=== PATIENT | male | born 1960 | race African-American/Black ===

== ENCOUNTER 2016-08-12 14:36 | Inpatient (IN) | payer MEDICARE, BC ==
[~2016-08-12] VITALS: Ht 167.6 cm; Wt 68.2 kg
[~2016-08-12 14:36] MED LIST: ACET500T68 PO; AMLO10TA2 PO; AMMO226L TP; ASPI325T4 PO; ATOR20TA58 PO; BENZ100C PO; CALC200T3 PO; CARV12.5 PO; CARV3.122 PO; CARV6.252 PO; CLON0.2T PO; DARB60DI SQ; ENOX40DI SQ; FERR-26 PO; FLUT9.9S NS; FOLI0.8T3 PO; HYDR-210 PO; HYDR-2762 PO; INSU100I11 SQ; INSU100I13 SQ; INSU100I17 SQ; INSU100V8 SQ; IPRA3AMP NEB; IRON18TA PO; LISI-334 PO; LISI40TA PO; LORA10TA68 PO; MINO100C PO; ONDA4TAB12 PO; ONDA4TAB7 PO; OXYC10TA57 PO; OXYC5CAP3 PO; OXYC5TAB PO; PANT40TA5 PO; PROM6.25 PO; RAMI10CA PO; SENN1TAB7 PO; SODI650T PO; SUCR1TAB29 PO; VIT1TABL57 PO; ZOLP10TA PO
--- NOTE | 2016-08-12 15:25 | RAD ---
EXAM: Chest one view. HISTORY: Altered mental status. COMPARISON: 01/14/2016. FINDINGS: A frontal view of the chest is obtained. The inspiration is small. There are mild interstitial opacities in the left greater than right bases, improved since the prior study. There is no pneumothorax or clear pleural effusion. The heart is not enlarged. IMPRESSION: 1. Mild basilar interstitial opacities indicate atelectasis, possibly with mild pulmonary edema or atypical pneumonia.
--- NOTE | 2016-08-12 15:49 | RAD ---
EXAM: CT head without contrast. HISTORY: Right-sided weakness, altered mental status. TECHNIQUE: Computed tomography of the head was performed without intravenous contrast. COMPARISON: 11/11/2012. FINDINGS: There is no intracranial hemorrhage. There is a moderately sized subacute infarct in the left parietal lobe. Hypoattenuation within the periventricular white matter indicates moderate chronic small vessel ischemic change. There is a chronic lacunar infarct in the left anterior thalamus. Prominence of the lateral ventricles and hemispheric sulci indicate moderate atrophy. There is moderate mucosal thickening in the maxillary sinuses and ethmoid air cells. There is a chronic left medial orbital wall blowout fracture. There are changes of bilateral cataract surgery. There is moderate proptosis bilaterally without intraorbital mass. There is a small amount of fluid in the right mastoid air cells. The calvarium reveals no suspicious lesions. There are dense atherosclerotic calcifications of the internal carotid and vertebral arteries. IMPRESSION: 1. Moderately sized subacute left parietal infarct. 2. Moderate atrophy and chronic small vessel ischemic white matter change. 3. Moderate proptosis without abnormal mass. Correlate for thyroid ophthalmopathy. *One or more of the following individualized dose reduction techniques were utilized for this examination: 1. Automated exposure control. 2. Adjustment of the mA and/or kV according to patient size. 3. Use of iterative reconstruction technique.
[2016-08-12] MEDS ORDERED: IV NORMAL SALINE 250ML 500 ML IV ONE (16:00)
[2016-08-12] MEDS ORDERED: ONDANSETRON PF 4 MG/2 ML VIAL. IV PRN (16:45)
[2016-08-12] MEDS ORDERED: VANCOMYCIN PER PHARMACY MC STA (16:49)
[2016-08-12] MEDS ORDERED: PIP/TAZO PER PHARMACY MC ONE (17:00)
[2016-08-12] MEDS ORDERED: VANCOMYCIN 1.75 GM in IV NORMAL SALINE 500ML BAG 500 ML IV ONE (17:00)
[2016-08-12] MEDS ORDERED: PIPERACILLIN/TAZOBACTAM 4.5 GM in IV NORMAL SALINE 100ML 100 ML IV ONE (17:00)
[2016-08-12 17:24] LABS: BASO % 1 % (0-3); EOS % 7 % (0-3); HEMATOCRIT 33.2 % (39.0-53.0); HEMOGLOBIN 10.5 g/dL (13.0-17.5); LYMPH # 0.8 x10^3/uL (1.0-4.8); LYMPH % 11 % (24-48); MEAN CORPUSCULAR HEMOGLOBIN 29 pg (25-35); MEAN CORPUSCULAR HGB CONC 32 g/dL (31-37); MEAN CORPUSCULAR VOLUME 92 fL (79-100); MONO % 12 % (0-9); NEUT % 69 % (31-73); PLATELET COUNT 210 x10^3/uL (140-400); RED CELL DISTRIBUTION WIDTH 20.9 % (11.5-14.5); WHITE BLOOD COUNT 7.4 x10^3/uL (4.0-11.0)
[2016-08-12 17:37] LABS: CALCIUM 9.1 mg/dL (8.5-10.1); CREATININE 6.5 mg/dL (0.7-1.3); GFR 10.8; POTASSIUM 4.8 mmol/L (3.5-5.1)
[2016-08-12 17:37] LABS: OBC FLU VALID
[2016-08-12 17:44] LABS: ALBUMIN 3.4 g/dL (3.4-5.0); DIRECT BILIRUBIN 0.1 mg/dL (0.0-0.2); TOTAL BILIRUBIN 0.5 mg/dL (0.2-1.0); TOTAL PROTEIN 7.5 g/dL (6.4-8.2)
[2016-08-12 19:43] LABS: HYPOCHROMIA SLIGHT; OVALOCYTES OCC; PLT ESTIMATE ADEQUATE (ADEQUATE); POLYCHROMASIA SLIGHT
[2016-08-12 20:25] VITALS: BP 152/90
--- NOTE | 2016-08-12 21:26 | PHYS DOC ---
Past Medical History Past Medical History: Diabetes-Type I, High Cholesterol, Hypertension Past Surgical History: Other Additional Past Surgical Histo: LT FOOT FASCHIATOMY - 2010, L BKA, R toe amputations Alcohol Use: None Drug Use: None Adult General Chief Complaint Chief Complaint: ALTERED MENTAL STATUS HPI HPI Patient is a 56 year old gentleman who presents to the ER today secondary to generalized weakness. According the family went to hemodialysis this afternoon when he returned home he was too weak to get out of the bus. The initially reported that he had right lower extremity weakness however in reality is patient has had a left BKA so she is not able to whether or not the right lower semi-was weaker than the left or whether or not he had just diffuse weakness. Patient's reports he has no slurring of speech and she reports that he's had no weakness in his upper extremities. Patient reports that he has been coughing a lot. He denies any fevers shaking chills nausea vomiting diarrhea chest pain or shortness of breath. Patient does have a history of end-stage renal disease, he is on hemodialysis, he is a diabetic, he had a stroke approximately one year ago with no residual deficit, he's had a left BKA, he had no coronary disease, no history of atrial fibrillation, no liver or lung problems. Patient's physical exam the ER was significant for just generalized weakness. Patient is alert awake and oriented 3. He has normal speech. He has no facial droop. Patient's upper extremities are equal in strength bilaterally. Patient's right lower extremity is a 5 out of 5 in strength. Patient has a left BKA. In the ER the patient was noted to have a temperature 100.6. Patient's ER workup was unremarkable. Patient's labs did not show any acute changes. Patient had a set of blood cultures drawn as well as a flu test. Patient was empirically started on antibiotics for his fever given the fact that he is a dialysis patient patient was given Vanco and Zosyn. The etiology of his fever is currently unclear. The case was discussed with his doctor Dr. Thompson and he'll be admitted to the hospital with a consult for nephrology. Review of Systems Review of Systems Eyes: Denies change in visual acuity, redness, or eye pain [] HENT: Denies nasal congestion or sore throat [] All other review systems are negative except as documented by the history of present illness portion. Current Medications Current Medications Current Medications Medications (Trade) Dose Ordered Sig/Teresa Start Time Stop Time Status Last Admin Dose Admin Sodium Chloride (Iv Sodium Chloride 0.9% 250ml) 500 ml @ 999 mls/hr 1X ONCE 08/12/16 16:00 08/12/16 16:30 DC 08/12/16 16:00 999 MLS/HR Allergies Allergies Allergies Coded Allergies Type Severity Reaction Last Updated Verified No Known Drug Allergies 01/06/16 No Physical Exam Physical Exam Constitutional: Well developed, well nourished, no acute distress, non-toxic appearance. [] HENT: Normocephalic, atraumatic, bilateral external ears normal, oropharynx moist, no oral exudates, nose normal. [] Eyes: PERRLA, EOMI, conjunctiva normal, no discharge. [] Neck: Normal range of motion, no tenderness, supple, no stridor. [] Cardiovascular: Tachycardic. Lungs & Thorax: Basilar rales bilaterally. Abdomen: Bowel sounds normal, soft, no tenderness, no masses, no pulsatile masses. [] Skin: Warm, dry, no erythema, no rash. [] Back: No tenderness, no CVA tenderness. [] Extremities: No tenderness, no cyanosis Neurologic: Alert and oriented X 3, normal motor function, Psychologic: Affect normal, judgement normal, mood normal. [] Current Patient Data Vital Signs Vital Signs Date Time Temp Pulse Resp B/P Pulse Ox O2 Delivery O2 Flow Rate FiO2 08/12/16 14:40 99.7 116 14 138/78 97 Room Air 99.7 EKG EKG [] Radiology/Procedures Radiology/Procedures [] Impressions: Patient's chest x-ray did not reveal any infiltrates or effusions. Patient have increased markings on the right lower lobe consistent likely with increased vascular congestion. This is interpreted by Dr. Coronel. Course & Med Decision Making Course & Med Decision Making Pertinent Labs and Imaging studies reviewed. (See chart for details) [] Dragon Disclaimer Dragon Disclaimer This electronic medical record was generated, in whole or in part, using a voice recognition dictation system. Departure Departure Impression: Primary Impression: Sepsis Additional Impressions: IDDM (insulin dependent diabetes mellitus) Fever ESRD (end stage renal disease) on dialysis Disposition: ADMITTED INPATIENT Admitting Physician: Viktor Park Condition: GUARDED Referrals: VIKTOR PARK MD (PCP) Problem Qualifiers CECE ELAINE MD Aug 12, 2016 21:25
[2016-08-12 21:42] VITALS: BP 152/90
[2016-08-12] MEDS ORDERED: ONDANSETRON ODT 4 MG TAB.RAPDIS PO PRN (21:45)
[2016-08-12] MEDS ORDERED: DEXTROSE 50% 25 GM / 50ML DISP.SYRIN. IV PRN (21:45)
[2016-08-12] MEDS: INSULIN ASPART 300 UNITS/3 ML INSULN.PEN SQ SCH (21:45)
[2016-08-12] MEDS ORDERED: HYDROCODONE/APAP 7.5/325MG TABLET. PO PRN (21:45)
[2016-08-12] MEDS ORDERED: ASPIRIN 325 MG TABLET PO ONE (22:00)
[2016-08-12 23:00] VITALS: BP_SYST 126; BP_SYST 136; BP_DIAS 65; BP_DIAS 72
[2016-08-13 03:00] VITALS: BP 136/72
[2016-08-13 05:27] LABS: BASO % 1 % (0-3); EOS % 10 % (0-3); HEMATOCRIT 31.8 % (39.0-53.0); LYMPH # 0.9 x10^3/uL (1.0-4.8); LYMPH % 15 % (24-48); MEAN CORPUSCULAR HEMOGLOBIN 29 pg (25-35); MEAN CORPUSCULAR HGB CONC 32 g/dL (31-37); MEAN CORPUSCULAR VOLUME 93 fL (79-100); MONO % 12 % (0-9); NEUT % 62 % (31-73); PLATELET COUNT 211 x10^3/uL (140-400); RED BLOOD COUNT 3.41 x10^6/uL (4.30-5.70); RED CELL DISTRIBUTION WIDTH 20.7 % (11.5-14.5); WHITE BLOOD COUNT 5.8 x10^3/uL (4.0-11.0)
[2016-08-13 06:19] LABS: CALCIUM 8.7 mg/dL (8.5-10.1); CREATININE 7.7 mg/dL (0.7-1.3); GFR 8.9; POTASSIUM 5.1 mmol/L (3.5-5.1)
--- NOTE | 2016-08-13 06:37 | EKG ---
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
--- NOTE | 2016-08-13 07:41 | RAD ---
Carotid ultrasound, 08/12/2016: History: Right-sided weakness, altered mental status Duplex evaluation of the carotid arteries in neck was performed including grayscale, color-flow and spectral Doppler analysis. There is mild atherosclerotic plaquing in the left common carotid artery, with a lesser degree of plaque in the right common carotid arteries and at both carotid bifurcations. The plaques are partially calcified. No significant velocity acceleration is seen at either carotid bifurcation to suggest hemodynamically significant carotid stenosis. The peak systolic velocity in the right internal carotid artery is 86 cm/s and on the left is 106 cm/s. Antegrade flow is present in both vertebral arteries in the neck. IMPRESSION: Mild atherosclerotic plaquing plaquing at the carotid bifurcations with underlying luminal narrowing in the 0-50% diameter range bilaterally. Note: Stenosis calculations for CT, MRA and conventional angiography are based upon determination of the distal ICA diameter in accordance with the NASCET methodology. Stenosis calculations for Doppler studies are derived from validated velocity criteria which are known to correlate with NASCET methodology of determining stenosis.
[2016-08-13] MEDS: INSULIN ASPART 300 UNITS/3 ML INSULN.PEN SQ SCH ×6 (08:00→17:00)
[2016-08-13 08:07] VITALS: BP 150/72
[2016-08-13] MEDS: CARVEDILOL 6.25 MG TABLET PO SCH ×2 (08:14→18:07)
[2016-08-13] MEDS: ASPIRIN 325 MG TABLET PO SCH (08:14)
[2016-08-13] MEDS: LISINOPRIL 20 MG TABLET PO SCH (08:15)
[2016-08-13] MEDS: SODIUM BICARBONATE 650 MG TABLET. PO SCH ×2 (08:16→20:14)
[2016-08-13] MEDS: SENNOSIDES/DOCUSATE 8.6/50MG TABLET. PO SCH (08:16)
[2016-08-13] MEDS: FLUTICASONE 50MCG/NASAL SPRAY 16GM BOTTLE. NS SCH (08:17)
[2016-08-13] MEDS: IPRATRPIUM/ALBUTEROL 0.5/2.5MG 3 ML NEBU. NEB SCH ×4 (09:37→20:45)
--- NOTE | 2016-08-13 10:12 | PDOC ---
Infectious Disease Note ROS ROS GEN: Denies fevers, chills, sweats HEENT: Denies blurred vision, sore throat CV: Denies chest pain RESP: Denies shortness of air, cough GI: Denies n/v/d NEURO: Denies confusion, dizziness MSK: Denies weakness, joint pain/swelling Vital Sign Vital Signs Vital Signs Date Time Temp Pulse Resp B/P Pulse Ox O2 Delivery O2 Flow Rate FiO2 08/13/16 09:37 97 Room Air 08/13/16 08:15 102 150/72 08/13/16 08:07 97.9 18 97.9 Physical Exam PHYSICAL EXAM GENERAL: NAD, Alert HEENT: PERRL, OC/OP NECK: Supple, no JVD, no LN LUNGS: Clear HEART: S1S2, no gallop, no murmur ABD: Soft, NT, no organomegaly, no rebound EXT: No edema, no cyanosis [employer]: Alert, 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, no focal neurologic deficit SKIN: No rash IV: ok Labs Lab Laboratory Tests Test 08/12/16 16:25 08/12/16 16:31 08/12/16 16:39 08/12/16 17:10 Bedside Troponin I 0.02ng/ml (<0.08) Bedside Hemoglobin 12.2g/dL (14-18) Bedside Hematocrit 36% (37-52) Bedside Sodium 135mmol/L (135-145) Bedside Potassium 5.0mmol/L (3.5-5.0) Bedside Chloride 102mmol/L (98-110) Bedside Total CO2 26mmol/L (23-32) Anion Gap 13mmol/L (6-14) 13 (6-14) Bedside Blood Urea Nitrogen 33mg/dL (8-26) Bedside Creatinine 6.8mg/dL (0.5-1.4) Glucose Level 109mg/dL (70-99) 109mg/dL (70-99) Bedside Ionized Calcium (Melany) 0.96mmol/L (1.13-1.32) White Blood Count 7.4x10^3/uL (4.0-11.0) Red Blood Count 3.60x10^6/uL (4.30-5.70) Hemoglobin 10.5g/dL (13.0-17.5) Hematocrit 33.2% (39.0-53.0) Mean Corpuscular Volume 92fL (79-100) Mean Corpuscular Hemoglobin 29pg (25-35) Mean Corpuscular Hemoglobin Concent 32g/dL (31-37) Red Cell Distribution Width 20.9% (11.5-14.5) Platelet Count 210x10^3/uL (140-400) Neutrophils (%) (Auto) 69% (31-73) Lymphocytes (%) (Auto) 11% (24-48) Monocytes (%) (Auto) 12% (0-9) Eosinophils (%) (Auto) 7% (0-3) Basophils (%) (Auto) 1% (0-3) Neutrophils # (Auto) 5.1x10^3uL (1.8-7.7) Lymphocytes # (Auto) 0.8x10^3/uL (1.0-4.8) Monocytes # (Auto) 0.9x10^3/uL (0.0-1.1) Eosinophils # (Auto) 0.5x10^3/uL (0.0-0.7) Basophils # (Auto) 0.0x10^3/uL (0.0-0.2) Platelet Estimate Adequate (ADEQUATE) Polychromasia Slight Hypochromasia Slight Ovalocytes Occ Sodium Level 140mmol/L (136-145) Potassium Level 4.8mmol/L (3.5-5.1) Chloride Level 101mmol/L (98-107) Carbon Dioxide Level 26mmol/L (21-32) Blood Urea Nitrogen 27mg/dL (8-26) Creatinine 6.5mg/dL (0.7-1.3) Estimated GFR (Cockcroft-Gault) 10.8 Lactic Acid Level 0.7mmol/L (0.4-2.0) Calcium Level 9.1mg/dL (8.5-10.1) Total Bilirubin 0.5mg/dL (0.2-1.0) Direct Bilirubin 0.1mg/dL (0.0-0.2) Aspartate Amino Transf (AST/SGOT) 20U/L (15-37) Alanine Aminotransferase (ALT/SGPT) 21U/L (16-63) Alkaline Phosphatase 66U/L (46-116) Total Protein 7.5g/dL (6.4-8.2) Albumin 3.4g/dL (3.4-5.0) Influenza Type A Antigen Negative (NEGATIVE) Influenza Type B Antigen Negative (NEGATIVE) Test 08/12/16 20:51 08/13/16 04:45 08/13/16 08:02 Glucose (Fingerstick) 83mg/dL (70-99) 139mg/dL (70-99) White Blood Count 5.8x10^3/uL (4.0-11.0) Red Blood Count 3.41x10^6/uL (4.30-5.70) Hemoglobin 10.0g/dL (13.0-17.5) Hematocrit 31.8% (39.0-53.0) Mean Corpuscular Volume 93fL (79-100) Mean Corpuscular Hemoglobin 29pg (25-35) Mean Corpuscular Hemoglobin Concent 32g/dL (31-37) Red Cell Distribution Width 20.7% (11.5-14.5) Platelet Count 211x10^3/uL (140-400) Neutrophils (%) (Auto) 62% (31-73) Lymphocytes (%) (Auto) 15% (24-48) Monocytes (%) (Auto) 12% (0-9) Eosinophils (%) (Auto) 10% (0-3) Basophils (%) (Auto) 1% (0-3) Neutrophils # (Auto) 3.6x10^3uL (1.8-7.7) Lymphocytes # (Auto) 0.9x10^3/uL (1.0-4.8) Monocytes # (Auto) 0.7x10^3/uL (0.0-1.1) Eosinophils # (Auto) 0.6x10^3/uL (0.0-0.7) Basophils # (Auto) 0.0x10^3/uL (0.0-0.2) Sodium Level 142mmol/L (136-145) Potassium Level 5.1mmol/L (3.5-5.1) Chloride Level 104mmol/L (98-107) Carbon Dioxide Level 25mmol/L (21-32) Anion Gap 13 (6-14) Blood Urea Nitrogen 33mg/dL (8-26) Creatinine 7.7mg/dL (0.7-1.3) Estimated GFR (Cockcroft-Gault) 8.9 Glucose Level 172mg/dL (70-99) Lactic Acid Level 0.7mmol/L (0.4-2.0) Calcium Level 8.7mg/dL (8.5-10.1) Objective Assessment Fever CVA ? age Chest congestion CKD on HD H/o Endocarditis/diskitis Plan Plan of Care Cont Vanc/Zosyn Add Doxy for atypical F/u labs and cults Await Neuro eval F/u ECHO Thank you # [id number] JOSEFA MARIN MD Aug 13, 2016 10:12
[2016-08-13] MEDS: ATORVASTATIN CALCIUM 20 MG TABLET PO SCH (10:16)
[2016-08-13] MEDS: FOLIC/VIT B COMP W-C (RENAL) TABLET. PO SCH (10:16)
--- NOTE | 2016-08-13 10:16 | PDOC ---
Provider Note Provider Note Pt seen.H&P dictated. #[id number] VIKTOR PARK MD Aug 13, 2016 10:16
[2016-08-13] MEDS: CLONIDINE HCL 0.2 MG TABLET PO SCH (10:17)
[2016-08-13] MEDS: AMLODIPINE BESYLATE 10 MG TABLET PO SCH (10:17)
[2016-08-13] MEDS: PIPERACILLIN/TAZOBACTAM 2.25 GM in IV NORMAL SALINE 50ML 50 ML IV SCH ×3 (10:23→22:00)
[2016-08-13] MEDS: DOXYCYCLINE HYCLATE 100 MG TABLET PO SCH ×2 (10:26→20:14)
--- NOTE | 2016-08-13 10:36 | PDOC2 ---
CONSULT Date of Consult Date of Consult DATE: 08/13/16 TIME: 10:33 Reason for Consult Reason for Consult: ESRD Referring Physician Referring Physician: Dr Medina Identification/Chief Complaint Chief Complaint Weakness and Low Grade fever Problems: Source Source: Caregiver, Chart review, Patient History of Present Illness Reason for Visit: as dictated Past Medical History Cardiovascular: HTN, Hyperlipidemia, Other Pulmonary: No pertinent hx CENTRAL NERVOUS SYSTEM: Other GI: No pertinent hx Heme/Onc: Anemia NOS Hepatobiliary: No pertinent hx Psych: No pertinent hx Musculoskeletal: No pain, Other Rheumatologic: No pertinent hx Infectious disease: No pertinent hx Renal/: Chronic renal failure Endocrine: Diabetes, Hyperparathyroidism Past Surgical History Past Surgical History: Other Family History Family History: Diabetes, Hypertension, Kidney Disease Social History ALCOHOL: none Drugs: None Lives: Alone Current Problem List Problem List Problems Medical Problems: (1) ESRD (end stage renal disease) Status: Acute (2) ESRD (end stage renal disease) on dialysis Status: Acute (3) Fever Status: Acute (4) IDDM (insulin dependent diabetes mellitus) Status: Acute (5) Sepsis Status: Acute (6) Weak Status: Acute Current Medications Current Medications Current Medications Sodium Chloride (Iv Sodium Chloride 0.9% 250ml) 500 ml @ 999 mls/hr 1X ONCE IV Last administered on 08/12/16 16:00; Start 08/12/16 at 16:00; Stop at 16:30; Status DC Ondansetron HCl (Zofran) 4 mg PRN Q8HRS PRN IV NAUSEA/VOMITING; Start 08/12/16 at 16:45; Stop 08/13/16 at 16:44 Vancomycin HCl (Vanco Per Pharmacy) 1 each 1X STAT [facility] ; Start 08/12/16 at 16:49 ; Stop 08/12/16 at 16:54; Status DC Piperacillin Sod/ Tazobactam Sod 1 each 1 each 1X ONCE [facility] ; Start 08/12/16 at 17:00; Stop 08/12/16 at 17:01; Status DC Vancomycin HCl 1.75 gm/Sodium Chloride 500 ml @ 250 mls/hr ONCE ONCE IV Last administered on 08/12/16 18:29; Start 08/12/16 at 17:00; Stop 08/12/16 at 18:59 ; Status DC Piperacillin Sod/ Tazobactam Sod/ Sodium Chloride (Zosyn/Iv Sodium Chloride 0.9 % 100ml) 100 ml @ 200 mls/hr 1X ONCE IV Last administered on 08/12/16 17:08 ; Start 08/12/16 at 17:00; Stop 08/12/16 at 17:29; Status DC Aspirin (Radha Aspirin) 325 mg 1X ONCE PO ; Start 08/12/16 at 22:00; Stop 08/12 at 22:01; Status DC Aspirin ([employer] Aspirin) 325 mg DAILYWBKFT PO Last administered on 08/13/16 08: 14; Start 08/13/16 at 08:00 Amlodipine Besylate (Norvasc) 10 mg DAILY PO Last administered on 08/13/16 10: 17; Start 08/13/16 at 09:00 Atorvastatin Calcium (Lipitor) 20 mg DAILY PO Last administered on 08/13/16 10 :16; Start 08/13/16 at 09:00 Carvedilol (Coreg) 6.25 mg BIDWMEALS PO Last administered on 08/13/16 08:14; Start 08/13/16 at 08:00 Clonidine HCl (Catapres) 0.2 mg DAILY PO Last administered on 08/13/16 10:17; Start 08/13/16 at 09:00 Acetaminophen/ Hydrocodone Bitart (Lortab 7.5/325) 1 tab PRN Q4HRS PRN PO SEVERE PAIN; Start 08/12/16 at 21:45 Insulin Aspart (Novolog) 12 units TIDWMEALS SQ Last administered on 08/13/16 08:25; Start 08/12/16 at 21:45 Albuterol/ Ipratropium (Duoneb) 3 ml RTQID NEB Last administered on 08/13/16 09:37; Start 08/13/16 at 08:00 Lisinopril (Prinivil) 20 mg DAILY PO Last administered on 08/13/16 08:15; Start 08/13/16 at 09:00 Ondansetron HCl (Zofran Odt) 4 mg PRN Q4HRS PRN PO NAUSEA/VOMITING; Start 08/12 at 21:45 Senna/Docusate Sodium (Senna Plus) 1 tab DAILY PO Last administered on 08:16; Start 08/13/16 at 09:00 Sodium Bicarbonate (Sodium Bicarbonate) 650 mg BID PO Last administered on 08/13 08:16; Start 08/13/16 at 09:00 Fluticasone Propionate (Flonase) 2 spray DAILY NS Last administered on 08:17; Start 08/13/16 at 09:00 Vitamin B Complex/ Vitamin C (Nephro-Lisa) 1 tab DAILY PO Last administered on 08/13/16 10:16; Start 08/13/16 at 09:00 Insulin Aspart (Novolog) 0-7 UNITS TIDWMEALS SQ ; Start 08/13/16 at 08:00 Dextrose 12.5 gm 12.5 gm PRN Q15MIN PRN IV SEE COMMENTS; Start 08/12/16 at 21: 45 Piperacillin Sod/ Tazobactam Sod/ Sodium Chloride (Zosyn/Iv Sodium Chloride 0.9 % 50ml) 50 ml @ 100 mls/hr Q8HRS IV Last administered on 08/13/16 10:23; Start 08/13/16 at 06:00 Doxycycline Hyclate (Vibra-Tab) 100 mg BID PO Last administered on 08/13/16 10 :26; Start 08/13/16 at 10:00 Active Scripts Active Reported Senna-Docusate Sodium Tablet (Sennosides/Docusate Sodium) 1 Each Tablet 1 Each PO DAILY Ondansetron Odt (Ondansetron) 4 Mg Tab.rapdis 1 Tab PO Q4H PRN Lisinopril 20 Mg Tablet 1 Tab PO DAILY Duoneb 0.5-3(2.5) Mg/3 Ml (Albuterol/Ipratropium) 3 Ml Ampul.neb 3 Ml NEB QID Hydrocodone-Apap 7.5-325 (Hydrocodone Bit/Acetaminophen) 1 Each Tablet 1 Tab PO Q4HRS PRN Aranesp Syringe (Darbepoetin Greg In Polysorbat) 60 Mcg/0.3 Ml Disp.syrin 60 Mcg SQ WEEKLY Lac-Hydrin Five (Ammonium Lactate) 113 Gm Lotion 113 Gm TP BID Amlodipine Besylate 10 Mg Tablet 10 Mg PO DAILY Aspirin 325 Mg Tablet 1 Tab PO DAILY Clonidine Hcl 0.2 Mg Tablet 0.2 Mg PO DAILY Flonase Allergy Relief (Fluticasone Propionate) 9.9 Ml [place].susp 1 Sprays NS BID Carvedilol 6.25 Mg Tablet 1 Tab PO BID Atorvastatin Calcium 20 Mg Tablet 1 Tab PO DAILY Novolog Flexpen (Insulin Aspart) 100 Unit/1 Ml Insuln.pen 12 Unit SQ TIDWMEALS PRN Lantus Solostar (Insulin Glargine,Hum.rec.anlog) 100 Unit/1 Ml Insuln.pen 15 Unit SQ QHS Sodium Bicarbonate 650 Mg Tablet 1 Tab PO BID Nephro-Lisa Rx Tablet (Vit B Cmplx 3/Fa/Vit C/Biotin) 1 Each Tablet 1 Each PO DAILY Allergies Allergies: Coded Allergies: No Known Drug Allergies (Unverified , 01/06/16) ROS Review of System GEN: no Fevers no Chills Min weakness EYES: no new Visual Complaints ENT: no EN Drainage no Hearing deficiets CVS: no Orthopnea no CP RESP: no SOB no GODDARD GI: no Nausea no Vomiting : no Dysuria no Urgency HEME: no easy bruising no Palp Ly Nodes NEURO no Focal Weakness no Sz PSYCH: no Suicidal Ideation no Depression SKIN: no Rashes ENDO: no Polyuria or Polydipsia no Hot/Cold Intolerance MU SK: no Arthraigia no Myalgia Physical Exam Physical Exam General Appearance: Awake Alert Oriented x 3 In no Distress Eyes: VIsion Unchanged Conjunctiva Normal; mild Exopthalmos EN: No EN Drainage Mucous Memb. moist Neck: no JVD min JVP Supple no Thyromegaly CVS: S1 S2 + Murmur No Gallop No Rub no Edema Resp: no Rales no Rhonchi no Acc. Muscle use GI: BAS +ve NO Bruit Non Tender Non Distended : no CVA tenderness; no Suprapubic Tenderness SKIN: no Rashes Breast Exam deferred Mu.Sk: Adequate ROM no Muscle Atrophy; Left BKA with prosthesis Heme: Unable to palpate Obvious LAD no palp Splenomegaly NEURO: Good Strength and Tone Cranial Nerves II - XII grossly intact Psych: not Depressed no Active hallucination Vital Signs Vital Signs Date Time Temp Pulse Resp B/P Pulse Ox O2 Delivery O2 Flow Rate FiO2 08/13/16 10:17 102 150/72 08/13/16 09:37 97 Room Air 08/13/16 08:07 97.9 18 97.9 Assessment & Plan ESRD: Current FLuid and E-lyte status does not necessitate emergent need for Dialysis. Will re-evaluate for Dialysis in am and continue on MWF schedule. Anemia: Epogen Transfuse with next HD as needed. HTN: Current BP meds reviewed. See orders for changes. YANN / Bone & Mineral: F/up as OP,watch phos trend and alter binder regimen as needed Fevers - being evaluated by Dr Campos Discussed Plan of Care and prognosis etc. at length with family. Labs Labs Laboratory Tests Test 08/12/16 16:25 08/12/16 16:31 08/12/16 16:39 08/12/16 17:10 Bedside Troponin I 0.02ng/ml (<0.08) Bedside Hemoglobin 12.2g/dL (14-18) Bedside Hematocrit 36% (37-52) Bedside Sodium 135mmol/L (135-145) Bedside Potassium 5.0mmol/L (3.5-5.0) Bedside Chloride 102mmol/L (98-110) Bedside Total CO2 26mmol/L (23-32) Anion Gap 13mmol/L (6-14) 13 (6-14) Bedside Blood Urea Nitrogen 33mg/dL (8-26) Bedside Creatinine 6.8mg/dL (0.5-1.4) Glucose Level 109mg/dL (70-99) 109mg/dL (70-99) Bedside Ionized Calcium (Melany) 0.96mmol/L (1.13-1.32) White Blood Count 7.4x10^3/uL (4.0-11.0) Red Blood Count 3.60x10^6/uL (4.30-5.70) Hemoglobin 10.5g/dL (13.0-17.5) Hematocrit 33.2% (39.0-53.0) Mean Corpuscular Volume 92fL (79-100) Mean Corpuscular Hemoglobin 29pg (25-35) Mean Corpuscular Hemoglobin Concent 32g/dL (31-37) Red Cell Distribution Width 20.9% (11.5-14.5) Platelet Count 210x10^3/uL (140-400) Neutrophils (%) (Auto) 69% (31-73) Lymphocytes (%) (Auto) 11% (24-48) Monocytes (%) (Auto) 12% (0-9) Eosinophils (%) (Auto) 7% (0-3) Basophils (%) (Auto) 1% (0-3) Neutrophils # (Auto) 5.1x10^3uL (1.8-7.7) Lymphocytes # (Auto) 0.8x10^3/uL (1.0-4.8) Monocytes # (Auto) 0.9x10^3/uL (0.0-1.1) Eosinophils # (Auto) 0.5x10^3/uL (0.0-0.7) Basophils # (Auto) 0.0x10^3/uL (0.0-0.2) Platelet Estimate Adequate (ADEQUATE) Polychromasia Slight Hypochromasia Slight Ovalocytes Occ Sodium Level 140mmol/L (136-145) Potassium Level 4.8mmol/L (3.5-5.1) Chloride Level 101mmol/L (98-107) Carbon Dioxide Level 26mmol/L (21-32) Blood Urea Nitrogen 27mg/dL (8-26) Creatinine 6.5mg/dL (0.7-1.3) Estimated GFR (Cockcroft-Gault) 10.8 Lactic Acid Level 0.7mmol/L (0.4-2.0) Calcium Level 9.1mg/dL (8.5-10.1) Total Bilirubin 0.5mg/dL (0.2-1.0) Direct Bilirubin 0.1mg/dL (0.0-0.2) Aspartate Amino Transf (AST/SGOT) 20U/L (15-37) Alanine Aminotransferase (ALT/SGPT) 21U/L (16-63) Alkaline Phosphatase 66U/L (46-116) Total Protein 7.5g/dL (6.4-8.2) Albumin 3.4g/dL (3.4-5.0) Influenza Type A Antigen Negative (NEGATIVE) Influenza Type B Antigen Negative (NEGATIVE) Test 08/12/16 20:51 08/13/16 04:45 08/13/16 08:02 Glucose (Fingerstick) 83mg/dL (70-99) 139mg/dL (70-99) White Blood Count 5.8x10^3/uL (4.0-11.0) Red Blood Count 3.41x10^6/uL (4.30-5.70) Hemoglobin 10.0g/dL (13.0-17.5) Hematocrit 31.8% (39.0-53.0) Mean Corpuscular Volume 93fL (79-100) Mean Corpuscular Hemoglobin 29pg (25-35) Mean Corpuscular Hemoglobin Concent 32g/dL (31-37) Red Cell Distribution Width 20.7% (11.5-14.5) Platelet Count 211x10^3/uL (140-400) Neutrophils (%) (Auto) 62% (31-73) Lymphocytes (%) (Auto) 15% (24-48) Monocytes (%) (Auto) 12% (0-9) Eosinophils (%) (Auto) 10% (0-3) Basophils (%) (Auto) 1% (0-3) Neutrophils # (Auto) 3.6x10^3uL (1.8-7.7) Lymphocytes # (Auto) 0.9x10^3/uL (1.0-4.8) Monocytes # (Auto) 0.7x10^3/uL (0.0-1.1) Eosinophils # (Auto) 0.6x10^3/uL (0.0-0.7) Basophils # (Auto) 0.0x10^3/uL (0.0-0.2) Sodium Level 142mmol/L (136-145) Potassium Level 5.1mmol/L (3.5-5.1) Chloride Level 104mmol/L (98-107) Carbon Dioxide Level 25mmol/L (21-32) Anion Gap 13 (6-14) Blood Urea Nitrogen 33mg/dL (8-26) Creatinine 7.7mg/dL (0.7-1.3) Estimated GFR (Cockcroft-Gault) 8.9 Glucose Level 172mg/dL (70-99) Lactic Acid Level 0.7mmol/L (0.4-2.0) Calcium Level 8.7mg/dL (8.5-10.1) Laboratory Tests Test 08/12/16 16:25 08/12/16 16:31 08/12/16 16:39 08/12/16 17:10 Bedside Troponin I 0.02ng/ml (<0.08) Bedside Hemoglobin 12.2g/dL (14-18) Bedside Hematocrit 36% (37-52) Bedside Sodium 135mmol/L (135-145) Bedside Potassium 5.0mmol/L (3.5-5.0) Bedside Chloride 102mmol/L (98-110) Bedside Total CO2 26mmol/L (23-32) Anion Gap 13mmol/L (6-14) 13 (6-14) Bedside Blood Urea Nitrogen 33mg/dL (8-26) Bedside Creatinine 6.8mg/dL (0.5-1.4) Glucose Level 109mg/dL (70-99) 109mg/dL (70-99) Bedside Ionized Calcium (Melany) 0.96mmol/L (1.13-1.32) White Blood Count 7.4x10^3/uL (4.0-11.0) Red Blood Count 3.60x10^6/uL (4.30-5.70) Hemoglobin 10.5g/dL (13.0-17.5) Hematocrit 33.2% (39.0-53.0) Mean Corpuscular Volume 92fL (79-100) Mean Corpuscular Hemoglobin 29pg (25-35) Mean Corpuscular Hemoglobin Concent 32g/dL (31-37) Red Cell Distribution Width 20.9% (11.5-14.5) Platelet Count 210x10^3/uL (140-400) Neutrophils (%) (Auto) 69% (31-73) Lymphocytes (%) (Auto) 11% (24-48) Monocytes (%) (Auto) 12% (0-9) Eosinophils (%) (Auto) 7% (0-3) Basophils (%) (Auto) 1% (0-3) Neutrophils # (Auto) 5.1x10^3uL (1.8-7.7) Lymphocytes # (Auto) 0.8x10^3/uL (1.0-4.8) Monocytes # (Auto) 0.9x10^3/uL (0.0-1.1) Eosinophils # (Auto) 0.5x10^3/uL (0.0-0.7) Basophils # (Auto) 0.0x10^3/uL (0.0-0.2) Platelet Estimate Adequate (ADEQUATE) Polychromasia Slight Hypochromasia Slight Ovalocytes Occ Sodium Level 140mmol/L (136-145) Potassium Level 4.8mmol/L (3.5-5.1) Chloride Level 101mmol/L (98-107) Carbon Dioxide Level 26mmol/L (21-32) Blood Urea Nitrogen 27mg/dL (8-26) Creatinine 6.5mg/dL (0.7-1.3) Estimated GFR (Cockcroft-Gault) 10.8 Lactic Acid Level 0.7mmol/L (0.4-2.0) Calcium Level 9.1mg/dL (8.5-10.1) Total Bilirubin 0.5mg/dL (0.2-1.0) Direct Bilirubin 0.1mg/dL (0.0-0.2) Aspartate Amino Transf (AST/SGOT) 20U/L (15-37) Alanine Aminotransferase (ALT/SGPT) 21U/L (16-63) Alkaline Phosphatase 66U/L (46-116) Total Protein 7.5g/dL (6.4-8.2) Albumin 3.4g/dL (3.4-5.0) Influenza Type A Antigen Negative (NEGATIVE) Influenza Type B Antigen Negative (NEGATIVE) Test 08/12/16 20:51 08/13/16 04:45 08/13/16 08:02 Glucose (Fingerstick) 83mg/dL (70-99) 139mg/dL (70-99) White Blood Count 5.8x10^3/uL (4.0-11.0) Red Blood Count 3.41x10^6/uL (4.30-5.70) Hemoglobin 10.0g/dL (13.0-17.5) Hematocrit 31.8% (39.0-53.0) Mean Corpuscular Volume 93fL (79-100) Mean Corpuscular Hemoglobin 29pg (25-35) Mean Corpuscular Hemoglobin Concent 32g/dL (31-37) Red Cell Distribution Width 20.7% (11.5-14.5) Platelet Count 211x10^3/uL (140-400) Neutrophils (%) (Auto) 62% (31-73) Lymphocytes (%) (Auto) 15% (24-48) Monocytes (%) (Auto) 12% (0-9) Eosinophils (%) (Auto) 10% (0-3) Basophils (%) (Auto) 1% (0-3) Neutrophils # (Auto) 3.6x10^3uL (1.8-7.7) Lymphocytes # (Auto) 0.9x10^3/uL (1.0-4.8) Monocytes # (Auto) 0.7x10^3/uL (0.0-1.1) Eosinophils # (Auto) 0.6x10^3/uL (0.0-0.7) Basophils # (Auto) 0.0x10^3/uL (0.0-0.2) Sodium Level 142mmol/L (136-145) Potassium Level 5.1mmol/L (3.5-5.1) Chloride Level 104mmol/L (98-107) Carbon Dioxide Level 25mmol/L (21-32) Anion Gap 13 (6-14) Blood Urea Nitrogen 33mg/dL (8-26) Creatinine 7.7mg/dL (0.7-1.3) Estimated GFR (Cockcroft-Gault) 8.9 Glucose Level 172mg/dL (70-99) Lactic Acid Level 0.7mmol/L (0.4-2.0) Calcium Level 8.7mg/dL (8.5-10.1) Images Images 1. Moderately sized subacute left parietal infarct. 2. Moderate atrophy and chronic small vessel ischemic white matter change. 3. Moderate proptosis without abnormal mass. Correlate for thyroid ophthalmopathy. 1. Mild basilar interstitial opacities indicate atelectasis, possibly with mild pulmonary edema or atypical pneumonia. JONATHAN LYON MD Aug 13, 2016 10:36
[2016-08-13 11:00] VITALS: BP 111/85
--- NOTE | 2016-08-13 11:43 | CARD ---
APPROVED REPORT EXAM: Two-dimensional and M-mode echocardiogram with Doppler and color Doppler. Other Information Quality : Good INDICATION CVA/TIA 2D DIMENSIONS RVDd2.3 (2.9-3.5cm)Left Atrium(2D)3.9 (1.6-4.0cm) IVSd1.3 (0.7-1.1cm)Aortic Root(2D)2.2 (2.0-3.7cm) LVDd5.2 (3.9-5.9cm)LVOT Diameter2.0 (1.8-2.4cm) PWd0.9 (0.7-1.1cm)LVDs4.1 (2.5-4.0cm) FS (%) 25.0 %SV57.5 ml LVEF(%)50.0 (>50%) Aortic Valve AoV Peak Rashid.158.5cm/sAoV VTI26.9cm AO Peak GR.10.1mmHgLVOT Peak Rashid.123.9cm/s AO Mean GR.6mmHgAVA (VMAX)2.44cm2 JONE (VTI)2.90cm2 Mitral Valve MV E Jnmvtaur885.2cm/sMV DECEL [id number] MV A Ompxtsjs330.4cm/sE/A Ratio0.9 Pulmonary Vein S1 Svuncket08.2cm/sD2 Wtjtmvoa59.2cm/s LEFT VENTRICLE The left ventricle is normal size. There is mild concentric left ventricular hypertrophy. Left ventri chyna systolic function is low normal. The Ejection Fraction is 50-55%. There is hypokinesis in the inf eroposterior wall. Tissue Doppler imaging reveals mild left ventricular diastolic dysfunction. RIGHT VENTRICLE The right ventricle is normal size. The right ventricular systolic function is normal. ATRIA The left atrium size is normal. The right atrium size is normal. The interatrial septum is intact wit h no evidence for an atrial septal defect or patent foramen ovale as noted on 2-D or Doppler imaging. AORTIC VALVE The aortic valve is calcified but opens well. Doppler and Color Flow revealed trace aortic regurgitat ion. There is no significant aortic valvular stenosis. MITRAL VALVE The mitral valve is mildly thickened but opens well. Mitral annular calcification is moderate. There is no evidence of mitral valve prolapse. There is no mitral valve stenosis. Doppler and Color-flow re vealed mild to moderate mitral regurgitation. TRICUSPID VALVE The tricuspid valve is normal in structure and function. Doppler and Color Flow revealed trace tricus pid regurgitation. There is no tricuspid valve stenosis. PULMONIC VALVE Doppler and Color Flow revealed trace pulmonic valvular regurgitation. There is no pulmonic valvular stenosis. GREAT VESSELS The aortic root is normal in size. The ascending aorta is normal in size. The IVC is normal in size a nd collapses >50% with inspiration. PERICARDIAL EFFUSION There is a trace loculated posterior pericardial effusion. Critical Notification Critical Value: No <Conclusion> Left ventricle systolic function is low normal. The Ejection Fraction is 50-55%. There is hypokinesis in the inferoposterior wall. Tissue Doppler imaging reveals mild left ventricular diastolic dysfunction. Doppler and Color-flow revealed mild to moderate mitral regurgitation. There is a trace loculated posterior pericardial effusion.
[2016-08-13] MEDS: VANCOMYCIN PER PHARMACY MC PRN ×2 (11:57→12:05)
--- NOTE | 2016-08-13 14:49 | PDOC2 ---
NEUROLOGY CONSULT Date of Admission Date of Admission DATE: 08/13/16 TIME: 14:33 Reason for Consult Reason for Consult: IMPRESSION: Subacute left parietal lobe infract. metabolic encephalopathy. Generalized weakness. Fever 100.6 degree ESRD on dialysis DM HTN HLD S/p left LE amputation. RECOMMENDATIONS/PLAN: ASA 325 mg daily. Continue Lipitor 20 mg HS Brain MRI w/o contrast Carotid A US + Doppler, performed. Echo, performed. Lab: UDS and other labs. OT/PT HISTORY OF THE PRESENT ILLNESS: 56-y-old AA male patient with above medical diseases had dialysis on 08/12, but he felt generalized weakness after dialysis and was unable to mobile. He was said to have left side, then right side then all extremities weakness to brought to the ER of [facility]. His HCT reported subacute left parietal lobe infarct. PAST MEDICAL HISTORY: Please see above. PAST SURGERY HISTORY: Amputation of left LE BKA. Right toe amputation. ALLERGY: Unknown MEDICATIONS: Refer to [facility] FAMILY HISTORY: Non contributory. SOCIAL HISTORY: Denies smoking, drinking, and illicit drug use. REVIEW OF SYSTEMS: Constitutional: No malnutrition, weight loss, cachexia. Head: No traumatic brain or head injury. Skin: No edema, or rash. Ear: No infection, tinnitus. Eyes: No vision loss or color blindness. Nose: No bleeding or purulent discharges. Hearing: No hearing decrease. Neck: No injury. Cardiac: HTN, HLD. Pulmonary: No COPD. GI: No GI ulcer, GI bleeding. Urinary/genital: ESRD on dialysis. Endocrinologic: Diabetes Mellitus. Skeletomuscular: Left BKA.. Neurological: see HP. Psychiatric: Denies drug use/abuse. Otherwise, not [id number] review of systems. PHYSICAL EXAMINATION: General appearance is in subacute distress. HEENT: Normocephalic and nontraumatic. Eyes, nose, ears, and throat are unremarkable. Neck is supple. No lymphadenopathy. No crepitus. Cardiovascular: S1, S2, regular rate and rhythm. Pulmonary: Clear to auscultation bilaterally. Abdomen: Bowel sounds are positive. Abdomen is soft, nontender, and nondistended. Extremities: No rash, lesions, or edema. No restriction of range of motion in UE and right LE. NEUROLOGICAL EXAMINATION: Awake. Oriented to place and person. PERRL. EOMI. CN: no focal findings. Muscle tone: within normal. Muscle strength: 5 UE and 4+ right LE. Left BKA DTR: 2 Plantar reflex: Flexor response right side. Gait: not examined in bed. Sensory exam: no acute abnormal findings. No obvious cerebellar signs elicited. F-T-N test not examed due to not follow commands. Current Medications Current Medications Current Medications Sodium Chloride (Iv Sodium Chloride 0.9% 250ml) 500 ml @ 999 mls/hr 1X ONCE IV Last administered on 08/12/16 16:00; Start 08/12/16 at 16:00; Stop at 16:30; Status DC Ondansetron HCl (Zofran) 4 mg PRN Q8HRS PRN IV NAUSEA/VOMITING; Start 08/12/16 at 16:45; Stop 08/13/16 at 16:44 Vancomycin HCl (Vanco Per Pharmacy) 1 each 1X STAT MC ; Start 08/12/16 at 16:49 ; Stop 08/12/16 at 16:54; Status DC Piperacillin Sod/ Tazobactam Sod 1 each 1 each 1X ONCE MC ; Start 08/12/16 at 17:00; Stop 08/12/16 at 17:01; Status DC Vancomycin HCl 1.75 gm/Sodium Chloride 500 ml @ 250 mls/hr ONCE ONCE IV Last administered on 08/12/16 18:29; Start 08/12/16 at 17:00; Stop 08/12/16 at 18:59 ; Status DC Piperacillin Sod/ Tazobactam Sod/ Sodium Chloride (Zosyn/Iv Sodium Chloride 0.9 % 100ml) 100 ml @ 200 mls/hr 1X ONCE IV Last administered on 08/12/16 17:08 ; Start 08/12/16 at 17:00; Stop 08/12/16 at 17:29; Status DC Aspirin (CeQur Aspirin) 325 mg 1X ONCE PO ; Start 08/12/16 at 22:00; Stop 08/12 at 22:01; Status DC Aspirin (Radha Aspirin) 325 mg [id number] PO Last administered on 08/13/16 08: 14; Start 08/13/16 at 08:00 Amlodipine Besylate (Norvasc) 10 mg DAILY PO Last administered on 08/13/16 10: 17; Start 08/13/16 at 09:00 Atorvastatin Calcium (Lipitor) 20 mg DAILY PO Last administered on 08/13/16 10 :16; Start 08/13/16 at 09:00 Carvedilol (Coreg) 6.25 mg BIDWMEALS PO Last administered on 08/13/16 08:14; Start 08/13/16 at 08:00 Clonidine HCl (Catapres) 0.2 mg DAILY PO Last administered on 08/13/16 10:17; Start 08/13/16 at 09:00 Acetaminophen/ Hydrocodone Bitart (Lortab 7.5/325) 1 tab PRN Q4HRS PRN PO SEVERE PAIN; Start 08/12/16 at 21:45 Insulin Aspart (Novolog) 12 units TIDWMEALS SQ Last administered on 08/13/16 13:15; Start 08/12/16 at 21:45 Albuterol/ Ipratropium (Duoneb) 3 ml RTQID NEB Last administered on 08/13/16 12:03; Start 08/13/16 at 08:00 Lisinopril (Prinivil) 20 mg DAILY PO Last administered on 08/13/16 08:15; Start 08/13/16 at 09:00 Ondansetron HCl (Zofran Odt) 4 mg PRN Q4HRS PRN PO NAUSEA/VOMITING; Start 08/12 at 21:45 Senna/Docusate Sodium (Senna Plus) 1 tab DAILY PO Last administered on 08:16; Start 08/13/16 at 09:00 Sodium Bicarbonate (Sodium Bicarbonate) 650 mg BID PO Last administered on 08/13 08:16; Start 08/13/16 at 09:00 Fluticasone Propionate (Flonase) 2 spray DAILY NS Last administered on 08:17; Start 08/13/16 at 09:00 Vitamin B Complex/ Vitamin C (Nephro-Lisa) 1 tab DAILY PO Last administered on 08/13/16 10:16; Start 08/13/16 at 09:00 Insulin Aspart (Novolog) 0-7 UNITS TIDWMEALS SQ ; Start 08/13/16 at 08:00 Dextrose 12.5 gm 12.5 gm PRN Q15MIN PRN IV SEE COMMENTS; Start 08/12/16 at 21: 45 Piperacillin Sod/ Tazobactam Sod/ Sodium Chloride (Zosyn/Iv Sodium Chloride 0.9 % 50ml) 50 ml @ 100 mls/hr Q8HRS IV Last administered on 08/13/16 10:23; Start 08/13/16 at 06:00 Doxycycline Hyclate (Vibra-Tab) 100 mg BID PO Last administered on 08/13/16 10 :26; Start 08/13/16 at 10:00 Vancomycin HCl (Vanco Per Pharmacy) 1 each PRN DAILY PRN MC SEE COMMENTS Last administered on 08/13/16 12:05; Start 08/13/16 at 12:00 Vancomycin HCl 1 each 1X ONCE MC ; Start 08/14/16 at 18:30; Stop 08/14/16 at 18 :31 Active Scripts Active Reported Senna-Docusate Sodium Tablet (Sennosides/Docusate Sodium) 1 Each Tablet 1 Each PO DAILY Ondansetron Odt (Ondansetron) 4 Mg Tab.rapdis 1 Tab PO Q4H PRN Lisinopril 20 Mg Tablet 1 Tab PO DAILY Duoneb 0.5-3(2.5) Mg/3 Ml (Albuterol/Ipratropium) 3 Ml Ampul.neb 3 Ml NEB QID Hydrocodone-Apap 7.5-325 (Hydrocodone Bit/Acetaminophen) 1 Each Tablet 1 Tab PO Q4HRS PRN Aranesp Syringe (Darbepoetin Greg In Polysorbat) 60 Mcg/0.3 Ml Disp.syrin 60 Mcg SQ WEEKLY Lac-Hydrin Five (Ammonium Lactate) 113 Gm Lotion 113 Gm TP BID Amlodipine Besylate 10 Mg Tablet 10 Mg PO DAILY Aspirin 325 Mg Tablet 1 Tab PO DAILY Clonidine Hcl 0.2 Mg Tablet 0.2 Mg PO DAILY Flonase Allergy Relief (Fluticasone Propionate) 9.9 Ml [place].susp 1 Sprays NS BID Carvedilol 6.25 Mg Tablet 1 Tab PO BID Atorvastatin Calcium 20 Mg Tablet 1 Tab PO DAILY Novolog Flexpen (Insulin Aspart) 100 Unit/1 Ml Insuln.pen 12 Unit SQ TIDWMEALS PRN Lantus Solostar (Insulin Glargine,Hum.rec.anlog) 100 Unit/1 Ml Insuln.pen 15 Unit SQ QHS Sodium Bicarbonate 650 Mg Tablet 1 Tab PO BID Nephro-Lisa Rx Tablet (Vit B Cmplx 3/Fa/Vit C/Biotin) 1 Each Tablet 1 Each PO DAILY Allergies Allergies: Coded Allergies: No Known Drug Allergies (Unverified , 01/06/16) Vitals VITALS Vital Signs Date Time Temp Pulse Resp B/P Pulse Ox O2 Delivery O2 Flow Rate FiO2 08/13/16 12:19 95 Room Air 08/13/16 11:00 97.5 80 18 111/85 97.5 Labs Labs Laboratory Tests Test 08/12/16 16:25 08/12/16 16:31 08/12/16 16:39 08/12/16 17:10 Bedside Troponin I 0.02ng/ml (<0.08) Bedside Hemoglobin 12.2g/dL (14-18) Bedside Hematocrit 36% (37-52) Bedside Sodium 135mmol/L (135-145) Bedside Potassium 5.0mmol/L (3.5-5.0) Bedside Chloride 102mmol/L (98-110) Bedside Total CO2 26mmol/L (23-32) Anion Gap 13mmol/L (6-14) 13 (6-14) Bedside Blood Urea Nitrogen 33mg/dL (8-26) Bedside Creatinine 6.8mg/dL (0.5-1.4) Glucose Level 109mg/dL (70-99) 109mg/dL (70-99) Bedside Ionized Calcium (Melany) 0.96mmol/L (1.13-1.32) White Blood Count 7.4x10^3/uL (4.0-11.0) Red Blood Count 3.60x10^6/uL (4.30-5.70) Hemoglobin 10.5g/dL (13.0-17.5) Hematocrit 33.2% (39.0-53.0) Mean Corpuscular Volume 92fL (79-100) Mean Corpuscular Hemoglobin 29pg (25-35) Mean Corpuscular Hemoglobin Concent 32g/dL (31-37) Red Cell Distribution Width 20.9% (11.5-14.5) Platelet Count 210x10^3/uL (140-400) Neutrophils (%) (Auto) 69% (31-73) Lymphocytes (%) (Auto) 11% (24-48) Monocytes (%) (Auto) 12% (0-9) Eosinophils (%) (Auto) 7% (0-3) Basophils (%) (Auto) 1% (0-3) Neutrophils # (Auto) 5.1x10^3uL (1.8-7.7) Lymphocytes # (Auto) 0.8x10^3/uL (1.0-4.8) Monocytes # (Auto) 0.9x10^3/uL (0.0-1.1) Eosinophils # (Auto) 0.5x10^3/uL (0.0-0.7) Basophils # (Auto) 0.0x10^3/uL (0.0-0.2) Platelet Estimate Adequate (ADEQUATE) Polychromasia Slight Hypochromasia Slight Ovalocytes Occ Sodium Level 140mmol/L (136-145) Potassium Level 4.8mmol/L (3.5-5.1) Chloride Level 101mmol/L (98-107) Carbon Dioxide Level 26mmol/L (21-32) Blood Urea Nitrogen 27mg/dL (8-26) Creatinine 6.5mg/dL (0.7-1.3) Estimated GFR (Cockcroft-Gault) 10.8 Lactic Acid Level 0.7mmol/L (0.4-2.0) Calcium Level 9.1mg/dL (8.5-10.1) Total Bilirubin 0.5mg/dL (0.2-1.0) Direct Bilirubin 0.1mg/dL (0.0-0.2) Aspartate Amino Transf (AST/SGOT) 20U/L (15-37) Alanine Aminotransferase (ALT/SGPT) 21U/L (16-63) Alkaline Phosphatase 66U/L (46-116) Total Protein 7.5g/dL (6.4-8.2) Albumin 3.4g/dL (3.4-5.0) Influenza Type A Antigen Negative (NEGATIVE) Influenza Type B Antigen Negative (NEGATIVE) Test 08/12/16 20:51 08/13/16 04:45 08/13/16 08:02 08/13/16 11:47 Glucose (Fingerstick) 83mg/dL (70-99) 139mg/dL (70-99) 97mg/dL (70-99) White Blood Count 5.8x10^3/uL (4.0-11.0) Red Blood Count 3.41x10^6/uL (4.30-5.70) Hemoglobin 10.0g/dL (13.0-17.5) Hematocrit 31.8% (39.0-53.0) Mean Corpuscular Volume 93fL (79-100) Mean Corpuscular Hemoglobin 29pg (25-35) Mean Corpuscular Hemoglobin Concent 32g/dL (31-37) Red Cell Distribution Width 20.7% (11.5-14.5) Platelet Count 211x10^3/uL (140-400) Neutrophils (%) (Auto) 62% (31-73) Lymphocytes (%) (Auto) 15% (24-48) Monocytes (%) (Auto) 12% (0-9) Eosinophils (%) (Auto) 10% (0-3) Basophils (%) (Auto) 1% (0-3) Neutrophils # (Auto) 3.6x10^3uL (1.8-7.7) Lymphocytes # (Auto) 0.9x10^3/uL (1.0-4.8) Monocytes # (Auto) 0.7x10^3/uL (0.0-1.1) Eosinophils # (Auto) 0.6x10^3/uL (0.0-0.7) Basophils # (Auto) 0.0x10^3/uL (0.0-0.2) Sodium Level 142mmol/L (136-145) Potassium Level 5.1mmol/L (3.5-5.1) Chloride Level 104mmol/L (98-107) Carbon Dioxide Level 25mmol/L (21-32) Anion Gap 13 (6-14) Blood Urea Nitrogen 33mg/dL (8-26) Creatinine 7.7mg/dL (0.7-1.3) Estimated GFR (Cockcroft-Gault) 8.9 Glucose Level 172mg/dL (70-99) Lactic Acid Level 0.7mmol/L (0.4-2.0) Calcium Level 8.7mg/dL (8.5-10.1) Creatine Kinase 72U/L (39-308) Laboratory Tests Test 08/12/16 16:25 08/12/16 16:31 08/12/16 16:39 08/12/16 17:10 Bedside Troponin I 0.02ng/ml (<0.08) Bedside Hemoglobin 12.2g/dL (14-18) Bedside Hematocrit 36% (37-52) Bedside Sodium 135mmol/L (135-145) Bedside Potassium 5.0mmol/L (3.5-5.0) Bedside Chloride 102mmol/L (98-110) Bedside Total CO2 26mmol/L (23-32) Anion Gap 13mmol/L (6-14) 13 (6-14) Bedside Blood Urea Nitrogen 33mg/dL (8-26) Bedside Creatinine 6.8mg/dL (0.5-1.4) Glucose Level 109mg/dL (70-99) 109mg/dL (70-99) Bedside Ionized Calcium (Melany) 0.96mmol/L (1.13-1.32) White Blood Count 7.4x10^3/uL (4.0-11.0) Red Blood Count 3.60x10^6/uL (4.30-5.70) Hemoglobin 10.5g/dL (13.0-17.5) Hematocrit 33.2% (39.0-53.0) Mean Corpuscular Volume 92fL (79-100) Mean Corpuscular Hemoglobin 29pg (25-35) Mean Corpuscular Hemoglobin Concent 32g/dL (31-37) Red Cell Distribution Width 20.9% (11.5-14.5) Platelet Count 210x10^3/uL (140-400) Neutrophils (%) (Auto) 69% (31-73) Lymphocytes (%) (Auto) 11% (24-48) Monocytes (%) (Auto) 12% (0-9) Eosinophils (%) (Auto) 7% (0-3) Basophils (%) (Auto) 1% (0-3) Neutrophils # (Auto) 5.1x10^3uL (1.8-7.7) Lymphocytes # (Auto) 0.8x10^3/uL (1.0-4.8) Monocytes # (Auto) 0.9x10^3/uL (0.0-1.1) Eosinophils # (Auto) 0.5x10^3/uL (0.0-0.7) Basophils # (Auto) 0.0x10^3/uL (0.0-0.2) Platelet Estimate Adequate (ADEQUATE) Polychromasia Slight Hypochromasia Slight Ovalocytes Occ Sodium Level 140mmol/L (136-145) Potassium Level 4.8mmol/L (3.5-5.1) Chloride Level 101mmol/L (98-107) Carbon Dioxide Level 26mmol/L (21-32) Blood Urea Nitrogen 27mg/dL (8-26) Creatinine 6.5mg/dL (0.7-1.3) Estimated GFR (Cockcroft-Gault) 10.8 Lactic Acid Level 0.7mmol/L (0.4-2.0) Calcium Level 9.1mg/dL (8.5-10.1) Total Bilirubin 0.5mg/dL (0.2-1.0) Direct Bilirubin 0.1mg/dL (0.0-0.2) Aspartate Amino Transf (AST/SGOT) 20U/L (15-37) Alanine Aminotransferase (ALT/SGPT) 21U/L (16-63) Alkaline Phosphatase 66U/L (46-116) Total Protein 7.5g/dL (6.4-8.2) Albumin 3.4g/dL (3.4-5.0) Influenza Type A Antigen Negative (NEGATIVE) Influenza Type B Antigen Negative (NEGATIVE) Test 08/12/16 20:51 08/13/16 04:45 08/13/16 08:02 08/13/16 11:47 Glucose (Fingerstick) 83mg/dL (70-99) 139mg/dL (70-99) 97mg/dL (70-99) White Blood Count 5.8x10^3/uL (4.0-11.0) Red Blood Count 3.41x10^6/uL (4.30-5.70) Hemoglobin 10.0g/dL (13.0-17.5) Hematocrit 31.8% (39.0-53.0) Mean Corpuscular Volume 93fL (79-100) Mean Corpuscular Hemoglobin 29pg (25-35) Mean Corpuscular Hemoglobin Concent 32g/dL (31-37) Red Cell Distribution Width 20.7% (11.5-14.5) Platelet Count 211x10^3/uL (140-400) Neutrophils (%) (Auto) 62% (31-73) Lymphocytes (%) (Auto) 15% (24-48) Monocytes (%) (Auto) 12% (0-9) Eosinophils (%) (Auto) 10% (0-3) Basophils (%) (Auto) 1% (0-3) Neutrophils # (Auto) 3.6x10^3uL (1.8-7.7) Lymphocytes # (Auto) 0.9x10^3/uL (1.0-4.8) Monocytes # (Auto) 0.7x10^3/uL (0.0-1.1) Eosinophils # (Auto) 0.6x10^3/uL (0.0-0.7) Basophils # (Auto) 0.0x10^3/uL (0.0-0.2) Sodium Level 142mmol/L (136-145) Potassium Level 5.1mmol/L (3.5-5.1) Chloride Level 104mmol/L (98-107) Carbon Dioxide Level 25mmol/L (21-32) Anion Gap 13 (6-14) Blood Urea Nitrogen 33mg/dL (8-26) Creatinine 7.7mg/dL (0.7-1.3) Estimated GFR (Cockcroft-Gault) 8.9 Glucose Level 172mg/dL (70-99) Lactic Acid Level 0.7mmol/L (0.4-2.0) Calcium Level 8.7mg/dL (8.5-10.1) Creatine Kinase 72U/L (39-308) MARU DEAN MD Aug 13, 2016 14:49
[2016-08-13 15:00] VITALS: BP 110/86
--- NOTE | 2016-08-13 15:28 | HP ---
ADMIT DATE: 08/12/2016 THE PATIENT'S LOCATION: [facility]. REASON FOR ADMISSION TO THE HOSPITAL: Fever. HOSPITAL COURSE: The patient is a 56-year-old male patient known to us with history of diabetes. He has renal failure on hemodialysis, history of endocarditis and diskitis. He had amputation of the left below the knee last year and also had a partial amputation of the right foot. He was went to dialysis today after he came back from the dialysis center, he was weak and also has running fever. Family brought into the hospital and his fever was 100.9. Influenza A and B was negative, was given broad-spectrum antibiotic, vancomycin and Zosyn, also CT scan showed subacute infarct in the brain. The patient was admitted with diagnosis of fever and also possible subacute CVA. PAST MEDICAL HISTORY: As mentioned, history of insulin-dependent diabetes, hypertension, hyperlipidemia, end-stage renal disease, diskitis and endocarditis. PAST SURGICAL HISTORY: He had a left [id number] amputation in 2015, right partial amputation in 2014 and AV shunt. ALLERGIES: No known drug allergies. MEDICATIONS AT HOME: He is on insulin sliding scale, aspirin 325 daily, aranesp once a week, Lantus 15 units at bedtime, amlodipine 10 mg daily, atorvastatin 20 mg daily, Coreg 6.25 twice a day, clonidine 0.2 daily, Flonase daily, hydrocodone 4 times daily, lisinopril 20 mg daily, Zofran for nausea, senna daily, sodium bicarbonate 650 mg twice a day, vitamin B complex daily. PERSONAL HISTORY: No history of smoking, alcohol, drug abuse. FAMILY HISTORY: Positive for diabetes, heart disease and kidney problems. SOCIAL HISTORY: Lives with his . He goes to dialysis 3 times a week on Friday, Friday, Friday. He uses prosthesis as well as walker for ambulation. REVIEW OF SYMPTEMS: Complains of weak yesterday as fever and also denies any weakness in extremities or speech problem. Rest of the 14-system was reviewed and negative. PHYSICAL EXAMINATION: VITAL SIGNS: T-max 101, pulse 76, respirations 15, blood pressure 160/80 and 96% room air. HEENT: Head is atraumatic. Pupils equal. Oral cavity: No congestion. NECK: Supple. Thyroid not enlarged. JVD not elevated. CHEST: Symmetrical. CARDIOVASCULAR: S1, S2. LUNGS: Clear to auscultation. ABDOMEN: Soft. Bowel sounds present, no mass palpable. EXTERNAL GENITALIA: No Hanson. RECTAL: Deferred. EXTREMITIES: Partial amputation of the right foot, Syme amputation, incision is good, left foot [id number] amputation, has a prosthesis, sensation is good, has AV shunt in the right arm with good thrill. NEUROLOGIC: The upper extremities, strength normal, no focal deficits and good strength in the right lower leg. LABORATORY DATA: Shows a white count of 7, hemoglobin 10.5, platelets 210. Electrolytes show sodium 135, potassium 5, chloride 102, bicarbonate 26, BUN 33, creatinine 6.8, glucose 109. Influenza test A and B was negative. Chest x-ray: Mild basilar interstitial opacities. CT head shows moderate sized subacute left parietal infarct. FINAL IMPRESSION: 1. Fever with febrile illness. 2. Subacute infarct on CT scan. 3. End-stage renal disease, on hemodialysis. 4. Insulin-dependent diabetes. 5. 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 6. 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 7. Hypertension. 8. Hyperlipidemia. PLAN: At this time, was admitted to hospital on broad spectrum antibiotics, vancomycin and Zosyn. ID consult and also renal consult. Carotid Doppler, echocardiogram and aspirin. PT, OT and speech. The patient's condition improves. The patient clinically looks like more of a subacute infarct, past over the window, not a candidate for TPA at this point. VIKTOR PARK MD DR: TIGIST/richi JOB#: [id number] / [id number] TRISTON
--- NOTE | 2016-08-13 15:32 | RAD ---
BRAIN W/O CONTRAST Indication: abnormal CT, left parietal lobe infarct, no sx hx, no priors, call report to [facility] at [phone] Reason: left parietal lobe infract on CT / Spl. Instructions: / History: COMPARISON: None TECHNIQUE: Axial diffusion weighted imaging was obtained. Additional sagittal T1, axial T1, axial FLAIR, and axial T2 weighted imaging of the brain was also performed. FINDINGS: There is an old left parietal infarct with associated encephalomalacia. There is also some ribbon like T1 hyperintensity along the remaining cortex compatible with laminar necrosis. There is also an old infarct in the left basal ganglia with some hemosiderin deposition likely representing chronic blood products. There are scattered foci of FLAIR signal hyperintensity in the periventricular white matter which are nonspecific but most likely related to sequelae of chronic small vessel ischemic disease.No evidence of acute intracranial hemorrhage. No restricted diffusion to indicate acute infarct. No extra-axial fluid collections. No midline shift or mass effect. Ventricular size is appropriate. Midline structures have a normal anatomic configuration. Basal cisterns are patent. Arterial flow voids at the skull base and major dural venous sinuses are maintained. Globes and orbits are unremarkable. There is mucosal thickening of the bilateral paranasal sinuses. There is also some fluid opacification of the bilateral mastoid air cells. IMPRESSION: - No acute or recent infarct. No acute intracranial abnormality. 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 - Old left basal ganglia and banda radiata infarct with some chronic blood products. - Paranasal sinus disease and bilateral mastoid effusions. Correlate for clinical signs and symptoms of paranasal sinusitis and/or mastoiditis. Electronically signed by: Taurus Barger (Aug 13, 2016 15:30:28)
[2016-08-13] MEDS: GUAIFENESIN ER 600 MG TABLET.ER PO SCH ×2 (15:45→20:14)
[2016-08-13] MEDS: BENZONATATE 100 MG CAPSULE. PO SCH ×2 (16:07→20:14)
[2016-08-13] MEDS ORDERED: GLUCAGON,HUMAN RECOMBINANT 1 MG/ML VIAL. IM ONE (18:30)
[2016-08-13 19:00] VITALS: BP 115/87
[2016-08-13 22:14] LABS: VITAMIN D25(OH)TOTAL 4.3 ng/mL (30.0-100.0)
[2016-08-13 23:00] VITALS: BP 131/69
[2016-08-14 03:00] VITALS: BP 127/66
[2016-08-14] MEDS: PIPERACILLIN/TAZOBACTAM 2.25 GM in IV NORMAL SALINE 50ML 50 ML IV SCH (04:29)
[2016-08-14] MEDS: IPRATRPIUM/ALBUTEROL 0.5/2.5MG 3 ML NEBU. NEB SCH ×4 (07:26→18:08)
[2016-08-14] MEDS: INSULIN ASPART 300 UNITS/3 ML INSULN.PEN SQ SCH ×3 (08:00→17:32)
[2016-08-14 08:03] LABS: BASO % 1 % (0-3); EOS % 11 % (0-3); HEMATOCRIT 30.6 % (39.0-53.0); HEMOGLOBIN 9.6 g/dL (13.0-17.5); LYMPH # 1.2 x10^3/uL (1.0-4.8); LYMPH % 15 % (24-48); MEAN CORPUSCULAR HEMOGLOBIN 29 pg (25-35); MEAN CORPUSCULAR HGB CONC 32 g/dL (31-37); MEAN CORPUSCULAR VOLUME 93 fL (79-100); MONO % 8 % (0-9); NEUT % 66 % (31-73); PLATELET COUNT 195 x10^3/uL (140-400); RED BLOOD COUNT 3.28 x10^6/uL (4.30-5.70); RED CELL DISTRIBUTION WIDTH 20.2 % (11.5-14.5); WHITE BLOOD COUNT 7.9 x10^3/uL (4.0-11.0)
[2016-08-14 08:09] LABS: CALCIUM 8.6 mg/dL (8.5-10.1); GFR 6.6; POTASSIUM 5.2 mmol/L (3.5-5.1)
[2016-08-14 08:12] LABS: CHOLESTEROL/HDL RATIO 6.1
[2016-08-14] MEDS ORDERED: DIALYSIS PATIENT. MC PRN ×2 (08:30)
[2016-08-14] MEDS ORDERED: DIPHENHYDRAMINE 50 MG/ML VIAL IV PRN ×2 (08:30)
[2016-08-14] MEDS ORDERED: IV NORMAL SALINE 1000ML BAG 1,000 ML IV PRN (08:30)
[2016-08-14] MEDS: SENNOSIDES/DOCUSATE 8.6/50MG TABLET. PO SCH (09:00)
[2016-08-14] MEDS: FLUTICASONE 50MCG/NASAL SPRAY 16GM BOTTLE. NS SCH (09:00)
--- NOTE | 2016-08-14 09:40 | PDOC ---
PROGRESS NOTES Subjective Subjective low sugars yesterday, today better Objective Objective Vital Signs Date Time Temp Pulse Resp B/P Pulse Ox O2 Delivery O2 Flow Rate FiO2 08/14/16 08:00 Room Air 08/14/16 03:00 97.9 84 18 127/66 97 97.9 Intake and Output 08/14/16 07:00 Intake Total 580 ml Output Total 0 ml Balance 580 ml Intake Oral 580 ml Output Urine Total 0 ml # Voids 2 # Bowel Movements 2 Physical Exam Abdomen: Normal bowel sounds, Soft Heart: Regular rate, Normal S1, Normal S2 General: Alert HEENT: Atraumatic MUSCULOSKELETAL: No deformity Neck: Supple Neuro: Normal speech Psych/Mental Status: Mental status NL Skin: No breakdown Diagnosis Problem List Problems Medical Problems: (1) ESRD (end stage renal disease) Status: Acute (2) ESRD (end stage renal disease) on dialysis Status: Acute (3) Fever Status: Acute (4) IDDM (insulin dependent diabetes mellitus) Status: Acute (5) Sepsis Status: Acute (6) Weak Status: Acute Assessment Assessment Problems Medical Problems: (1) ESRD (end stage renal disease) Status: Acute (2) ESRD (end stage renal disease) on dialysis Status: Acute (3) Fever Status: Acute (4) IDDM (insulin dependent diabetes mellitus) Status: Acute (5) Sepsis Status: Acute (6) Weak Status: Acute FINAL IMPRESSION: 1. Fever with febrile illness improving. 2. Subacute infarct on CT scan. 3. End-stage renal disease, on hemodialysis. 4. Insulin-dependent diabetes. 5. 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 6. 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 7. Hypertension. 8. Hyperlipidemia. PLAN: MRI no new cva. carotid -ve. echo good lvf. spoke with ID .? home tomorrw. dialysis today. ? sinusitis Problems: Plan Plan of Care Problems Medical Problems: (1) ESRD (end stage renal disease) Status: Acute (2) ESRD (end stage renal disease) on dialysis Status: Acute (3) Fever Status: Acute (4) IDDM (insulin dependent diabetes mellitus) Status: Acute (5) Sepsis Status: Acute (6) Weak Status: Acute Comment Review of Relevant I have reviewed the following items ginny (where applicable) has been applied. Labs Laboratory Tests Test 08/13/16 11:47 08/13/16 12:11 08/13/16 17:48 08/13/16 20:44 Glucose (Fingerstick) 97mg/dL (70-99) 89mg/dL (70-99) 93mg/dL (70-99) 235mg/dL (70-99) Test 08/14/16 07:10 White Blood Count 7.9x10^3/uL (4.0-11.0) Red Blood Count 3.28x10^6/uL (4.30-5.70) Hemoglobin 9.6g/dL (13.0-17.5) Hematocrit 30.6% (39.0-53.0) Mean Corpuscular Volume 93fL (79-100) Mean Corpuscular Hemoglobin 29pg (25-35) Mean Corpuscular Hemoglobin Concent 32g/dL (31-37) Red Cell Distribution Width 20.2% (11.5-14.5) Platelet Count 195x10^3/uL (140-400) Neutrophils (%) (Auto) 66% (31-73) Lymphocytes (%) (Auto) 15% (24-48) Monocytes (%) (Auto) 8% (0-9) Eosinophils (%) (Auto) 11% (0-3) Basophils (%) (Auto) 1% (0-3) Neutrophils # (Auto) 5.2x10^3uL (1.8-7.7) Lymphocytes # (Auto) 1.2x10^3/uL (1.0-4.8) Monocytes # (Auto) 0.6x10^3/uL (0.0-1.1) Eosinophils # (Auto) 0.9x10^3/uL (0.0-0.7) Basophils # (Auto) 0.0x10^3/uL (0.0-0.2) Erythrocyte Sedimentation Rate 21 (0-15) Sodium Level 141mmol/L (136-145) Potassium Level 5.2mmol/L (3.5-5.1) Chloride Level 104mmol/L (98-107) Carbon Dioxide Level 24mmol/L (21-32) Anion Gap 13 (6-14) Blood Urea Nitrogen 54mg/dL (8-26) Creatinine 10.0mg/dL (0.7-1.3) Estimated GFR (Cockcroft-Gault) 6.6 Glucose Level 126mg/dL (70-99) Calcium Level 8.6mg/dL (8.5-10.1) Triglycerides Level 150mg/dL (0-150) Cholesterol Level 128mg/dL (0-200) LDL Cholesterol, Calculated 77mg/dL (0-100) VLDL Cholesterol, Calculated 30mg/dL (0-40) HDL Cholesterol 21mg/dL (40-60) Cholesterol/HDL Ratio 6.1 Thyroid Stimulating Hormone (TSH) 2.545uIU/mL (0.358-3.74) Microbiology 08/12/16 Blood Culture - Preliminary, Resulted NO GROWTH AFTER 1 DAY Medications Current Medications Benzonatate (Tessalon Perle) 100 mg [id number] PO Last administered on 08/13/16 20 :14; Start 08/13/16 at 15:45 Diphenhydramine HCl (Benadryl) 25 mg 1X PRN PRN IV ITCHING; Start 08/14/16 at 08:30; Stop 08/15/16 at 08:29 Diphenhydramine HCl (Benadryl) 25 mg 1X PRN PRN IV ITCHING; Start 08/14/16 at 08:30; Stop 08/15/16 at 08:29 Doxycycline Hyclate (Vibra-Tab) 100 mg BID PO Last administered on 08/13/16 20 :14; Start 08/13/16 at 10:00 Glucagon 1 mg 1 mg 1X ONCE IM Last administered on 08/13/16 18:34; Start at 18:30; Stop 08/13/16 at 18:31; Status DC Guaifenesin (Mucinex) 600 mg BID PO Last administered on 08/13/16 20:14; Start 08/13/16 at 15:45 Info (PHARMACY MONITORING -- do not chart) 1 each PRN DAILY PRN MC SEE COMMENTS ; Start 08/14/16 at 08:30 Info (PHARMACY MONITORING -- do not chart) 1 each PRN DAILY PRN MC SEE COMMENTS ; Start 08/14/16 at 08:30; Status UNV Sodium Chloride (Iv Sodium Chloride 0.9% 1000ml Bag) 1,000 ml @ 1,000 mls/hr Q1H PRN IV hypotension; Start 08/14/16 at 08:30; Stop 08/14/16 at 14:29 Vancomycin HCl 1 each 1X ONCE MC ; Start 08/14/16 at 18:30; Stop 08/14/16 at 18 :31 Vancomycin HCl (Vanco Per Pharmacy) 1 each PRN DAILY PRN MC SEE COMMENTS Last administered on 08/13/16t 12:05; Start 08/13/16 at 12:00 Vitals/I & O Vital Sign - Last 24 Hours 08/13/16 08/13/16 08/13/16 08/13/16 10:17 10:17 11:00 12:04 Temp 97.5 97.5 Pulse 102 102 80 Resp 18 B/P 150/72 150/72 111/85 Pulse Ox 99 95 O2 Delivery Room Air Room Air 08/13/16 08/13/16 08/13/16 08/13/16 15:00 16:21 18:07 19:00 Temp 98.5 98.7 98.5 98.7 Pulse 82 81 84 Resp 18 B/P 110/86 105/65 115/87 Pulse Ox 98 98 O2 Delivery Room Air Room Air Room Air 08/13/16 08/13/16 08/13/16 08/14/16 20:00 20:48 23:00 03:00 Temp 97.7 97.9 97.7 97.9 Pulse 84 84 Resp 18 B/P 131/69 127/66 Pulse Ox 99 95 97 O2 Delivery Room Air Room Air Room Air Room Air 08/14/16 08/14/16 07:27 08:00 O2 Delivery Room Air Room Air Intake and Output 08/13/16 08/13/16 08/14/16 15:00 23:00 07:00 Intake Total 240 ml 340 ml Output Total 0 ml Balance 240 ml 340 ml 0 ml VIKTOR PARK MD Aug 14, 2016 09:40
--- NOTE | 2016-08-14 10:34 | PDOC ---
Dialysis Progress Note Dialysis Note Dialysis Note Seen on Hemodialysis, tolerating treatment Well Vitals on Hemodialysis: 116/51 96 16 afeb General Appearance: Awake: Alert Oriented x 3 Neck: No JVD or JVP Chest: CTA Kory Heart: S1 S2 Abdomen - Soft NTND Extremities - No EdemaESRD ARF: Dialysis as below F 180 NR 3.0 Hrs 2 K 2.5 Ca 140 Na 40 HC03 Qb 350 + Qd 500+ Heparin 0 Units Uf 1-2 Kgs or to dry weight as tolerated May give 25-50 gms of 25% Albumin if needed to maintain Hemodynamic stability Treatment plan reviewed and discussed with photographer model Vitals Vital Signs Vital Signs Date Time Temp Pulse Resp B/P Pulse Ox O2 Delivery O2 Flow Rate FiO2 08/14/16 08:00 Room Air 08/14/16 03:00 97.9 84 18 127/66 97 97.9 Labs Last Labs Laboratory Tests Test 08/12/16 16:25 08/12/16 16:31 08/12/16 16:39 08/12/16 17:10 Bedside Troponin I 0.02ng/ml (<0.08) Bedside Hemoglobin 12.2g/dL (14-18) Bedside Hematocrit 36% (37-52) Bedside Sodium 135mmol/L (135-145) Bedside Potassium 5.0mmol/L (3.5-5.0) Bedside Chloride 102mmol/L (98-110) Bedside Total CO2 26mmol/L (23-32) Anion Gap 13mmol/L (6-14) 13 (6-14) Bedside Blood Urea Nitrogen 33mg/dL (8-26) Bedside Creatinine 6.8mg/dL (0.5-1.4) Glucose Level 109mg/dL (70-99) 109mg/dL (70-99) Bedside Ionized Calcium (Melany) 0.96mmol/L (1.13-1.32) White Blood Count 7.4x10^3/uL (4.0-11.0) Red Blood Count 3.60x10^6/uL (4.30-5.70) Hemoglobin 10.5g/dL (13.0-17.5) Hematocrit 33.2% (39.0-53.0) Mean Corpuscular Volume 92fL (79-100) Mean Corpuscular Hemoglobin 29pg (25-35) Mean Corpuscular Hemoglobin Concent 32g/dL (31-37) Red Cell Distribution Width 20.9% (11.5-14.5) Platelet Count 210x10^3/uL (140-400) Neutrophils (%) (Auto) 69% (31-73) Lymphocytes (%) (Auto) 11% (24-48) Monocytes (%) (Auto) 12% (0-9) Eosinophils (%) (Auto) 7% (0-3) Basophils (%) (Auto) 1% (0-3) Neutrophils # (Auto) 5.1x10^3uL (1.8-7.7) Lymphocytes # (Auto) 0.8x10^3/uL (1.0-4.8) Monocytes # (Auto) 0.9x10^3/uL (0.0-1.1) Eosinophils # (Auto) 0.5x10^3/uL (0.0-0.7) Basophils # (Auto) 0.0x10^3/uL (0.0-0.2) Platelet Estimate Adequate (ADEQUATE) Polychromasia Slight Hypochromasia Slight Ovalocytes Occ Sodium Level 140mmol/L (136-145) Potassium Level 4.8mmol/L (3.5-5.1) Chloride Level 101mmol/L (98-107) Carbon Dioxide Level 26mmol/L (21-32) Blood Urea Nitrogen 27mg/dL (8-26) Creatinine 6.5mg/dL (0.7-1.3) Estimated GFR (Cockcroft-Gault) 10.8 Lactic Acid Level 0.7mmol/L (0.4-2.0) Calcium Level 9.1mg/dL (8.5-10.1) Total Bilirubin 0.5mg/dL (0.2-1.0) Direct Bilirubin 0.1mg/dL (0.0-0.2) Aspartate Amino Transf (AST/SGOT) 20U/L (15-37) Alanine Aminotransferase (ALT/SGPT) 21U/L (16-63) Alkaline Phosphatase 66U/L (46-116) Total Protein 7.5g/dL (6.4-8.2) Albumin 3.4g/dL (3.4-5.0) Influenza Type A Antigen Negative (NEGATIVE) Influenza Type B Antigen Negative (NEGATIVE) Test 08/12/16 20:51 08/13/16 04:45 08/13/16 08:02 08/13/16 11:47 Glucose (Fingerstick) 83mg/dL (70-99) 139mg/dL (70-99) 97mg/dL (70-99) White Blood Count 5.8x10^3/uL (4.0-11.0) Red Blood Count 3.41x10^6/uL (4.30-5.70) Hemoglobin 10.0g/dL (13.0-17.5) Hematocrit 31.8% (39.0-53.0) Mean Corpuscular Volume 93fL (79-100) Mean Corpuscular Hemoglobin 29pg (25-35) Mean Corpuscular Hemoglobin Concent 32g/dL (31-37) Red Cell Distribution Width 20.7% (11.5-14.5) Platelet Count 211x10^3/uL (140-400) Neutrophils (%) (Auto) 62% (31-73) Lymphocytes (%) (Auto) 15% (24-48) Monocytes (%) (Auto) 12% (0-9) Eosinophils (%) (Auto) 10% (0-3) Basophils (%) (Auto) 1% (0-3) Neutrophils # (Auto) 3.6x10^3uL (1.8-7.7) Lymphocytes # (Auto) 0.9x10^3/uL (1.0-4.8) Monocytes # (Auto) 0.7x10^3/uL (0.0-1.1) Eosinophils # (Auto) 0.6x10^3/uL (0.0-0.7) Basophils # (Auto) 0.0x10^3/uL (0.0-0.2) Sodium Level 142mmol/L (136-145) Potassium Level 5.1mmol/L (3.5-5.1) Chloride Level 104mmol/L (98-107) Carbon Dioxide Level 25mmol/L (21-32) Anion Gap 13 (6-14) Blood Urea Nitrogen 33mg/dL (8-26) Creatinine 7.7mg/dL (0.7-1.3) Estimated GFR (Cockcroft-Gault) 8.9 Glucose Level 172mg/dL (70-99) Lactic Acid Level 0.7mmol/L (0.4-2.0) Calcium Level 8.7mg/dL (8.5-10.1) Creatine Kinase 72U/L (39-308) Vitamin B12 Level 405pg/mL (211-946) 25-Hydroxy Vitamin D Total 4.3ng/mL (30.0-100.0) Test 08/13/16 12:11 08/13/16 17:48 08/13/16 20:44 08/14/16 07:10 Glucose (Fingerstick) 89mg/dL (70-99) 93mg/dL (70-99) 235mg/dL (70-99) White Blood Count 7.9x10^3/uL (4.0-11.0) Red Blood Count 3.28x10^6/uL (4.30-5.70) Hemoglobin 9.6g/dL (13.0-17.5) Hematocrit 30.6% (39.0-53.0) Mean Corpuscular Volume 93fL (79-100) Mean Corpuscular Hemoglobin 29pg (25-35) Mean Corpuscular Hemoglobin Concent 32g/dL (31-37) Red Cell Distribution Width 20.2% (11.5-14.5) Platelet Count 195x10^3/uL (140-400) Neutrophils (%) (Auto) 66% (31-73) Lymphocytes (%) (Auto) 15% (24-48) Monocytes (%) (Auto) 8% (0-9) Eosinophils (%) (Auto) 11% (0-3) Basophils (%) (Auto) 1% (0-3) Neutrophils # (Auto) 5.2x10^3uL (1.8-7.7) Lymphocytes # (Auto) 1.2x10^3/uL (1.0-4.8) Monocytes # (Auto) 0.6x10^3/uL (0.0-1.1) Eosinophils # (Auto) 0.9x10^3/uL (0.0-0.7) Basophils # (Auto) 0.0x10^3/uL (0.0-0.2) Erythrocyte Sedimentation Rate 21 (0-15) Sodium Level 141mmol/L (136-145) Potassium Level 5.2mmol/L (3.5-5.1) Chloride Level 104mmol/L (98-107) Carbon Dioxide Level 24mmol/L (21-32) Anion Gap 13 (6-14) Blood Urea Nitrogen 54mg/dL (8-26) Creatinine 10.0mg/dL (0.7-1.3) Estimated GFR (Cockcroft-Gault) 6.6 Glucose Level 126mg/dL (70-99) Calcium Level 8.6mg/dL (8.5-10.1) Triglycerides Level 150mg/dL (0-150) Cholesterol Level 128mg/dL (0-200) LDL Cholesterol, Calculated 77mg/dL (0-100) VLDL Cholesterol, Calculated 30mg/dL (0-40) HDL Cholesterol 21mg/dL (40-60) Cholesterol/HDL Ratio 6.1 Thyroid Stimulating Hormone (TSH) 2.545uIU/mL (0.358-3.74) Laboratory Tests Test 08/13/16 11:47 08/13/16 12:11 08/13/16 17:48 08/13/16 20:44 Glucose (Fingerstick) 97mg/dL (70-99) 89mg/dL (70-99) 93mg/dL (70-99) 235mg/dL (70-99) Test 08/14/16 07:10 White Blood Count 7.9x10^3/uL (4.0-11.0) Red Blood Count 3.28x10^6/uL (4.30-5.70) Hemoglobin 9.6g/dL (13.0-17.5) Hematocrit 30.6% (39.0-53.0) Mean Corpuscular Volume 93fL (79-100) Mean Corpuscular Hemoglobin 29pg (25-35) Mean Corpuscular Hemoglobin Concent 32g/dL (31-37) Red Cell Distribution Width 20.2% (11.5-14.5) Platelet Count 195x10^3/uL (140-400) Neutrophils (%) (Auto) 66% (31-73) Lymphocytes (%) (Auto) 15% (24-48) Monocytes (%) (Auto) 8% (0-9) Eosinophils (%) (Auto) 11% (0-3) Basophils (%) (Auto) 1% (0-3) Neutrophils # (Auto) 5.2x10^3uL (1.8-7.7) Lymphocytes # (Auto) 1.2x10^3/uL (1.0-4.8) Monocytes # (Auto) 0.6x10^3/uL (0.0-1.1) Eosinophils # (Auto) 0.9x10^3/uL (0.0-0.7) Basophils # (Auto) 0.0x10^3/uL (0.0-0.2) Erythrocyte Sedimentation Rate 21 (0-15) Sodium Level 141mmol/L (136-145) Potassium Level 5.2mmol/L (3.5-5.1) Chloride Level 104mmol/L (98-107) Carbon Dioxide Level 24mmol/L (21-32) Anion Gap 13 (6-14) Blood Urea Nitrogen 54mg/dL (8-26) Creatinine 10.0mg/dL (0.7-1.3) Estimated GFR (Cockcroft-Gault) 6.6 Glucose Level 126mg/dL (70-99) Calcium Level 8.6mg/dL (8.5-10.1) Triglycerides Level 150mg/dL (0-150) Cholesterol Level 128mg/dL (0-200) LDL Cholesterol, Calculated 77mg/dL (0-100) VLDL Cholesterol, Calculated 30mg/dL (0-40) HDL Cholesterol 21mg/dL (40-60) Cholesterol/HDL Ratio 6.1 Thyroid Stimulating Hormone (TSH) 2.545uIU/mL (0.358-3.74) Assessment Assessment Problems Medical Problems: (1) ESRD (end stage renal disease) Status: Acute (2) ESRD (end stage renal disease) on dialysis Status: Acute (3) Fever Status: Acute (4) IDDM (insulin dependent diabetes mellitus) Status: Acute (5) Sepsis Status: Acute (6) Weak Status: Acute Problems: Plan Plan of Care Problems Medical Problems: (1) ESRD (end stage renal disease) Status: Acute (2) ESRD (end stage renal disease) on dialysis Status: Acute (3) Fever Status: Acute (4) IDDM (insulin dependent diabetes mellitus) Status: Acute (5) Sepsis Status: Acute (6) Weak Status: Acute JONATHAN LYON MD Aug 14, 2016 10:34
--- NOTE | 2016-08-14 11:29 | PDOC ---
Infectious Disease Note Subjective Subjective feeling well. Eating well. Clear sinus drainage - states baseline ROS ROS GEN: Denies fevers, chills, sweats HEENT: Denies blurred vision, sore throat CV: Denies chest pain RESP: Denies shortness of air, cough GI: Denies n/v/d NEURO: Denies confusion, dizziness MSK: Denies weakness, joint pain/swelling Vital Sign Vital Signs Vital Signs Date Time Temp Pulse Resp B/P Pulse Ox O2 Delivery O2 Flow Rate FiO2 08/14/16 11:16 Room Air 08/14/16 03:00 97.9 84 18 127/66 97 97.9 Physical Exam PHYSICAL EXAM GENERAL: NAD, Alert - in bed HEENT: PERRL, OC/OP- clear NECK: Supple, no JVD, no LN LUNGS: Clear HEART: S1S2, no gallop, no murmur ABD: Soft, NT, no organomegaly, no rebound, obese EXT: No edema, no cyanosis. Left prosthesis [employer]: Alert, 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, no focal neurologic deficit SKIN: No rash IV: AV graft clean Labs Lab Laboratory Tests Test 08/13/16 11:47 08/13/16 12:11 08/13/16 17:48 08/13/16 20:44 Glucose (Fingerstick) 97mg/dL (70-99) 89mg/dL (70-99) 93mg/dL (70-99) 235mg/dL (70-99) Test 08/14/16 07:10 08/14/16 11:11 White Blood Count 7.9x10^3/uL (4.0-11.0) Red Blood Count 3.28x10^6/uL (4.30-5.70) Hemoglobin 9.6g/dL (13.0-17.5) Hematocrit 30.6% (39.0-53.0) Mean Corpuscular Volume 93fL (79-100) Mean Corpuscular Hemoglobin 29pg (25-35) Mean Corpuscular Hemoglobin Concent 32g/dL (31-37) Red Cell Distribution Width 20.2% (11.5-14.5) Platelet Count 195x10^3/uL (140-400) Neutrophils (%) (Auto) 66% (31-73) Lymphocytes (%) (Auto) 15% (24-48) Monocytes (%) (Auto) 8% (0-9) Eosinophils (%) (Auto) 11% (0-3) Basophils (%) (Auto) 1% (0-3) Neutrophils # (Auto) 5.2x10^3uL (1.8-7.7) Lymphocytes # (Auto) 1.2x10^3/uL (1.0-4.8) Monocytes # (Auto) 0.6x10^3/uL (0.0-1.1) Eosinophils # (Auto) 0.9x10^3/uL (0.0-0.7) Basophils # (Auto) 0.0x10^3/uL (0.0-0.2) Erythrocyte Sedimentation Rate 21 (0-15) Sodium Level 141mmol/L (136-145) Potassium Level 5.2mmol/L (3.5-5.1) Chloride Level 104mmol/L (98-107) Carbon Dioxide Level 24mmol/L (21-32) Anion Gap 13 (6-14) Blood Urea Nitrogen 54mg/dL (8-26) Creatinine 10.0mg/dL (0.7-1.3) Estimated GFR (Cockcroft-Gault) 6.6 Glucose Level 126mg/dL (70-99) Calcium Level 8.6mg/dL (8.5-10.1) Triglycerides Level 150mg/dL (0-150) Cholesterol Level 128mg/dL (0-200) LDL Cholesterol, Calculated 77mg/dL (0-100) VLDL Cholesterol, Calculated 30mg/dL (0-40) HDL Cholesterol 21mg/dL (40-60) Cholesterol/HDL Ratio 6.1 Thyroid Stimulating Hormone (TSH) 2.545uIU/mL (0.358-3.74) Glucose (Fingerstick) 134mg/dL (70-99) Objective Assessment Fever ? sinus disease - better CVA ? age Chest congestion CKD on HD H/o Endocarditis/diskitis. ECHO reviewed Plan Plan of Care D/cont Vanc/Zosyn Begin Augmentin Cont Doxy for atypical Treat through 08/22 no need for chronic suppressive abx as he has been off and doing well. ECHO without significant finding and no back compliants. Walks with walker Ok to d/c JOSEFA MARIN MD Aug 14, 2016 11:29
[2016-08-14 11:41] VITALS: BP 123/63
--- NOTE | 2016-08-14 11:41 | PDOC ---
PROGRESS NOTES Assessment Problems Medical Problems: (1) ESRD (end stage renal disease) Status: Acute (2) ESRD (end stage renal disease) on dialysis Status: Acute (3) Fever Status: Acute (4) IDDM (insulin dependent diabetes mellitus) Status: Acute (5) Sepsis Status: Acute (6) Weak Status: Acute No evidence of new strokes on MRI Metabolic encephalopathy, improved Plan Continue treating medical diseases Subjective No complaints Objective Vital Signs Date Time Temp Pulse Resp B/P Pulse Ox O2 Delivery O2 Flow Rate FiO2 08/14/16 11:16 Room Air 08/14/16 03:00 97.9 84 18 127/66 97 97.9 Intake and Output 08/14/16 07:00 Intake Total 580 ml Output Total 0 ml Balance 580 ml Intake Oral 580 ml Output Urine Total 0 ml # Voids 2 # Bowel Movements 2 PHYSICAL EXAM Patient seen during dialysis: Alert. Oriented to place and person. PERRL. EOMI. CN: no focal findings. Muscle tone: normal. Muscle strength: 5/5. Left BKA DTR: 1+ Plantar reflex: flexor on right Gait: not examined in bed. Sensory exam: no abnormal findings. No cerebellar signs elicited. Review of Relevant I have reviewed the following items ginny (where applicable) has been applied. Labs Laboratory Tests Test 08/12/16 16:25 08/12/16 16:31 08/12/16 16:39 08/12/16 17:10 Bedside Troponin I 0.02ng/ml (<0.08) Bedside Hemoglobin 12.2g/dL (14-18) Bedside Hematocrit 36% (37-52) Bedside Sodium 135mmol/L (135-145) Bedside Potassium 5.0mmol/L (3.5-5.0) Bedside Chloride 102mmol/L (98-110) Bedside Total CO2 26mmol/L (23-32) Anion Gap 13mmol/L (6-14) 13 (6-14) Bedside Blood Urea Nitrogen 33mg/dL (8-26) Bedside Creatinine 6.8mg/dL (0.5-1.4) Glucose Level 109mg/dL (70-99) 109mg/dL (70-99) Bedside Ionized Calcium (Melany) 0.96mmol/L (1.13-1.32) White Blood Count 7.4x10^3/uL (4.0-11.0) Red Blood Count 3.60x10^6/uL (4.30-5.70) Hemoglobin 10.5g/dL (13.0-17.5) Hematocrit 33.2% (39.0-53.0) Mean Corpuscular Volume 92fL (79-100) Mean Corpuscular Hemoglobin 29pg (25-35) Mean Corpuscular Hemoglobin Concent 32g/dL (31-37) Red Cell Distribution Width 20.9% (11.5-14.5) Platelet Count 210x10^3/uL (140-400) Neutrophils (%) (Auto) 69% (31-73) Lymphocytes (%) (Auto) 11% (24-48) Monocytes (%) (Auto) 12% (0-9) Eosinophils (%) (Auto) 7% (0-3) Basophils (%) (Auto) 1% (0-3) Neutrophils # (Auto) 5.1x10^3uL (1.8-7.7) Lymphocytes # (Auto) 0.8x10^3/uL (1.0-4.8) Monocytes # (Auto) 0.9x10^3/uL (0.0-1.1) Eosinophils # (Auto) 0.5x10^3/uL (0.0-0.7) Basophils # (Auto) 0.0x10^3/uL (0.0-0.2) Platelet Estimate Adequate (ADEQUATE) Polychromasia Slight Hypochromasia Slight Ovalocytes Occ Sodium Level 140mmol/L (136-145) Potassium Level 4.8mmol/L (3.5-5.1) Chloride Level 101mmol/L (98-107) Carbon Dioxide Level 26mmol/L (21-32) Blood Urea Nitrogen 27mg/dL (8-26) Creatinine 6.5mg/dL (0.7-1.3) Estimated GFR (Cockcroft-Gault) 10.8 Lactic Acid Level 0.7mmol/L (0.4-2.0) Calcium Level 9.1mg/dL (8.5-10.1) Total Bilirubin 0.5mg/dL (0.2-1.0) Direct Bilirubin 0.1mg/dL (0.0-0.2) Aspartate Amino Transf (AST/SGOT) 20U/L (15-37) Alanine Aminotransferase (ALT/SGPT) 21U/L (16-63) Alkaline Phosphatase 66U/L (46-116) Total Protein 7.5g/dL (6.4-8.2) Albumin 3.4g/dL (3.4-5.0) Influenza Type A Antigen Negative (NEGATIVE) Influenza Type B Antigen Negative (NEGATIVE) Test 08/12/16 20:51 08/13/16 04:45 08/13/16 08:02 08/13/16 11:47 Glucose (Fingerstick) 83mg/dL (70-99) 139mg/dL (70-99) 97mg/dL (70-99) White Blood Count 5.8x10^3/uL (4.0-11.0) Red Blood Count 3.41x10^6/uL (4.30-5.70) Hemoglobin 10.0g/dL (13.0-17.5) Hematocrit 31.8% (39.0-53.0) Mean Corpuscular Volume 93fL (79-100) Mean Corpuscular Hemoglobin 29pg (25-35) Mean Corpuscular Hemoglobin Concent 32g/dL (31-37) Red Cell Distribution Width 20.7% (11.5-14.5) Platelet Count 211x10^3/uL (140-400) Neutrophils (%) (Auto) 62% (31-73) Lymphocytes (%) (Auto) 15% (24-48) Monocytes (%) (Auto) 12% (0-9) Eosinophils (%) (Auto) 10% (0-3) Basophils (%) (Auto) 1% (0-3) Neutrophils # (Auto) 3.6x10^3uL (1.8-7.7) Lymphocytes # (Auto) 0.9x10^3/uL (1.0-4.8) Monocytes # (Auto) 0.7x10^3/uL (0.0-1.1) Eosinophils # (Auto) 0.6x10^3/uL (0.0-0.7) Basophils # (Auto) 0.0x10^3/uL (0.0-0.2) Sodium Level 142mmol/L (136-145) Potassium Level 5.1mmol/L (3.5-5.1) Chloride Level 104mmol/L (98-107) Carbon Dioxide Level 25mmol/L (21-32) Anion Gap 13 (6-14) Blood Urea Nitrogen 33mg/dL (8-26) Creatinine 7.7mg/dL (0.7-1.3) Estimated GFR (Cockcroft-Gault) 8.9 Glucose Level 172mg/dL (70-99) Lactic Acid Level 0.7mmol/L (0.4-2.0) Calcium Level 8.7mg/dL (8.5-10.1) Creatine Kinase 72U/L (39-308) Vitamin B12 Level 405pg/mL (211-946) 25-Hydroxy Vitamin D Total 4.3ng/mL (30.0-100.0) Test 08/13/16 12:11 08/13/16 17:48 08/13/16 20:44 08/14/16 07:10 Glucose (Fingerstick) 89mg/dL (70-99) 93mg/dL (70-99) 235mg/dL (70-99) White Blood Count 7.9x10^3/uL (4.0-11.0) Red Blood Count 3.28x10^6/uL (4.30-5.70) Hemoglobin 9.6g/dL (13.0-17.5) Hematocrit 30.6% (39.0-53.0) Mean Corpuscular Volume 93fL (79-100) Mean Corpuscular Hemoglobin 29pg (25-35) Mean Corpuscular Hemoglobin Concent 32g/dL (31-37) Red Cell Distribution Width 20.2% (11.5-14.5) Platelet Count 195x10^3/uL (140-400) Neutrophils (%) (Auto) 66% (31-73) Lymphocytes (%) (Auto) 15% (24-48) Monocytes (%) (Auto) 8% (0-9) Eosinophils (%) (Auto) 11% (0-3) Basophils (%) (Auto) 1% (0-3) Neutrophils # (Auto) 5.2x10^3uL (1.8-7.7) Lymphocytes # (Auto) 1.2x10^3/uL (1.0-4.8) Monocytes # (Auto) 0.6x10^3/uL (0.0-1.1) Eosinophils # (Auto) 0.9x10^3/uL (0.0-0.7) Basophils # (Auto) 0.0x10^3/uL (0.0-0.2) Erythrocyte Sedimentation Rate 21 (0-15) Sodium Level 141mmol/L (136-145) Potassium Level 5.2mmol/L (3.5-5.1) Chloride Level 104mmol/L (98-107) Carbon Dioxide Level 24mmol/L (21-32) Anion Gap 13 (6-14) Blood Urea Nitrogen 54mg/dL (8-26) Creatinine 10.0mg/dL (0.7-1.3) Estimated GFR (Cockcroft-Gault) 6.6 Glucose Level 126mg/dL (70-99) Calcium Level 8.6mg/dL (8.5-10.1) Triglycerides Level 150mg/dL (0-150) Cholesterol Level 128mg/dL (0-200) LDL Cholesterol, Calculated 77mg/dL (0-100) VLDL Cholesterol, Calculated 30mg/dL (0-40) HDL Cholesterol 21mg/dL (40-60) Cholesterol/HDL Ratio 6.1 Thyroid Stimulating Hormone (TSH) 2.545uIU/mL (0.358-3.74) Test 08/14/16 11:11 Glucose (Fingerstick) 134mg/dL (70-99) Laboratory Tests Test 08/13/16 11:47 08/13/16 12:11 08/13/16 17:48 08/13/16 20:44 Glucose (Fingerstick) 97mg/dL (70-99) 89mg/dL (70-99) 93mg/dL (70-99) 235mg/dL (70-99) Test 08/14/16 07:10 08/14/16 11:11 White Blood Count 7.9x10^3/uL (4.0-11.0) Red Blood Count 3.28x10^6/uL (4.30-5.70) Hemoglobin 9.6g/dL (13.0-17.5) Hematocrit 30.6% (39.0-53.0) Mean Corpuscular Volume 93fL (79-100) Mean Corpuscular Hemoglobin 29pg (25-35) Mean Corpuscular Hemoglobin Concent 32g/dL (31-37) Red Cell Distribution Width 20.2% (11.5-14.5) Platelet Count 195x10^3/uL (140-400) Neutrophils (%) (Auto) 66% (31-73) Lymphocytes (%) (Auto) 15% (24-48) Monocytes (%) (Auto) 8% (0-9) Eosinophils (%) (Auto) 11% (0-3) Basophils (%) (Auto) 1% (0-3) Neutrophils # (Auto) 5.2x10^3uL (1.8-7.7) Lymphocytes # (Auto) 1.2x10^3/uL (1.0-4.8) Monocytes # (Auto) 0.6x10^3/uL (0.0-1.1) Eosinophils # (Auto) 0.9x10^3/uL (0.0-0.7) Basophils # (Auto) 0.0x10^3/uL (0.0-0.2) Erythrocyte Sedimentation Rate 21 (0-15) Sodium Level 141mmol/L (136-145) Potassium Level 5.2mmol/L (3.5-5.1) Chloride Level 104mmol/L (98-107) Carbon Dioxide Level 24mmol/L (21-32) Anion Gap 13 (6-14) Blood Urea Nitrogen 54mg/dL (8-26) Creatinine 10.0mg/dL (0.7-1.3) Estimated GFR (Cockcroft-Gault) 6.6 Glucose Level 126mg/dL (70-99) Calcium Level 8.6mg/dL (8.5-10.1) Triglycerides Level 150mg/dL (0-150) Cholesterol Level 128mg/dL (0-200) LDL Cholesterol, Calculated 77mg/dL (0-100) VLDL Cholesterol, Calculated 30mg/dL (0-40) HDL Cholesterol 21mg/dL (40-60) Cholesterol/HDL Ratio 6.1 Thyroid Stimulating Hormone (TSH) 2.545uIU/mL (0.358-3.74) Glucose (Fingerstick) 134mg/dL (70-99) Microbiology 08/12/16 Blood Culture - Preliminary, Resulted NO GROWTH AFTER 1 DAY Medications Current Medications Sodium Chloride (Iv Sodium Chloride 0.9% 250ml) 500 ml @ 999 mls/hr 1X ONCE IV Last administered on 08/12/16 16:00; Start 08/12/16 at 16:00; Stop at 16:30; Status DC Ondansetron HCl (Zofran) 4 mg PRN Q8HRS PRN IV NAUSEA/VOMITING; Start 08/12/16 at 16:45; Stop 08/13/16 at 16:44; Status DC Vancomycin HCl (Vanco Per Pharmacy) 1 each 1X STAT MC ; Start 08/12/16 at 16:49 ; Stop 08/12/16 at 16:54; Status DC Piperacillin Sod/ Tazobactam Sod 1 each 1 each 1X ONCE MC ; Start 08/12/16 at 17:00; Stop 08/12/16 at 17:01; Status DC Vancomycin HCl 1.75 gm/Sodium Chloride 500 ml @ 250 mls/hr ONCE ONCE IV Last administered on 08/12/16 18:29; Start 08/12/16 at 17:00; Stop 08/12/16 at 18:59 ; Status DC Piperacillin Sod/ Tazobactam Sod/ Sodium Chloride (Zosyn/Iv Sodium Chloride 0.9 % 100ml) 100 ml @ 200 mls/hr 1X ONCE IV Last administered on 08/12/16 17:08 ; Start 08/12/16 at 17:00; Stop 08/12/16 at 17:29; Status DC Aspirin ([employer] Aspirin) 325 mg 1X ONCE PO ; Start 08/12/16 at 22:00; Stop 08/12 at 22:01; Status DC Aspirin ([employer] Aspirin) 325 mg DAILYWBKFT PO Last administered on 08/13/16 08: 14; Start 08/13/16 at 08:00 Amlodipine Besylate (Norvasc) 10 mg DAILY PO Last administered on 08/13/16 10: 17; Start 08/13/16 at 09:00 Atorvastatin Calcium (Lipitor) 20 mg DAILY PO Last administered on 08/13/16 10 :16; Start 08/13/16 at 09:00 Carvedilol (Coreg) 6.25 mg BIDWMEALS PO Last administered on 08/13/16 18:07; Start 08/13/16 at 08:00 Clonidine HCl (Catapres) 0.2 mg DAILY PO Last administered on 08/13/16 10:17; Start 08/13/16 at 09:00 Acetaminophen/ Hydrocodone Bitart (Lortab 7.5/325) 1 tab PRN Q4HRS PRN PO SEVERE PAIN; Start 08/12/16 at 21:45 Insulin Aspart (Novolog) 12 units TIDWMEALS SQ Last administered on 08/13/16 13:15; Start 08/12/16 at 21:45; Stop 08/14/16 at 08:16; Status DC Albuterol/ Ipratropium (Duoneb) 3 ml RTQID NEB Last administered on 08/14/16 11:16; Start 08/13/16 at 08:00 Lisinopril (Prinivil) 20 mg DAILY PO Last administered on 08/13/16 08:15; Start 08/13/16 at 09:00 Ondansetron HCl (Zofran Odt) 4 mg PRN Q4HRS PRN PO NAUSEA/VOMITING; Start 08/12 at 21:45 Senna/Docusate Sodium (Senna Plus) 1 tab DAILY PO Last administered on 08:16; Start 08/13/16 at 09:00 Sodium Bicarbonate (Sodium Bicarbonate) 650 mg BID PO Last administered on 08/13 20:14; Start 08/13/16 at 09:00 Fluticasone Propionate (Flonase) 2 spray DAILY NS Last administered on 08:17; Start 08/13/16 at 09:00 Vitamin B Complex/ Vitamin C (Nephro-Lisa) 1 tab DAILY PO Last administered on 08/13/16 10:16; Start 08/13/16 at 09:00 Insulin Aspart (Novolog) 0-7 UNITS TIDWMEALS SQ ; Start 08/13/16 at 08:00 Dextrose 12.5 gm 12.5 gm PRN Q15MIN PRN IV SEE COMMENTS Last administered on 16:44; Start 08/12/16 at 21:45 Piperacillin Sod/ Tazobactam Sod/ Sodium Chloride (Zosyn/Iv Sodium Chloride 0.9 % 50ml) 50 ml @ 100 mls/hr Q8HRS IV Last administered on 08/13/16 15:34; Start 08/13/16 at 06:00; Stop 08/14/16 at 11:28; Status DC Doxycycline Hyclate (Vibra-Tab) 100 mg BID PO Last administered on 08/13/16 20 :14; Start 08/13/16 at 10:00 Vancomycin HCl (Vanco Per Pharmacy) 1 each PRN DAILY PRN MC SEE COMMENTS Last administered on 08/13/16 12:05; Start 08/13/16 at 12:00; Stop 08/14/16 at 11:28 ; Status DC Vancomycin HCl 1 each 1X ONCE MC ; Start 08/14/16 at 18:30; Stop 08/14/16 at 18 :30; Status DC Benzonatate (Tessalon Perle) 100 mg [id number] PO Last administered on 08/13/16 20 :14; Start 08/13/16 at 15:45 Guaifenesin (Mucinex) 600 mg BID PO Last administered on 08/13/16 20:14; Start 08/13/16 at 15:45 Glucagon 1 mg 1 mg 1X ONCE IM Last administered on 08/13/16 18:34; Start at 18:30; Stop 08/13/16 at 18:31; Status DC Sodium Chloride (Iv Sodium Chloride 0.9% 1000ml Bag) 1,000 ml @ 1,000 mls/hr Q1H PRN IV hypotension; Start 08/14/16 at 08:30; Stop 08/14/16 at 14:29 Diphenhydramine HCl (Benadryl) 25 mg 1X PRN PRN IV ITCHING; Start 08/14/16 at 08:30; Stop 08/15/16 at 08:29 Diphenhydramine HCl (Benadryl) 25 mg 1X PRN PRN IV ITCHING; Start 08/14/16 at 08:30; Stop 08/15/16 at 08:29 Info (PHARMACY MONITORING -- do not chart) 1 each PRN DAILY PRN MC SEE COMMENTS ; Start 08/14/16 at 08:30; Status UNV Info (PHARMACY MONITORING -- do not chart) 1 each PRN DAILY PRN MC SEE COMMENTS ; Start 2/22/17 at 08:30 Amoxicillin/ Clavulanate Potassium (Augmentin 500/ 125mg) 1 tab DAILY PO ; Start 08/14/16 at 12:00 Active Scripts Active Reported Senna-Docusate Sodium Tablet (Sennosides/Docusate Sodium) 1 Each Tablet 1 Each PO DAILY Ondansetron Odt (Ondansetron) 4 Mg Tab.rapdis 1 Tab PO Q4H PRN Lisinopril 20 Mg Tablet 1 Tab PO DAILY Duoneb 0.5-3(2.5) Mg/3 Ml (Albuterol/Ipratropium) 3 Ml Ampul.neb 3 Ml NEB QID Hydrocodone-Apap 7.5-325 (Hydrocodone Bit/Acetaminophen) 1 Each Tablet 1 Tab PO Q4HRS PRN Aranesp Syringe (Darbepoetin Greg In Polysorbat) 60 Mcg/0.3 Ml Disp.syrin 60 Mcg SQ WEEKLY Lac-Hydrin Five (Ammonium Lactate) 113 Gm Lotion 113 Gm TP BID Amlodipine Besylate 10 Mg Tablet 10 Mg PO DAILY Aspirin 325 Mg Tablet 1 Tab PO DAILY Clonidine Hcl 0.2 Mg Tablet 0.2 Mg PO DAILY Flonase Allergy Relief (Fluticasone Propionate) 9.9 Ml [place].susp 1 Sprays NS BID Carvedilol 6.25 Mg Tablet 1 Tab PO BID Atorvastatin Calcium 20 Mg Tablet 1 Tab PO DAILY Novolog Flexpen (Insulin Aspart) 100 Unit/1 Ml Insuln.pen 12 Unit SQ TIDWMEALS PRN Lantus Solostar (Insulin Glargine,Hum.rec.anlog) 100 Unit/1 Ml Insuln.pen 15 Unit SQ QHS Sodium Bicarbonate 650 Mg Tablet 1 Tab PO BID Nephro-Lisa Rx Tablet (Vit B Cmplx 3/Fa/Vit C/Biotin) 1 Each Tablet 1 Each PO DAILY Vitals/I & O Vital Sign - Last 24 Hours 08/13/16 08/13/16 08/13/16 08/13/16 12:04 15:00 16:21 18:07 Temp 98.5 98.5 Pulse 82 81 Resp 18 B/P 110/86 105/65 Pulse Ox 95 98 O2 Delivery Room Air Room Air Room Air 08/13/16 08/13/16 08/13/16 08/13/16 19:00 20:00 20:48 23:00 Temp 98.7 97.7 98.7 97.7 Pulse 84 84 Resp 18 18 B/P 115/87 131/69 Pulse Ox 98 99 95 O2 Delivery Room Air Room Air Room Air Room Air 08/14/16 08/14/16 08/14/16 08/14/16 03:00 07:27 08:00 11:16 Temp 97.9 97.9 Pulse 84 Resp 18 B/P 127/66 Pulse Ox 97 O2 Delivery Room Air Room Air Room Air Room Air Intake and Output 08/13/16 08/13/16 08/14/16 15:00 23:00 07:00 Intake Total 240 ml 340 ml Output Total 0 ml Balance 240 ml 340 ml 0 ml JAG CONNELLY MD Aug 14, 2016 11:41
--- NOTE | 2016-08-14 11:41 | CONS ---
DATE OF CONSULTATION: 08/13/2016 REQUESTING PHYSICIAN: ____ REASON FOR CONSULTATION: Need for antibiotics. HISTORY OF PRESENT ILLNESS: The patient is a pleasant 66-year-old -[place] gentleman with history of chronic kidney disease on hemodialysis, also history of previous MSSA pseudomonas and Providencia infections, undergone left BKA. Also, has a distant history of diskitis as well as endocarditis. He presents to [facility] on the with generalized weakness. Apparently he has developed a cough. Denies any chills or sweats, but he did have fever. No nausea, vomiting, no diarrhea. There was a report of some slurriness in speech. Although the patient feels better now, but again he is somewhat of a questionable historian. On arrival, he had a white count of 7.4 with a normal differential. Influenza screen was negative. He did undergo a CT scan of his head which showed a moderately sized subacute left parietal infarct. He was placed on vancomycin and Zosyn and admitted to the hospital. Currently, he is sitting up in a chair, states he is feeling somewhat better. He just did walk a little bit with PT. PAST MEDICAL HISTORY: Again is positive for endocarditis, diskitis, history of previous CVA, hyperlipidemia, chronic kidney disease on hemodialysis, insulin-dependent diabetes, hypertension, history of MSSA pseudomonas and Providencia. PAST SURGICAL HISTORY: Positive for left BKA, AV shunt placement, transmetatarsal amputation, right foot angioplasty. REVIEW OF SYSTEMS: Otherwise negative except for mentioned above. ALLERGIES: No known drug allergies. SOCIAL HISTORY: No tobacco or alcohol. He is . FAMILY HISTORY: Positive for diabetes, hypertension and renal complications. CURRENT MEDICATIONS: Include a dose of vancomycin and Zosyn, clonidine, Coreg, Lipitor, aspirin, and Prinivil. Other meds are available and have been reviewed in chart. PHYSICAL EXAMINATION: VITAL SIGNS: T-max has been 100.1 orally, currently 97.9; pulse 102, blood pressure 150/72, satting 97% on room air. CONSTITUTIONAL: He is sitting up in a chair, in no acute distress. HEENT: Pupils are equal and reactive. Normal conjunctivae. Oral cavity, pharynx is clear. NECK: Supple, good range of motion. LUNGS: Clear to auscultation. HEART: S1, S2. ABDOMEN: Soft, nontender, nondistended, positive bowel sounds. EXTREMITIES: He has a prosthesis to his left lower extremity. Right lower extremity without edema. ____ extremities without signs of complications. SKIN: Warm to touch without signs of rash. NEUROLOGIC: He is moving all extremities. He is answering questions. PSYCHIATRIC: Affect is somewhat flat. LABORATORY DATA: White count 5.8, hemoglobin 10, platelets of 211, and neutrophils 62, lymphs 15. Glucose 172. Normal liver function study tests. CT scan of the head reviewed in history of present illness. Chest x-ray, some mild interstitial opacities. IMPRESSION: 1. Fever. 2. Cerebrovascular accident, questionable age. 3. Chest congestion. 4. Chronic kidney disease on hemodialysis. 5. History of endocarditis and diskitis. RECOMMENDATIONS: For now, continue vancomycin, Zosyn. We will add doxycycline for atypical coverage. Follow up on labs, cultures, await neuro evaluation and follow up on the echo. Thank you for allowing me to participate in this patient's care. If you have any questions, please do not hesitate to contact me. JOSEFA MARIN MD DR: INDIA/richi JOB#: [id number] / [id number]
[2016-08-14] MEDS: SODIUM BICARBONATE 650 MG TABLET. PO SCH ×2 (12:26→21:10)
[2016-08-14] MEDS: CARVEDILOL 6.25 MG TABLET PO SCH ×2 (12:26→17:28)
[2016-08-14] MEDS: ASPIRIN 325 MG TABLET PO SCH (12:26)
[2016-08-14] MEDS: GUAIFENESIN ER 600 MG TABLET.ER PO SCH ×2 (12:26→21:10)
[2016-08-14] MEDS: CLONIDINE HCL 0.2 MG TABLET PO SCH (12:26)
[2016-08-14] MEDS: FOLIC/VIT B COMP W-C (RENAL) TABLET. PO SCH (12:26)
[2016-08-14] MEDS: LISINOPRIL 20 MG TABLET PO SCH (12:27)
[2016-08-14] MEDS: AMLODIPINE BESYLATE 10 MG TABLET PO SCH (12:27)
[2016-08-14] MEDS: ATORVASTATIN CALCIUM 20 MG TABLET PO SCH (12:27)
[2016-08-14] MEDS: BENZONATATE 100 MG CAPSULE. PO SCH ×3 (12:27→21:10)
[2016-08-14] MEDS: AMOXICILLIN/K CLAV 500/125MG TABLET. PO SCH (12:27)
[2016-08-14] MEDS: DOXYCYCLINE HYCLATE 100 MG TABLET PO SCH ×2 (12:29→21:10)
[2016-08-14 15:40] VITALS: BP 118/65
--- NOTE | 2016-08-14 17:49 | CONS ---
DATE OF CONSULTATION: PRIMARY PHYSICIAN: Dr. Medina. REASON FOR CONSULTATION: ESRD dialysis. HISTORY OF PRESENT ILLNESS: The patient is a pleasant 56-year-old gentleman well known to me from his CKD days. He currently follows with Dr. Arroyo for his ESRD status. He apparently was at dialysis on a Friday, Friday, Friday basis. When he got out of the ____, he was apparently noted to be increasingly fatigued. His was concerned and brought him to the ER where he was noted to have a temperature a little above 100. He was admitted to the hospital for further evaluation. No obvious source of infection is apparent at this time. ____ has seen the patient and is managing that aspect of his care. We will plan on dialysis tomorrow. For rest of details, see electronic records. JONATHAN LYON MD DR: ALISSA/richi JOB#: [id number] / [id number]
[2016-08-14] MEDS ORDERED: VANCOMYCIN RANDOM LEVEL. MC ONE (18:30)
[2016-08-14 19:00] VITALS: BP 98/54
[2016-08-14 23:00] VITALS: BP 118/65
[2016-08-15 03:00] VITALS: BP 143/78
[2016-08-15] MEDS: IPRATRPIUM/ALBUTEROL 0.5/2.5MG 3 ML NEBU. NEB SCH ×2 (06:59→10:58)
[2016-08-15 07:15] VITALS: BP 146/86
[2016-08-15] MEDS: GUAIFENESIN ER 600 MG TABLET.ER PO SCH (08:23)
[2016-08-15] MEDS: FLUTICASONE 50MCG/NASAL SPRAY 16GM BOTTLE. NS SCH (08:23)
[2016-08-15] MEDS: ASPIRIN 325 MG TABLET PO SCH (08:23)
[2016-08-15] MEDS: CARVEDILOL 6.25 MG TABLET PO SCH ×2 (08:23→12:23)
[2016-08-15] MEDS: DOXYCYCLINE HYCLATE 100 MG TABLET PO SCH (08:23)
[2016-08-15] MEDS: AMOXICILLIN/K CLAV 500/125MG TABLET. PO SCH (08:23)
[2016-08-15] MEDS: SODIUM BICARBONATE 650 MG TABLET. PO SCH (08:24)
[2016-08-15] MEDS: BENZONATATE 100 MG CAPSULE. PO SCH ×2 (08:24→12:22)
[2016-08-15] MEDS: SENNOSIDES/DOCUSATE 8.6/50MG TABLET. PO SCH (08:24)
[2016-08-15] MEDS: AMLODIPINE BESYLATE 10 MG TABLET PO SCH (08:24)
[2016-08-15] MEDS: ATORVASTATIN CALCIUM 20 MG TABLET PO SCH (08:25)
[2016-08-15] MEDS: INSULIN ASPART 300 UNITS/3 ML INSULN.PEN SQ SCH ×3 (08:42→17:28)
[2016-08-15] MEDS: CLONIDINE HCL 0.2 MG TABLET PO SCH (09:00)
--- NOTE | 2016-08-15 09:39 | PDOC ---
SUBJECTIVE ROS ESRD Doing well today, readyto go home CVS: no Orthopnea, no CP RESP: no SOB, no GODDARD GI: no Nausea, no Vomiting : no Dysuria, no Urgency OBJECTIVE Vital Signs Vital Signs Date Time Temp Pulse Resp B/P Pulse Ox O2 Delivery O2 Flow Rate FiO2 08/15/16 08:24 88 146/86 08/15/16 07:15 98.7 20 95 Room Air 98.7 I & 0 Intake and Output 08/15/16 07:00 Intake Total 1240 ml Balance 1240 ml Intake Oral 1240 ml # Voids 3 # Bowel Movements 3 PHYSICAL EXAM Physical Exam GEN: Awake, Oriented x 3, In no distress EYES: Vision Unchanged, Conjunctiva Normal EN: No EN Drainage, Mucous Membranes moist NECK: no JVD, min JVP, Supple, no Thyromegaly CVS: S1S2, + Murmur, No Gallop, No Rub,no Edema RESP: no Rales, no Rhonchi,no Acc. Muscle Use GI: BS + ve, NO Bruit, Non Tender, Non Distended : no CVA tenderness, no Suprapubic Tenderness DIAGNOSIS/ASSESSMENT Assessment & Plan ESRD: Current fluid and E-lyte status does not necessitate emergent need for dialysis. Will re-evaluate for dialysis in the am and continue on MWF schedule. ANEMIA; Aranap as ordered, Transfuse with next HD as needed HTN: Current BP meds as reviewed. See orders for changes. ^K - anticipate resolution from yest Discussed Plan of Care with Dr Mednia and Pt. at bedside Problems: COMMENT/RELEVANT DATA Meds Current Medications Medications (Trade) Dose Ordered Sig/Teresa Start Time Stop Time Status Last Admin Dose Admin Acetaminophen/ Hydrocodone Bitart (Lortab 7.5/325) 1 tab PRN Q4HRS PRN 08/12/16 21:45 Albuterol/ Ipratropium (Duoneb) 3 ml RTQID 08/13/16 08:00 08/15/16 06:59 3 ML Amlodipine Besylate (Norvasc) 10 mg DAILY 08/13/16 09:00 08/15/16 08:24 10 MG Amoxicillin/ Clavulanate Potassium (Augmentin 500/ 125mg) 1 tab DAILY 08/14/16 12:00 08/15/16 08:23 1 TAB Aspirin (Radha Aspirin) 325 mg [id number] 08/13/16 08:00 08/15/16 08:23 325 MG Atorvastatin Calcium (Lipitor) 20 mg DAILY 08/13/16 09:00 08/15/16 08:25 20 MG Benzonatate (Tessalon Perle) 100 mg [id number] 08/13/16 15:45 08/15/16 08:24 100 MG Carvedilol (Coreg) 6.25 mg BIDWMEALS 08/13/16 08:00 08/15/16 08:23 6.25 MG Clonidine HCl (Catapres) 0.2 mg DAILY 08/13/16 09:00 08/14/16 12:26 0.2 MG Dextrose 12.5 gm 12.5 gm PRN Q15MIN PRN 08/12/16 21:45 08/13/16 16:44 25 GM Diphenhydramine HCl (Benadryl) 25 mg 1X PRN PRN 08/14/16 08:30 08/15/16 08:29 DC Doxycycline Hyclate (Vibra-Tab) 100 mg BID 08/13/16 10:00 08/15/16 08:23 100 MG Fluticasone Propionate (Flonase) 2 spray DAILY 08/13/16 09:00 08/15/16 08:23 2 SPRAY Glucagon 1 mg 1 mg 1X ONCE 08/13/16 18:30 08/13/16 18:31 DC 08/13/16 18:34 1 MG Guaifenesin (Mucinex) 600 mg BID 08/13/16 15:45 08/15/16 08:23 600 MG Info (PHARMACY MONITORING -- do not chart) 1 each PRN DAILY PRN 08/14/16 08:30 Insulin Aspart (Novolog) 0-7 UNITS TIDWMEALS 08/13/16 08:00 08/15/16 08:42 3 UNITS Lisinopril (Prinivil) 20 mg DAILY 08/13/16 09:00 08/14/16 12:27 20 MG Ondansetron HCl (Zofran Odt) 4 mg PRN Q4HRS PRN 08/12/16 21:45 Ondansetron HCl (Zofran) 4 mg PRN Q8HRS PRN 08/12/16 16:45 08/13/16 16:44 DC Piperacillin Sod/ Tazobactam Sod 1 each 1 each 1X ONCE 08/12/16 17:00 08/12/16 17:01 DC Piperacillin Sod/ Tazobactam Sod/ Sodium Chloride (Zosyn/Iv Sodium Chloride 0.9% 50ml) 50 ml @ 100 mls/hr Q8HRS 08/13/16 06:00 08/14/16 11:28 DC 08/13/16 15:34 100 MLS/HR Piperacillin Sod/ Tazobactam Sod/ Sodium Chloride (Zosyn/Iv Sodium Chloride 0.9% 100ml) 100 ml @ 200 mls/hr 1X ONCE 08/12/16 17:00 08/12/16 17:29 DC 08/12/16 17:08 200 MLS/HR Senna/Docusate Sodium (Senna Plus) 1 tab DAILY 08/13/16 09:00 08/15/16 08:24 1 TAB Sodium Bicarbonate (Sodium Bicarbonate) 650 mg BID 08/13/16 09:00 08/15/16 08:24 650 MG Sodium Chloride (Iv Sodium Chloride 0.9% 250ml) 500 ml @ 999 mls/hr 1X ONCE 08/12/16 16:00 08/12/16 16:30 DC 08/12/16 16:00 999 MLS/HR Sodium Chloride (Iv Sodium Chloride 0.9% 1000ml Bag) 1,000 ml @ 1,000 mls/hr Q1H PRN 08/14/16 08:30 08/14/16 14:29 DC Vancomycin HCl 1 each 1X ONCE 08/14/16 18:30 08/14/16 18:30 DC Vancomycin HCl (Vanco Per Pharmacy) 1 each PRN DAILY PRN 08/13/16 12:00 08/14/16 11:28 DC 08/13/16 12:05 1 EACH Vancomycin HCl 1.75 gm/Sodium Chloride 500 ml @ 250 mls/hr ONCE ONCE 08/12/16 17:00 08/12/16 18:59 DC 08/12/16 18:29 250 MLS/HR Vitamin B Complex/ Vitamin C (Nephro-Lisa) 1 tab DAILY 08/13/16 09:00 08/14/16 12:26 1 TAB Lab Laboratory Tests Test 08/14/16 11:11 08/14/16 16:46 08/14/16 20:44 08/15/16 07:28 Glucose (Fingerstick) 134mg/dL (70-99) 232mg/dL (70-99) 251mg/dL (70-99) 163mg/dL (70-99) Test 08/15/16 08:36 Glucose (Fingerstick) 153mg/dL (70-99) JONATHAN LYON MD Aug 15, 2016 09:39
--- NOTE | 2016-08-15 09:59 | PDOC ---
PROGRESS NOTES Subjective Subjective feels better ,ready to go home Objective Objective Vital Signs Date Time Temp Pulse Resp B/P Pulse Ox O2 Delivery O2 Flow Rate FiO2 08/15/16 08:24 88 146/86 08/15/16 07:15 98.7 20 95 Room Air 98.7 Intake and Output 08/15/16 07:00 Intake Total 1240 ml Balance 1240 ml Intake Oral 1240 ml # Voids 3 # Bowel Movements 3 Physical Exam Abdomen: Normal bowel sounds, Soft Heart: Regular rate, Normal S1, Normal S2 General: Alert HEENT: Atraumatic MUSCULOSKELETAL: No deformity Neck: Supple Neuro: Normal speech Psych/Mental Status: Mental status NL Skin: No breakdown Diagnosis Problem List Problems Medical Problems: (1) ESRD (end stage renal disease) Status: Acute (2) ESRD (end stage renal disease) on dialysis Status: Acute (3) Fever Status: Acute (4) IDDM (insulin dependent diabetes mellitus) Status: Acute (5) Sepsis Status: Acute (6) Weak Status: Acute Assessment Assessment Problems Medical Problems: (1) ESRD (end stage renal disease) Status: Acute (2) ESRD (end stage renal disease) on dialysis Status: Acute (3) Fever Status: Acute (4) IDDM (insulin dependent diabetes mellitus) Status: Acute (5) Sepsis Status: Acute (6) Weak Status: Acute FINAL IMPRESSION: 1. Fever with febrile illness improving. 2. Subacute infarct on CT scan. 3. End-stage renal disease, on hemodialysis. 4. Insulin-dependent diabetes. 5. 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 6. 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 7. Hypertension. 8. Hyperlipidemia. PLAN: d/c home today. oral augmentin x 10 days for ac sinusitis MRI no new cva. carotid -ve. echo good lvf. spoke with ID .? home today dialysis today. ? sinusitis Problems: Plan Plan of Care Problems Medical Problems: (1) ESRD (end stage renal disease) Status: Acute (2) ESRD (end stage renal disease) on dialysis Status: Acute (3) Fever Status: Acute (4) IDDM (insulin dependent diabetes mellitus) Status: Acute (5) Sepsis Status: Acute (6) Weak Status: Acute Comment Review of Relevant I have reviewed the following items ginny (where applicable) has been applied. Labs Laboratory Tests Test 08/14/16 11:11 08/14/16 16:46 08/14/16 20:44 08/15/16 07:28 Glucose (Fingerstick) 134mg/dL (70-99) 232mg/dL (70-99) 251mg/dL (70-99) 163mg/dL (70-99) Test 08/15/16 08:36 Glucose (Fingerstick) 153mg/dL (70-99) Microbiology 08/12/16 Blood Culture - Preliminary, Resulted NO GROWTH AFTER 2 DAYS Medications Current Medications Amoxicillin/ Clavulanate Potassium (Augmentin 500/ 125mg) 1 tab DAILY PO Last administered on 08/15/16t 08:23; Start 08/14/16 at 12:00 Darbepoetin Greg (Aranesp) 60 mcg WEEKLYHS SQ ; Start 08/15/16 at 10:00 Vancomycin HCl 1 each 1X ONCE MC ; Start 08/14/16 at 18:30; Stop 08/14/16 at 18 :30; Status DC Vitals/I & O Vital Sign - Last 24 Hours 08/14/16 08/14/16 08/14/16 08/14/16 11:16 11:41 12:26 12:26 Temp 97.6 97.6 Pulse 97 97 97 Resp 16 B/P 123/63 123/63 123/63 Pulse Ox 95 O2 Delivery Room Air Room Air 08/14/16 08/14/16 08/14/16 08/14/16 12:27 12:27 14:59 15:40 Temp 97.8 97.8 Pulse 97 97 99 Resp 18 B/P 123/63 123/63 118/65 Pulse Ox 94 O2 Delivery Room Air Room Air 08/14/16 08/14/16 08/14/16 08/14/16 17:28 19:00 19:10 23:00 Temp 98.4 98.5 98.4 98.5 Pulse 99 92 93 Resp 18 18 B/P 118/65 98/54 118/65 Pulse Ox 93 96 O2 Delivery Room Air Room Air Room Air 08/15/16 08/15/16 08/15/16 08/15/16 03:00 07:00 07:15 08:23 Temp 98.2 98.7 98.2 98.7 Pulse 97 88 88 Resp 18 20 B/P 143/78 146/86 146/86 Pulse Ox 92 98 95 O2 Delivery Room Air Room Air Room Air 08/15/16 08:24 Pulse 88 B/P 146/86 Intake and Output 08/14/16 08/14/16 08/15/16 15:00 23:00 07:00 Intake Total 360 ml 560 ml 320 ml Balance 360 ml 560 ml 320 ml VIKTOR PARK MD Aug 15, 2016 09:59
[2016-08-15] MEDS ORDERED: DARBEPOETIN ALFA 60 MCG/0.3 ML DISP.SYRIN. SQ SCH (10:00)
[2016-08-15] MEDS ORDERED: AMOX1TAB10 PO (10:02)
--- NOTE | 2016-08-15 10:06 | PDOC ---
PROGRESS NOTES Assessment Problems Medical Problems: (1) ESRD (end stage renal disease) Status: Acute (2) ESRD (end stage renal disease) on dialysis Status: Acute (3) Fever Status: Acute (4) IDDM (insulin dependent diabetes mellitus) Status: Acute (5) Sepsis Status: Acute (6) Weak Status: Acute No evidence of new strokes on MRI Metabolic encephalopathy, improved Plan Continue treating medical diseases Agree with discharge Subjective No complaints Objective Vital Signs Date Time Temp Pulse Resp B/P Pulse Ox O2 Delivery O2 Flow Rate FiO2 08/15/16 08:24 88 146/86 08/15/16 07:15 98.7 20 95 Room Air 98.7 Intake and Output 08/15/16 07:00 Intake Total 1240 ml Balance 1240 ml Intake Oral 1240 ml # Voids 3 # Bowel Movements 3 PHYSICAL EXAM Alert. Oriented to place and person, knows the day of the week and month and year, but not the date. PERRL. EOMI. CN: no focal findings. Muscle tone: normal. Muscle strength: 5/5. Left BKA DTR: 1+ Plantar reflex: flexor on right Gait: not examined in bed. Sensory exam: no abnormal findings. No cerebellar signs elicited. Review of Relevant I have reviewed the following items ginny (where applicable) has been applied. Labs Laboratory Tests Test 08/13/16 11:47 08/13/16 12:11 08/13/16 17:48 08/13/16 20:44 Glucose (Fingerstick) 97mg/dL (70-99) 89mg/dL (70-99) 93mg/dL (70-99) 235mg/dL (70-99) Test 08/14/16 07:10 08/14/16 11:11 08/14/16 16:46 08/14/16 20:44 White Blood Count 7.9x10^3/uL (4.0-11.0) Red Blood Count 3.28x10^6/uL (4.30-5.70) Hemoglobin 9.6g/dL (13.0-17.5) Hematocrit 30.6% (39.0-53.0) Mean Corpuscular Volume 93fL (79-100) Mean Corpuscular Hemoglobin 29pg (25-35) Mean Corpuscular Hemoglobin Concent 32g/dL (31-37) Red Cell Distribution Width 20.2% (11.5-14.5) Platelet Count 195x10^3/uL (140-400) Neutrophils (%) (Auto) 66% (31-73) Lymphocytes (%) (Auto) 15% (24-48) Monocytes (%) (Auto) 8% (0-9) Eosinophils (%) (Auto) 11% (0-3) Basophils (%) (Auto) 1% (0-3) Neutrophils # (Auto) 5.2x10^3uL (1.8-7.7) Lymphocytes # (Auto) 1.2x10^3/uL (1.0-4.8) Monocytes # (Auto) 0.6x10^3/uL (0.0-1.1) Eosinophils # (Auto) 0.9x10^3/uL (0.0-0.7) Basophils # (Auto) 0.0x10^3/uL (0.0-0.2) Erythrocyte Sedimentation Rate 21 (0-15) Sodium Level 141mmol/L (136-145) Potassium Level 5.2mmol/L (3.5-5.1) Chloride Level 104mmol/L (98-107) Carbon Dioxide Level 24mmol/L (21-32) Anion Gap 13 (6-14) Blood Urea Nitrogen 54mg/dL (8-26) Creatinine 10.0mg/dL (0.7-1.3) Estimated GFR (Cockcroft-Gault) 6.6 Glucose Level 126mg/dL (70-99) Hemoglobin A1c 8.1% (4.8-5.6) Calcium Level 8.6mg/dL (8.5-10.1) Triglycerides Level 150mg/dL (0-150) Cholesterol Level 128mg/dL (0-200) LDL Cholesterol, Calculated 77mg/dL (0-100) VLDL Cholesterol, Calculated 30mg/dL (0-40) HDL Cholesterol 21mg/dL (40-60) Cholesterol/HDL Ratio 6.1 Thyroid Stimulating Hormone (TSH) 2.545uIU/mL (0.358-3.74) Glucose (Fingerstick) 134mg/dL (70-99) 232mg/dL (70-99) 251mg/dL (70-99) Test 08/15/16 07:28 08/15/16 08:36 Glucose (Fingerstick) 163mg/dL (70-99) 153mg/dL (70-99) Laboratory Tests Test 08/14/16 11:11 08/14/16 16:46 08/14/16 20:44 08/15/16 07:28 Glucose (Fingerstick) 134mg/dL (70-99) 232mg/dL (70-99) 251mg/dL (70-99) 163mg/dL (70-99) Test 08/15/16 08:36 Glucose (Fingerstick) 153mg/dL (70-99) Microbiology 08/12/16 Blood Culture - Preliminary, Resulted NO GROWTH AFTER 2 DAYS Medications Current Medications Sodium Chloride (Iv Sodium Chloride 0.9% 250ml) 500 ml @ 999 mls/hr 1X ONCE IV Last administered on 08/12/16 16:00; Start 08/12/16 at 16:00; Stop at 16:30; Status DC Ondansetron HCl (Zofran) 4 mg PRN Q8HRS PRN IV NAUSEA/VOMITING; Start 08/12/16 at 16:45; Stop 08/13/16 at 16:44; Status DC Vancomycin HCl (Vanco Per Pharmacy) 1 each 1X STAT MC ; Start 08/12/16 at 16:49 ; Stop 08/12/16 at 16:54; Status DC Piperacillin Sod/ Tazobactam Sod 1 each 1 each 1X ONCE MC ; Start 08/12/16 at 17:00; Stop 08/12/16 at 17:01; Status DC Vancomycin HCl 1.75 gm/Sodium Chloride 500 ml @ 250 mls/hr ONCE ONCE IV Last administered on 08/12/16 18:29; Start 08/12/16 at 17:00; Stop 08/12/16 at 18:59 ; Status DC Piperacillin Sod/ Tazobactam Sod/ Sodium Chloride (Zosyn/Iv Sodium Chloride 0.9 % 100ml) 100 ml @ 200 mls/hr 1X ONCE IV Last administered on 08/12/16 17:08 ; Start 08/12/16 at 17:00; Stop 08/12/16 at 17:29; Status DC Aspirin (Radha Aspirin) 325 mg 1X ONCE PO ; Start 08/12/16 at 22:00; Stop 08/12 at 22:01; Status DC Aspirin (Radha Aspirin) 325 mg [id number] PO Last administered on 08/15/16 08: 23; Start 08/13/16 at 08:00 Amlodipine Besylate (Norvasc) 10 mg DAILY PO Last administered on 08/15/16 08: 24; Start 08/13/16 at 09:00 Atorvastatin Calcium (Lipitor) 20 mg DAILY PO Last administered on 08/15/16 08 :25; Start 08/13/16 at 09:00 Carvedilol (Coreg) 6.25 mg BIDWMEALS PO Last administered on 08/15/16 08:23; Start 08/13/16 at 08:00 Clonidine HCl (Catapres) 0.2 mg DAILY PO Last administered on 08/14/16 12:26; Start 08/13/16 at 09:00 Acetaminophen/ Hydrocodone Bitart (Lortab 7.5/325) 1 tab PRN Q4HRS PRN PO SEVERE PAIN; Start 08/12/16 at 21:45 Insulin Aspart (Novolog) 12 units TIDWMEALS SQ Last administered on 08/13/16 13:15; Start 08/12/16 at 21:45; Stop 08/14/16 at 08:16; Status DC Albuterol/ Ipratropium (Duoneb) 3 ml RTQID NEB Last administered on 08/15/16 06:59; Start 08/13/16 at 08:00 Lisinopril (Prinivil) 20 mg DAILY PO Last administered on 08/14/16 12:27; Start 08/13/16 at 09:00 Ondansetron HCl (Zofran Odt) 4 mg PRN Q4HRS PRN PO NAUSEA/VOMITING; Start 08/12 at 21:45 Senna/Docusate Sodium (Senna Plus) 1 tab DAILY PO Last administered on 08:24; Start 08/13/16 at 09:00 Sodium Bicarbonate (Sodium Bicarbonate) 650 mg BID PO Last administered on 08/15 08:24; Start 08/13/16 at 09:00 Fluticasone Propionate (Flonase) 2 spray DAILY NS Last administered on 08:23; Start 08/13/16 at 09:00 Vitamin B Complex/ Vitamin C (Nephro-Lisa) 1 tab DAILY PO Last administered on 08/14/16 12:26; Start 08/13/16 at 09:00 Insulin Aspart (Novolog) 0-7 UNITS TIDWMEALS SQ Last administered on 08/15/16 08:42; Start 08/13/16 at 08:00 Dextrose 12.5 gm 12.5 gm PRN Q15MIN PRN IV SEE COMMENTS Last administered on 16:44; Start 08/12/16 at 21:45 Piperacillin Sod/ Tazobactam Sod/ Sodium Chloride (Zosyn/Iv Sodium Chloride 0.9 % 50ml) 50 ml @ 100 mls/hr Q8HRS IV Last administered on 08/13/16 15:34; Start 08/13/16 at 06:00; Stop 08/14/16 at 11:28; Status DC Doxycycline Hyclate (Vibra-Tab) 100 mg BID PO Last administered on 08/15/16 08 :23; Start 08/13/16 at 10:00 Vancomycin HCl (Vanco Per Pharmacy) 1 each PRN DAILY PRN MC SEE COMMENTS Last administered on 08/13/16 12:05; Start 08/13/16 at 12:00; Stop 08/14/16 at 11:28 ; Status DC Vancomycin HCl 1 each 1X ONCE MC ; Start 08/14/16 at 18:30; Stop 08/14/16 at 18 :30; Status DC Benzonatate (Tessalon Perle) 100 mg [id number] PO Last administered on 08/15/16 08 :24; Start 08/13/16 at 15:45 Guaifenesin (Mucinex) 600 mg BID PO Last administered on 08/15/16 08:23; Start 08/13/16 at 15:45 Glucagon 1 mg 1 mg 1X ONCE IM Last administered on 08/13/16 18:34; Start at 18:30; Stop 08/13/16 at 18:31; Status DC Sodium Chloride (Iv Sodium Chloride 0.9% 1000ml Bag) 1,000 ml @ 1,000 mls/hr Q1H PRN IV hypotension; Start 08/14/16 at 08:30; Stop 08/14/16 at 14:29; Status DC Diphenhydramine HCl (Benadryl) 25 mg 1X PRN PRN IV ITCHING; Start 08/14/16 at 08:30; Stop 08/15/16 at 08:29; Status DC Diphenhydramine HCl (Benadryl) 25 mg 1X PRN PRN IV ITCHING; Start 08/14/16 at 08:30; Stop 08/15/16 at 08:29; Status DC Info (PHARMACY MONITORING -- do not chart) 1 each PRN DAILY PRN MC SEE COMMENTS ; Start 08/14/16 at 08:30; Status UNV Info (PHARMACY MONITORING -- do not chart) 1 each PRN DAILY PRN MC SEE COMMENTS ; Start 08/14/16 at 08:30 Amoxicillin/ Clavulanate Potassium (Augmentin 500/ 125mg) 1 tab DAILY PO Last administered on 08/15/16t 08:23; Start 08/14/16 at 12:00 Darbepoetin Greg (Aranesp) 60 mcg WEEKLYHS SQ ; Start 08/15/16 at 10:00 Active Scripts Active Reported Senna-Docusate Sodium Tablet (Sennosides/Docusate Sodium) 1 Each Tablet 1 Each PO DAILY Ondansetron Odt (Ondansetron) 4 Mg Tab.rapdis 1 Tab PO Q4H PRN Lisinopril 20 Mg Tablet 1 Tab PO DAILY Duoneb 0.5-3(2.5) Mg/3 Ml (Albuterol/Ipratropium) 3 Ml Ampul.neb 3 Ml NEB QID Hydrocodone-Apap 7.5-325 (Hydrocodone Bit/Acetaminophen) 1 Each Tablet 1 Tab PO Q4HRS PRN Aranesp Syringe (Darbepoetin Greg In Polysorbat) 60 Mcg/0.3 Ml Disp.syrin 60 Mcg SQ WEEKLY Lac-Hydrin Five (Ammonium Lactate) 113 Gm Lotion 113 Gm TP BID Amlodipine Besylate 10 Mg Tablet 10 Mg PO DAILY Aspirin 325 Mg Tablet 1 Tab PO DAILY Clonidine Hcl 0.2 Mg Tablet 0.2 Mg PO DAILY Flonase Allergy Relief (Fluticasone Propionate) 9.9 Ml [place].susp 1 Sprays NS BID Carvedilol 6.25 Mg Tablet 1 Tab PO BID Atorvastatin Calcium 20 Mg Tablet 1 Tab PO DAILY Novolog Flexpen (Insulin Aspart) 100 Unit/1 Ml Insuln.pen 12 Unit SQ TIDWMEALS PRN Lantus Solostar (Insulin Glargine,Hum.rec.anlog) 100 Unit/1 Ml Insuln.pen 15 Unit SQ QHS Sodium Bicarbonate 650 Mg Tablet 1 Tab PO BID Nephro-Lisa Rx Tablet (Vit B Cmplx 3/Fa/Vit C/Biotin) 1 Each Tablet 1 Each PO DAILY Vitals/I & O Vital Sign - Last 24 Hours 08/14/16 08/14/16 08/14/16 08/14/16 11:16 11:41 12:26 12:26 Temp 97.6 97.6 Pulse 97 97 97 Resp 16 B/P 123/63 123/63 123/63 Pulse Ox 95 O2 Delivery Room Air Room Air 08/14/16 08/14/16 08/14/16 08/14/16 12:27 12:27 14:59 15:40 Temp 97.8 97.8 Pulse 97 97 99 Resp 18 B/P 123/63 123/63 118/65 Pulse Ox 94 O2 Delivery Room Air Room Air 08/14/16 08/14/16 08/14/16 08/14/16 17:28 19:00 19:10 23:00 Temp 98.4 98.5 98.4 98.5 Pulse 99 92 93 Resp 18 18 B/P 118/65 98/54 118/65 Pulse Ox 93 96 O2 Delivery Room Air Room Air Room Air 08/15/16 08/15/16 08/15/16 08/15/16 03:00 07:00 07:15 08:23 Temp 98.2 98.7 98.2 98.7 Pulse 97 88 88 Resp 18 20 B/P 143/78 146/86 146/86 Pulse Ox 92 98 95 O2 Delivery Room Air Room Air Room Air 08/15/16 08:24 Pulse 88 B/P 146/86 Intake and Output 08/14/16 08/14/16 08/15/16 15:00 23:00 07:00 Intake Total 360 ml 560 ml 320 ml Balance 360 ml 560 ml 320 ml JAG CONNELLY MD Aug 15, 2016 10:06
--- NOTE | 2016-08-15 10:26 | PDOC ---
Provider Note Provider Note Discharge summary dictated. #[id number] VIKTOR PARK MD Aug 15, 2016 10:26
[2016-08-15 11:15] VITALS: BP 129/70
[2016-08-15] MEDS: LISINOPRIL 20 MG TABLET PO SCH (12:24)
[2016-08-15] MEDS: FOLIC/VIT B COMP W-C (RENAL) TABLET. PO SCH (12:27)
[2016-08-15 15:31] VITALS: BP 133/75
--- NOTE | 2016-08-15 20:37 | DS ---
DATE OF DISCHARGE: 08/15/2016 REASON FOR ADMISSION TO THE HOSPITAL: Fever, confusion, weakness. CONSULTATIONS: Dr. Tim, Neurology; Dr. Daniel, Renal; and Infectious Disease, Dr. Valero. PROCEDURES DONE: 1. Echocardiogram. 2. CT head. 3. MRI of the brain. 4. Carotid Doppler. HOSPITAL COURSE: The patient is a 56-year-old male with history of hypertension, diabetes and renal failure on hemodialysis 3 times a week, Friday, Friday and Friday. He also has a left [id number] amputation, he uses prosthesis. Once he came from dialysis on Friday was feeling weak, confused, and not able to get out of his transportation van. The patient was brought to the hospital. Had a CT head shows old stroke. MRI of the brain, no new stroke. Carotid Doppler was negative. Echo shows a good left ventricular function, 55%. The patient was seen by Infectious Disease, was started on vancomycin and Zosyn initially. Cultures negative. MRI of the brain shows possible sinusitis, so changed it to Augmentin. On the whole, the patient's condition improved. He had episode of hypoglycemia in the hospital, which was corrected. He received hemodialysis while he was in the hospital and is back to his baseline and the patient was discharged. FINAL DIAGNOSES: 1. Fever secondary to acute sinusitis. 2. Weakness secondary to infections and fever. 3. Encephalopathy, improved. 4. Renal failure, on hemodialysis. 5. Insulin-dependent diabetes. 6. Left omrjk-vab-[id number] amputation and prosthesis. DISPOSITION: Back home and outpatient dialysis. Follow up in the office in 2 weeks. Augmentin daily for 10 days for sinusitis. VIKTOR PARK MD DR: TIGIST/richi JOB#: [id number] / [id number]
== END 2016-08-15 18:31 | disposition home or self-care (01) | DRG 152 ==
LOC: ER 14:36 → 5 NORTH 16:02
PROVIDERS: ADMIT Internal Medicine; ATTEND Internal Medicine
PROC: 5A1D00Z (ICD-10-PCS; principal; 2016-08-14)
DX: J01.90 Acute sinusitis, unspecified (principal); G93.41 Metabolic encephalopathy; N18.6 End stage renal disease; I12.0 Hypertensive chronic kidney disease with stage 5 chronic kidney disease or end stage renal disease; D64.9 Anemia, unspecified; E11.649 Type 2 diabetes mellitus with hypoglycemia without coma; E78.00 Pure hypercholesterolemia, unspecified; E11.22 Type 2 diabetes mellitus with diabetic chronic kidney disease; E78.5 Hyperlipidemia, unspecified; Z79.4 Long term (current) use of insulin; Z79.82 Long term (current) use of aspirin; Z82.49 Family history of ischemic heart disease and other diseases of the circulatory system; Z86.19 Personal history of other infectious and parasitic diseases; Z83.3 Family history of diabetes mellitus; Z86.73 Personal history of transient ischemic attack (TIA), and cerebral infarction without residual deficits; Z89.512 Acquired absence of left leg below knee; Z99.2 Dependence on renal dialysis
CPT/HCPCS: 36415; 70450; 70551; 71010; 80047; 80048; 80061; 80076; 82306; 82550; 82607; 82947; 83036; 83605; 84443; 84484; 85007; 85027; 85651; 87040; 87804; 93005; 93306; 93880; 94250; 94640; 94760; 96365; 96375; J0881; J1610; J1815; J2543; J3370; J7040; J7042; J7050; J7620; 92610; 97110; 99285-25; J7030

== ENCOUNTER 2017-03-28 09:15 | Inpatient (IN) | payer MEDICARE, BC ==
[~2017-03-28] VITALS: Ht 167.6 cm; Wt 76.0 kg
[2017-03-28] VITALS (11 sets, daily range): BP systolic 79–123; BP diastolic 45–65
[~2017-03-28 09:15] MED LIST changes: +AMOX1TAB10 PO; -ASPI325T4 PO; +ASPI325T8 PO; +OXYC5CAP PO; -OXYC5CAP3 PO; -OXYC5TAB PO; +OXYC5TAB95 PO; -SUCR1TAB29 PO; +SUCR1TAB35 PO
--- NOTE | 2017-03-28 10:09 | RAD ---
Chest x-ray Indication: Altered mental status Technique: Portable AP upright chest x-ray Comparison: Previous study from 08/12/2016 Findings: Heart is top normal in size. Lungs are clear. No pneumothorax or pleural effusion. Visualized bony thorax is within normal limits. Impression: No acute cardiopulmonary process.
--- NOTE | 2017-03-28 10:12 | RAD ---
Right foot x-rays Indication: Right foot pain, possible infection. Technique: 3 views of the right foot Comparison: Previous study from 2014 Findings: Status post transmetatarsal resection of the foot. Vascular calcifications noted. There is soft tissue gas along the medial and dorsal aspect of the foot extending to the level of ankle. There is diffuse soft tissue edema. Superficial lucency along the plantar aspect of the distal foot suggests ulcer. No acute fractures. There is no evidence of periosteal reaction. Impression: Gas in the soft tissue of the foot concerning for necrotizing infection with possible osteomyelitis.
[2017-03-28 10:20] LABS: BASO % 0 % (0-3); EOS % 0 % (0-3); HEMATOCRIT 22.4 % (39.0-53.0); HEMOGLOBIN 7.1 g/dL (13.0-17.5); LYMPH # 0.8 x10^3/uL (1.0-4.8); LYMPH % 3 % (24-48); MEAN CORPUSCULAR HEMOGLOBIN 29 pg (25-35); MEAN CORPUSCULAR HGB CONC 32 g/dL (31-37); MEAN CORPUSCULAR VOLUME 92 fL (79-100); MONO % 5 % (0-9); NEUT % 92 % (31-73); PLATELET COUNT 329 x10^3/uL (140-400); RED BLOOD COUNT 2.44 x10^6/uL (4.30-5.70); RED CELL DISTRIBUTION WIDTH 14.7 % (11.5-14.5); WHITE BLOOD COUNT 30.5 x10^3/uL (4.0-11.0)
[2017-03-28] MEDS ORDERED: PIP/TAZO PER PHARMACY MC PRN (10:30)
[2017-03-28] MEDS ORDERED: VANCOMYCIN PER PHARMACY MC PRN ×2 (10:30→19:30)
[2017-03-28 10:34] LABS: CREATININE 13.2 mg/dL (0.7-1.3); GFR 4.8; POTASSIUM 4.4 mmol/L (3.5-5.1)
[2017-03-28 10:39] LABS: ALBUMIN 2.5 g/dL (3.4-5.0); ALBUMIN/GLOBULIN RATIO 0.6 (1.0-1.7); MAGNESIUM 2.2 mg/dL (1.8-2.4); TOTAL BILIRUBIN 0.9 mg/dL (0.2-1.0); TOTAL PROTEIN 6.9 g/dL (6.4-8.2)
[2017-03-28 10:42] LABS: INR 1.4 (0.8-1.1)
--- NOTE | 2017-03-28 10:50 | RAD ---
CT head Indication: Altered mental status Technique: CT head without IV contrast Comparison: CT head from 08/12/2016 and brain MRI from 08/13/2016. Findings: No pathologic extra-axial or intra-axial fluid collection. Stable area of encephalomalacia is seen within left parietal lobe compatible with prior infarct. No midline shift. No acute intracranial bleed. The ventricles and basal cisterns are within normal limits. Cavernous carotid artery atherosclerotic disease noted. Calcifications of the bilateral V4 segments of the vertebral arteries noted. No calvarial lesions. High attenuating material is seen completely opacifying the right maxillary sinus. Old fracture deformity of the medial wall of the left orbit noted. Impression: 1. No acute intracranial process on this noncontrast CT. If concern for acute ischemic stroke is high, please consider MRI brain. 2. 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 3. Findings of chronic sinusitis of the right maxillary sinus with inspissated mucus. PQRS Compliance Statement: One or more of the following individualized dose reduction techniques were utilized for this examination: 1. Automated exposure control 2. Adjustment of the mA and/or kV according to patient size 3. Use of iterative reconstruction technique
[2017-03-28] MEDS ORDERED: VANCOMYCIN 1.75 GM in IV NORMAL SALINE 500ML BAG 500 ML IV ONE (11:00)
[2017-03-28] MEDS ORDERED: IV NORMAL SALINE 500ML BAG 500 ML IV ONE (11:00)
[2017-03-28] MEDS ORDERED: PIPERACILLIN/TAZOBACTAM 2.25 GM in IV NORMAL SALINE 50ML 50 ML IV ONE (11:00)
[2017-03-28] MEDS ORDERED: GENTAMICIN SULFATE 320 MG in IV NORMAL SALINE 100ML 100 ML IV ONE (11:30)
--- NOTE | 2017-03-28 11:40 | EKG ---
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
[2017-03-28] MEDS ORDERED: IV NORMAL SALINE 1000ML BAG 1,000 ML IV ONE (11:45)
[2017-03-28 12:02] LABS: PLT ESTIMATE ADEQUATE (ADEQUATE)
--- NOTE | 2017-03-28 12:03 | PDOC2 ---
CONSULT Date of Consult Date of Consult DATE: 03/28/17 TIME: 11:57 Reason for Consult Reason for Consult: ESRD Referring Physician Referring Physician: VIVIAN Identification/Chief Complaint Chief Complaint CONFUSION Problems: Source Source: Caregiver, Chart review History of Present Illness Reason for Visit: THIS IS A 57 YR OLD ESRD PT ON MWF SCHEDULE. HE DID NOT GO TO DIALYSIS ON FRI. THIS AM NOTED HIM TO BE VERY LETHARGIC. HE WAS THEN BROUGHT TO THE ER. HE HAS A WBC OF ABOUT 30. OTHERWISE LABS ARE C/W ESRD. ALSO NOTED TO HAVE A RIGHT FOOT WOUND. XRAY CONCERNING FOR GAS FORMING BACTERIA. CT HEAD NEG FOR ACUTE CHANGES. HX POS FOR DM AND HTN Past Medical History Cardiovascular: HTN, Hyperlipidemia, Other Pulmonary: No pertinent hx CENTRAL NERVOUS SYSTEM: Other GI: No pertinent hx Heme/Onc: Anemia NOS Hepatobiliary: No pertinent hx Psych: No pertinent hx Musculoskeletal: No pain, Other Rheumatologic: No pertinent hx Infectious disease: No pertinent hx Renal/: Chronic renal failure Endocrine: Diabetes, Hyperparathyroidism Past Surgical History Past Surgical History: Other Family History Family History: Diabetes, Hypertension, Kidney Disease Social History ALCOHOL: none Drugs: None Lives: Alone Current Medications Current Medications Current Medications Vancomycin HCl (Vanco Per Pharmacy) 1 each PRN DAILY PRN MC SEE COMMENTS; Start 03/28/17 at 10:30 Piperacillin Sod/ Tazobactam Sod (Zosyn Per Pharmacy) 1 each PRN DAILY PRN MC SEE COMMENTS; Start 03/28/17 at 10:30 Vancomycin HCl 1.75 gm/Sodium Chloride 500 ml @ 250 mls/hr 1X ONCE IV ; Start 03/28/17 at 11:00; Stop 03/28/17 at 12:59 Piperacillin Sod/ Tazobactam Sod 2.25 gm/Sodium Chloride 50 ml @ 100 mls/hr 1X ONCE IV Last administered on 03/28/17t 11:34; Start 03/28/17 at 11:00; Stop 03/28/17 at 11:29; Status DC Sodium Chloride 500 ml @ 500 mls/hr 1X ONCE IV ; Start 03/28/17 at 11:00; Stop 03/28/17 at 11:37; Status DC Gentamicin Sulfate 320 mg/ Sodium Chloride 108 ml @ 108 mls/hr 1X ONCE IV ; Start 03/28/17 at 11:30; Stop 03/28/17 at 12:29 Sodium Chloride 1,000 ml @ 500 mls/hr 1X ONCE IV Last administered on t 11:40; Start 03/28/17 at 11:45; Stop 03/28/17 at 13:44 Active Scripts Active Amox Tr-K Clv 500-125 Mg Tab (Amoxicillin/Potassium Clav) 1 Each Tablet 1 Tab PO DAILY 10 Days Reported Senna-Docusate Sodium Tablet (Sennosides/Docusate Sodium) 1 Each Tablet 1 Each PO DAILY Ondansetron Odt (Ondansetron) 4 Mg Tab.rapdis 1 Tab PO Q4H PRN Lisinopril 20 Mg Tablet 1 Tab PO DAILY Duoneb 0.5-3(2.5) Mg/3 Ml (Albuterol/Ipratropium) 3 Ml Ampul.neb 3 Ml NEB QID Hydrocodone-Apap 7.5-325 (Hydrocodone Bit/Acetaminophen) 1 Each Tablet 1 Tab PO Q4HRS PRN Aranesp Syringe (Darbepoetin Greg In Polysorbat) 60 Mcg/0.3 Ml Disp.syrin 60 Mcg SQ WEEKLY Lac-Hydrin Five (Ammonium Lactate) 113 Gm Lotion 113 Gm TP BID Amlodipine Besylate 10 Mg Tablet 10 Mg PO DAILY Aspirin 325 Mg Tablet 1 Tab PO DAILY Clonidine Hcl 0.2 Mg Tablet 0.2 Mg PO DAILY Flonase Allergy Relief (Fluticasone Propionate) 9.9 Ml [place].susp 1 Sprays NS BID Carvedilol 6.25 Mg Tablet 1 Tab PO BID Atorvastatin Calcium 20 Mg Tablet 1 Tab PO DAILY Novolog Flexpen (Insulin Aspart) 100 Unit/1 Ml Insuln.pen 12 Unit SQ TIDWMEALS PRN Lantus Solostar (Insulin Glargine,Hum.rec.anlog) 100 Unit/1 Ml Insuln.pen 15 Unit SQ QHS Sodium Bicarbonate 650 Mg Tablet 1 Tab PO BID Nephro-Lias Rx Tablet (Vit B Cmplx 3/Fa/Vit C/Biotin) 1 Each Tablet 1 Each PO DAILY Allergies Allergies: Coded Allergies: No Known Drug Allergies (Unverified , 01/06/16) ROS Review of System UNABLE TO OBTAIN FROM PT Physical Exam General: No acute distress HEENT: Atraumatic, PERRLA, EOMI Lungs: Other (DECREASED AT BASES) Heart: Regular rate Abdomen: Normal bowel sounds, Soft, No tenderness Extremities: Other (RIGHT FOOT FOUL SMELL AND DRAINAGE) Neuro: Other (UNABLE TO ASSESS, LETHARGIC) Psych/Mental Status: Other (LETHARGIC) MUSCULOSKELETAL: Other (DIFFUSE MUSCLE ATROPHY) Labs Labs Laboratory Tests Test 03/28/17 10:10 White Blood Count 30.5 x10^3/uL (4.0-11.0) Red Blood Count 2.44 x10^6/uL (4.30-5.70) Hemoglobin 7.1 g/dL (13.0-17.5) Hematocrit 22.4 % (39.0-53.0) Mean Corpuscular Volume 92 fL (79-100) Mean Corpuscular Hemoglobin 29 pg (25-35) Mean Corpuscular Hemoglobin Concent 32 g/dL (31-37) Red Cell Distribution Width 14.7 % (11.5-14.5) Platelet Count 329 x10^3/uL (140-400) Neutrophils (%) (Auto) 92 % (31-73) Lymphocytes (%) (Auto) 3 % (24-48) Monocytes (%) (Auto) 5 % (0-9) Eosinophils (%) (Auto) 0 % (0-3) Basophils (%) (Auto) 0 % (0-3) Neutrophils # (Auto) 28.0 x10^3uL (1.8-7.7) Lymphocytes # (Auto) 0.8 x10^3/uL (1.0-4.8) Monocytes # (Auto) 1.5 x10^3/uL (0.0-1.1) Eosinophils # (Auto) 0.0 x10^3/uL (0.0-0.7) Basophils # (Auto) 0.0 x10^3/uL (0.0-0.2) Prothrombin Time 16.0 SEC (11.7-14.0) Prothromb Time International Ratio 1.4 (0.8-1.1) Sodium Level 135 mmol/L (136-145) Potassium Level 4.4 mmol/L (3.5-5.1) Chloride Level 95 mmol/L (98-107) Carbon Dioxide Level 22 mmol/L (21-32) Anion Gap 18 (6-14) Blood Urea Nitrogen 61 mg/dL (8-26) Creatinine 13.2 mg/dL (0.7-1.3) Estimated GFR (Cockcroft-Gault) 4.8 BUN/Creatinine Ratio 5 (6-20) Glucose Level 262 mg/dL (70-99) Lactic Acid Level 1.9 mmol/L (0.4-2.0) Calcium Level 9.0 mg/dL (8.5-10.1) Magnesium Level 2.2 mg/dL (1.8-2.4) Total Bilirubin 0.9 mg/dL (0.2-1.0) Aspartate Amino Transf (AST/SGOT) 158 U/L (15-37) Alanine Aminotransferase (ALT/SGPT) 219 U/L (16-63) Alkaline Phosphatase 104 U/L (46-116) Troponin I Quantitative 1.475 ng/mL (0.000-0.055) C-Reactive Protein, Quantitative 381.2 mg/L (0-3.3) Total Protein 6.9 g/dL (6.4-8.2) Albumin 2.5 g/dL (3.4-5.0) Albumin/Globulin Ratio 0.6 (1.0-1.7) Laboratory Tests Test 03/28/17 10:10 White Blood Count 30.5 x10^3/uL (4.0-11.0) Red Blood Count 2.44 x10^6/uL (4.30-5.70) Hemoglobin 7.1 g/dL (13.0-17.5) Hematocrit 22.4 % (39.0-53.0) Mean Corpuscular Volume 92 fL (79-100) Mean Corpuscular Hemoglobin 29 pg (25-35) Mean Corpuscular Hemoglobin Concent 32 g/dL (31-37) Red Cell Distribution Width 14.7 % (11.5-14.5) Platelet Count 329 x10^3/uL (140-400) Neutrophils (%) (Auto) 92 % (31-73) Lymphocytes (%) (Auto) 3 % (24-48) Monocytes (%) (Auto) 5 % (0-9) Eosinophils (%) (Auto) 0 % (0-3) Basophils (%) (Auto) 0 % (0-3) Neutrophils # (Auto) 28.0 x10^3uL (1.8-7.7) Lymphocytes # (Auto) 0.8 x10^3/uL (1.0-4.8) Monocytes # (Auto) 1.5 x10^3/uL (0.0-1.1) Eosinophils # (Auto) 0.0 x10^3/uL (0.0-0.7) Basophils # (Auto) 0.0 x10^3/uL (0.0-0.2) Prothrombin Time 16.0 SEC (11.7-14.0) Prothromb Time International Ratio 1.4 (0.8-1.1) Sodium Level 135 mmol/L (136-145) Potassium Level 4.4 mmol/L (3.5-5.1) Chloride Level 95 mmol/L (98-107) Carbon Dioxide Level 22 mmol/L (21-32) Anion Gap 18 (6-14) Blood Urea Nitrogen 61 mg/dL (8-26) Creatinine 13.2 mg/dL (0.7-1.3) Estimated GFR (Cockcroft-Gault) 4.8 BUN/Creatinine Ratio 5 (6-20) Glucose Level 262 mg/dL (70-99) Lactic Acid Level 1.9 mmol/L (0.4-2.0) Calcium Level 9.0 mg/dL (8.5-10.1) Magnesium Level 2.2 mg/dL (1.8-2.4) Total Bilirubin 0.9 mg/dL (0.2-1.0) Aspartate Amino Transf (AST/SGOT) 158 U/L (15-37) Alanine Aminotransferase (ALT/SGPT) 219 U/L (16-63) Alkaline Phosphatase 104 U/L (46-116) Troponin I Quantitative 1.475 ng/mL (0.000-0.055) C-Reactive Protein, Quantitative 381.2 mg/L (0-3.3) Total Protein 6.9 g/dL (6.4-8.2) Albumin 2.5 g/dL (3.4-5.0) Albumin/Globulin Ratio 0.6 (1.0-1.7) Assessment/Plan Assessment/Plan IMP ESRD ANEMIA DM II HTN NON COMPLIANCE LEUCOCYTOSIS RIGHT FOOT INFECTION - POSS OSTEO MET ENCEPHALOPATHY PLAN SUGGEST ANTIBIOTICS SUGGEST ID NESHA GLASER HD TODAY UF TO DW UPDATED WILL ENC COMPLIANCE CK CASSIDY MD Mar 28, 2017 12:03
--- NOTE | 2017-03-28 12:50 | RAD ---
Right lower extremity arterial ultrasound, 03/28/2017: History: Right leg pain, necrotizing fasciitis Duplex evaluation of the major arteries in the right lower extremity was performed including grayscale, color-flow and spectral Doppler analysis. There are moderate scattered atherosclerotic plaques. There are biphasic Doppler waveforms in the right common femoral, proximal superficial femoral and profunda femoris arteries. At and distal to the mid superficial femoral level the Doppler waveforms become monophasic. No significant focal velocity elevation is seen in the right femoral or popliteal arteries to suggest high-grade focal stenosis. Patent anterior tibial, posterior tibial and peroneal arteries are identified in the right lower leg. They demonstrate monophasic Doppler waveforms. There is an elevated velocity of 178 cm/s within the anterior tibial artery suggesting moderate stenosis at that level. The right dorsalis pedis artery is patent, although its Doppler waveform is markedly dampened. IMPRESSION: 1. Moderate generalized atherosclerotic plaquing. 2. No high-grade femoral-popliteal stenosis is identified. 3. Gradual degradation of the Doppler waveforms at and distal to the mid thigh level. 4. Moderate anterior tibial arterial stenosis with marked degradation of the right dorsalis pedis Doppler waveform.
[2017-03-28 13:00] LABS: HCO3 ABG 16 mmol/L (21-28); PO2 ABG 85 mmHg (75-108); SAT O2 ABG 94 % (92-99)
[2017-03-28 13:01] LABS: PCO2 ABG 30 mmHg (35-46); PH ABG 7.36 (7.35-7.45)
--- NOTE | 2017-03-28 13:13 | RAD ---
Portable chest, 03/28/2017: History: Check central line placement Comparison is made to a study from earlier the same day. A the patient positioning is lordotic. A right jugular central venous catheter has its tip projected along the inferior margin of the right clavicle. It probably lies at the junction of the jugular and subclavian veins. The heart size and pulmonary vascularity are normal. The depth of inspiration is suboptimal. No acute infiltrates are seen. There is no evidence of pleural fluid or pneumothorax. IMPRESSION: 1. The tip of the right jugular catheter is projected over the proximal right innominate vein region. 2. No acute cardiopulmonary abdomen is detected.
[2017-03-28] MEDS ORDERED: ACET500T68 PO (14:24)
[2017-03-28] MEDS ORDERED: OXYC5CAP PO (14:24)
[2017-03-28] MEDS ORDERED: RAMI10CA PO (14:24)
[2017-03-28] MEDS ORDERED: PANT40TA5 PO (14:24)
[2017-03-28] MEDS ORDERED: FERR-26 PO (14:24)
[2017-03-28] MEDS ORDERED: SODI104S NS (14:27)
[2017-03-28] MEDS ORDERED: ASPI-482 PO (14:33)
--- NOTE | 2017-03-28 15:43 | PDOC ---
Provider Note Provider Note Vascular Consult dictated IMP: infected rt foot S/P remote rt TMA with gas gangrene Plan; Explore and debride on OR FAY KAUSHIK CARRERO MD Mar 28, 2017 15:43
--- NOTE | 2017-03-28 15:45 | PHYS DOC ---
Past Medical History Past Medical History: Diabetes-Type I, High Cholesterol, Hypertension Past Surgical History: Other Additional Past Surgical Histo: LT FOOT FASCHIATOMY - 2010, L BKA, R toe amputations Alcohol Use: None Drug Use: None Adult General Chief Complaint Chief Complaint: ALTERED MENTAL STATUS HPI HPI Patient is a 57 year old male who presents with altered mental status and not feeling well. Pt with h/o end stage renal disease presents with from home. He started feeling poor in last 3 days and missed his dialysis Wed because of not feeling well. Pt denies cough, known fevers, n/v/increased sob or chest pain. Pt has been complaining of R foot pain. Pt has prosthesis on the LLE from prior amputation. Review of Systems Review of Systems limited due to medical condition. History primarily from pt's Current Medications Current Medications Current Medications Medications (Trade) Dose Ordered Sig/Teresa Start Time Stop Time Status Last Admin Dose Admin Piperacillin Sod/ Tazobactam Sod (Zosyn Per Pharmacy) 1 each PRN DAILY PRN 03/28/17 10:30 Vancomycin HCl (Vanco Per Pharmacy) 1 each PRN DAILY PRN 03/28/17 10:30 03/28/17 15:15 DC Physical Exam Physical Exam Constitutional: Well developed, well nourished, appears , ill appearing, obese HENT: Normocephalic, atraumatic, bilateral external ears normal, oropharynx dry , no oral exudates, nose normal. [] Eyes: PERRLA, EOMI, conjunctiva normal, no discharge. [] Neck: Normal range of motion, no tenderness, supple, no stridor. [] Cardiovascular:Heart rate regular rhythm Lungs & Thorax: Bilateral breath sounds clear to auscultation [] Abdomen: Bowel sounds normal, soft, no tenderness, no masses, no pulsatile masses. [] Skin: Warm, dry, no erythema, no rash. [] Back: No tendernes Extremities: RLE with edema of the foot, weeping R lateral ankle viscous blister , plantar surface open ulcer wo drainage, diffuse foot ttp Neurologic: awake, slow to answer questions , normal motor function Current Patient Data Lab Values Laboratory Tests Test 03/28/17 10:10 White Blood Count 30.5 x10^3/uL (4.0-11.0) H Red Blood Count 2.44 x10^6/uL (4.30-5.70) L Hemoglobin 7.1 g/dL (13.0-17.5) L Hematocrit 22.4 % (39.0-53.0) L Mean Corpuscular Volume 92 fL (79-100) Mean Corpuscular Hemoglobin 29 pg (25-35) Mean Corpuscular Hemoglobin Concent 32 g/dL (31-37) Red Cell Distribution Width 14.7 % (11.5-14.5) H Platelet Count 329 x10^3/uL (140-400) Neutrophils (%) (Auto) 92 % (31-73) H Lymphocytes (%) (Auto) 3 % (24-48) L Monocytes (%) (Auto) 5 % (0-9) Eosinophils (%) (Auto) 0 % (0-3) Basophils (%) (Auto) 0 % (0-3) Neutrophils # (Auto) 28.0 x10^3uL (1.8-7.7) H Lymphocytes # (Auto) 0.8 x10^3/uL (1.0-4.8) L Monocytes # (Auto) 1.5 x10^3/uL (0.0-1.1) H Eosinophils # (Auto) 0.0 x10^3/uL (0.0-0.7) Basophils # (Auto) 0.0 x10^3/uL (0.0-0.2) Segmented Neutrophils % 93 % (35-66) H Band Neutrophils % 2 % (0-9) Lymphocytes % 4 % (24-48) L Monocytes % 1 % (0-10) Platelet Estimate Adequate (ADEQUATE) Prothrombin Time 16.0 SEC (11.7-14.0) H Prothrombin Time INR 1.4 (0.8-1.1) H Sodium Level 135 mmol/L (136-145) L Potassium Level 4.4 mmol/L (3.5-5.1) Chloride Level 95 mmol/L (98-107) L Carbon Dioxide Level 22 mmol/L (21-32) Anion Gap 18 (6-14) H Blood Urea Nitrogen 61 mg/dL (8-26) H Creatinine 13.2 mg/dL (0.7-1.3) H Estimated GFR (Cockcroft-Gault) 4.8 BUN/Creatinine Ratio 5 (6-20) L Glucose Level 262 mg/dL (70-99) H Lactic Acid Level 1.9 mmol/L (0.4-2.0) Calcium Level 9.0 mg/dL (8.5-10.1) Magnesium Level 2.2 mg/dL (1.8-2.4) Total Bilirubin 0.9 mg/dL (0.2-1.0) Aspartate Amino Transferase (AST) 158 U/L (15-37) H Alanine Aminotransferase (ALT) 219 U/L (16-63) H Alkaline Phosphatase 104 U/L (46-116) Troponin I Quantitative 1.475 ng/mL (0.000-0.055) C-Reactive Protein, Quantitative 381.2 mg/L (0-3.3) H Total Protein 6.9 g/dL (6.4-8.2) Albumin 2.5 g/dL (3.4-5.0) L Albumin/Globulin Ratio 0.6 (1.0-1.7) L Laboratory Tests 03/28/17 10:10 Laboratory Tests 03/28/17 10:10 EKG EKG 83 bpm, sinus, normal axis, QTC of 490, no ST elevation or depression, biphasic T-wave in aVL, interpreted by me.[] Radiology/Procedures Radiology/Procedures []CT head: Impression: 1. No acute intracranial process on this noncontrast CT. If concern for acute ischemic stroke is high, please consider MRI brain. 2. 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 3. Findings of chronic sinusitis of the right maxillary sinus with inspissated mucus. ] Foot: Right foot x-rays Indication: Right foot pain, possible infection. Technique: 3 views of the right foot Comparison: Previous study from 2014 Findings: Status post transmetatarsal resection of the foot. Vascular calcifications noted. There is soft tissue gas along the medial and dorsal aspect of the foot extending to the level of ankle. There is diffuse soft tissue edema. Superficial lucency along the plantar aspect of the distal foot suggests ulcer. No acute fractures. There is no evidence of periosteal reaction. Impression: Gas in the soft tissue of the foot concerning for necrotizing infection with possible osteomyelitis. Indication: Vascular access Consent: The patient provided consent for this procedure. Procedure: The patient was positioned appropriately and the skin over the R IJ was prepped and draped in a sterile fashion. Local anesthesia was used. Ultrasound guidance utilized. A large bore needle was used to identify the vein. A guide wire was then inserted into the vein through the needle. A triple lumen catheter was then inserted into the vessel over the guide wire using the Seldinger technique. All ports showed good, free flowing blood return and were flushed with saline solution. The catheter was then securely fastened to the skin with sutures and covered with a sterile dressing. A post procedure X-ray was ordered. The patient tolerated the procedure well. Complications: none. [] Course & Med Decision Making Course & Med Decision Making Pertinent Labs and Imaging studies reviewed. (See chart for details) Pt with possible sepsis, zosyn and vanc ordered after viewing foot XRay. Immediately contacted ortho, Dr. Hernandez, who recommended contacting vascular. Dr. May contacted and stated he would see patient and requested arterial study. Contacted Dr. Campos who recommended dose of gentamycin, ordered. Talked with Dr. Chavez who would arrange dialysis. Admitted to ICU under Dr. Medina. Pt's blood pressure trending down and IV fluids given. Pt didn't respond to IV fluids and central line place with levophed. Pt NPO Total critical care time 58 minutes, excluding procedure Dx: nec fasciitis, septic shock, end stage renal disease Dragon Disclaimer Dragon Disclaimer This electronic medical record was generated, in whole or in part, using a voice recognition dictation system. Departure Departure Impression: Primary Impression: Necrotizing fasciitis Additional Impressions: Septic shock End stage renal disease Disposition: ADMITTED INPATIENT Condition: CRITICAL Problem Qualifiers OTTO MURCIA MD Mar 28, 2017 15:45
[2017-03-28] MEDS ORDERED: LIDOCAINE 2% PF Vial for OR 5 ML VIAL. ONE (16:19)
[2017-03-28] MEDS ORDERED: PROPOFOL 20 ML IV ONE (16:19)
[2017-03-28] MEDS ORDERED: DEXAMETHASONE SOD PHOS 20 MG/5 ML VIAL. ONE (16:19)
[2017-03-28] MEDS ORDERED: DESFLURANE 61 TO 120 MINUTES IH ONE (16:19)
[2017-03-28] MEDS ORDERED: ONDANSETRON PF 4 MG/2 ML VIAL. ONE ×2 (16:19)
[2017-03-28] MEDS ORDERED: fentaNYL PF VIAL 100 MCG/2 ML VIAL ONE (16:19)
[2017-03-28] MEDS ORDERED: MUPIROCIN 2 % NASAL OINTMENT 22GM TUBE. NS ONE (16:20)
[2017-03-28] MEDS ORDERED: PHENYLEPHRINE in 0.9% NACL PF 1 MG/10 ML DISP.SYRIN. IV ONE (16:21)
[2017-03-28] MEDS ORDERED: IV RINGERS,LACTATED 1000ML 1,000 ML IV SCH (16:36)
[2017-03-28] MEDS: NOREPINEPHRIN PREMIX 250 ML IV PRN ×2 (16:43→17:20)
[2017-03-28] MEDS ORDERED: HYDROmorphone 2 MG/ML VIAL IV PRN (16:45)
[2017-03-28] MEDS ORDERED: ONDANSETRON PF 4 MG/2 ML VIAL. IV PRN (16:45)
[2017-03-28] MEDS ORDERED: PROCHLORPERAZINE 10 MG/2 ML VIAL. IV PRN (16:45)
[2017-03-28] MEDS ORDERED: MORPHINE SULFATE 2 MG/ML DISP.SYRIN. IV PRN (16:45)
[2017-03-28] MEDS ORDERED: fentaNYL PF VIAL 100 MCG/2 ML VIAL IV PRN ×2 (16:45)
[2017-03-28] MEDS ORDERED: LIDOCAINE 1% PF 2 ML VIAL. ID PRN (16:45)
[2017-03-28] MEDS ORDERED: ONDANSETRON ODT 4 MG TAB.RAPDIS. PO PRN (17:00)
[2017-03-28] MEDS: INSULIN ASPART 300 UNITS/3 ML INSULN.PEN SQ SCH ×2 (17:00→18:07)
[2017-03-28] MEDS: CARVEDILOL 6.25 MG TABLET. PO SCH (17:00)
--- NOTE | 2017-03-28 17:39 | PDOC ---
BRIEF OPERATIVE NOTE Date: Mar 28, 2017 Pre-Op Diagnosis gas gangrene rt fore foot, S/P remote TMA Blister lateral rt ankle Post-Op Diagnosis same with diffuse osteomyelitis Procedure Performed Excisional debridment of infected tissue and bone and superficial blister Surgeon Racheal May Anesthesiologist Cristian Anesthesia Type: General Blood Loss 50 Specimens Obtained necrotic tissue and bone KAUSHIK MAY MD Mar 28, 2017 17:39
--- NOTE | 2017-03-28 18:01 | OP ---
DATE OF SURGERY: 03/28/2017 PREOPERATIVE DIAGNOSIS: Gas gangrene in right forefoot with bony destruction on x-ray status post a remote right transmetatarsal amputation. POSTOPERATIVE DIAGNOSES: Gas gangrene in right forefoot with bony destruction on x-ray status post a remote right transmetatarsal amputation with diffuse osteomyelitis of those residual forefoot bones. OPERATION PERFORMED: A wide excision of a skin to facilitate excision of infected subcutaneous tissue, fascia and bones from the right forefoot. SURGEON: Edison May MD. ANESTHETIC: General. DESCRIPTION OF PROCEDURE: After general orotracheal anesthetic, prepping and draping, initially a fairly small circumferential incision was made around the ulcer on the plantar aspect of the foot, but we just were not able to get all the infected bones out and it would not be adequate drainage or there would be no ability to get this healed with the cutaneous opening being so small, so a fairly wide incision was made up to the suture line of the TMA and laterally and medially as well and through this incision, we were able to get a lot of the nonhealthy subcutaneous and the fascial tissue removed followed by using a rongeur to cut back bones way back within the wound to where the bone eventually was fairly firm and hard rather than being soft and mushy. Hemostasis required a cautery. Bleeding was pretty good. The wound was irrigated diffusely. There was a blister area just above the ankle laterally that was superficially debrided as well. The blister measured 10 x 3 x 0.1. The forefoot wound at the TMA site measured 7 x 4 x 6 deep. Both wounds were then dressed with Xeroform, 4 x 4s, dry, packed into the wound for hemostasis, Kerlix and an Isaac wrap. He tolerated the procedure well. EBL probably 50 mL, left the operating room in stable condition. EDISON MAY MD DR: CALIXTO/richi JOB#: [id number] / [id number]
--- NOTE | 2017-03-28 19:23 | CONS ---
DATE OF CONSULTATION: 03/28/2017 REASON FOR CONSULTATION: Infected right foot. HISTORY OF PRESENT ILLNESS: This is a 57-year-old male with chronic diabetes and chronic renal failure, on dialysis through a left upper arm fistula. He is status post remote left below knee amputation and a remote right transmetatarsal amputation. He has developed a blister on the lower right leg just above the ankle, but more seriously, he has a chronic ulcer on the plantar aspect of that right TMA medially and a plain x-ray shows gas within the wound. There is no drainage. There is somewhat of an odor. He was admitted with a white count of 30,000 and some mental status changes, but has not febrile. PAST MEDICAL HISTORY: Again, he has a chronic renal failure for some time on dialysis through a left upper arm fistula. OTHER ILLNESSES: Include hypertension, hypercholesterolemia, diabetes also chronically. No history of any arterial interventions as far as I can tell. SOCIAL HISTORY: Nonsmoker. MEDICATIONS: He was just started on vanco and piperacillin. He apparently also is on antihypertensives and aspirin daily, amiodarone and insulin. ALLERGIES: None known. PHYSICAL EXAMINATION: Pleasant male. 2+ radial pulses with a left upper arm fistula. Regular heart rate, nonlabored respirations. He has a palpable right popliteal pulse. Well-healed left below knee amputation site, a well-healed right TMA except for an ulcer on the plantar aspect medially. I was not able to express any purulence. A plain x-ray shows gas in that wound at that location. IMPRESSION: Chronic ulcer, plantar right foot transmetatarsal amputation medially with gas gangrene. PLAN: Exploration in the operating room and debridement of all infected tissue this afternoon as soon as possible. I discussed the nature of that procedure and the risk leaving a wound that will have to be closed with a wound VAC. The patient is agreeable to proceed. KAUSHIK CARRERO MD DR: CALIXTO/richi JOB#: [id number] / [id number]
[2017-03-28] MEDS: SODIUM BICARBONATE 650 MG TABLET. PO SCH (20:52)
[2017-03-28] MEDS: ATORVASTATIN CALCIUM 20 MG TABLET PO SCH (20:52)
[2017-03-28] MEDS: oxyCODONE IR 5 MG TABLET PO PRN (20:52)
[2017-03-28] MEDS: FLUTICASONE 50MCG/NASAL SPRAY 16GM BOTTLE. NS SCH (20:53)
[2017-03-28] MEDS: PIPERACILLIN/TAZOBACTAM 2.25 GM in IV NORMAL SALINE 50ML 50 ML IV SCH (20:54)
[2017-03-28] MEDS: DARBEPOETIN ALFA 60 MCG/0.3 ML DISP.SYRIN. SQ SCH (20:54)
[2017-03-28] MEDS: INSULIN DETEMIR 300 UNITS/3 ML INSULN.PEN. SQ SCH (20:57)
[2017-03-29] VITALS (21 sets, daily range): BP systolic 85–138; BP diastolic 42–79
[2017-03-29] MEDS: PIPERACILLIN/TAZOBACTAM 2.25 GM in IV NORMAL SALINE 50ML 50 ML IV SCH ×3 (05:50→23:43)
--- NOTE | 2017-03-29 05:55 | EKG ---
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
[2017-03-29 06:35] LABS: BASO % 0 % (0-3); EOS % 0 % (0-3); LYMPH # 0.9 x10^3/uL (1.0-4.8); LYMPH % 3 % (24-48); MEAN CORPUSCULAR HEMOGLOBIN 29 pg (25-35); MEAN CORPUSCULAR HGB CONC 32 g/dL (31-37); MEAN CORPUSCULAR VOLUME 91 fL (79-100); MONO % 3 % (0-9); NEUT % 94 % (31-73); PLATELET COUNT 326 x10^3/uL (140-400); RED BLOOD COUNT 2.28 x10^6/uL (4.30-5.70); WHITE BLOOD COUNT 28.8 x10^3/uL (4.0-11.0)
[2017-03-29 06:57] LABS: CREATININE 12.8 mg/dL (0.7-1.3); GFR 4.9; POTASSIUM 5.7 mmol/L (3.5-5.1)
[2017-03-29 07:03] LABS: HEMATOCRIT 20.8 % (39.0-53.0); HEMOGLOBIN 6.6 g/dL (13.0-17.5)
--- NOTE | 2017-03-29 07:58 | PDOC2 ---
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 Cardiology has been asked to assess him in the setting of a elevated troponin. Patient denies any prior cardiac interventions. He does have a history of end- stage renal disease, peripheral arterial disease and multiple ulcerations and infections. He has a left BKA. In this setting he reports that his dialysis sessions of gone well and he's not had any exertional angina or dyspnea but at baseline he is NYHA functional class 2-3 due to his multiple comorbidities. He was noted to have sepsis and initiated on a sepsis protocol with debridement of his wound by vascular surgery. He also has had a long history of severe anemia. In this setting his troponin was elevated. Patient Brad denies any chest pain and resting comfortably in the bed with mild pain of the right lower extremity. PMHX: As noted above SOCHX: Patient is and lives with his . Denies any alcohol or illicit drug use. FAMHX: Noncontributory CURRENT MEDS: Current Medications Medications (Trade) Dose Ordered Sig/Teresa Start Time Stop Time Status Last Admin Dose Admin Acetaminophen (Tylenol) 500 mg QID PRN 03/28/17 17:00 Aspirin (Ecotrin) 81 mg DAILYWBKFT 03/29/17 08:00 Atorvastatin Calcium (Lipitor) 20 mg QHS 03/28/17 21:00 03/28/17 20:52 20 MG Carvedilol (Coreg) 6.25 mg BIDWMEALS 03/28/17 17:00 Darbepoetin Greg (Aranesp) 60 mcg WEEKLYHS 03/28/17 21:00 03/28/17 20:54 60 MCG Desflurane (Suprane) 60 ml STK-MED ONCE 03/28/17 16:19 03/28/17 16:20 DC Dexamethasone Sodium Phosphate (Decadron) 20 mg STK-MED ONCE 03/28/17 16:19 03/28/17 16:20 DC Dextrose (Dextrose 50%-Water Syringe) 12.5 gm PRN Q15MIN PRN 03/28/17 17:00 Ephedrine Sulfate (Akovaz) 50 mg STK-MED ONCE 03/28/17 17:03 03/28/17 17:04 DC Fentanyl Citrate (Fentanyl 2ml Vial) 50 mcg PRN Q5MIN PRN 03/28/17 16:45 03/29/17 16:44 03/28/17 22:01 50 MCG Ferrous Sulfate (Feosol) 325 mg DAILY 03/29/17 09:00 Fluticasone Propionate (Flonase) 2 spray BID 03/28/17 21:00 03/28/17 20:53 2 SPRAY Gentamicin Sulfate 320 mg/ Sodium Chloride 108 ml @ 108 mls/hr 1X ONCE 03/28/17 11:30 03/28/17 12:29 DC 03/28/17 14:56 108 MLS/HR Hydromorphone HCl (Dilaudid) 0.5 mg PRN Q10MIN PRN 03/28/17 16:45 03/29/17 16:44 Insulin Aspart (NovoLOG) 0-7 UNITS TIDWMEALS 03/28/17 17:00 03/28/17 18:07 7 UNITS Insulin Detemir (Levemir) 15 units QHS 03/28/17 21:00 03/28/17 20:57 15 UNITS Lidocaine HCl (Lidocaine Pf 2% Vial) 5 ml STK-MED ONCE 03/28/17 16:19 03/28/17 16:20 DC Lidocaine HCl (Xylocaine-Mpf 1% Vial) 2 ml 1X PRN PRN 03/28/17 16:45 03/29/17 16:44 Linezolid 300 ml @ 300 mls/hr Q12HR 03/28/17 21:00 03/28/17 20:54 300 MLS/HR Morphine Sulfate 1 mg PRN Q10MIN PRN 03/28/17 16:45 03/29/17 16:44 Mupirocin (Bactroban) 22 lesvia STK-MED ONCE 03/28/17 16:20 03/28/17 17:20 DC Norepinephrine Bitartrate 250 ml @ 0 mls/hr CONT PRN 03/28/17 12:30 03/28/17 17:20 22.5 MLS/HR Ondansetron HCl (Zofran Odt) 4 mg Q4H PRN 03/28/17 17:00 Ondansetron HCl (Zofran) 4 mg PRN Q6HRS PRN 03/28/17 16:45 03/29/17 16:44 Oxycodone HCl (Roxicodone) 5 mg PRN Q6HRS PRN 03/28/17 17:00 03/28/17 20:52 5 MG Pantoprazole Sodium (Protonix) 40 mg DAILYAC 03/29/17 07:30 Phenylephrine HCl 1 mg STK-MED ONCE 03/28/17 16:21 03/28/17 16:22 DC Piperacillin Sod/ Tazobactam Sod (Zosyn Per Pharmacy) 1 each PRN DAILY PRN 03/28/17 10:30 Piperacillin Sod/ Tazobactam Sod 2.25 gm/Sodium Chloride 50 ml @ 100 mls/hr Q8HRS 03/28/17 21:00 03/29/17 05:50 100 MLS/HR Prochlorperazine Edisylate (Compazine) 5 mg PACU PRN PRN 03/28/17 16:45 03/29/17 16:44 Propofol 20 ml @ As Directed STK-MED ONCE 03/28/17 16:19 03/28/17 16:20 DC Ringer's Solution 1,000 ml @ 30 mls/hr Q24H 03/28/17 16:36 03/29/17 04:35 DC Sodium Bicarbonate (Sodium Bicarbonate) 650 mg BID 03/28/17 21:00 03/28/17 20:52 650 MG Sodium Chloride 1,000 ml @ 500 mls/hr 1X ONCE 03/28/17 11:45 03/28/17 13:44 DC 03/28/17 11:40 500 MLS/HR Vancomycin HCl 1 each 1X ONCE 03/29/17 16:00 03/29/17 16:01 Cancel Vancomycin HCl (Vanco Per Pharmacy) 1 each PRN DAILY PRN 03/28/17 19:30 03/29/17 07:23 DC 03/28/17 19:38 1 EACH Vancomycin HCl 1.75 gm/Sodium Chloride 500 ml @ 250 mls/hr 1X ONCE 03/28/17 11:00 03/28/17 12:59 DC 03/28/17 11:00 250 MLS/HR Vitamin B Complex/ Vitamin C (Mary-Lisa) 1 tab DAILY 03/29/17 09:00 ALLERGIES: Allergies Coded Allergies Type Severity Reaction Last Updated Verified No Known Drug Allergies 03/28/17 No ROS: Negative for 10 out of 14 systems reviewed also otherwise mentioned above in history of present illness PHYSICAL EXAM: Vital Signs: Vital Signs Date Time Temp Pulse Resp B/P (MAP) Pulse Ox O2 Delivery O2 Flow Rate FiO2 03/29/17 06:12 87 18 109/53 (71) 98 Room Air 03/29/17 04:00 98.4 98.4 03/28/17 22:31 2.0 Physical Exam: GEN.: Mild distress from right lower extremity pain HEENT: Head is normocephalic, atraumatic NECK: Supple. LUNGS: Clear to auscultation. HEART: RRR, S1, S2 present. Diminished peripheral pulses ABDOMEN: Soft, nontender. Positive bowel sounds. EXTREMITIES: Without any cyanosis. NEUROLOGIC: Normal speech, normal tone PSYCHIATRIC: Mood is slightly depressed SKIN: Right lower extremity ulcerations with bandaged wound. DIAGNOSTIC TESTING: Lab Laboratory Tests Test 03/28/17 10:10 03/28/17 12:40 03/28/17 17:39 03/28/17 20:56 White Blood Count 30.5 x10^3/uL (4.0-11.0) H Red Blood Count 2.44 x10^6/uL (4.30-5.70) L Hemoglobin 7.1 g/dL (13.0-17.5) L Hematocrit 22.4 % (39.0-53.0) L Mean Corpuscular Volume 92 fL (79-100) Mean Corpuscular Hemoglobin 29 pg (25-35) Mean Corpuscular Hemoglobin Concent 32 g/dL (31-37) Red Cell Distribution Width 14.7 % (11.5-14.5) H Platelet Count 329 x10^3/uL (140-400) Neutrophils (%) (Auto) 92 % (31-73) H Lymphocytes (%) (Auto) 3 % (24-48) L Monocytes (%) (Auto) 5 % (0-9) Eosinophils (%) (Auto) 0 % (0-3) Basophils (%) (Auto) 0 % (0-3) Neutrophils # (Auto) 28.0 x10^3uL (1.8-7.7) H Lymphocytes # (Auto) 0.8 x10^3/uL (1.0-4.8) L Monocytes # (Auto) 1.5 x10^3/uL (0.0-1.1) H Eosinophils # (Auto) 0.0 x10^3/uL (0.0-0.7) Basophils # (Auto) 0.0 x10^3/uL (0.0-0.2) Segmented Neutrophils % 93 % (35-66) H Band Neutrophils % 2 % (0-9) Lymphocytes % 4 % (24-48) L Monocytes % 1 % (0-10) Platelet Estimate Adequate (ADEQUATE) Prothrombin Time 16.0 SEC (11.7-14.0) H Prothromb Time International Ratio 1.4 (0.8-1.1) H Sodium Level 135 mmol/L (136-145) L Potassium Level 4.4 mmol/L (3.5-5.1) Chloride Level 95 mmol/L (98-107) L Carbon Dioxide Level 22 mmol/L (21-32) Anion Gap 18 (6-14) H Blood Urea Nitrogen 61 mg/dL (8-26) H Creatinine 13.2 mg/dL (0.7-1.3) H Estimated GFR (Cockcroft-Gault) 4.8 BUN/Creatinine Ratio 5 (6-20) L Glucose Level 262 mg/dL (70-99) H Lactic Acid Level 1.9 mmol/L (0.4-2.0) 1.2 mmol/L (0.4-2.0) Calcium Level 9.0 mg/dL (8.5-10.1) Total Bilirubin 0.9 mg/dL (0.2-1.0) Aspartate Amino Transf (AST/SGOT) 158 U/L (15-37) H Alkaline Phosphatase 104 U/L (46-116) C-Reactive Protein, Quantitative 381.2 mg/L (0-3.3) H Total Protein 6.9 g/dL (6.4-8.2) Albumin 2.5 g/dL (3.4-5.0) L Albumin/Globulin Ratio 0.6 (1.0-1.7) L O2 Saturation 94 % (92-99) Arterial Blood pH 7.36 (7.35-7.45) Arterial Blood pCO2 at Patient Temp 30 mmHg (35-46) L Arterial Blood pO2 at Patient Temp 85 mmHg (75-108) Arterial Blood HCO3 16 mmol/L (21-28) L Arterial Blood Base Excess -8 mmol/L (-3-3) L FiO2 30.0 Glucose (Fingerstick) 316 mg/dL (70-99) H 381 mg/dL (70-99) H Test 03/29/17 05:45 White Blood Count 28.8 x10^3/uL (4.0-11.0) H Red Blood Count 2.28 x10^6/uL (4.30-5.70) L Hemoglobin 6.6 g/dL (13.0-17.5) *L Hematocrit 20.8 % (39.0-53.0) *L Mean Corpuscular Volume 91 fL (79-100) Mean Corpuscular Hemoglobin 29 pg (25-35) Mean Corpuscular Hemoglobin Concent 32 g/dL (31-37) Red Cell Distribution Width 15.0 % (11.5-14.5) H Platelet Count 326 x10^3/uL (140-400) Neutrophils (%) (Auto) 94 % (31-73) H Lymphocytes (%) (Auto) 3 % (24-48) L Monocytes (%) (Auto) 3 % (0-9) Eosinophils (%) (Auto) 0 % (0-3) Basophils (%) (Auto) 0 % (0-3) Neutrophils # (Auto) 27.0 x10^3uL (1.8-7.7) H Lymphocytes # (Auto) 0.9 x10^3/uL (1.0-4.8) L Monocytes # (Auto) 1.0 x10^3/uL (0.0-1.1) Eosinophils # (Auto) 0.0 x10^3/uL (0.0-0.7) Basophils # (Auto) 0.0 x10^3/uL (0.0-0.2) Sodium Level 135 mmol/L (136-145) L Potassium Level 5.7 mmol/L (3.5-5.1) H Chloride Level 98 mmol/L (98-107) Carbon Dioxide Level 20 mmol/L (21-32) L Anion Gap 17 (6-14) H Blood Urea Nitrogen 73 mg/dL (8-26) H Creatinine 12.8 mg/dL (0.7-1.3) H Estimated GFR (Cockcroft-Gault) 4.9 Glucose Level 377 mg/dL (70-99) H Calcium Level 8.0 mg/dL (8.5-10.1) L ASSESSMENT: 1. Elevated troponin the setting of multiple comorbidities as noted below 2. Sepsis secondary to infected right lower ext 3. PVD 4. End-stage renal disease 5. Anemia with a hemoglobin less than 7 PLAN: 1. Given his acute anemia he would be a poor candidate for any cardiac interventions. 2. Agree with stabilization of sepsis and wound care. 3. He does have some mild cardio myopathy and if he is able to tolerate BETHANY inhibitor and/or beta jocelyne after dialysis tomorrow we will determine if he can be initiated on a heart failure regimen. 4. Given his mild LV dysfunction he would benefit from an outpatient myocardial perfusion study to rule out any significant ischemic pathology but acutely with focus on his medical therapy for his wound and infection. We will follow along closely. Thank you for this consultation. CC time 39 min DINO BLEVINS MD Mar 29, 2017 07:58
[2017-03-29] MEDS: CARVEDILOL 6.25 MG TABLET. PO SCH ×2 (08:00→17:00)
[2017-03-29] MEDS: INSULIN ASPART 300 UNITS/3 ML INSULN.PEN SQ SCH ×6 (08:00→17:24)
--- NOTE | 2017-03-29 08:00 | PDOC ---
Provider Note Provider Note POD # 1 Post op rt TMA debridement Hgb 6 , getting PCs Wound clean, redressed Stable with post op anemia Plan: BID dressing changes until VAC available KAUSHIK CARRERO MD Mar 29, 2017 08:00
[2017-03-29] MEDS: SODIUM BICARBONATE 650 MG TABLET. PO SCH ×2 (08:46→22:11)
[2017-03-29] MEDS: FOLIC/VIT B COMP W-C (RENAL) TABLET. PO SCH (08:46)
[2017-03-29] MEDS: PANTOPRAZOLE 40 MG TABLET.DR. PO SCH (08:47)
[2017-03-29] MEDS: ASPIRIN ENTERIC COATED 81 MG TABLET.DR. PO SCH (08:47)
[2017-03-29] MEDS: FERROUS SULFATE 325 MG TABLET. PO SCH (08:48)
[2017-03-29] MEDS: oxyCODONE IR 5 MG TABLET PO PRN ×3 (08:48→23:44)
[2017-03-29] MEDS: FLUTICASONE 50MCG/NASAL SPRAY 16GM BOTTLE. NS SCH ×2 (08:51→21:00)
[2017-03-29] MEDS ORDERED: IV NORMAL SALINE 1000ML BAG 1,000 ML IV PRN ×2 (09:08)
[2017-03-29] MEDS ORDERED: DIALYSIS PATIENT. MC PRN ×2 (09:15)
[2017-03-29] MEDS ORDERED: INSULIN ASPART 300 UNITS/3 ML INSULN.PEN SQ ONE (09:30)
--- NOTE | 2017-03-29 09:36 | PDOC ---
Infectious Disease Note Vital Sign Vital Signs Vital Signs Date Time Temp Pulse Resp B/P (MAP) Pulse Ox O2 Delivery O2 Flow Rate FiO2 03/29/17 06:12 87 18 109/53 (71) 98 Room Air 03/29/17 04:00 98.4 98.4 03/28/17 22:31 2.0 Labs Lab Laboratory Tests Test 03/28/17 10:10 03/28/17 12:40 03/28/17 13:20 03/28/17 17:39 White Blood Count 30.5 x10^3/uL (4.0-11.0) Red Blood Count 2.44 x10^6/uL (4.30-5.70) Hemoglobin 7.1 g/dL (13.0-17.5) Hematocrit 22.4 % (39.0-53.0) Mean Corpuscular Volume 92 fL (79-100) Mean Corpuscular Hemoglobin 29 pg (25-35) Mean Corpuscular Hemoglobin Concent 32 g/dL (31-37) Red Cell Distribution Width 14.7 % (11.5-14.5) Platelet Count 329 x10^3/uL (140-400) Neutrophils (%) (Auto) 92 % (31-73) Lymphocytes (%) (Auto) 3 % (24-48) Monocytes (%) (Auto) 5 % (0-9) Eosinophils (%) (Auto) 0 % (0-3) Basophils (%) (Auto) 0 % (0-3) Neutrophils # (Auto) 28.0 x10^3uL (1.8-7.7) Lymphocytes # (Auto) 0.8 x10^3/uL (1.0-4.8) Monocytes # (Auto) 1.5 x10^3/uL (0.0-1.1) Eosinophils # (Auto) 0.0 x10^3/uL (0.0-0.7) Basophils # (Auto) 0.0 x10^3/uL (0.0-0.2) Segmented Neutrophils % 93 % (35-66) Band Neutrophils % 2 % (0-9) Lymphocytes % 4 % (24-48) Monocytes % 1 % (0-10) Platelet Estimate Adequate (ADEQUATE) Prothrombin Time 16.0 SEC (11.7-14.0) Prothromb Time International Ratio 1.4 (0.8-1.1) Sodium Level 135 mmol/L (136-145) Potassium Level 4.4 mmol/L (3.5-5.1) Chloride Level 95 mmol/L (98-107) Carbon Dioxide Level 22 mmol/L (21-32) Anion Gap 18 (6-14) Blood Urea Nitrogen 61 mg/dL (8-26) Creatinine 13.2 mg/dL (0.7-1.3) Estimated GFR (Cockcroft-Gault) 4.8 BUN/Creatinine Ratio 5 (6-20) Glucose Level 262 mg/dL (70-99) Lactic Acid Level 1.9 mmol/L (0.4-2.0) 1.2 mmol/L (0.4-2.0) Calcium Level 9.0 mg/dL (8.5-10.1) Magnesium Level 2.2 mg/dL (1.8-2.4) Total Bilirubin 0.9 mg/dL (0.2-1.0) Aspartate Amino Transf (AST/SGOT) 158 U/L (15-37) Alanine Aminotransferase (ALT/SGPT) 219 U/L (16-63) Alkaline Phosphatase 104 U/L (46-116) Troponin I Quantitative 1.475 ng/mL (0.000-0.055) C-Reactive Protein, Quantitative 381.2 mg/L (0-3.3) Total Protein 6.9 g/dL (6.4-8.2) Albumin 2.5 g/dL (3.4-5.0) Albumin/Globulin Ratio 0.6 (1.0-1.7) O2 Saturation 94 % (92-99) Arterial Blood pH 7.36 (7.35-7.45) Arterial Blood pCO2 at Patient Temp 30 mmHg (35-46) Arterial Blood pO2 at Patient Temp 85 mmHg (75-108) Arterial Blood HCO3 16 mmol/L (21-28) Arterial Blood Base Excess -8 mmol/L (-3-3) FiO2 30.0 Nasal Screen MRSA (PCR) Negative (Negative) Glucose (Fingerstick) 316 mg/dL (70-99) Test 03/28/17 20:56 03/28/17 22:30 03/29/17 05:45 Glucose (Fingerstick) 381 mg/dL (70-99) Troponin I Quantitative 0.884 ng/mL (0.000-0.055) 1.605 ng/mL (0.000-0.055) White Blood Count 28.8 x10^3/uL (4.0-11.0) Red Blood Count 2.28 x10^6/uL (4.30-5.70) Hemoglobin 6.6 g/dL (13.0-17.5) Hematocrit 20.8 % (39.0-53.0) Mean Corpuscular Volume 91 fL (79-100) Mean Corpuscular Hemoglobin 29 pg (25-35) Mean Corpuscular Hemoglobin Concent 32 g/dL (31-37) Red Cell Distribution Width 15.0 % (11.5-14.5) Platelet Count 326 x10^3/uL (140-400) Neutrophils (%) (Auto) 94 % (31-73) Lymphocytes (%) (Auto) 3 % (24-48) Monocytes (%) (Auto) 3 % (0-9) Eosinophils (%) (Auto) 0 % (0-3) Basophils (%) (Auto) 0 % (0-3) Neutrophils # (Auto) 27.0 x10^3uL (1.8-7.7) Lymphocytes # (Auto) 0.9 x10^3/uL (1.0-4.8) Monocytes # (Auto) 1.0 x10^3/uL (0.0-1.1) Eosinophils # (Auto) 0.0 x10^3/uL (0.0-0.7) Basophils # (Auto) 0.0 x10^3/uL (0.0-0.2) Sodium Level 135 mmol/L (136-145) Potassium Level 5.7 mmol/L (3.5-5.1) Chloride Level 98 mmol/L (98-107) Carbon Dioxide Level 20 mmol/L (21-32) Anion Gap 17 (6-14) Blood Urea Nitrogen 73 mg/dL (8-26) Creatinine 12.8 mg/dL (0.7-1.3) Estimated GFR (Cockcroft-Gault) 4.9 Glucose Level 377 mg/dL (70-99) Calcium Level 8.0 mg/dL (8.5-10.1) Magnesium Level 2.0 mg/dL (1.8-2.4) Micro BLOOD CULTURE Final GRAM POSITIVE COCCI SEEN IN 1 OF 6 BOTTLES; 3 SETS WERE DRAWN; Objective Assessment Necrotizing fasciitis and osteomyelitis of right foot, s/p open TMA debridement , 03/28 GPC bacteremia (1 of 6 bottles so far), POA. Dose vanc 10 Leukocytosis NSTEMI CKD/HD Diabetes hx: MSSA, PSA & Providencia Plan Plan of Care Continue Zyvox and Zosyn for now. One time dose vanc and gent 03/28 Dose steroids pre-op, 03/28 Await GPC ID Monitor WBC, temp/cultures Thank you [id number] Attending Co-Sign The patient was seen and interviewed as well as examined at the bedside. The chart was reviewed. The case was discussed. Agree with the plan of care. DONNY DIALLO APRN Mar 29, 2017 09:36 ROLANDO LYON MD Mar 29, 2017 12:27
--- NOTE | 2017-03-29 10:29 | PDOC ---
Dialysis Progress Note Dialysis Note Dialysis Note Seen on Hemodialysis, tolerating treatment Okay so far Vitals on Hemodialysis: 144/72 95(on Levephed) afeb General Appearance: Awake: Alert Oriented x 2 Neck: No JVD or JVP Chest: CTA Kory Heart: S1 S2 Abdomen - Soft NTND Extremities - No Edema ESRD: Dialysis as below F 180 NR 3. 0 Hrs 2 K 2.5 Ca 140 Na 40 HC03 Qb 350 + Qd 500+ Heparin 0 Units Uf 0-1 Kgs or to dry weight as tolerated Transfuse 2 Units PRCBC's on HD May give 25-50 gms of 25% Albumin if needed to maintain Hemodynamic stability Treatment plan reviewed and discussed with science tutor Vitals Vital Signs Vital Signs Date Time Temp Pulse Resp B/P (MAP) Pulse Ox O2 Delivery O2 Flow Rate FiO2 03/29/17 10:00 85/42 (56) 03/29/17 06:12 87 18 98 Room Air 03/29/17 04:00 98.4 98.4 03/28/17 22:31 2.0 Labs Last Labs Laboratory Tests Test 03/28/17 10:10 03/28/17 12:40 03/28/17 13:20 03/28/17 17:39 White Blood Count 30.5 x10^3/uL (4.0-11.0) Red Blood Count 2.44 x10^6/uL (4.30-5.70) Hemoglobin 7.1 g/dL (13.0-17.5) Hematocrit 22.4 % (39.0-53.0) Mean Corpuscular Volume 92 fL (79-100) Mean Corpuscular Hemoglobin 29 pg (25-35) Mean Corpuscular Hemoglobin Concent 32 g/dL (31-37) Red Cell Distribution Width 14.7 % (11.5-14.5) Platelet Count 329 x10^3/uL (140-400) Neutrophils (%) (Auto) 92 % (31-73) Lymphocytes (%) (Auto) 3 % (24-48) Monocytes (%) (Auto) 5 % (0-9) Eosinophils (%) (Auto) 0 % (0-3) Basophils (%) (Auto) 0 % (0-3) Neutrophils # (Auto) 28.0 x10^3uL (1.8-7.7) Lymphocytes # (Auto) 0.8 x10^3/uL (1.0-4.8) Monocytes # (Auto) 1.5 x10^3/uL (0.0-1.1) Eosinophils # (Auto) 0.0 x10^3/uL (0.0-0.7) Basophils # (Auto) 0.0 x10^3/uL (0.0-0.2) Segmented Neutrophils % 93 % (35-66) Band Neutrophils % 2 % (0-9) Lymphocytes % 4 % (24-48) Monocytes % 1 % (0-10) Platelet Estimate Adequate (ADEQUATE) Prothrombin Time 16.0 SEC (11.7-14.0) Prothromb Time International Ratio 1.4 (0.8-1.1) Sodium Level 135 mmol/L (136-145) Potassium Level 4.4 mmol/L (3.5-5.1) Chloride Level 95 mmol/L (98-107) Carbon Dioxide Level 22 mmol/L (21-32) Anion Gap 18 (6-14) Blood Urea Nitrogen 61 mg/dL (8-26) Creatinine 13.2 mg/dL (0.7-1.3) Estimated GFR (Cockcroft-Gault) 4.8 BUN/Creatinine Ratio 5 (6-20) Glucose Level 262 mg/dL (70-99) Lactic Acid Level 1.9 mmol/L (0.4-2.0) 1.2 mmol/L (0.4-2.0) Calcium Level 9.0 mg/dL (8.5-10.1) Magnesium Level 2.2 mg/dL (1.8-2.4) Total Bilirubin 0.9 mg/dL (0.2-1.0) Aspartate Amino Transf (AST/SGOT) 158 U/L (15-37) Alanine Aminotransferase (ALT/SGPT) 219 U/L (16-63) Alkaline Phosphatase 104 U/L (46-116) Troponin I Quantitative 1.475 ng/mL (0.000-0.055) C-Reactive Protein, Quantitative 381.2 mg/L (0-3.3) Total Protein 6.9 g/dL (6.4-8.2) Albumin 2.5 g/dL (3.4-5.0) Albumin/Globulin Ratio 0.6 (1.0-1.7) O2 Saturation 94 % (92-99) Arterial Blood pH 7.36 (7.35-7.45) Arterial Blood pCO2 at Patient Temp 30 mmHg (35-46) Arterial Blood pO2 at Patient Temp 85 mmHg (75-108) Arterial Blood HCO3 16 mmol/L (21-28) Arterial Blood Base Excess -8 mmol/L (-3-3) FiO2 30.0 Nasal Screen MRSA (PCR) Negative (Negative) Glucose (Fingerstick) 316 mg/dL (70-99) Test 03/28/17 20:56 03/28/17 22:30 03/29/17 05:45 03/29/17 08:50 Glucose (Fingerstick) 381 mg/dL (70-99) 362 mg/dL (70-99) Troponin I Quantitative 0.884 ng/mL (0.000-0.055) 1.605 ng/mL (0.000-0.055) White Blood Count 28.8 x10^3/uL (4.0-11.0) Red Blood Count 2.28 x10^6/uL (4.30-5.70) Hemoglobin 6.6 g/dL (13.0-17.5) Hematocrit 20.8 % (39.0-53.0) Mean Corpuscular Volume 91 fL (79-100) Mean Corpuscular Hemoglobin 29 pg (25-35) Mean Corpuscular Hemoglobin Concent 32 g/dL (31-37) Red Cell Distribution Width 15.0 % (11.5-14.5) Platelet Count 326 x10^3/uL (140-400) Neutrophils (%) (Auto) 94 % (31-73) Lymphocytes (%) (Auto) 3 % (24-48) Monocytes (%) (Auto) 3 % (0-9) Eosinophils (%) (Auto) 0 % (0-3) Basophils (%) (Auto) 0 % (0-3) Neutrophils # (Auto) 27.0 x10^3uL (1.8-7.7) Lymphocytes # (Auto) 0.9 x10^3/uL (1.0-4.8) Monocytes # (Auto) 1.0 x10^3/uL (0.0-1.1) Eosinophils # (Auto) 0.0 x10^3/uL (0.0-0.7) Basophils # (Auto) 0.0 x10^3/uL (0.0-0.2) Sodium Level 135 mmol/L (136-145) Potassium Level 5.7 mmol/L (3.5-5.1) Chloride Level 98 mmol/L (98-107) Carbon Dioxide Level 20 mmol/L (21-32) Anion Gap 17 (6-14) Blood Urea Nitrogen 73 mg/dL (8-26) Creatinine 12.8 mg/dL (0.7-1.3) Estimated GFR (Cockcroft-Gault) 4.9 Glucose Level 377 mg/dL (70-99) Calcium Level 8.0 mg/dL (8.5-10.1) Magnesium Level 2.0 mg/dL (1.8-2.4) Laboratory Tests Test 03/28/17 12:40 03/28/17 13:20 03/28/17 17:39 03/28/17 20:56 O2 Saturation 94 % (92-99) Arterial Blood pH 7.36 (7.35-7.45) Arterial Blood pCO2 at Patient Temp 30 mmHg (35-46) Arterial Blood pO2 at Patient Temp 85 mmHg (75-108) Arterial Blood HCO3 16 mmol/L (21-28) Arterial Blood Base Excess -8 mmol/L (-3-3) FiO2 30.0 Lactic Acid Level 1.2 mmol/L (0.4-2.0) Nasal Screen MRSA (PCR) Negative (Negative) Glucose (Fingerstick) 316 mg/dL (70-99) 381 mg/dL (70-99) Test 03/28/17 22:30 03/29/17 05:45 03/29/17 08:50 Troponin I Quantitative 0.884 ng/mL (0.000-0.055) 1.605 ng/mL (0.000-0.055) White Blood Count 28.8 x10^3/uL (4.0-11.0) Red Blood Count 2.28 x10^6/uL (4.30-5.70) Hemoglobin 6.6 g/dL (13.0-17.5) Hematocrit 20.8 % (39.0-53.0) Mean Corpuscular Volume 91 fL (79-100) Mean Corpuscular Hemoglobin 29 pg (25-35) Mean Corpuscular Hemoglobin Concent 32 g/dL (31-37) Red Cell Distribution Width 15.0 % (11.5-14.5) Platelet Count 326 x10^3/uL (140-400) Neutrophils (%) (Auto) 94 % (31-73) Lymphocytes (%) (Auto) 3 % (24-48) Monocytes (%) (Auto) 3 % (0-9) Eosinophils (%) (Auto) 0 % (0-3) Basophils (%) (Auto) 0 % (0-3) Neutrophils # (Auto) 27.0 x10^3uL (1.8-7.7) Lymphocytes # (Auto) 0.9 x10^3/uL (1.0-4.8) Monocytes # (Auto) 1.0 x10^3/uL (0.0-1.1) Eosinophils # (Auto) 0.0 x10^3/uL (0.0-0.7) Basophils # (Auto) 0.0 x10^3/uL (0.0-0.2) Sodium Level 135 mmol/L (136-145) Potassium Level 5.7 mmol/L (3.5-5.1) Chloride Level 98 mmol/L (98-107) Carbon Dioxide Level 20 mmol/L (21-32) Anion Gap 17 (6-14) Blood Urea Nitrogen 73 mg/dL (8-26) Creatinine 12.8 mg/dL (0.7-1.3) Estimated GFR (Cockcroft-Gault) 4.9 Glucose Level 377 mg/dL (70-99) Calcium Level 8.0 mg/dL (8.5-10.1) Magnesium Level 2.0 mg/dL (1.8-2.4) Glucose (Fingerstick) 362 mg/dL (70-99) Assessment Assessment Problems Medical Problems: (1) Hypertension Status: Acute Problems: Plan Plan of Care Problems Medical Problems: (1) Hypertension Status: Acute JONATHAN LYON MD Mar 29, 2017 10:29
[2017-03-29] MEDS ORDERED: MAGNESIUM SULFATE 2GM 50 ML IV PRN (10:30)
--- NOTE | 2017-03-29 11:01 | PDOC ---
Provider Note Provider Note Patient seen early AM today. History and Physical dictated now. See dictation# [id number]. ANDREY VELASQUEZ MD Mar 29, 2017 11:01
--- NOTE | 2017-03-29 13:58 | HP ---
ADMIT DATE: 03/28/[address] Andrey Pitts covering Dr. Medina. REASON FOR ADMISSION: Change in mental status. HISTORY OF PRESENT ILLNESS: This is a 57-year-old -[place] male who is known to have diabetes and peripheral vascular disease as well as end-stage renal disease, on hemodialysis, presented to the Emergency Room with complaints of change in mental status. At the present time, the patient denies any pain or dyspnea. He is a poor historian. In the Emergency Room, the patient was noted to have a WBC count of 30,500, hemoglobin was 7.1. His blood chemistry was suggestive of chronic hemodialysis glucose. His LFTs were elevated with AST of 158 and ALT of 219. BUN 61, creatinine 13.2. Sodium 135, potassium 4.4, albumin was 2.5. Glucose was 262. So far, blood cultures have shown gram-negative rods. Chest x-ray was negative. He was noted to have a right foot wound in the setting of previous right transmetatarsal amputation. The x-rays of the right foot revealed gas in the right foot suggestive of gangrene. CT scan of head showed old left parietal infarct with encephalomalacia. It also showed chronic right maxillary sinusitis. Chest x-ray was negative. Because of the gangrene in the right foot, the patient was dosed with IV vancomycin and gentamicin. The patient was taken to the operating room emergently by Dr. May. The patient also was given preop steroids. The patient underwent excision of the infected subcutaneous tissue, fascia and bones from the right forefoot. The patient was noted to have gas gangrene in the right forefoot with bony destruction. The patient was noted to have diffuse osteomyelitis of the residual forefoot bones in the setting of previous transmetatarsal amputation. The patient was admitted to ICU for further management. Yesterday, the patient did require Levophed. This morning, his blood pressure is improving. REVIEW OF SYSTEMS: At present time, the patient denies any cold, cough, congestion, chest pains, palpitations, dyspnea, dizziness, abdominal pain, nausea, vomiting, diarrhea, constipation. He does admit to occasional pain in the foot. He is a poor historian. LABORATORY DATA: Yesterday, his labs also showed a troponin of 1.475 and C-reactive protein of 381.2. Lactic acid level was initially 1.9 and subsequently 1.2. PAST MEDICAL HISTORY: The patient has a history of sepsis previously; has a history of diabetes mellitus type 2, not controlled with nephropathy; end-stage renal disease, on hemodialysis; hyperlipidemia, hypertension, noncompliance. He has a history of previous cerebrovascular accident, endocarditis and diskitis. PAST SURGICAL HISTORY: The patient has had AV shunt in the left arm. Previously, he had left foot fasciectomy in 2009, then left below knee amputation, right transmetatarsal amputation. ALLERGIES: None known any. MEDICATIONS: I reviewed the medications. Please refer to the orders. SOCIAL HISTORY: No history of smoking, alcoholism or drug abuse. FAMILY HISTORY: Positive for diabetes, hypertension and kidney problems. PHYSICAL EXAMINATION: VITAL SIGNS: Temperature 98.4, pulse 86 per minute, respirations 18 per minute, blood pressure 99/67 mmHg. GENERAL: The patient is alert, oriented and not in any acute distress. EYES: Pupils reactive to light. Conjunctivae pale. Sclerae muddy. HENT: Mild congestion of throat. NECK: Supple. JVP normal. No thyromegaly. Trachea midline. LUNGS: Decreased breath sounds at bases. CARDIOVASCULAR: S1, S2 regular. ABDOMEN: Soft, nontender. No guarding, no rigidity. Bowel sounds present. EXTREMITIES: The patient has dressing of the right foot. He has some edema of both lower extremities, left below knee amputation. Stasis dermatitis bilaterally. CENTRAL NERVOUS SYSTEM: Alert and oriented, but poor historian, generalized weakness. LABORATORY FINDINGS: As noted earlier. Chest x-ray was negative. Right foot showed gas in the tissue. Other x-rays, CT and labs as noted earlier in the history of present illness. IMPRESSION: 1. Sepsis. Blood culture shows gram-negative rods. 2. Necrotizing fasciitis of the right foot. 3. Gangrene of the right foot. 4. Osteomyelitis of the right foot. 5. Status post excision of the necrotic tissue as well as infected bones in the right forefoot in the setting of previous right transmetatarsal amputation. 6. Non-ST elevation myocardial infarction. 7. Diabetes mellitus type 2, insulin-dependent, not controlled. 8. End-stage renal disease, on hemodialysis. 9. Peripheral artery disease. 10. Noncompliance. The patient had missed dialysis x 2 before this admission. 11. Moderate protein calorie malnutrition. PLAN: We will admit to Intensive Care Unit. Currently, the patient is on IV Zosyn and Zyvox. Consultation has been obtained with Dr. Valero for infectious disease evaluation and management, Dr. Wilson for cardiology evaluation and management, Dr. Dot Daniel for nephrology evaluation and management and Dr. May for vascular surgery evaluation and management. Continue wound care. WBC count is still 28,500. On admission, it was 30,500. WBC count today is 28.8. The patient also has hemoglobin of 6.6 today, yesterday was 7.1, so I will go ahead and give him 2 units of packed red blood cells. He will get dialysis today, so he will get a transfusion with packed red cells. Continue wound care. Continue close monitoring in the ICU. Monitor blood sugars and continue insulin as well as sliding scale insulin in addition to his regularly scheduled insulin. Prognosis of this patient is very poor. However, he is clinically improving. White count may be still high because of a dose of preop steroid yesterday. For details, please refer to the orders. ADDENDUM TO THE DIAGNOSIS: The patient has acute on chronic anemia that is multifactorial including blood loss and end-stage renal disease and the patient has old cerebrovascular accident in the left parietal lobe. He also has chronic right maxillary sinusitis. Plan as noted above. ANDREY PITTS MD DR: EDUAR/richi JOB#: [id number] / [id number] VIKTOR Lombardo MD
[2017-03-29] MEDS ORDERED: VANCOMYCIN RANDOM LEVEL. MC ONE (16:00)
--- NOTE | 2017-03-29 16:35 | CARD ---
APPROVED REPORT EXAM: Two-dimensional and M-mode echocardiogram with Doppler and color Doppler. Other Information Quality : GoodHR: 105bpm Rhythm : NSR INDICATION Elevated Troponin 2D DIMENSIONS Left Atrium(2D)4.3 (1.6-4.0cm)IVSd1.1 (0.7-1.1cm) Aortic Root(2D)2.4 (2.0-3.7cm)LVDd5.3 (3.9-5.9cm) LVOT Diameter2.3 (1.8-2.4cm)PWd1.1 (0.7-1.1cm) LVDs4.3 (2.5-4.0cm)FS (%) 18.1 % SV49.8 mlLVEF(%)37.2 (>50%) M-Mode DIMENSIONS Aortic Cusp Exc1.59 (1.5-2.0cm) Aortic Valve AoV Peak Rashid.123.0cm/sAoV VTI21.6cm AO Peak GR.6.1mmHgLVOT VTI 15.54cm AO Mean GR.3mmHg Mitral Valve MV E Peak Gr.8mmHgMV E Mean Gr.4mmHg TDI Lateral E' P. V5.66cm/sMedial E' P. V4.96cm/s Pulmonary Valve PV Peak Mkkmygfm162.0cm/s Tricuspid Valve TR P. Akkzummh113vc/sTR Peak Gr.35mmHg LEFT VENTRICLE The left ventricle is normal size. There is normal left ventricular wall thickness. The systolic func tion is moderately impaired. EF 35-40% The basal to distal inferolateral wall, inferior wall is moder ate to severely hypokinetic. The remainder of the LV is mildly hypokinetic. RIGHT VENTRICLE The right ventricle is normal size. There is normal right ventricular wall thickness. The right ventr icular systolic function is normal. ATRIA The left atrium is borderline dilated. The right atrium size is normal. The interatrial septum is int act with no evidence for an atrial septal defect or patent foramen ovale as noted on 2-D or Doppler i maging. AORTIC VALVE The aortic valve is normal in structure and function. Doppler and Color Flow revealed no significant aortic regurgitation. There is no significant aortic valvular stenosis. There is no aortic valvular v egetation. MITRAL VALVE The mitral valve is calcified with restricted leaflet motion of the posterior leaflet. There is no ev idence of mitral valve prolapse. There is no mitral valve stenosis. Doppler and Color-flow revealed m ild mitral regurgitation. TRICUSPID VALVE The tricuspid valve is normal in structure and function. There is no tricuspid valve prolapse or vege tation. There is no tricuspid valve stenosis. PULMONIC VALVE Doppler and Color Flow revealed trace to mild pulmonic valvular regurgitation. There is no pulmonic v alvular stenosis. GREAT VESSELS The aortic root is normal in size. The ascending aorta is normal in size. The IVC was not visualized. PERICARDIAL EFFUSION There is no pleural effusion. There is a trace pericardial effusion. Critical Notification Critical Value: No <Conclusion> The systolic function is moderately impaired. EF 35-40% The basal to distal inferolateral wall, inferior wall is moderate to severely hypokinetic. The remain chey of the LV is mildly hypokinetic.
--- NOTE | 2017-03-29 18:38 | CONS ---
DATE OF CONSULTATION: 03/28/2017 REFERRING PHYSICIAN: Dr. Conn. REASON FOR CONSULTATION: Necrotizing fasciitis. HISTORY OF PRESENT ILLNESS: This patient is a 57-year-old male with a history of chronic kidney disease on hemodialysis and diabetes mellitus. He noticed a couple of days ago a hole on the bottom of his right foot associated with some swelling. He denies drainage, redness or pain. Denies fevers or chills. He has a prior history of a remote right transmetatarsal amputation as well as methicillin-susceptible Staphylococcus aureus, pseudomonas and providencia infections. He presented with altered mental status changes, leukocytosis and hypotension requiring vasopressor support. An x-ray of the foot showed diffuse soft tissue edema with gas along the medial and dorsal aspects of the foot extending to the level of the ankle. He was taken to the operating room and underwent a wide excision of infected subcutaneous tissue, fascia and bones yesterday by Dr. May. Infectious Disease has been consulted and continued the Zosyn and added Zyvox. PAST MEDICAL HISTORY: Methicillin-susceptible Staphylococcus aureus, Pseudomonas aeruginosa pansensitive, Providencia rettgeri intermittent imipenem infections. Endocarditis diskitis. History of previous cerebrovascular accident, hyperlipidemia, chronic kidney disease on hemodialysis, insulin-dependent diabetes, hypertension. PAST SURGICAL HISTORY: Remote right transmetatarsal amputation, left below the knee amputation, AV shunt placement, right foot angioplasty. SOCIAL HISTORY: The patient is and lives at home. Nonsmoker. FAMILY HISTORY: Positive for diabetes, hypertension and renal complications. ALLERGIES: No known drug allergies. MEDICATIONS: The patient received a dose of vancomycin and gentamicin in the Emergency Room. He also received a one-time dose of dexamethasone preop. Zyvox, Zosyn. Other medications are available and have been reviewed on the [facility]. REVIEW OF SYSTEMS: The patient complains of mild right foot pain, otherwise comfortable. Denies headache, nasal/sinus congestion or sore throat. Denies cough, shortness of air or wheezing. Denies chest pain or palpitations. Denies nausea, vomiting or diarrhea. Denies rash. PHYSICAL EXAMINATION: GENERAL: An male, propped up in bed, in no apparent distress. VITAL SIGNS: Afebrile, blood pressure 109/53, heart rate 87, respiratory rate 18, pulse oximetry is 98% on room air, weight is 170 pounds, BMI 27. HEENT: Pupils equally round. Normal conjunctivae. Oral cavity, pharynx clear. LUNGS: Clear to auscultation. HEART: Normal S1 and S2. ABDOMEN: Nondistended, soft, nontender. Positive bowel sounds. EXTREMITIES: Previous left below the knee amputation unremarkable. Right foot dressing dry and intact. SKIN: Without rash. NEUROLOGIC: Alert and orientated x 3. LINES: RIJ (10-6). Clean. LABORATORY DATA: Today's WBC 28.8 from 30.5 on admission, hemoglobin is 6.6, hematocrit is 20.8, platelet count 326,000. Sodium 135, potassium 5.7, creatinine 12.8, BUN 73, glucose 377. Lactic acid 1.9. Troponin 1.605. CRP 381.2. Albumin 2.5. Blood cultures show gram-positive cocci in 1/6 bottles. Chest x-ray showed no acute cardiopulmonary abnormalities. Right lower extremity arterial ultrasound showed moderate generalized atherosclerotic plaquing; no high-grade femoral-popliteal stenosis identified; moderate anterior tibial arterial stenosis with marked degradation of the right dorsalis pedis; and gradual degradation of the Doppler waveforms at and distal to the mid thigh level. Head CT scan without IV contrast showed no acute intracranial process; old left parietal lobe infarct with area of encephalomalacia; and chronic sinusitis of the right maxillary sinus with inspissated mucus. Anaerobic/aerobic cultures ordered. IMPRESSION: 1. Necrotizing fasciitis and osteomyelitis of the right foot, status post open transmetatarsal amputation debridement on 03/28/2017. 2. Gram-positive cocci bacteremia in 1/6 bottle so far present on admission. 3. Leukocytosis. 4. Non ST-elevation myocardial infarction. 5. Chronic kidney disease on hemodialysis. 6. Insulin-dependent diabetes. PLAN: Continue the Zyvox and Zosyn for now. The patient was dosed with vancomycin and gentamicin on admission. Await gram-positive cocci identification. We will follow up on cultures and monitor WBC count and temperature. Supportive care. Thank you, Dr. Conn, for asking us to participate in this patient's care. Should you have further questions or concerns, please call. ROLANDO LYON MD DR: BECCA/richi JOB#: [id number] / [id number]
[2017-03-29] MEDS: ATORVASTATIN CALCIUM 20 MG TABLET PO SCH (22:11)
[2017-03-29] MEDS: INSULIN DETEMIR 300 UNITS/3 ML INSULN.PEN. SQ SCH (22:15)
[2017-03-30 03:05] VITALS: BP 110/56
[2017-03-30 05:15] LABS: BASO # 0.1 x10^3/uL (0.0-0.2); BASO % 0 % (0-3); EOS % 0 % (0-3); HEMOGLOBIN 10.3 g/dL (13.0-17.5); LYMPH # 0.7 x10^3/uL (1.0-4.8); LYMPH % 3 % (24-48); MEAN CORPUSCULAR HEMOGLOBIN 29 pg (25-35); MEAN CORPUSCULAR HGB CONC 32 g/dL (31-37); MEAN CORPUSCULAR VOLUME 89 fL (79-100); MONO % 4 % (0-9); NEUT % 93 % (31-73); PLATELET COUNT 358 x10^3/uL (140-400); RED CELL DISTRIBUTION WIDTH 15.4 % (11.5-14.5); WHITE BLOOD COUNT 28.3 x10^3/uL (4.0-11.0)
[2017-03-30] MEDS: PIPERACILLIN/TAZOBACTAM 2.25 GM in IV NORMAL SALINE 50ML 50 ML IV SCH ×3 (05:50→20:49)
[2017-03-30 06:01] LABS: ALBUMIN 1.7 g/dL (3.4-5.0); ALBUMIN/GLOBULIN RATIO 0.4 (1.0-1.7); CALCIUM 8.2 mg/dL (8.5-10.1); GFR 9.9; PHOSPHORUS 5.2 mg/dL (2.6-4.7); POTASSIUM 3.5 mmol/L (3.5-5.1); TOTAL BILIRUBIN 0.5 mg/dL (0.2-1.0); TOTAL PROTEIN 6.3 g/dL (6.4-8.2)
[2017-03-30] MEDS: oxyCODONE IR 5 MG TABLET PO PRN ×2 (06:19→20:47)
[2017-03-30 07:35] VITALS: BP 100/56
--- NOTE | 2017-03-30 08:14 | PDOC ---
Provider Note Provider Note Vascular F/U POD # 2 Post op debridement rt TMA Dressing dry and intact For VAC tomorrow KAUSHIK CARRERO MD Mar 30, 2017 08:14
--- NOTE | 2017-03-30 08:33 | PDOC ---
Provider Note Provider Note No new cardiac issues. No chest pain Plan for outpt eval with MPI and 2 week f/u in the office. Thanks. Pls call with questions. DINO BLEVINS MD Mar 30, 2017 08:33
--- NOTE | 2017-03-30 09:11 | PDOC ---
Infectious Disease Note Subjective Subjective Comfortable, pain controlled Appetite good No concerns voiced at this time ROS ROS GEN: Denies fevers, chills, sweats CV: Denies chest pain RESP: Denies shortness of air, cough GI: Denies n/v/d Vital Sign Vital Signs Vital Signs Date Time Temp Pulse Resp B/P (MAP) Pulse Ox O2 Delivery O2 Flow Rate FiO2 03/30/17 08:00 Room Air 03/30/17 07:35 97.8 88 20 100/56 (71) 96 97.8 Physical Exam PHYSICAL EXAM GENERAL: Propped up in bed, eating breakfast, LUNGS: Clear to auscultation. HEART: Normal S1 and S2. ABDOMEN: Nondistended, soft, nontender. Positive bowel sounds. EXTREMITIES: Previous left below the knee amputation unremarkable. Right foot dressing dry and intact. SKIN: Without rash. NEUROLOGIC: Alert and orientated x 3. RIJ (10-6). Clean. Labs Lab Laboratory Tests Test 03/29/17 11:37 03/29/17 17:10 03/29/17 17:20 03/29/17 21:25 Glucose (Fingerstick) 189 mg/dL (70-99) 213 mg/dL (70-99) 201 mg/dL (70-99) Troponin I Quantitative 1.590 ng/mL (0.000-0.055) Test 03/30/17 04:30 03/30/17 07:36 White Blood Count 28.3 x10^3/uL (4.0-11.0) Red Blood Count 3.60 x10^6/uL (4.30-5.70) Hemoglobin 10.3 g/dL (13.0-17.5) Hematocrit 32.0 % (39.0-53.0) Mean Corpuscular Volume 89 fL (79-100) Mean Corpuscular Hemoglobin 29 pg (25-35) Mean Corpuscular Hemoglobin Concent 32 g/dL (31-37) Red Cell Distribution Width 15.4 % (11.5-14.5) Platelet Count 358 x10^3/uL (140-400) Neutrophils (%) (Auto) 93 % (31-73) Lymphocytes (%) (Auto) 3 % (24-48) Monocytes (%) (Auto) 4 % (0-9) Eosinophils (%) (Auto) 0 % (0-3) Basophils (%) (Auto) 0 % (0-3) Neutrophils # (Auto) 26.4 x10^3uL (1.8-7.7) Lymphocytes # (Auto) 0.7 x10^3/uL (1.0-4.8) Monocytes # (Auto) 1.2 x10^3/uL (0.0-1.1) Eosinophils # (Auto) 0.0 x10^3/uL (0.0-0.7) Basophils # (Auto) 0.1 x10^3/uL (0.0-0.2) Sodium Level 138 mmol/L (136-145) Potassium Level 3.5 mmol/L (3.5-5.1) Chloride Level 96 mmol/L (98-107) Carbon Dioxide Level 32 mmol/L (21-32) Anion Gap 10 (6-14) Blood Urea Nitrogen 39 mg/dL (8-26) Creatinine 7.0 mg/dL (0.7-1.3) Estimated GFR (Cockcroft-Gault) 9.9 BUN/Creatinine Ratio 6 (6-20) Glucose Level 265 mg/dL (70-99) Calcium Level 8.2 mg/dL (8.5-10.1) Phosphorus Level 5.2 mg/dL (2.6-4.7) Total Bilirubin 0.5 mg/dL (0.2-1.0) Aspartate Amino Transf (AST/SGOT) 75 U/L (15-37) Alanine Aminotransferase (ALT/SGPT) 179 U/L (16-63) Alkaline Phosphatase 96 U/L (46-116) Total Protein 6.3 g/dL (6.4-8.2) Albumin 1.7 g/dL (3.4-5.0) Albumin/Globulin Ratio 0.4 (1.0-1.7) Glucose (Fingerstick) 227 mg/dL (70-99) Micro BLD CULT RESULT 1 Preliminary Beta hemolytic Streptococcus, group B Objective Assessment Necrotizing fasciitis and osteomyelitis of right foot, s/p open TMA debridement , 03/28. Intra-op cultures pending, D/w micro Group B Strep bacteremia (1 of 6 bottles so far), POA. Leukocytosis - stable NSTEMI CKD/HD Diabetes hx: MSSA, PSA & Providencia Plan Plan of Care Continue Zyvox and Zosyn for now. Dose steroids pre-op, 03/28 Await anaerobic-aerobic cultures Monitor WBC, temp/cultures Attending Co-Sign The patient was seen and interviewed as well as examined at the bedside. The chart was reviewed. The case was discussed. Agree with the plan of care. DONNY DIALLO APRN Mar 30, 2017 09:11 ROLANDO LYON MD Mar 30, 2017 12:54
[2017-03-30] MEDS: SODIUM BICARBONATE 650 MG TABLET. PO SCH ×2 (09:16→20:48)
[2017-03-30] MEDS: FLUTICASONE 50MCG/NASAL SPRAY 16GM BOTTLE. NS SCH ×2 (09:16→20:53)
[2017-03-30] MEDS: FOLIC/VIT B COMP W-C (RENAL) TABLET. PO SCH (09:16)
[2017-03-30] MEDS: CARVEDILOL 6.25 MG TABLET. PO SCH ×2 (09:17→17:45)
[2017-03-30] MEDS: PANTOPRAZOLE 40 MG TABLET.DR. PO SCH (09:18)
[2017-03-30] MEDS: ASPIRIN ENTERIC COATED 81 MG TABLET.DR. PO SCH (09:18)
[2017-03-30] MEDS: FERROUS SULFATE 325 MG TABLET. PO SCH (09:18)
[2017-03-30] MEDS: INSULIN ASPART 300 UNITS/3 ML INSULN.PEN SQ SCH ×6 (09:26→17:50)
--- NOTE | 2017-03-30 10:31 | PDOC ---
IM PROGRESS NOTES- Subjective Subjective No pain or dyspnea. Objective Vitals Vital Signs Date Time Temp Pulse Resp B/P (MAP) Pulse Ox O2 Delivery O2 Flow Rate FiO2 03/30/17 09:17 88 100/56 03/30/17 08:00 Room Air 03/30/17 07:35 97.8 20 96 97.8 Input & Output Intake and Output 03/31/17 07:00 Intake Total 120 ml Balance 120 ml Intake Oral 120 ml Physical Exam Physical Exam General appearance - alert,ill appearing, and in no distress and oriented to person, place, and time Mental Status - alert, oriented to person, place, and time, affect appropriate to mood Head - normal Chest - clear to auscultation, no wheezes, rales or rhonchi, symmetric air entry Heart - S1 and S2 normal Abdomen - soft, nontender, nondistended, no masses or organomegaly Neurological - alert and oriented Musculoskeletal - no muscular tenderness noted Extremities - decreased pedal edema,rt foot dressing,lt BKA Skin - warm and dry Labs Laboratory Tests Test 03/28/17 12:40 03/28/17 13:20 03/28/17 17:39 03/28/17 20:56 O2 Saturation 94 % (92-99) Arterial Blood pH 7.36 (7.35-7.45) Arterial Blood pCO2 at Patient Temp 30 mmHg (35-46) Arterial Blood pO2 at Patient Temp 85 mmHg (75-108) Arterial Blood HCO3 16 mmol/L (21-28) Arterial Blood Base Excess -8 mmol/L (-3-3) FiO2 30.0 Lactic Acid Level 1.2 mmol/L (0.4-2.0) Nasal Screen MRSA (PCR) Negative (Negative) Glucose (Fingerstick) 316 mg/dL (70-99) 381 mg/dL (70-99) Test 03/28/17 22:30 03/29/17 05:45 03/29/17 08:50 03/29/17 11:37 Troponin I Quantitative 0.884 ng/mL (0.000-0.055) 1.605 ng/mL (0.000-0.055) White Blood Count 28.8 x10^3/uL (4.0-11.0) Red Blood Count 2.28 x10^6/uL (4.30-5.70) Hemoglobin 6.6 g/dL (13.0-17.5) Hematocrit 20.8 % (39.0-53.0) Mean Corpuscular Volume 91 fL (79-100) Mean Corpuscular Hemoglobin 29 pg (25-35) Mean Corpuscular Hemoglobin Concent 32 g/dL (31-37) Red Cell Distribution Width 15.0 % (11.5-14.5) Platelet Count 326 x10^3/uL (140-400) Neutrophils (%) (Auto) 94 % (31-73) Lymphocytes (%) (Auto) 3 % (24-48) Monocytes (%) (Auto) 3 % (0-9) Eosinophils (%) (Auto) 0 % (0-3) Basophils (%) (Auto) 0 % (0-3) Neutrophils # (Auto) 27.0 x10^3uL (1.8-7.7) Lymphocytes # (Auto) 0.9 x10^3/uL (1.0-4.8) Monocytes # (Auto) 1.0 x10^3/uL (0.0-1.1) Eosinophils # (Auto) 0.0 x10^3/uL (0.0-0.7) Basophils # (Auto) 0.0 x10^3/uL (0.0-0.2) Sodium Level 135 mmol/L (136-145) Potassium Level 5.7 mmol/L (3.5-5.1) Chloride Level 98 mmol/L (98-107) Carbon Dioxide Level 20 mmol/L (21-32) Anion Gap 17 (6-14) Blood Urea Nitrogen 73 mg/dL (8-26) Creatinine 12.8 mg/dL (0.7-1.3) Estimated GFR (Cockcroft-Gault) 4.9 Glucose Level 377 mg/dL (70-99) Calcium Level 8.0 mg/dL (8.5-10.1) Magnesium Level 2.0 mg/dL (1.8-2.4) Glucose (Fingerstick) 362 mg/dL (70-99) 189 mg/dL (70-99) Test 03/29/17 17:10 03/29/17 17:20 03/29/17 21:25 03/30/17 04:30 Troponin I Quantitative 1.590 ng/mL (0.000-0.055) Glucose (Fingerstick) 213 mg/dL (70-99) 201 mg/dL (70-99) White Blood Count 28.3 x10^3/uL (4.0-11.0) Red Blood Count 3.60 x10^6/uL (4.30-5.70) Hemoglobin 10.3 g/dL (13.0-17.5) Hematocrit 32.0 % (39.0-53.0) Mean Corpuscular Volume 89 fL (79-100) Mean Corpuscular Hemoglobin 29 pg (25-35) Mean Corpuscular Hemoglobin Concent 32 g/dL (31-37) Red Cell Distribution Width 15.4 % (11.5-14.5) Platelet Count 358 x10^3/uL (140-400) Neutrophils (%) (Auto) 93 % (31-73) Lymphocytes (%) (Auto) 3 % (24-48) Monocytes (%) (Auto) 4 % (0-9) Eosinophils (%) (Auto) 0 % (0-3) Basophils (%) (Auto) 0 % (0-3) Neutrophils # (Auto) 26.4 x10^3uL (1.8-7.7) Lymphocytes # (Auto) 0.7 x10^3/uL (1.0-4.8) Monocytes # (Auto) 1.2 x10^3/uL (0.0-1.1) Eosinophils # (Auto) 0.0 x10^3/uL (0.0-0.7) Basophils # (Auto) 0.1 x10^3/uL (0.0-0.2) Sodium Level 138 mmol/L (136-145) Potassium Level 3.5 mmol/L (3.5-5.1) Chloride Level 96 mmol/L (98-107) Carbon Dioxide Level 32 mmol/L (21-32) Anion Gap 10 (6-14) Blood Urea Nitrogen 39 mg/dL (8-26) Creatinine 7.0 mg/dL (0.7-1.3) Estimated GFR (Cockcroft-Gault) 9.9 BUN/Creatinine Ratio 6 (6-20) Glucose Level 265 mg/dL (70-99) Calcium Level 8.2 mg/dL (8.5-10.1) Phosphorus Level 5.2 mg/dL (2.6-4.7) Total Bilirubin 0.5 mg/dL (0.2-1.0) Aspartate Amino Transf (AST/SGOT) 75 U/L (15-37) Alanine Aminotransferase (ALT/SGPT) 179 U/L (16-63) Alkaline Phosphatase 96 U/L (46-116) Total Protein 6.3 g/dL (6.4-8.2) Albumin 1.7 g/dL (3.4-5.0) Albumin/Globulin Ratio 0.4 (1.0-1.7) Test 03/30/17 07:36 Glucose (Fingerstick) 227 mg/dL (70-99) Laboratory Tests Test 03/29/17 11:37 03/29/17 17:10 03/29/17 17:20 03/29/17 21:25 Glucose (Fingerstick) 189 mg/dL (70-99) 213 mg/dL (70-99) 201 mg/dL (70-99) Troponin I Quantitative 1.590 ng/mL (0.000-0.055) Test 03/30/17 04:30 03/30/17 07:36 White Blood Count 28.3 x10^3/uL (4.0-11.0) Red Blood Count 3.60 x10^6/uL (4.30-5.70) Hemoglobin 10.3 g/dL (13.0-17.5) Hematocrit 32.0 % (39.0-53.0) Mean Corpuscular Volume 89 fL (79-100) Mean Corpuscular Hemoglobin 29 pg (25-35) Mean Corpuscular Hemoglobin Concent 32 g/dL (31-37) Red Cell Distribution Width 15.4 % (11.5-14.5) Platelet Count 358 x10^3/uL (140-400) Neutrophils (%) (Auto) 93 % (31-73) Lymphocytes (%) (Auto) 3 % (24-48) Monocytes (%) (Auto) 4 % (0-9) Eosinophils (%) (Auto) 0 % (0-3) Basophils (%) (Auto) 0 % (0-3) Neutrophils # (Auto) 26.4 x10^3uL (1.8-7.7) Lymphocytes # (Auto) 0.7 x10^3/uL (1.0-4.8) Monocytes # (Auto) 1.2 x10^3/uL (0.0-1.1) Eosinophils # (Auto) 0.0 x10^3/uL (0.0-0.7) Basophils # (Auto) 0.1 x10^3/uL (0.0-0.2) Sodium Level 138 mmol/L (136-145) Potassium Level 3.5 mmol/L (3.5-5.1) Chloride Level 96 mmol/L (98-107) Carbon Dioxide Level 32 mmol/L (21-32) Anion Gap 10 (6-14) Blood Urea Nitrogen 39 mg/dL (8-26) Creatinine 7.0 mg/dL (0.7-1.3) Estimated GFR (Cockcroft-Gault) 9.9 BUN/Creatinine Ratio 6 (6-20) Glucose Level 265 mg/dL (70-99) Calcium Level 8.2 mg/dL (8.5-10.1) Phosphorus Level 5.2 mg/dL (2.6-4.7) Total Bilirubin 0.5 mg/dL (0.2-1.0) Aspartate Amino Transf (AST/SGOT) 75 U/L (15-37) Alanine Aminotransferase (ALT/SGPT) 179 U/L (16-63) Alkaline Phosphatase 96 U/L (46-116) Total Protein 6.3 g/dL (6.4-8.2) Albumin 1.7 g/dL (3.4-5.0) Albumin/Globulin Ratio 0.4 (1.0-1.7) Glucose (Fingerstick) 227 mg/dL (70-99) Meds Current Medications Insulin Aspart (NovoLOG) 0-7 UNITS TIDWMEALS SQ Last administered on 03/30/17t 09:26; Start 03/29/17 at 12:00 Magnesium Sulfate/ Dextrose 50 ml @ 25 mls/hr PRN DAILY PRN IV for Mag < 1.7 on am labs; Start 03/29/17 at 10:30 Vancomycin HCl 1 each 1X ONCE MC ; Start 03/29/17 at 16:00; Stop 03/29/17 at 16 :01; Status Cancel Assessment Assessment 1. Sepsis. Blood culture shows gram-negative rods. 2. Necrotizing fasciitis of the right foot. 3. Gangrene of the right foot. 4. Osteomyelitis of the right foot. 5. Status post excision of the necrotic tissue as well as infected bones in the right forefoot in the setting of previous right transmetatarsal amputation. 6. Non-ST elevation myocardial infarction. 7. Diabetes mellitus type 2, insulin-dependent, not controlled. 8. End-stage renal disease, on hemodialysis. 9. Peripheral artery disease. 10. Noncompliance. The patient had missed dialysis x 2 before this admission. 11. Moderate protein calorie malnutrition. 12. acute on chronic anemia that is multifactorial including blood loss and end- stage renal disease 13. 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 14. chronic right maxillary sinusitis. PLAN: Currently, the patient is on IV Zosyn and Zyvox. Consultation has been obtained with Dr. Valero for infectious disease evaluation and management, Dr. Wilson for cardiology evaluation and management, Dr. Dot Daniel for nephrology evaluation and management and Dr. May for vascular surgery evaluation and management. Continue wound care. WBC count is still 28,300. On admission, it was 30,500. WBC count today is 28.3. Anemia better with transfusion. Hypokalemia- K 3.5- monitor- on dialysis. Continue wound care. Monitor blood sugars and continue insulin as well as sliding scale insulin in addition to his regularly scheduled insulin. He is clinically improving. Plan Plan For more details regarding further plans, please refer to the orders. ANDREY VELASQUEZ MD Mar 30, 2017 10:31
[2017-03-30 11:10] VITALS: BP 93/45
--- NOTE | 2017-03-30 11:50 | PDOC ---
SUBJECTIVE ROS ESRD Doing OK , much m ore alter ta and awake today CVS: no Orthopnea, no CP RESP: no SOB, no GODDARD GI: no Nausea, no Vomiting : no Dysuria, no Urgency OBJECTIVE Vital Signs Vital Signs Date Time Temp Pulse Resp B/P (MAP) Pulse Ox O2 Delivery O2 Flow Rate FiO2 03/30/17 11:10 98.0 89 18 93/45 (61) 94 Room Air 98.0 I & 0 Intake and Output 03/31/17 07:00 Intake Total 120 ml Balance 120 ml Intake Oral 120 ml PHYSICAL EXAM Physical Exam GEN: Awake, Oriented x 3, In no distress EYES: Vision Unchanged, Conjunctiva Normal EN: No EN Drainage, Mucous Membranes moist NECK: no JVD, min JVP, Supple, no Thyromegaly - thick neck CVS: S1S2, + Murmur, No Gallop, No Rub,no Edema RESP: no Rales, no Rhonchi,no Acc. Muscle Use GI: BS + ve, NO Bruit, Non Tender, Non Distended : no CVA tenderness, no Suprapubic Tenderness DIAGNOSIS/ASSESSMENT Assessment & Plan ESRD: Current fluid and E-lyte status does not necessitate emergent need for dialysis. Will re-evaluate for dialysis in the am and continue on MWF schedule. ANEMIA; Aranesp as ordered, Transfuse with next HD as needed; BT done yest HTN: Current BP meds as reviewed. See orders for changes. BONE & MINERAL: follow Phos trend and alter binder regimen as needed Sev Hypoalbuminemia - suspect due to infection; PO intake improving Discussed Plan of Care with pt at bedside Problems: COMMENT/RELEVANT DATA Meds Current Medications Medications (Trade) Dose Ordered Sig/Teresa Start Time Stop Time Status Last Admin Dose Admin Acetaminophen (Tylenol) 500 mg QID PRN 03/28/17 17:00 Aspirin (Ecotrin) 81 mg [id number] 03/29/17 08:00 03/30/17 09:18 81 MG Atorvastatin Calcium (Lipitor) 20 mg QHS 03/28/17 21:00 03/29/17 22:11 20 MG Carvedilol (Coreg) 6.25 mg BIDWMEALS 03/28/17 17:00 03/30/17 09:17 6.25 MG Darbepoetin Greg (Aranesp) 60 mcg WEEKLYHS 03/28/17 21:00 10/6/17 20:54 60 MCG Desflurane (Suprane) 60 ml STK-MED ONCE 03/28/17 16:19 03/28/17 16:20 DC Dexamethasone Sodium Phosphate (Decadron) 20 mg STK-MED ONCE 03/28/17 16:19 03/28/17 16:20 DC Dextrose (Dextrose 50%-Water Syringe) 12.5 gm PRN Q15MIN PRN 03/28/17 17:00 Ephedrine Sulfate (Akovaz) 50 mg STK-MED ONCE 03/28/17 17:03 03/28/17 17:04 DC Fentanyl Citrate (Fentanyl 2ml Vial) 50 mcg PRN Q5MIN PRN 03/28/17 16:45 03/29/17 16:44 DC 03/28/17 22:01 50 MCG Ferrous Sulfate (Feosol) 325 mg DAILY 03/29/17 09:00 03/30/17 09:18 325 MG Fluticasone Propionate (Flonase) 2 spray BID 03/28/17 21:00 03/30/17 09:16 2 SPRAY Gentamicin Sulfate 320 mg/ Sodium Chloride 108 ml @ 108 mls/hr 1X ONCE 03/28/17 11:30 03/28/17 12:29 DC 03/28/17 14:56 108 MLS/HR Hydromorphone HCl (Dilaudid) 0.5 mg PRN Q10MIN PRN 03/28/17 16:45 03/29/17 16:44 DC Info (PHARMACY MONITORING -- do not chart) 1 each PRN DAILY PRN 03/29/17 09:15 Insulin Aspart (NovoLOG) 8 units 1X ONCE 03/29/17 09:30 03/29/17 09:31 DC 03/29/17 09:48 8 UNITS Insulin Detemir (Levemir) 15 units QHS 03/28/17 21:00 03/29/17 22:15 15 UNITS Lidocaine HCl (Lidocaine Pf 2% Vial) 5 ml STK-MED ONCE 03/28/17 16:19 03/28/17 16:20 DC Lidocaine HCl (Xylocaine-Mpf 1% Vial) 2 ml 1X PRN PRN 03/28/17 16:45 03/29/17 16:44 DC Linezolid 300 ml @ 300 mls/hr Q12HR 03/28/17 21:00 03/30/17 09:18 300 MLS/HR Magnesium Sulfate/ Dextrose 50 ml @ 25 mls/hr PRN DAILY PRN 03/29/17 10:30 Morphine Sulfate 1 mg PRN Q10MIN PRN 03/28/17 16:45 03/29/17 16:44 DC Mupirocin (Bactroban) 22 lesvia STK-MED ONCE 03/28/17 16:20 03/28/17 17:20 DC Norepinephrine Bitartrate 250 ml @ 0 mls/hr CONT PRN 03/28/17 12:30 03/28/17 17:20 22.5 MLS/HR Ondansetron HCl (Zofran Odt) 4 mg Q4H PRN 03/28/17 17:00 Ondansetron HCl (Zofran) 4 mg PRN Q6HRS PRN 03/28/17 16:45 03/29/17 16:44 DC Oxycodone HCl (Roxicodone) 5 mg PRN Q6HRS PRN 03/28/17 17:00 03/30/17 06:19 5 MG Pantoprazole Sodium (Protonix) 40 mg DAILYAC 03/29/17 07:30 03/30/17 09:18 40 MG Phenylephrine HCl 1 mg STK-MED ONCE 03/28/17 16:21 03/28/17 16:22 DC Piperacillin Sod/ Tazobactam Sod (Zosyn Per Pharmacy) 1 each PRN DAILY PRN 03/28/17 10:30 Piperacillin Sod/ Tazobactam Sod 2.25 gm/Sodium Chloride 50 ml @ 100 mls/hr Q8HRS 03/28/17 21:00 03/30/17 05:50 100 MLS/HR Prochlorperazine Edisylate (Compazine) 5 mg PACU PRN PRN 03/28/17 16:45 03/29/17 16:44 DC Propofol 20 ml @ As Directed STK-MED ONCE 03/28/17 16:19 03/28/17 16:20 DC Ringer's Solution 1,000 ml @ 30 mls/hr Q24H 03/28/17 16:36 03/29/17 04:35 DC Sodium Bicarbonate (Sodium Bicarbonate) 650 mg BID 03/28/17 21:00 03/30/17 09:16 650 MG Sodium Chloride 1,000 ml @ 400 mls/hr Q2H30M PRN 03/29/17 09:08 03/29/17 21:07 DC Vancomycin HCl 1 each 1X ONCE 03/29/17 16:00 03/29/17 16:01 Cancel Vancomycin HCl (Vanco Per Pharmacy) 1 each PRN DAILY PRN 03/28/17 19:30 03/29/17 07:23 DC 03/28/17 19:38 1 EACH Vancomycin HCl 1.75 gm/Sodium Chloride 500 ml @ 250 mls/hr 1X ONCE 03/28/17 11:00 03/28/17 12:59 DC 03/28/17 11:00 250 MLS/HR Vitamin B Complex/ Vitamin C (Mary-Lisa) 1 tab DAILY 03/29/17 09:00 03/30/17 09:16 1 TAB Lab Laboratory Tests Test 03/29/17 17:10 03/29/17 17:20 03/29/17 21:25 03/30/17 04:30 Troponin I Quantitative 1.590 ng/mL (0.000-0.055) Glucose (Fingerstick) 213 mg/dL (70-99) 201 mg/dL (70-99) White Blood Count 28.3 x10^3/uL (4.0-11.0) Red Blood Count 3.60 x10^6/uL (4.30-5.70) Hemoglobin 10.3 g/dL (13.0-17.5) Hematocrit 32.0 % (39.0-53.0) Mean Corpuscular Volume 89 fL (79-100) Mean Corpuscular Hemoglobin 29 pg (25-35) Mean Corpuscular Hemoglobin Concent 32 g/dL (31-37) Red Cell Distribution Width 15.4 % (11.5-14.5) Platelet Count 358 x10^3/uL (140-400) Neutrophils (%) (Auto) 93 % (31-73) Lymphocytes (%) (Auto) 3 % (24-48) Monocytes (%) (Auto) 4 % (0-9) Eosinophils (%) (Auto) 0 % (0-3) Basophils (%) (Auto) 0 % (0-3) Neutrophils # (Auto) 26.4 x10^3uL (1.8-7.7) Lymphocytes # (Auto) 0.7 x10^3/uL (1.0-4.8) Monocytes # (Auto) 1.2 x10^3/uL (0.0-1.1) Eosinophils # (Auto) 0.0 x10^3/uL (0.0-0.7) Basophils # (Auto) 0.1 x10^3/uL (0.0-0.2) Sodium Level 138 mmol/L (136-145) Potassium Level 3.5 mmol/L (3.5-5.1) Chloride Level 96 mmol/L (98-107) Carbon Dioxide Level 32 mmol/L (21-32) Anion Gap 10 (6-14) Blood Urea Nitrogen 39 mg/dL (8-26) Creatinine 7.0 mg/dL (0.7-1.3) Estimated GFR (Cockcroft-Gault) 9.9 BUN/Creatinine Ratio 6 (6-20) Glucose Level 265 mg/dL (70-99) Calcium Level 8.2 mg/dL (8.5-10.1) Phosphorus Level 5.2 mg/dL (2.6-4.7) Total Bilirubin 0.5 mg/dL (0.2-1.0) Aspartate Amino Transf (AST/SGOT) 75 U/L (15-37) Alanine Aminotransferase (ALT/SGPT) 179 U/L (16-63) Alkaline Phosphatase 96 U/L (46-116) Total Protein 6.3 g/dL (6.4-8.2) Albumin 1.7 g/dL (3.4-5.0) Albumin/Globulin Ratio 0.4 (1.0-1.7) Test 03/30/17 07:36 Glucose (Fingerstick) 227 mg/dL (70-99) JONATHAN LYON MD Mar 30, 2017 11:50
[2017-03-30 14:40] VITALS: BP 107/52
[2017-03-30] MEDS: ACETAMINOPHEN 500 MG TABLET PO PRN (17:44)
[2017-03-30 19:35] VITALS: BP 96/55
[2017-03-30] MEDS: ATORVASTATIN CALCIUM 20 MG TABLET PO SCH (20:48)
[2017-03-30] MEDS: INSULIN DETEMIR 300 UNITS/3 ML INSULN.PEN. SQ SCH (20:53)
[2017-03-30 23:05] VITALS: BP 100/56
[2017-03-31 03:10] VITALS: BP 116/55
[2017-03-31 04:55] LABS: BASO % 0 % (0-3); EOS % 1 % (0-3); HEMOGLOBIN 9.9 g/dL (13.0-17.5); LYMPH # 1.2 x10^3/uL (1.0-4.8); LYMPH % 6 % (24-48); MEAN CORPUSCULAR HEMOGLOBIN 30 pg (25-35); MEAN CORPUSCULAR HGB CONC 33 g/dL (31-37); MEAN CORPUSCULAR VOLUME 89 fL (79-100); MONO % 2 % (0-9); NEUT % 91 % (31-73); PLATELET COUNT 321 x10^3/uL (140-400); RED BLOOD COUNT 3.36 x10^6/uL (4.30-5.70); RED CELL DISTRIBUTION WIDTH 15.2 % (11.5-14.5); WHITE BLOOD COUNT 20.5 x10^3/uL (4.0-11.0)
[2017-03-31] MEDS: PIPERACILLIN/TAZOBACTAM 2.25 GM in IV NORMAL SALINE 50ML 50 ML IV SCH ×3 (05:16→21:20)
[2017-03-31 05:27] LABS: ALBUMIN 1.7 g/dL (3.4-5.0); CALCIUM 8.2 mg/dL (8.5-10.1); CREATININE 7.8 mg/dL (0.7-1.3); GFR 8.7; PHOSPHORUS 4.8 mg/dL (2.6-4.7)
--- NOTE | 2017-03-31 06:26 | PDOC ---
Provider Note Provider Note Vas Note For VAC today Will F/U in office in 2 weeks KAUSHIK CARRERO MD Mar 31, 2017 06:26
[2017-03-31 07:00] VITALS: BP 101/54
[2017-03-31] MEDS: INSULIN ASPART 300 UNITS/3 ML INSULN.PEN SQ SCH ×6 (08:00→17:00)
[2017-03-31] MEDS: PANTOPRAZOLE 40 MG TABLET.DR. PO SCH (08:32)
--- NOTE | 2017-03-31 08:39 | PDOC ---
Infectious Disease Note Subjective Subjective Comfortable, pain controlled Appetite good No concerns voiced at this time ROS ROS GEN: Denies fevers, chills, sweats HEENT: Denies blurred vision, sore throat CV: Denies chest pain RESP: Denies shortness of air, cough GI: Denies n/v/d NEURO: Denies confusion, dizziness MSK: Denies weakness, joint pain/swelling Vital Sign Vital Signs Vital Signs Date Time Temp Pulse Resp B/P (MAP) Pulse Ox O2 Delivery O2 Flow Rate FiO2 03/31/17 03:10 98.0 95 20 116/55 (75) 94 Room Air 98.0 Physical Exam PHYSICAL EXAM GENERAL: NAD, Alert HEENT: PERRL, OC/OP NECK: Supple, no JVD, no LN LUNGS: Clear HEART: S1S2, no gallop, no murmur ABD: Soft, NT, no organomegaly, no rebound EXT: No edema, no cyanosis, foot dressing not opened 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, 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, no focal neurologic deficit SKIN: No rash IV: ok Labs Lab Laboratory Tests Test 03/30/17 11:35 03/30/17 16:26 03/30/17 20:48 03/31/17 04:45 Glucose (Fingerstick) 317 mg/dL (70-99) 169 mg/dL (70-99) 115 mg/dL (70-99) White Blood Count 20.5 x10^3/uL (4.0-11.0) Red Blood Count 3.36 x10^6/uL (4.30-5.70) Hemoglobin 9.9 g/dL (13.0-17.5) Hematocrit 30.0 % (39.0-53.0) Mean Corpuscular Volume 89 fL (79-100) Mean Corpuscular Hemoglobin 30 pg (25-35) Mean Corpuscular Hemoglobin Concent 33 g/dL (31-37) Red Cell Distribution Width 15.2 % (11.5-14.5) Platelet Count 321 x10^3/uL (140-400) Neutrophils (%) (Auto) 91 % (31-73) Lymphocytes (%) (Auto) 6 % (24-48) Monocytes (%) (Auto) 2 % (0-9) Eosinophils (%) (Auto) 1 % (0-3) Basophils (%) (Auto) 0 % (0-3) Neutrophils # (Auto) 18.7 x10^3uL (1.8-7.7) Lymphocytes # (Auto) 1.2 x10^3/uL (1.0-4.8) Monocytes # (Auto) 0.5 x10^3/uL (0.0-1.1) Eosinophils # (Auto) 0.1 x10^3/uL (0.0-0.7) Basophils # (Auto) 0.0 x10^3/uL (0.0-0.2) Sodium Level 139 mmol/L (136-145) Potassium Level 3.0 mmol/L (3.5-5.1) Chloride Level 97 mmol/L (98-107) Carbon Dioxide Level 31 mmol/L (21-32) Anion Gap 11 (6-14) Blood Urea Nitrogen 51 mg/dL (8-26) Creatinine 7.8 mg/dL (0.7-1.3) Estimated GFR (Cockcroft-Gault) 8.7 Glucose Level 73 mg/dL (70-99) Calcium Level 8.2 mg/dL (8.5-10.1) Phosphorus Level 4.8 mg/dL (2.6-4.7) Albumin 1.7 g/dL (3.4-5.0) Test 03/31/17 07:38 Glucose (Fingerstick) 74 mg/dL (70-99) Objective Assessment Necrotizing fasciitis and osteomyelitis of right foot, s/p open TMA debridement , 03/28. Intra-op cultures pending, D/w micro Group B Strep bacteremia (1 of 6 bottles so far), POA. Leukocytosis - stable NSTEMI CKD/HD Diabetes hx: MSSA, PSA & Providencia Plan Plan of Care Continue Zyvox and Zosyn for now. Dose steroids pre-op, 03/28 Await anaerobic-aerobic cultures Monitor WBC, temp/cultures ROLANDO LYON MD Mar 31, 2017 08:39
[2017-03-31] MEDS ORDERED: IV NORMAL SALINE 1000ML BAG 1,000 ML IV PRN ×2 (08:55)
[2017-03-31] MEDS ORDERED: diphenhydrAMINE 50 MG/ML VIAL IV PRN (09:00)
[2017-03-31] MEDS ORDERED: DIALYSIS PATIENT. MC PRN ×2 (09:00)
[2017-03-31] MEDS ORDERED: 0.9 % SODIUM CHLORIDE 10 ML DISP.SYRIN. IV PRN ×2 (09:00)
--- NOTE | 2017-03-31 10:32 | PDOC ---
PROGRESS NOTES Subjective Subjective Nauseated today Objective Objective Vital Signs Date Time Temp Pulse Resp B/P (MAP) Pulse Ox O2 Delivery O2 Flow Rate FiO2 03/31/17 08:00 Room Air 2.0 03/31/17 07:00 98.6 98 18 101/54 (70) 97 98.6 Physical Exam Abdomen: Normal bowel sounds, Soft, No tenderness Heart: Regular rate Extremities: Other (RIGHT FOOT FOUL SMELL AND DRAINAGE) General: No acute distress HEENT: Atraumatic, PERRLA, EOMI Lungs: Other (DECREASED AT BASES) MUSCULOSKELETAL: Other (DIFFUSE MUSCLE ATROPHY) Neuro: Other (UNABLE TO ASSESS, LETHARGIC) Psych/Mental Status: Other (LETHARGIC) COMMENT dressing rt foot Diagnosis Problem List Problems Medical Problems: (1) Hypertension Status: Acute Assessment Assessment 1. Sepsis. Blood culture shows gram-negative rods. 2. Necrotizing fasciitis of the right foot. 3. Gangrene of the right foot. 4. Osteomyelitis of the right foot. 5. Status post excision of the necrotic tissue as well as infected bones in the right forefoot in the setting of previous right transmetatarsal amputation. 6. Non-ST elevation myocardial infarction. 7. Diabetes mellitus type 2, insulin-dependent, not controlled. 8. End-stage renal disease, on hemodialysis. 9. Peripheral artery disease. 10. Noncompliance. The patient had missed dialysis x 2 before this admission. 11. Moderate protein calorie malnutrition. 12. acute on chronic anemia that is multifactorial including blood loss and end- stage renal disease 13. 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 14. chronic right maxillary sinusitis. PLAN: dialysis today wbc 20 down on antibiotics Zofran for n/v. wound vaq today. s/p rt foot surgery Currently, the patient is on IV Zosyn and Zyvox. Consultation has been obtained with Dr. Valero for infectious disease evaluation and management, Dr. Wilson for cardiology evaluation and management, Dr. Dot Daniel for nephrology evaluation and management and Dr. May for vascular surgery evaluation and management. Continue wound care. WBC count is still 28,300. On admission, it was 30,500. WBC count today is 28.3. Anemia better with transfusion. Hypokalemia- K 3.5- monitor- on dialysis. Continue wound care. Monitor blood sugars and continue insulin as well as sliding scale insulin in addition to his regularly scheduled insulin. He is clinically improving. Problems: Plan Plan of Care Problems Medical Problems: (1) Hypertension Status: Acute Comment Review of Relevant I have reviewed the following items ginny (where applicable) has been applied. Labs Laboratory Tests Test 03/30/17 11:35 03/30/17 16:26 03/30/17 20:48 03/31/17 04:45 Glucose (Fingerstick) 317 mg/dL (70-99) 169 mg/dL (70-99) 115 mg/dL (70-99) White Blood Count 20.5 x10^3/uL (4.0-11.0) Red Blood Count 3.36 x10^6/uL (4.30-5.70) Hemoglobin 9.9 g/dL (13.0-17.5) Hematocrit 30.0 % (39.0-53.0) Mean Corpuscular Volume 89 fL (79-100) Mean Corpuscular Hemoglobin 30 pg (25-35) Mean Corpuscular Hemoglobin Concent 33 g/dL (31-37) Red Cell Distribution Width 15.2 % (11.5-14.5) Platelet Count 321 x10^3/uL (140-400) Neutrophils (%) (Auto) 91 % (31-73) Lymphocytes (%) (Auto) 6 % (24-48) Monocytes (%) (Auto) 2 % (0-9) Eosinophils (%) (Auto) 1 % (0-3) Basophils (%) (Auto) 0 % (0-3) Neutrophils # (Auto) 18.7 x10^3uL (1.8-7.7) Lymphocytes # (Auto) 1.2 x10^3/uL (1.0-4.8) Monocytes # (Auto) 0.5 x10^3/uL (0.0-1.1) Eosinophils # (Auto) 0.1 x10^3/uL (0.0-0.7) Basophils # (Auto) 0.0 x10^3/uL (0.0-0.2) Sodium Level 139 mmol/L (136-145) Potassium Level 3.0 mmol/L (3.5-5.1) Chloride Level 97 mmol/L (98-107) Carbon Dioxide Level 31 mmol/L (21-32) Anion Gap 11 (6-14) Blood Urea Nitrogen 51 mg/dL (8-26) Creatinine 7.8 mg/dL (0.7-1.3) Estimated GFR (Cockcroft-Gault) 8.7 Glucose Level 73 mg/dL (70-99) Calcium Level 8.2 mg/dL (8.5-10.1) Phosphorus Level 4.8 mg/dL (2.6-4.7) Albumin 1.7 g/dL (3.4-5.0) Test 03/31/17 07:38 Glucose (Fingerstick) 74 mg/dL (70-99) Microbiology 03/28/17 Blood Culture - Preliminary, Resulted NO GROWTH AFTER 2 DAYS 03/28/17 Gram Stain - Final, Complete Medications Current Medications Diphenhydramine HCl (Benadryl) 25 mg 1X PRN PRN IV ITCHING; Start 03/31/17 at 09:00; Stop 04/01/17 at 08:59 Info (PHARMACY MONITORING -- do not chart) 1 each PRN DAILY PRN MC SEE COMMENTS ; Start 03/31/17 at 09:00; Status UNV Info (PHARMACY MONITORING -- do not chart) 1 each PRN DAILY PRN MC SEE COMMENTS ; Start 03/31/17 at 09:00; Status UNV Sodium Chloride 1,000 ml @ 400 mls/hr Q2H30M PRN IV PATENCY; Start 03/31/17 at 08:55; Stop 03/31/17 at 20:54 Sodium Chloride 1,000 ml @ 1,000 mls/hr Q1H PRN IV hypotension; Start 03/31/17 at 08:55; Stop 03/31/17 at 14:54 Sodium Chloride (Normal Saline Flush) 10 ml 1X PRN PRN IV AP catheter pack; Start 03/31/17 at 09:00; Stop 04/01/17 at 08:59 Sodium Chloride (Normal Saline Flush) 10 ml 1X PRN PRN IV STEWARD/STEWARDESS NIGHT catheter pack; Start 03/31/17 at 09:00; Stop 04/01/17 at 08:59 Vitals/I & O Vital Sign - Last 24 Hours 03/30/17 03/30/17 03/30/17 03/30/17 11:10 14:40 17:45 19:35 Temp 98.0 98.0 98.0 98.0 98.0 98.0 Pulse 89 86 88 87 Resp 18 20 20 B/P (MAP) 93/45 (61) 107/52 (70) 107/52 96/55 (69) Pulse Ox 94 99 100 O2 Delivery Room Air Room Air Room Air 03/30/17 03/30/17 03/30/17 03/30/17 19:49 20:47 21:47 23:05 Temp 98.1 98.1 Pulse 87 Resp 20 18 18 B/P (MAP) 100/56 (71) Pulse Ox 99 98 O2 Delivery Room Air Room Air Room Air Room Air 03/31/17 03/31/17 03/31/17 03:10 07:00 08:00 Temp 98.0 98.6 98.0 98.6 Pulse 95 98 Resp 20 18 B/P (MAP) 116/55 (75) 101/54 (70) Pulse Ox 94 97 O2 Delivery Room Air Room Air Room Air O2 Flow Rate 2.0 VIKTOR PARK MD Mar 31, 2017 10:32
[2017-03-31] MEDS: ASPIRIN ENTERIC COATED 81 MG TABLET.DR. PO SCH (10:54)
[2017-03-31] MEDS: FOLIC/VIT B COMP W-C (RENAL) TABLET. PO SCH (10:54)
[2017-03-31] MEDS: FLUTICASONE 50MCG/NASAL SPRAY 16GM BOTTLE. NS SCH ×2 (10:54→21:21)
[2017-03-31] MEDS: FERROUS SULFATE 325 MG TABLET. PO SCH (10:57)
[2017-03-31] MEDS: CARVEDILOL 6.25 MG TABLET. PO SCH ×2 (10:57→17:22)
[2017-03-31] MEDS: SODIUM BICARBONATE 650 MG TABLET. PO SCH ×2 (10:57→21:21)
[2017-03-31 11:00] VITALS: BP 99/49
--- NOTE | 2017-03-31 11:27 | PDOC ---
Renal-Progress Notes Subjective Notes Notes SOME PAIN History of Present Illness Hx of present illness STABLE Vitals Vitals Vital Signs Date Time Temp Pulse Resp B/P (MAP) Pulse Ox O2 Delivery O2 Flow Rate FiO2 03/31/17 11:00 98.6 96 20 99/49 (66) 95 Room Air 98.6 03/31/17 08:00 2.0 Weight Weight [ ] Labs Labs Laboratory Tests Test 03/30/17 11:35 03/30/17 16:26 03/30/17 20:48 03/31/17 04:45 Glucose (Fingerstick) 317 mg/dL (70-99) 169 mg/dL (70-99) 115 mg/dL (70-99) White Blood Count 20.5 x10^3/uL (4.0-11.0) Red Blood Count 3.36 x10^6/uL (4.30-5.70) Hemoglobin 9.9 g/dL (13.0-17.5) Hematocrit 30.0 % (39.0-53.0) Mean Corpuscular Volume 89 fL (79-100) Mean Corpuscular Hemoglobin 30 pg (25-35) Mean Corpuscular Hemoglobin Concent 33 g/dL (31-37) Red Cell Distribution Width 15.2 % (11.5-14.5) Platelet Count 321 x10^3/uL (140-400) Neutrophils (%) (Auto) 91 % (31-73) Lymphocytes (%) (Auto) 6 % (24-48) Monocytes (%) (Auto) 2 % (0-9) Eosinophils (%) (Auto) 1 % (0-3) Basophils (%) (Auto) 0 % (0-3) Neutrophils # (Auto) 18.7 x10^3uL (1.8-7.7) Lymphocytes # (Auto) 1.2 x10^3/uL (1.0-4.8) Monocytes # (Auto) 0.5 x10^3/uL (0.0-1.1) Eosinophils # (Auto) 0.1 x10^3/uL (0.0-0.7) Basophils # (Auto) 0.0 x10^3/uL (0.0-0.2) Sodium Level 139 mmol/L (136-145) Potassium Level 3.0 mmol/L (3.5-5.1) Chloride Level 97 mmol/L (98-107) Carbon Dioxide Level 31 mmol/L (21-32) Anion Gap 11 (6-14) Blood Urea Nitrogen 51 mg/dL (8-26) Creatinine 7.8 mg/dL (0.7-1.3) Estimated GFR (Cockcroft-Gault) 8.7 Glucose Level 73 mg/dL (70-99) Calcium Level 8.2 mg/dL (8.5-10.1) Phosphorus Level 4.8 mg/dL (2.6-4.7) Albumin 1.7 g/dL (3.4-5.0) Test 03/31/17 07:38 03/31/17 10:34 Glucose (Fingerstick) 74 mg/dL (70-99) 113 mg/dL (70-99) Micro Micro Microbiology 03/28/17 Blood Culture - Preliminary, Resulted NO GROWTH AFTER 2 DAYS 03/28/17 Gram Stain - Final, Complete Review of Systems Constitutional: yes: weakness, alert, oriented Ears/Nose/Throat: Yes: no symptom reported Pulmonary: Yes no symptom reported Cardiovascular: Yes no symptom reported Gastrointestional: Yes: no symptom reported Genitourinary: Yes: no symptom reported Musculoskeletal: Yes: foot pain Skin: Yes color change Psychiatric/Neurological: Yes: no symptom reported Endocrine: Yes: no symptom reported Physical Exam General Appearance: no apparent distress Skin: warm Respiratory: bilateral CTA Abdomen: soft, bowel sounds present Genitourinary: bladder flat Extremities: pulses present, atrophy, other (RIGHT FOOT WOUND DRAIN, FOUL SMELLING) Neurology: alert, oriented Musculoskeletal: No pain, Other Assessment Assessment IMP ESRD ANEMIA DM II HTN RIGHT FOOT GANGRENE/OSTEO S/P TMA PLAN CONT ALYSSA CONT ANTIBIOTICS HD TODAY UF TO CK HYATT MD Mar 31, 2017 11:27
[2017-03-31 14:20] LABS: HEP B SURFACE ABDY Reactive (.)
[2017-03-31 19:40] VITALS: BP 88/52
[2017-03-31] MEDS: INSULIN DETEMIR 300 UNITS/3 ML INSULN.PEN. SQ SCH (21:00)
[2017-03-31] MEDS: ATORVASTATIN CALCIUM 20 MG TABLET PO SCH (21:21)
[2017-03-31 23:05] VITALS: BP 98/55
[2017-04-01 03:10] VITALS: BP 124/58
[2017-04-01] MEDS: PIPERACILLIN/TAZOBACTAM 2.25 GM in IV NORMAL SALINE 50ML 50 ML IV SCH ×3 (05:55→21:20)
[2017-04-01 06:08] LABS: BASO % 0 % (0-3); EOS % 1 % (0-3); HEMATOCRIT 27.6 % (39.0-53.0); HEMOGLOBIN 9.2 g/dL (13.0-17.5); LYMPH # 1.1 x10^3/uL (1.0-4.8); LYMPH % 5 % (24-48); MEAN CORPUSCULAR HEMOGLOBIN 30 pg (25-35); MEAN CORPUSCULAR HGB CONC 34 g/dL (31-37); MEAN CORPUSCULAR VOLUME 89 fL (79-100); MONO % 4 % (0-9); NEUT % 90 % (31-73); PLATELET COUNT 274 x10^3/uL (140-400); RED BLOOD COUNT 3.11 x10^6/uL (4.30-5.70); RED CELL DISTRIBUTION WIDTH 14.6 % (11.5-14.5); WHITE BLOOD COUNT 21.9 x10^3/uL (4.0-11.0)
[2017-04-01 06:26] LABS: ALBUMIN 1.6 g/dL (3.4-5.0); CALCIUM 8.4 mg/dL (8.5-10.1); CREATININE 5.2 mg/dL (0.7-1.3); PHOSPHORUS 3.6 mg/dL (2.6-4.7); POTASSIUM 3.9 mmol/L (3.5-5.1)
[2017-04-01 07:00] VITALS: BP 113/59
[2017-04-01] MEDS: INSULIN ASPART 300 UNITS/3 ML INSULN.PEN SQ SCH ×6 (08:00→17:00)
--- NOTE | 2017-04-01 08:15 | PDOC ---
Provider Note Provider Note AF VSS awake and alert right open TMA debridement wound with minimal drainage, the fatty tissue is dusky with no necrosis Recommend starting VAC dressing today and will evaluate the wound on . May need further debridement/amputation if no improvement in the wound bed with the VAC dressing. Continue antibiotics per ID. CARMENZA GARCIA MD Apr 01, 2017 08:15
[2017-04-01] MEDS: FERROUS SULFATE 325 MG TABLET. PO SCH (08:47)
[2017-04-01] MEDS: ASPIRIN ENTERIC COATED 81 MG TABLET.DR. PO SCH (08:47)
[2017-04-01] MEDS: FLUTICASONE 50MCG/NASAL SPRAY 16GM BOTTLE. NS SCH ×2 (08:47→21:19)
[2017-04-01] MEDS: SODIUM BICARBONATE 650 MG TABLET. PO SCH ×2 (08:47→21:18)
[2017-04-01] MEDS: FOLIC/VIT B COMP W-C (RENAL) TABLET. PO SCH (08:47)
[2017-04-01] MEDS: PANTOPRAZOLE 40 MG TABLET.DR. PO SCH (08:47)
[2017-04-01] MEDS: CARVEDILOL 6.25 MG TABLET. PO SCH ×2 (08:55→17:46)
--- NOTE | 2017-04-01 09:08 | PDOC ---
Infectious Disease Note Subjective Subjective Comfortable, pain controlled Appetite good No concerns voiced at this time ROS ROS GEN: Denies fevers, chills, sweats HEENT: Denies blurred vision, sore throat CV: Denies chest pain RESP: Denies shortness of air, cough GI: Denies n/v/d NEURO: Denies confusion, dizziness MSK: Denies weakness, joint pain/swelling Vital Sign Vital Signs Vital Signs Date Time Temp Pulse Resp B/P (MAP) Pulse Ox O2 Delivery O2 Flow Rate FiO2 04/01/17 08:55 98 113/59 04/01/17 07:00 98.4 20 95 Room Air 98.4 03/31/17 08:00 2.0 Physical Exam PHYSICAL EXAM GENERAL: NAD, Alert HEENT: PERRL, OC/OP NECK: Supple, no JVD, no LN LUNGS: Clear HEART: S1S2, no gallop, no murmur ABD: Soft, NT, no organomegaly, no rebound EXT: No edema, no cyanosis,, rt TMA wound MANAGER ACQUISITION: Alert, 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, no focal neurologic deficit SKIN: No rash IV: ok Labs Lab Laboratory Tests Test 03/31/17 10:34 03/31/17 16:25 03/31/17 21:16 04/01/17 06:00 Glucose (Fingerstick) 113 mg/dL (70-99) 84 mg/dL (70-99) 86 mg/dL (70-99) White Blood Count 21.9 x10^3/uL (4.0-11.0) Red Blood Count 3.11 x10^6/uL (4.30-5.70) Hemoglobin 9.2 g/dL (13.0-17.5) Hematocrit 27.6 % (39.0-53.0) Mean Corpuscular Volume 89 fL (79-100) Mean Corpuscular Hemoglobin 30 pg (25-35) Mean Corpuscular Hemoglobin Concent 34 g/dL (31-37) Red Cell Distribution Width 14.6 % (11.5-14.5) Platelet Count 274 x10^3/uL (140-400) Neutrophils (%) (Auto) 90 % (31-73) Lymphocytes (%) (Auto) 5 % (24-48) Monocytes (%) (Auto) 4 % (0-9) Eosinophils (%) (Auto) 1 % (0-3) Basophils (%) (Auto) 0 % (0-3) Neutrophils # (Auto) 19.7 x10^3uL (1.8-7.7) Lymphocytes # (Auto) 1.1 x10^3/uL (1.0-4.8) Monocytes # (Auto) 0.9 x10^3/uL (0.0-1.1) Eosinophils # (Auto) 0.1 x10^3/uL (0.0-0.7) Basophils # (Auto) 0.0 x10^3/uL (0.0-0.2) Sodium Level 138 mmol/L (136-145) Potassium Level 3.9 mmol/L (3.5-5.1) Chloride Level 100 mmol/L (98-107) Carbon Dioxide Level 28 mmol/L (21-32) Anion Gap 10 (6-14) Blood Urea Nitrogen 31 mg/dL (8-26) Creatinine 5.2 mg/dL (0.7-1.3) Estimated GFR (Cockcroft-Gault) 14.0 Glucose Level 119 mg/dL (70-99) Calcium Level 8.4 mg/dL (8.5-10.1) Phosphorus Level 3.6 mg/dL (2.6-4.7) Albumin 1.6 g/dL (3.4-5.0) Test 04/01/17 07:38 Glucose (Fingerstick) 123 mg/dL (70-99) Objective Assessment Necrotizing fasciitis and osteomyelitis of right foot, s/p open TMA debridement , 03/28. Intra-op cultures G B strep and Klebsiella oxytoca Group B Strep bacteremia POA. Leukocytosis - stable NSTEMI CKD/HD Diabetes hx: MSSA, PSA & Providencia Plan Plan of Care continue Zosyn for now. Dose steroids pre-op, 03/28 Await anaerobic-aerobic cultures Monitor WBC, temp/cultures select transfer ROLANDO LYON MD Apr 01, 2017 09:08
--- NOTE | 2017-04-01 09:41 | PDOC ---
PROGRESS NOTES Subjective Subjective no new problems Objective Objective Vital Signs Date Time Temp Pulse Resp B/P (MAP) Pulse Ox O2 Delivery O2 Flow Rate FiO2 04/01/17 08:55 98 113/59 04/01/17 07:00 98.4 20 95 Room Air 98.4 03/31/17 08:00 2.0 Physical Exam Abdomen: Normal bowel sounds, Soft, No tenderness Heart: Regular rate Extremities: Other (RIGHT FOOT FOUL SMELL AND DRAINAGE) General: No acute distress HEENT: Atraumatic, PERRLA, EOMI Lungs: Other (DECREASED AT BASES) MUSCULOSKELETAL: Other (DIFFUSE MUSCLE ATROPHY) Neck: Supple Neuro: Other (UNABLE TO ASSESS, LETHARGIC) Psych/Mental Status: Other (LETHARGIC) COMMENT dressing rt foot Diagnosis Problem List Problems Medical Problems: (1) End stage renal disease Status: Acute (2) Hypertension Status: Acute (3) Septic shock Status: Acute Assessment Assessment 1. Sepsis. Blood culture shows strep group b 2. Necrotizing fasciitis of the right foot. 3. Gangrene of the right foot. 4. Osteomyelitis of the right foot. 5. Status post excision of the necrotic tissue as well as infected bones in the right forefoot in the setting of previous right transmetatarsal amputation. 6. Non-ST elevation myocardial infarction. 7. Diabetes mellitus type 2, insulin-dependent, not controlled. 8. End-stage renal disease, on hemodialysis. 9. Peripheral artery disease. 10. Noncompliance. The patient had missed dialysis x 2 before this admission. 11. Moderate protein calorie malnutrition. 12. acute on chronic anemia that is multifactorial including blood loss and end- stage renal disease 13. 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 14. chronic right maxillary sinusitis. PLAN: spoke with ID select screen dialysis yesterday wbc 20 down on antibiotics Zofran for n/v. wound vaq today. s/p rt foot surgery. Problems: Plan Plan of Care Problems Medical Problems: (1) End stage renal disease Status: Acute (2) Hypertension Status: Acute (3) Septic shock Status: Acute Comment Review of Relevant I have reviewed the following items ginny (where applicable) has been applied. Labs Laboratory Tests Test 03/31/17 10:34 03/31/17 16:25 03/31/17 21:16 04/01/17 06:00 Glucose (Fingerstick) 113 mg/dL (70-99) 84 mg/dL (70-99) 86 mg/dL (70-99) White Blood Count 21.9 x10^3/uL (4.0-11.0) Red Blood Count 3.11 x10^6/uL (4.30-5.70) Hemoglobin 9.2 g/dL (13.0-17.5) Hematocrit 27.6 % (39.0-53.0) Mean Corpuscular Volume 89 fL (79-100) Mean Corpuscular Hemoglobin 30 pg (25-35) Mean Corpuscular Hemoglobin Concent 34 g/dL (31-37) Red Cell Distribution Width 14.6 % (11.5-14.5) Platelet Count 274 x10^3/uL (140-400) Neutrophils (%) (Auto) 90 % (31-73) Lymphocytes (%) (Auto) 5 % (24-48) Monocytes (%) (Auto) 4 % (0-9) Eosinophils (%) (Auto) 1 % (0-3) Basophils (%) (Auto) 0 % (0-3) Neutrophils # (Auto) 19.7 x10^3uL (1.8-7.7) Lymphocytes # (Auto) 1.1 x10^3/uL (1.0-4.8) Monocytes # (Auto) 0.9 x10^3/uL (0.0-1.1) Eosinophils # (Auto) 0.1 x10^3/uL (0.0-0.7) Basophils # (Auto) 0.0 x10^3/uL (0.0-0.2) Sodium Level 138 mmol/L (136-145) Potassium Level 3.9 mmol/L (3.5-5.1) Chloride Level 100 mmol/L (98-107) Carbon Dioxide Level 28 mmol/L (21-32) Anion Gap 10 (6-14) Blood Urea Nitrogen 31 mg/dL (8-26) Creatinine 5.2 mg/dL (0.7-1.3) Estimated GFR (Cockcroft-Gault) 14.0 Glucose Level 119 mg/dL (70-99) Calcium Level 8.4 mg/dL (8.5-10.1) Phosphorus Level 3.6 mg/dL (2.6-4.7) Albumin 1.6 g/dL (3.4-5.0) Test 04/01/17 07:38 Glucose (Fingerstick) 123 mg/dL (70-99) Microbiology 03/28/17 Blood Culture - Preliminary, Resulted NO GROWTH AFTER 3 DAYS 03/28/17 Gram Stain - Final, Complete Vitals/I & O Vital Sign - Last 24 Hours 03/31/17 03/31/17 03/31/17 03/31/17 10:57 11:00 17:22 19:40 Temp 98.6 98.8 98.6 98.8 Pulse 97 96 96 90 Resp 20 22 B/P (MAP) 118/55 99/49 (66) 115/56 88/52 (64) Pulse Ox 95 99 O2 Delivery Room Air Room Air 03/31/17 03/31/17 04/01/17 04/01/17 20:00 23:05 03:10 07:00 Temp 98.7 98.7 98.4 98.7 98.7 98.4 Pulse 91 97 98 Resp 20 18 20 B/P (MAP) 98/55 (69) 124/58 (80) 113/59 (77) Pulse Ox 98 96 95 O2 Delivery Room Air Room Air Room Air Room Air 04/01/17 08:55 Pulse 98 B/P (MAP) 113/59 VIKTOR PARK MD Apr 01, 2017 09:41
[2017-04-01 11:00] VITALS: BP 97/52
--- NOTE | 2017-04-01 12:04 | PDOC ---
Renal-Progress Notes Subjective Notes Notes BETTER History of Present Illness Hx of present illness STABLE Vitals Vitals Vital Signs Date Time Temp Pulse Resp B/P (MAP) Pulse Ox O2 Delivery O2 Flow Rate FiO2 04/01/17 11:00 98.4 96 19 97/52 (67) 99 Room Air 98.4 03/31/17 08:00 2.0 Weight Weight [ ] Labs Labs Laboratory Tests Test 03/31/17 16:25 03/31/17 21:16 04/01/17 06:00 04/01/17 07:38 Glucose (Fingerstick) 84 mg/dL (70-99) 86 mg/dL (70-99) 123 mg/dL (70-99) White Blood Count 21.9 x10^3/uL (4.0-11.0) Red Blood Count 3.11 x10^6/uL (4.30-5.70) Hemoglobin 9.2 g/dL (13.0-17.5) Hematocrit 27.6 % (39.0-53.0) Mean Corpuscular Volume 89 fL (79-100) Mean Corpuscular Hemoglobin 30 pg (25-35) Mean Corpuscular Hemoglobin Concent 34 g/dL (31-37) Red Cell Distribution Width 14.6 % (11.5-14.5) Platelet Count 274 x10^3/uL (140-400) Neutrophils (%) (Auto) 90 % (31-73) Lymphocytes (%) (Auto) 5 % (24-48) Monocytes (%) (Auto) 4 % (0-9) Eosinophils (%) (Auto) 1 % (0-3) Basophils (%) (Auto) 0 % (0-3) Neutrophils # (Auto) 19.7 x10^3uL (1.8-7.7) Lymphocytes # (Auto) 1.1 x10^3/uL (1.0-4.8) Monocytes # (Auto) 0.9 x10^3/uL (0.0-1.1) Eosinophils # (Auto) 0.1 x10^3/uL (0.0-0.7) Basophils # (Auto) 0.0 x10^3/uL (0.0-0.2) Sodium Level 138 mmol/L (136-145) Potassium Level 3.9 mmol/L (3.5-5.1) Chloride Level 100 mmol/L (98-107) Carbon Dioxide Level 28 mmol/L (21-32) Anion Gap 10 (6-14) Blood Urea Nitrogen 31 mg/dL (8-26) Creatinine 5.2 mg/dL (0.7-1.3) Estimated GFR (Cockcroft-Gault) 14.0 Glucose Level 119 mg/dL (70-99) Calcium Level 8.4 mg/dL (8.5-10.1) Phosphorus Level 3.6 mg/dL (2.6-4.7) Albumin 1.6 g/dL (3.4-5.0) Micro Micro Microbiology 03/28/17 Blood Culture - Preliminary, Resulted NO GROWTH AFTER 3 DAYS 03/28/17 Gram Stain - Final, Complete Review of Systems Constitutional: yes: weakness, alert, oriented Ears/Nose/Throat: Yes: no symptom reported Pulmonary: Yes no symptom reported Cardiovascular: Yes no symptom reported Gastrointestional: Yes: no symptom reported Genitourinary: Yes: no symptom reported Musculoskeletal: Yes: foot pain Skin: Yes color change Psychiatric/Neurological: Yes: no symptom reported Endocrine: Yes: no symptom reported Physical Exam General Appearance: no apparent distress Skin: warm Respiratory: bilateral CTA Abdomen: soft, bowel sounds present Genitourinary: bladder flat Extremities: pulses present, atrophy, other (RIGHT FOOT WOUND DRAIN, FOUL SMELLING) Neurology: alert, oriented Musculoskeletal: No pain, Other Assessment Assessment IMP ESRD ANEMIA DM II HTN RIGHT FOOT OSTEO S/P TMA PLAN CONT ALYSSA CONT ANTIBIOTICS HD TOMORROW CK CASSIDY MD Apr 01, 2017 12:04
[2017-04-01 15:00] VITALS: BP 120/58
[2017-04-01] MEDS: oxyCODONE IR 5 MG TABLET PO PRN (15:06)
[2017-04-01 19:40] VITALS: BP 110/61
[2017-04-01] MEDS: INSULIN DETEMIR 300 UNITS/3 ML INSULN.PEN. SQ SCH (21:00)
[2017-04-01] MEDS: ATORVASTATIN CALCIUM 20 MG TABLET PO SCH (21:19)
[2017-04-01 23:35] VITALS: BP 129/69
[2017-04-02 03:30] VITALS: BP 121/67
[2017-04-02 05:09] LABS: BASO # 0.1 x10^3/uL (0.0-0.2); BASO % 0 % (0-3); EOS % 1 % (0-3); HEMATOCRIT 28.2 % (39.0-53.0); HEMOGLOBIN 9.1 g/dL (13.0-17.5); LYMPH # 0.9 x10^3/uL (1.0-4.8); LYMPH % 4 % (24-48); MEAN CORPUSCULAR HEMOGLOBIN 29 pg (25-35); MEAN CORPUSCULAR HGB CONC 32 g/dL (31-37); MEAN CORPUSCULAR VOLUME 91 fL (79-100); MONO % 4 % (0-9); NEUT % 91 % (31-73); PLATELET COUNT 263 x10^3/uL (140-400); RED BLOOD COUNT 3.12 x10^6/uL (4.30-5.70); RED CELL DISTRIBUTION WIDTH 14.9 % (11.5-14.5); WHITE BLOOD COUNT 24.5 x10^3/uL (4.0-11.0)
[2017-04-02 05:30] LABS: ALBUMIN 1.6 g/dL (3.4-5.0); CALCIUM 8.4 mg/dL (8.5-10.1); CREATININE 6.6 mg/dL (0.7-1.3); GFR 10.6; PHOSPHORUS 4.5 mg/dL (2.6-4.7); POTASSIUM 3.9 mmol/L (3.5-5.1)
[2017-04-02] MEDS: PIPERACILLIN/TAZOBACTAM 2.25 GM in IV NORMAL SALINE 50ML 50 ML IV SCH ×3 (05:33→21:27)
[2017-04-02 07:00] VITALS: BP 154/52
[2017-04-02] MEDS: INSULIN ASPART 300 UNITS/3 ML INSULN.PEN SQ SCH ×6 (08:00→17:00)
--- NOTE | 2017-04-02 08:00 | PDOC ---
Provider Note Provider Note AF VSS awake and alert right TMA open wound with VAC A/P s/p right TMA open debridement - Will change wound VAC tomorrow and see if any improvement in the wound bed, it was dusky yesterday. If worsening wound will need further debridement vs BKA. - Continue IV antibiotics CARMENZA GARCIA MD Apr 02, 2017 08:00
[2017-04-02] MEDS ORDERED: IV NORMAL SALINE 1000ML BAG 1,000 ML IV PRN (08:31)
[2017-04-02] MEDS ORDERED: LABETALOL 20 MG/4 ML DISP.SYRIN. IVP PRN (08:45)
[2017-04-02] MEDS ORDERED: DIALYSIS PATIENT. MC PRN (08:45)
[2017-04-02] MEDS ORDERED: cloNIDine HCL 0.1 MG TABLET PO PRN (08:45)
[2017-04-02] MEDS ORDERED: diphenhydrAMINE 50 MG/ML VIAL IV PRN ×2 (08:45)
[2017-04-02] MEDS ORDERED: ALBUMIN HUMAN 25% 200 ML IV PRN (08:45)
[2017-04-02] MEDS ORDERED: ACETAMINOPHEN 500 MG TABLET PO PRN (08:45)
--- NOTE | 2017-04-02 10:08 | PDOC ---
PROGRESS NOTES Subjective Subjective pt in dialysis unit Objective Objective Vital Signs Date Time Temp Pulse Resp B/P (MAP) Pulse Ox O2 Delivery O2 Flow Rate FiO2 04/02/17 07:00 98.2 95 17 154/52 (86) 99 Room Air 98.2 04/01/17 16:15 2.0 Physical Exam Abdomen: Normal bowel sounds, Soft, No tenderness Heart: Regular rate Extremities: Other (RIGHT FOOT FOUL SMELL AND DRAINAGE) General: No acute distress HEENT: Atraumatic, PERRLA, EOMI Lungs: Other (DECREASED AT BASES) MUSCULOSKELETAL: Other (DIFFUSE MUSCLE ATROPHY) Neck: Supple Neuro: Other (UNABLE TO ASSESS, LETHARGIC) Psych/Mental Status: Other (LETHARGIC) COMMENT dressing rt foot Diagnosis Problem List Problems Medical Problems: (1) End stage renal disease Status: Acute (2) Hypertension Status: Acute (3) Septic shock Status: Acute Assessment Assessment 1. Sepsis. Blood culture shows strep group b 2. Necrotizing fasciitis of the right foot. 3. Gangrene of the right foot. 4. Osteomyelitis of the right foot. 5. Status post excision of the necrotic tissue as well as infected bones in the right forefoot in the setting of previous right transmetatarsal amputation. 6. Non-ST elevation myocardial infarction. 7. Diabetes mellitus type 2, insulin-dependent, not controlled. 8. End-stage renal disease, on hemodialysis. 9. Peripheral artery disease. 10. Noncompliance. The patient had missed dialysis x 2 before this admission. 11. Moderate protein calorie malnutrition. 12. acute on chronic anemia that is multifactorial including blood loss and end- stage renal disease 13. 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 14. chronic right maxillary sinusitis. PLAN: wbc 25 went up vascular note appreciated. may need further debridement /amputation spoke with ID select screen may be later this week on early next week dialysis yesterday Zofran for n/v. wound vaq placed. s/p rt foot surgery. Problems: Plan Plan of Care Problems Medical Problems: (1) End stage renal disease Status: Acute (2) Hypertension Status: Acute (3) Septic shock Status: Acute Comment Review of Relevant I have reviewed the following items ginny (where applicable) has been applied. Labs Laboratory Tests Test 04/01/17 11:37 04/01/17 16:56 04/01/17 20:47 04/02/17 04:50 Glucose (Fingerstick) 146 mg/dL (70-99) 100 mg/dL (70-99) 72 mg/dL (70-99) White Blood Count 24.5 x10^3/uL (4.0-11.0) Red Blood Count 3.12 x10^6/uL (4.30-5.70) Hemoglobin 9.1 g/dL (13.0-17.5) Hematocrit 28.2 % (39.0-53.0) Mean Corpuscular Volume 91 fL (79-100) Mean Corpuscular Hemoglobin 29 pg (25-35) Mean Corpuscular Hemoglobin Concent 32 g/dL (31-37) Red Cell Distribution Width 14.9 % (11.5-14.5) Platelet Count 263 x10^3/uL (140-400) Neutrophils (%) (Auto) 91 % (31-73) Lymphocytes (%) (Auto) 4 % (24-48) Monocytes (%) (Auto) 4 % (0-9) Eosinophils (%) (Auto) 1 % (0-3) Basophils (%) (Auto) 0 % (0-3) Neutrophils # (Auto) 22.3 x10^3uL (1.8-7.7) Lymphocytes # (Auto) 0.9 x10^3/uL (1.0-4.8) Monocytes # (Auto) 1.0 x10^3/uL (0.0-1.1) Eosinophils # (Auto) 0.2 x10^3/uL (0.0-0.7) Basophils # (Auto) 0.1 x10^3/uL (0.0-0.2) Sodium Level 138 mmol/L (136-145) Potassium Level 3.9 mmol/L (3.5-5.1) Chloride Level 100 mmol/L (98-107) Carbon Dioxide Level 27 mmol/L (21-32) Anion Gap 11 (6-14) Blood Urea Nitrogen 40 mg/dL (8-26) Creatinine 6.6 mg/dL (0.7-1.3) Estimated GFR (Cockcroft-Gault) 10.6 Glucose Level 96 mg/dL (70-99) Calcium Level 8.4 mg/dL (8.5-10.1) Phosphorus Level 4.5 mg/dL (2.6-4.7) Albumin 1.6 g/dL (3.4-5.0) Test 04/02/17 07:35 Glucose (Fingerstick) 86 mg/dL (70-99) Microbiology 03/28/17 Blood Culture - Preliminary, Resulted NO GROWTH AFTER 4 DAYS 03/28/17 Gram Stain - Final, Complete Medications Current Medications Acetaminophen (Tylenol) 500 mg 1X PRN PRN PO MILD PAIN / TEMP; Start 04/02/17 at 08:45; Stop 04/03/17 at 08:44 Albumin Human 200 ml @ 200 mls/hr 1X PRN PRN IV Hypotension; Start 04/02/17 at 08:45; Stop 04/02/17 at 14:44 Clonidine HCl (Catapres) 0.1 mg 1X PRN PRN PO SBP > 180; Start 04/02/17 at 08: 45; Stop 04/03/17 at 08:44 Diphenhydramine HCl (Benadryl) 25 mg 1X PRN PRN IV ITCHING; Start 04/02/17 at 08:45; Stop 04/03/17 at 08:44 Diphenhydramine HCl (Benadryl) 25 mg 1X PRN PRN IV ITCHING; Start 04/02/17 at 08:45; Stop 04/03/17 at 08:44 Info (PHARMACY MONITORING -- do not chart) 1 each PRN DAILY PRN MC SEE COMMENTS ; Start 04/02/17 at 08:45 Labetalol HCl (Normodyne) 10 mg PRN Q1HR PRN IVP SBP > 180; Start 04/02/17 at 08:45; Stop 04/03/17 at 08:44 Morphine Sulfate 2 mg PRN Q3HRS PRN IV PAIN; Start 04/01/17 at 15:45 Sodium Chloride 1,000 ml @ 1,000 mls/hr Q1H PRN IV hypotension; Start at 08:31; Stop 04/02/17 at 14:30 Vitals/I & O Vital Sign - Last 24 Hours 04/01/17 04/01/17 04/01/17 04/01/17 11:00 15:00 16:15 17:46 Temp 98.4 98.7 98.4 98.7 Pulse 96 91 95 Resp 19 20 20 B/P (MAP) 97/52 (67) 120/58 (78) Pulse Ox 99 98 98 O2 Delivery Room Air Room Air Room Air O2 Flow Rate 2.0 04/01/17 04/01/17 04/01/17 04/02/17 19:40 20:00 23:35 03:30 Temp 98.4 98.7 98.6 98.4 98.7 98.6 Pulse 90 92 91 Resp 18 20 18 B/P (MAP) 110/61 (77) 129/69 (89) 121/67 (85) Pulse Ox 99 98 98 O2 Delivery Room Air Room Air Room Air Room Air 04/02/17 07:00 Temp 98.2 98.2 Pulse 95 Resp 17 B/P (MAP) 154/52 (86) Pulse Ox 99 O2 Delivery Room Air VIKTOR PARK MD Apr 02, 2017 10:08
--- NOTE | 2017-04-02 10:35 | PDOC ---
Infectious Disease Note Subjective Subjective Comfortable, pain controlled Appetite good No concerns voiced at this time ROS ROS GEN: Denies fevers, chills, sweats HEENT: Denies blurred vision, sore throat CV: Denies chest pain RESP: Denies shortness of air, cough GI: Denies n/v/d NEURO: Denies confusion, dizziness MSK: Denies weakness, joint pain/swelling Vital Sign Vital Signs Vital Signs Date Time Temp Pulse Resp B/P (MAP) Pulse Ox O2 Delivery O2 Flow Rate FiO2 04/02/17 07:00 98.2 95 17 154/52 (86) 99 Room Air 98.2 04/01/17 16:15 2.0 Physical Exam PHYSICAL EXAM GENERAL: NAD, Alert HEENT: PERRL, OC/OP NECK: Supple, no JVD, no LN LUNGS: Clear HEART: S1S2, no gallop, no murmur ABD: Soft, NT, no organomegaly, no rebound EXT: No edema, no cyanosis,, foot wound vac not opened BIOMETRICS CONSULTANT: Alert, 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, no focal neurologic deficit SKIN: No rash IV: ok Labs Lab Laboratory Tests Test 04/01/17 11:37 04/01/17 16:56 04/01/17 20:47 04/02/17 04:50 Glucose (Fingerstick) 146 mg/dL (70-99) 100 mg/dL (70-99) 72 mg/dL (70-99) White Blood Count 24.5 x10^3/uL (4.0-11.0) Red Blood Count 3.12 x10^6/uL (4.30-5.70) Hemoglobin 9.1 g/dL (13.0-17.5) Hematocrit 28.2 % (39.0-53.0) Mean Corpuscular Volume 91 fL (79-100) Mean Corpuscular Hemoglobin 29 pg (25-35) Mean Corpuscular Hemoglobin Concent 32 g/dL (31-37) Red Cell Distribution Width 14.9 % (11.5-14.5) Platelet Count 263 x10^3/uL (140-400) Neutrophils (%) (Auto) 91 % (31-73) Lymphocytes (%) (Auto) 4 % (24-48) Monocytes (%) (Auto) 4 % (0-9) Eosinophils (%) (Auto) 1 % (0-3) Basophils (%) (Auto) 0 % (0-3) Neutrophils # (Auto) 22.3 x10^3uL (1.8-7.7) Lymphocytes # (Auto) 0.9 x10^3/uL (1.0-4.8) Monocytes # (Auto) 1.0 x10^3/uL (0.0-1.1) Eosinophils # (Auto) 0.2 x10^3/uL (0.0-0.7) Basophils # (Auto) 0.1 x10^3/uL (0.0-0.2) Sodium Level 138 mmol/L (136-145) Potassium Level 3.9 mmol/L (3.5-5.1) Chloride Level 100 mmol/L (98-107) Carbon Dioxide Level 27 mmol/L (21-32) Anion Gap 11 (6-14) Blood Urea Nitrogen 40 mg/dL (8-26) Creatinine 6.6 mg/dL (0.7-1.3) Estimated GFR (Cockcroft-Gault) 10.6 Glucose Level 96 mg/dL (70-99) Calcium Level 8.4 mg/dL (8.5-10.1) Phosphorus Level 4.5 mg/dL (2.6-4.7) Albumin 1.6 g/dL (3.4-5.0) Test 04/02/17 07:35 Glucose (Fingerstick) 86 mg/dL (70-99) Objective Assessment Necrotizing fasciitis and osteomyelitis of right foot, s/p open TMA debridement , 03/28. Intra-op cultures G B strep and Klebsiella oxytoca Group B Strep bacteremia POA. Leukocytosis - stable NSTEMI CKD/HD Diabetes hx: MSSA, PSA & Providencia Plan Plan of Care continue Zosyn for now. Dose steroids pre-op, 03/28 Await anaerobic-aerobic cultures Monitor WBC, temp/cultures may need more surgery d/w ROLANDO Tripp MD Apr 02, 2017 10:35
--- NOTE | 2017-04-02 11:25 | PDOC ---
Renal-Progress Notes Subjective Notes Notes PAIN CONTROL IS OK History of Present Illness Hx of present illness STABLE Vitals Vitals Vital Signs Date Time Temp Pulse Resp B/P (MAP) Pulse Ox O2 Delivery O2 Flow Rate FiO2 04/02/17 08:10 Room Air 04/02/17 07:00 98.2 95 17 154/52 (86) 99 98.2 04/01/17 16:15 2.0 Weight Weight [ ] Labs Labs Laboratory Tests Test 04/01/17 11:37 04/01/17 16:56 04/01/17 20:47 04/02/17 04:50 Glucose (Fingerstick) 146 mg/dL (70-99) 100 mg/dL (70-99) 72 mg/dL (70-99) White Blood Count 24.5 x10^3/uL (4.0-11.0) Red Blood Count 3.12 x10^6/uL (4.30-5.70) Hemoglobin 9.1 g/dL (13.0-17.5) Hematocrit 28.2 % (39.0-53.0) Mean Corpuscular Volume 91 fL (79-100) Mean Corpuscular Hemoglobin 29 pg (25-35) Mean Corpuscular Hemoglobin Concent 32 g/dL (31-37) Red Cell Distribution Width 14.9 % (11.5-14.5) Platelet Count 263 x10^3/uL (140-400) Neutrophils (%) (Auto) 91 % (31-73) Lymphocytes (%) (Auto) 4 % (24-48) Monocytes (%) (Auto) 4 % (0-9) Eosinophils (%) (Auto) 1 % (0-3) Basophils (%) (Auto) 0 % (0-3) Neutrophils # (Auto) 22.3 x10^3uL (1.8-7.7) Lymphocytes # (Auto) 0.9 x10^3/uL (1.0-4.8) Monocytes # (Auto) 1.0 x10^3/uL (0.0-1.1) Eosinophils # (Auto) 0.2 x10^3/uL (0.0-0.7) Basophils # (Auto) 0.1 x10^3/uL (0.0-0.2) Sodium Level 138 mmol/L (136-145) Potassium Level 3.9 mmol/L (3.5-5.1) Chloride Level 100 mmol/L (98-107) Carbon Dioxide Level 27 mmol/L (21-32) Anion Gap 11 (6-14) Blood Urea Nitrogen 40 mg/dL (8-26) Creatinine 6.6 mg/dL (0.7-1.3) Estimated GFR (Cockcroft-Gault) 10.6 Glucose Level 96 mg/dL (70-99) Calcium Level 8.4 mg/dL (8.5-10.1) Phosphorus Level 4.5 mg/dL (2.6-4.7) Albumin 1.6 g/dL (3.4-5.0) Test 04/02/17 07:35 Glucose (Fingerstick) 86 mg/dL (70-99) Micro Micro Microbiology 03/28/17 Blood Culture - Preliminary, Resulted NO GROWTH AFTER 4 DAYS 03/28/17 Gram Stain - Final, Complete Review of Systems Constitutional: yes: weakness, alert, oriented Ears/Nose/Throat: Yes: no symptom reported Pulmonary: Yes no symptom reported Cardiovascular: Yes no symptom reported Gastrointestional: Yes: no symptom reported Genitourinary: Yes: no symptom reported Musculoskeletal: Yes: foot pain Skin: Yes color change Psychiatric/Neurological: Yes: no symptom reported Endocrine: Yes: no symptom reported Physical Exam General Appearance: no apparent distress Skin: warm Respiratory: bilateral CTA Abdomen: soft, bowel sounds present Genitourinary: bladder flat Extremities: pulses present, atrophy, other (RIGHT FOOT WOUND DRAIN, FOUL SMELLING) Neurology: alert, oriented Musculoskeletal: No pain, Other Assessment Assessment IMP ESRD ANEMIA DM II HTN RIGHT FOOT OSTEO S/P TMA PLAN CONT ALYSSA CONT ANTIBIOTICS HD TODAY UF TO CK HYATT MD Apr 02, 2017 11:25
[2017-04-02] MEDS: FOLIC/VIT B COMP W-C (RENAL) TABLET. PO SCH (14:48)
[2017-04-02] MEDS: SODIUM BICARBONATE 650 MG TABLET. PO SCH ×2 (14:48→21:24)
[2017-04-02] MEDS: CARVEDILOL 6.25 MG TABLET. PO SCH ×2 (14:49→17:01)
[2017-04-02] MEDS: PANTOPRAZOLE 40 MG TABLET.DR. PO SCH (14:49)
[2017-04-02] MEDS: FERROUS SULFATE 325 MG TABLET. PO SCH (14:49)
[2017-04-02] MEDS: ASPIRIN ENTERIC COATED 81 MG TABLET.DR. PO SCH (14:49)
[2017-04-02] MEDS: FLUTICASONE 50MCG/NASAL SPRAY 16GM BOTTLE. NS SCH ×2 (14:57→21:25)
[2017-04-02 15:00] VITALS: BP 130/48
[2017-04-02] MEDS ORDERED: ALTEPLASE 2 MG VIAL INT CAT ONE (18:00)
[2017-04-02 19:38] VITALS: BP 90/48
[2017-04-02] MEDS: ATORVASTATIN CALCIUM 20 MG TABLET PO SCH (21:24)
[2017-04-02] MEDS: INSULIN DETEMIR 300 UNITS/3 ML INSULN.PEN. SQ SCH (21:26)
[2017-04-02 23:47] VITALS: BP 102/50
[2017-04-03] VITALS (15 sets, daily range): BP systolic 112–174; BP diastolic 54–82
[2017-04-03 04:06] LABS: BASO # 0.5 x10^3/uL (0.0-0.2); BASO % 2 % (0-3); EOS % 1 % (0-3); HEMATOCRIT 27.3 % (39.0-53.0); LYMPH # 1.2 x10^3/uL (1.0-4.8); LYMPH % 5 % (24-48); MEAN CORPUSCULAR HEMOGLOBIN 30 pg (25-35); MEAN CORPUSCULAR HGB CONC 33 g/dL (31-37); MEAN CORPUSCULAR VOLUME 90 fL (79-100); MONO % 6 % (0-9); NEUT % 85 % (31-73); PLATELET COUNT 244 x10^3/uL (140-400); RED BLOOD COUNT 3.03 x10^6/uL (4.30-5.70); RED CELL DISTRIBUTION WIDTH 15.2 % (11.5-14.5); WHITE BLOOD COUNT 21.9 x10^3/uL (4.0-11.0)
[2017-04-03 05:14] LABS: ALBUMIN 1.7 g/dL (3.4-5.0); CALCIUM 8.4 mg/dL (8.5-10.1); CREATININE 4.7 mg/dL (0.7-1.3); GFR 15.7; PHOSPHORUS 3.9 mg/dL (2.6-4.7)
[2017-04-03] MEDS: PIPERACILLIN/TAZOBACTAM 2.25 GM in IV NORMAL SALINE 50ML 50 ML IV SCH ×3 (06:29→21:54)
[2017-04-03 06:56] LABS: % EOS 1 % (0-5)
[2017-04-03 07:06] LABS: PLT ESTIMATE ADEQUATE (ADEQUATE)
[2017-04-03 07:07] LABS: ANISOCYTOSIS SLIGHT; POLYCHROMASIA SLIGHT
--- NOTE | 2017-04-03 07:14 | PDOC ---
Provider Note Provider Note Vascular F/U Rt foot wound VAC on Plan: Angiogram today, plain x-ray rt foot Further debridement or Rt BK amp ? tomorrow? KAUSHIK CARRERO MD Apr 03, 2017 07:14
[2017-04-03] MEDS: PANTOPRAZOLE 40 MG TABLET.DR. PO SCH (07:30)
[2017-04-03] MEDS: CARVEDILOL 6.25 MG TABLET. PO SCH ×2 (08:00→17:00)
[2017-04-03] MEDS: INSULIN ASPART 300 UNITS/3 ML INSULN.PEN SQ SCH ×6 (08:00→17:00)
[2017-04-03] MEDS: FLUTICASONE 50MCG/NASAL SPRAY 16GM BOTTLE. NS SCH ×2 (08:45→21:54)
[2017-04-03] MEDS: MORPHINE SULFATE 2 MG/ML DISP.SYRIN. IV PRN (08:45)
[2017-04-03] MEDS: SODIUM BICARBONATE 650 MG TABLET. PO SCH ×3 (09:00→21:53)
--- NOTE | 2017-04-03 09:38 | RAD ---
Portable right foot, 2 views, 04/03/2017: History: Osteomyelitis, Post debridement evaluation Comparison is made to a study from 03/28/2016. Previous amputation of the forefoot at the proximal metatarsal level is again noted. There is a partially radiopaque bandage obscuring the first metatarsal stump. Comparison is difficult due to significant differences in patient rotation. No definite new bone destruction is seen. There is extensive soft tissue swelling. Previously seen gas collections in the soft tissues have diminished.
--- NOTE | 2017-04-03 09:42 | PDOC ---
Infectious Disease Note Subjective Subjective Comfortable, pain controlled Appetite good No concerns voiced at this time ROS ROS GEN: Denies fevers, chills, sweats HEENT: Denies blurred vision, sore throat CV: Denies chest pain RESP: Denies shortness of air, cough GI: Denies n/v/d NEURO: Denies confusion, dizziness MSK: Denies weakness, joint pain/swelling Vital Sign Vital Signs Vital Signs Date Time Temp Pulse Resp B/P (MAP) Pulse Ox O2 Delivery O2 Flow Rate FiO2 04/03/17 08:45 Room Air 04/03/17 07:00 97.7 96 19 130/71 (90) 99 97.7 Physical Exam PHYSICAL EXAM GENERAL: NAD, Alert HEENT: PERRL, OC/OP NECK: Supple, no JVD, no LN LUNGS: Clear HEART: S1S2, no gallop, no murmur ABD: Soft, NT, no organomegaly, no rebound EXT: No edema, no cyanosis,, rt foot with wound vac 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, 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, no focal neurologic deficit SKIN: No rash IV: ok Labs Lab Laboratory Tests Test 04/02/17 17:02 04/02/17 21:16 04/03/17 04:00 Glucose (Fingerstick) 124 mg/dL (70-99) 184 mg/dL (70-99) White Blood Count 21.9 x10^3/uL (4.0-11.0) Red Blood Count 3.03 x10^6/uL (4.30-5.70) Hemoglobin 9.0 g/dL (13.0-17.5) Hematocrit 27.3 % (39.0-53.0) Mean Corpuscular Volume 90 fL (79-100) Mean Corpuscular Hemoglobin 30 pg (25-35) Mean Corpuscular Hemoglobin Concent 33 g/dL (31-37) Red Cell Distribution Width 15.2 % (11.5-14.5) Platelet Count 244 x10^3/uL (140-400) Neutrophils (%) (Auto) 85 % (31-73) Lymphocytes (%) (Auto) 5 % (24-48) Monocytes (%) (Auto) 6 % (0-9) Eosinophils (%) (Auto) 1 % (0-3) Basophils (%) (Auto) 2 % (0-3) Neutrophils # (Auto) 18.7 x10^3uL (1.8-7.7) Lymphocytes # (Auto) 1.2 x10^3/uL (1.0-4.8) Monocytes # (Auto) 1.3 x10^3/uL (0.0-1.1) Eosinophils # (Auto) 0.3 x10^3/uL (0.0-0.7) Basophils # (Auto) 0.5 x10^3/uL (0.0-0.2) Segmented Neutrophils % 64 % (35-66) Band Neutrophils % 15 % (0-9) Lymphocytes % 8 % (24-48) Monocytes % 7 % (0-10) Eosinophils % 1 % (0-5) Metamyelocytes % 2 % (0-0) Myelocytes % 3 % (0-0) Platelet Estimate Adequate (ADEQUATE) Polychromasia Slight Anisocytosis Slight Macrocytosis Slight Sodium Level 137 mmol/L (136-145) Potassium Level 4.0 mmol/L (3.5-5.1) Chloride Level 99 mmol/L (98-107) Carbon Dioxide Level 29 mmol/L (21-32) Anion Gap 9 (6-14) Blood Urea Nitrogen 28 mg/dL (8-26) Creatinine 4.7 mg/dL (0.7-1.3) Estimated GFR (Cockcroft-Gault) 15.7 Glucose Level 179 mg/dL (70-99) Calcium Level 8.4 mg/dL (8.5-10.1) Phosphorus Level 3.9 mg/dL (2.6-4.7) Albumin 1.7 g/dL (3.4-5.0) Objective Assessment Necrotizing fasciitis and osteomyelitis of right foot, s/p open TMA debridement , 03/28. Intra-op cultures G B strep and Klebsiella oxytoca Group B Strep bacteremia POA. Leukocytosis - stable NSTEMI CKD/HD Diabetes hx: MSSA, PSA & Providencia Plan Plan of Care continue Zosyn for now. Dose steroids pre-op, 03/28 Await anaerobic-aerobic cultures Monitor WBC, temp/cultures may need more surgery d/w ROLANDO Tripp MD Apr 03, 2017 09:42
--- NOTE | 2017-04-03 10:06 | PDOC ---
PROGRESS NOTES Subjective Subjective feels better today Objective Objective Vital Signs Date Time Temp Pulse Resp B/P (MAP) Pulse Ox O2 Delivery O2 Flow Rate FiO2 04/03/17 08:45 Room Air 04/03/17 07:00 97.7 96 19 130/71 (90) 99 97.7 Physical Exam Abdomen: Normal bowel sounds, Soft, No tenderness Heart: Regular rate Extremities: Other (RIGHT FOOT FOUL SMELL AND DRAINAGE) General: No acute distress HEENT: Atraumatic, PERRLA, EOMI Lungs: Other (DECREASED AT BASES) MUSCULOSKELETAL: Other (DIFFUSE MUSCLE ATROPHY) Neck: Supple Neuro: Other (UNABLE TO ASSESS, LETHARGIC) Psych/Mental Status: Other (LETHARGIC) COMMENT dressing rt foot Diagnosis Problem List Problems Medical Problems: (1) End stage renal disease Status: Acute (2) Hypertension Status: Acute (3) Septic shock Status: Acute Assessment Assessment wound foot not looking good 1. Sepsis. Blood culture shows strep group b 2. Necrotizing fasciitis of the right foot. 3. Gangrene of the right foot. 4. Osteomyelitis of the right foot. 5. Status post excision of the necrotic tissue as well as infected bones in the right forefoot in the setting of previous right transmetatarsal amputation. 6. Non-ST elevation myocardial infarction. 7. Diabetes mellitus type 2, insulin-dependent, not controlled. 8. End-stage renal disease, on hemodialysis. 9. Peripheral artery disease. 10. Noncompliance. The patient had missed dialysis x 2 before this admission. 11. Moderate protein calorie malnutrition. 12. acute on chronic anemia that is multifactorial including blood loss and end- stage renal disease 13. 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 14. chronic right maxillary sinusitis. PLAN: wbc 21 went down vascular note appreciated arteriogram today. may need further debridement /amputation tomorrow depending on arteriogram spoke with [facility] kaylan today select screen may be later this week on early next week dialysis yesterday Zofran for n/v. wound vaq placed. s/p rt foot surgery. Problems: Plan Plan of Care Problems Medical Problems: (1) End stage renal disease Status: Acute (2) Hypertension Status: Acute (3) Septic shock Status: Acute Comment Review of Relevant I have reviewed the following items ginny (where applicable) has been applied. Labs Laboratory Tests Test 04/02/17 17:02 04/02/17 21:16 04/03/17 04:00 Glucose (Fingerstick) 124 mg/dL (70-99) 184 mg/dL (70-99) White Blood Count 21.9 x10^3/uL (4.0-11.0) Red Blood Count 3.03 x10^6/uL (4.30-5.70) Hemoglobin 9.0 g/dL (13.0-17.5) Hematocrit 27.3 % (39.0-53.0) Mean Corpuscular Volume 90 fL (79-100) Mean Corpuscular Hemoglobin 30 pg (25-35) Mean Corpuscular Hemoglobin Concent 33 g/dL (31-37) Red Cell Distribution Width 15.2 % (11.5-14.5) Platelet Count 244 x10^3/uL (140-400) Neutrophils (%) (Auto) 85 % (31-73) Lymphocytes (%) (Auto) 5 % (24-48) Monocytes (%) (Auto) 6 % (0-9) Eosinophils (%) (Auto) 1 % (0-3) Basophils (%) (Auto) 2 % (0-3) Neutrophils # (Auto) 18.7 x10^3uL (1.8-7.7) Lymphocytes # (Auto) 1.2 x10^3/uL (1.0-4.8) Monocytes # (Auto) 1.3 x10^3/uL (0.0-1.1) Eosinophils # (Auto) 0.3 x10^3/uL (0.0-0.7) Basophils # (Auto) 0.5 x10^3/uL (0.0-0.2) Segmented Neutrophils % 64 % (35-66) Band Neutrophils % 15 % (0-9) Lymphocytes % 8 % (24-48) Monocytes % 7 % (0-10) Eosinophils % 1 % (0-5) Metamyelocytes % 2 % (0-0) Myelocytes % 3 % (0-0) Platelet Estimate Adequate (ADEQUATE) Polychromasia Slight Anisocytosis Slight Macrocytosis Slight Sodium Level 137 mmol/L (136-145) Potassium Level 4.0 mmol/L (3.5-5.1) Chloride Level 99 mmol/L (98-107) Carbon Dioxide Level 29 mmol/L (21-32) Anion Gap 9 (6-14) Blood Urea Nitrogen 28 mg/dL (8-26) Creatinine 4.7 mg/dL (0.7-1.3) Estimated GFR (Cockcroft-Gault) 15.7 Glucose Level 179 mg/dL (70-99) Calcium Level 8.4 mg/dL (8.5-10.1) Phosphorus Level 3.9 mg/dL (2.6-4.7) Albumin 1.7 g/dL (3.4-5.0) Microbiology 03/28/17 Blood Culture - Final, Complete NO GROWTH AFTER 5 DAYS 03/28/17 Gram Stain - Final, Complete Medications Current Medications Alteplase, Recombinant (Cathflo) 4 mg 1X ONCE INT CAT Last administered on t 17:53; Start 04/02/17 at 18:00; Stop 04/02/17 at 18:01; Status DC Vitals/I & O Vital Sign - Last 24 Hours 04/02/17 04/02/17 04/02/17 04/02/17 14:49 15:00 17:01 19:38 Temp 98.7 99.4 98.7 99.4 Pulse 95 96 95 88 Resp 18 20 B/P (MAP) 154/52 130/48 (75) 90/48 (62) Pulse Ox 100 98 O2 Delivery Room Air Room Air 04/02/17 04/02/17 04/03/17 04/03/17 20:05 23:47 03:57 07:00 Temp 99.0 98.6 97.7 99.0 98.6 97.7 Pulse 90 93 96 Resp 18 18 19 B/P (MAP) 102/50 (67) 125/69 (87) 130/71 (90) Pulse Ox 97 96 99 O2 Delivery Room Air Room Air Room Air Room Air 04/03/17 08:45 O2 Delivery Room Air VIKTOR PARK MD Apr 03, 2017 10:06
[2017-04-03] MEDS ORDERED: IODIXANOL 320 MG/ML 100 ML VIAL. ONE (10:48)
[2017-04-03] MEDS ORDERED: IODIXANOL 320MG/ML 50ML VIAL. ONE (10:49)
[2017-04-03] MEDS ORDERED: LIDOCAINE 1% / SOD BICARB 8.4% 20 ML VIAL. IJ ONE ×2 (10:49→13:15)
[2017-04-03] MEDS ORDERED: HEPARIN for ARTERIAL LINE 1,500 ML ONE (10:49)
[2017-04-03] MEDS ORDERED: IOHEXOL 300 MG/ML 100ML VIAL. ONE (10:49)
--- NOTE | 2017-04-03 11:45 | PDOC ---
Renal-Progress Notes Subjective Notes Notes NO NEW COMPLAINTS History of Present Illness Hx of present illness STABLE Vitals Vitals Vital Signs Date Time Temp Pulse Resp B/P (MAP) Pulse Ox O2 Delivery O2 Flow Rate FiO2 04/03/17 11:00 97.6 92 19 127/66 (86) 98 Room Air 97.6 Weight Weight [ ] Labs Labs Laboratory Tests Test 04/02/17 17:02 04/02/17 21:16 04/03/17 04:00 04/03/17 10:38 Glucose (Fingerstick) 124 mg/dL (70-99) 184 mg/dL (70-99) 170 mg/dL (70-99) White Blood Count 21.9 x10^3/uL (4.0-11.0) Red Blood Count 3.03 x10^6/uL (4.30-5.70) Hemoglobin 9.0 g/dL (13.0-17.5) Hematocrit 27.3 % (39.0-53.0) Mean Corpuscular Volume 90 fL (79-100) Mean Corpuscular Hemoglobin 30 pg (25-35) Mean Corpuscular Hemoglobin Concent 33 g/dL (31-37) Red Cell Distribution Width 15.2 % (11.5-14.5) Platelet Count 244 x10^3/uL (140-400) Neutrophils (%) (Auto) 85 % (31-73) Lymphocytes (%) (Auto) 5 % (24-48) Monocytes (%) (Auto) 6 % (0-9) Eosinophils (%) (Auto) 1 % (0-3) Basophils (%) (Auto) 2 % (0-3) Neutrophils # (Auto) 18.7 x10^3uL (1.8-7.7) Lymphocytes # (Auto) 1.2 x10^3/uL (1.0-4.8) Monocytes # (Auto) 1.3 x10^3/uL (0.0-1.1) Eosinophils # (Auto) 0.3 x10^3/uL (0.0-0.7) Basophils # (Auto) 0.5 x10^3/uL (0.0-0.2) Segmented Neutrophils % 64 % (35-66) Band Neutrophils % 15 % (0-9) Lymphocytes % 8 % (24-48) Monocytes % 7 % (0-10) Eosinophils % 1 % (0-5) Metamyelocytes % 2 % (0-0) Myelocytes % 3 % (0-0) Platelet Estimate Adequate (ADEQUATE) Polychromasia Slight Anisocytosis Slight Macrocytosis Slight Sodium Level 137 mmol/L (136-145) Potassium Level 4.0 mmol/L (3.5-5.1) Chloride Level 99 mmol/L (98-107) Carbon Dioxide Level 29 mmol/L (21-32) Anion Gap 9 (6-14) Blood Urea Nitrogen 28 mg/dL (8-26) Creatinine 4.7 mg/dL (0.7-1.3) Estimated GFR (Cockcroft-Gault) 15.7 Glucose Level 179 mg/dL (70-99) Calcium Level 8.4 mg/dL (8.5-10.1) Phosphorus Level 3.9 mg/dL (2.6-4.7) Albumin 1.7 g/dL (3.4-5.0) Micro Micro Microbiology 03/28/17 Blood Culture - Final, Complete NO GROWTH AFTER 5 DAYS 03/28/17 Gram Stain - Final, Complete Review of Systems Constitutional: yes: weakness, alert, oriented Ears/Nose/Throat: Yes: no symptom reported Pulmonary: Yes no symptom reported Cardiovascular: Yes no symptom reported Gastrointestional: Yes: no symptom reported Genitourinary: Yes: no symptom reported Musculoskeletal: Yes: foot pain Skin: Yes color change Psychiatric/Neurological: Yes: no symptom reported Endocrine: Yes: no symptom reported Physical Exam General Appearance: no apparent distress Skin: warm Respiratory: bilateral CTA Abdomen: soft, bowel sounds present Genitourinary: bladder flat Extremities: pulses present, atrophy, other (RIGHT FOOT WOUND DRAIN, FOUL SMELLING) Neurology: alert, oriented Musculoskeletal: No pain, Other Assessment Assessment IMP ESRD ANEMIA DM II HTN RIGHT FOOT OSTEO S/P TMA PLAN CONT ALYSSA CONT ANTIBIOTICS HD TOMORROW CK CASSIDY MD Apr 03, 2017 11:45
[2017-04-03] MEDS ORDERED: IV DEXTROSE 5% - 0.9 % NACL 1,000 ML IV SCH (12:45)
[2017-04-03] MEDS ORDERED: fentaNYL PF VIAL 100 MCG/2 ML VIAL ONE (12:48)
[2017-04-03] MEDS ORDERED: MIDAZOLAM HCL/PF 2 MG/2 ML VIAL. ONE (12:48)
[2017-04-03] MEDS ORDERED: MIDAZOLAM HCL/PF 2 MG/2 ML VIAL. IV ONE (13:15)
[2017-04-03] MEDS ORDERED: fentaNYL PF VIAL 100 MCG/2 ML VIAL IV ONE (13:15)
[2017-04-03] MEDS ORDERED: IODIXANOL 320 MG/ML 100 ML VIAL. IART ONE (13:15)
[2017-04-03] MEDS ORDERED: IOHEXOL 300 MG/ML 100ML VIAL. IART ONE (13:15)
[2017-04-03] MEDS ORDERED: HEPARIN for IV BOLUS 10,000 UNIT/10 ML VIAL. ONE (13:25)
[2017-04-03] MEDS ORDERED: HEPARIN for IV BOLUS 10,000 UNIT/10 ML VIAL. IV ONE (13:30)
[2017-04-03] MEDS ORDERED: hydrALAZINE 20 MG/ML VIAL. ONE (14:11)
[2017-04-03] MEDS ORDERED: hydrALAZINE 20 MG/ML VIAL. IVP ONE (14:15)
[2017-04-03] MEDS: IV DEXTROSE 5 %-0.45 % NACL 1,000 ML IV SCH (15:10)
[2017-04-03] MEDS: FERROUS SULFATE 325 MG TABLET. PO SCH (15:14)
[2017-04-03] MEDS: FOLIC/VIT B COMP W-C (RENAL) TABLET. PO SCH (15:14)
[2017-04-03] MEDS: ASPIRIN ENTERIC COATED 81 MG TABLET.DR. PO SCH (15:15)
[2017-04-03] MEDS: ATORVASTATIN CALCIUM 20 MG TABLET PO SCH (21:54)
[2017-04-03] MEDS: INSULIN DETEMIR 300 UNITS/3 ML INSULN.PEN. SQ SCH (21:59)
[2017-04-04] VITALS (10 sets, daily range): BP systolic 96–141; BP diastolic 54–67
[2017-04-04] MEDS: PIPERACILLIN/TAZOBACTAM 2.25 GM in IV NORMAL SALINE 50ML 50 ML IV SCH ×3 (06:10→22:08)
[2017-04-04 06:33] LABS: ALBUMIN 1.7 g/dL (3.4-5.0); CALCIUM 8.5 mg/dL (8.5-10.1); GFR 11.8; PHOSPHORUS 4.6 mg/dL (2.6-4.7); POTASSIUM 3.4 mmol/L (3.5-5.1)
[2017-04-04] MEDS ORDERED: PROCHLORPERAZINE 10 MG/2 ML VIAL. IV PRN ×2 (07:00→18:45)
[2017-04-04] MEDS ORDERED: HYDROmorphone 2 MG/ML VIAL IV PRN ×2 (07:00→18:45)
[2017-04-04] MEDS ORDERED: fentaNYL PF VIAL 100 MCG/2 ML VIAL IV PRN ×4 (07:00→18:45)
[2017-04-04] MEDS ORDERED: LIDOCAINE 1% PF 2 ML VIAL. ID PRN ×2 (07:00→18:45)
[2017-04-04] MEDS ORDERED: ONDANSETRON PF 4 MG/2 ML VIAL. IV PRN ×2 (07:00→18:45)
[2017-04-04] MEDS ORDERED: MORPHINE SULFATE 2 MG/ML DISP.SYRIN. IV PRN ×2 (07:00→18:45)
[2017-04-04] MEDS ORDERED: IV RINGERS,LACTATED 1000ML 1,000 ML IV SCH ×2 (07:00→18:34)
[2017-04-04] MEDS: PANTOPRAZOLE 40 MG TABLET.DR. PO SCH (07:30)
[2017-04-04] MEDS: IV NORMAL SALINE 1000ML BAG 1,000 ML IV SCH ×2 (07:45→17:37)
[2017-04-04] MEDS: INSULIN ASPART 300 UNITS/3 ML INSULN.PEN SQ SCH ×6 (08:00→17:00)
[2017-04-04] MEDS: CARVEDILOL 6.25 MG TABLET. PO SCH ×2 (08:00→17:08)
[2017-04-04] MEDS: ASPIRIN ENTERIC COATED 81 MG TABLET.DR. PO SCH (08:00)
[2017-04-04 08:22] LABS: BASO # 0.1 x10^3/uL (0.0-0.2); BASO % 0 % (0-3); EOS % 1 % (0-3); HEMATOCRIT 25.8 % (39.0-53.0); HEMOGLOBIN 8.5 g/dL (13.0-17.5); LYMPH # 1.1 x10^3/uL (1.0-4.8); LYMPH % 6 % (24-48); MEAN CORPUSCULAR HEMOGLOBIN 30 pg (25-35); MEAN CORPUSCULAR HGB CONC 33 g/dL (31-37); MEAN CORPUSCULAR VOLUME 90 fL (79-100); MONO % 6 % (0-9); NEUT % 87 % (31-73); PLATELET COUNT 194 x10^3/uL (140-400); RED BLOOD COUNT 2.85 x10^6/uL (4.30-5.70); RED CELL DISTRIBUTION WIDTH 14.9 % (11.5-14.5); WHITE BLOOD COUNT 19.3 x10^3/uL (4.0-11.0)
[2017-04-04] MEDS: FLUTICASONE 50MCG/NASAL SPRAY 16GM BOTTLE. NS SCH ×2 (09:00→22:08)
[2017-04-04] MEDS: FOLIC/VIT B COMP W-C (RENAL) TABLET. PO SCH (09:00)
[2017-04-04] MEDS: FERROUS SULFATE 325 MG TABLET. PO SCH (09:00)
[2017-04-04] MEDS ORDERED: IV NORMAL SALINE 1000ML BAG 1,000 ML IV PRN (09:59)
[2017-04-04] MEDS ORDERED: DIALYSIS PATIENT. MC PRN (10:00)
--- NOTE | 2017-04-04 10:18 | PDOC ---
PROGRESS NOTES Subjective Subjective seen in dialysis unit Objective Objective Vital Signs Date Time Temp Pulse Resp B/P (MAP) Pulse Ox O2 Delivery O2 Flow Rate FiO2 04/04/17 07:00 98.3 101 20 141/55 (83) 98 Room Air 98.3 04/03/17 14:00 2.0 Physical Exam Abdomen: Normal bowel sounds, Soft, No tenderness Heart: Regular rate Extremities: Other (RIGHT FOOT FOUL SMELL AND DRAINAGE) General: No acute distress HEENT: Atraumatic, PERRLA, EOMI Lungs: Other (DECREASED AT BASES) MUSCULOSKELETAL: Other (DIFFUSE MUSCLE ATROPHY) Neck: Supple Neuro: Other (UNABLE TO ASSESS, LETHARGIC) Psych/Mental Status: Other (LETHARGIC) COMMENT dressing rt foot Diagnosis Problem List Problems Medical Problems: (1) End stage renal disease Status: Acute (2) Hypertension Status: Acute (3) Septic shock Status: Acute Assessment Assessment * wound foot not looking good 1. Sepsis. Blood culture shows strep group b 2. Necrotizing fasciitis of the right foot. 3. Gangrene of the right foot. 4. Osteomyelitis of the right foot. 5. Status post excision of the necrotic tissue as well as infected bones in the right forefoot in the setting of previous right transmetatarsal amputation. 6. Non-ST elevation myocardial infarction. 7. Diabetes mellitus type 2, insulin-dependent, not controlled. 8. End-stage renal disease, on hemodialysis. 9. Peripheral artery disease. 10. Noncompliance. The patient had missed dialysis x 2 before this admission. 11. Moderate protein calorie malnutrition. 12. acute on chronic anemia that is multifactorial including blood loss and end- stage renal disease 13. 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 14. chronic right maxillary sinusitis. PLAN: wbc 19 went down on Zosyn vascular note appreciated ,arteriogram done yesterday report pending. may need further debridement /amputation today, depending on arteriogram spoke with pts kaylan yesterday select screen may be later this week on early next week dialysis today Zofran for n/v. wound vaq placed. s/p rt foot surgery. Problems: Plan Plan of Care Problems Medical Problems: (1) End stage renal disease Status: Acute (2) Hypertension Status: Acute (3) Septic shock Status: Acute Comment Review of Relevant I have reviewed the following items ginny (where applicable) has been applied. Labs Laboratory Tests Test 04/03/17 10:38 04/03/17 17:03 04/03/17 20:32 04/04/17 05:00 Glucose (Fingerstick) 170 mg/dL (70-99) 192 mg/dL (70-99) 250 mg/dL (70-99) White Blood Count 19.3 x10^3/uL (4.0-11.0) Red Blood Count 2.85 x10^6/uL (4.30-5.70) Hemoglobin 8.5 g/dL (13.0-17.5) Hematocrit 25.8 % (39.0-53.0) Mean Corpuscular Volume 90 fL (79-100) Mean Corpuscular Hemoglobin 30 pg (25-35) Mean Corpuscular Hemoglobin Concent 33 g/dL (31-37) Red Cell Distribution Width 14.9 % (11.5-14.5) Platelet Count 194 x10^3/uL (140-400) Neutrophils (%) (Auto) 87 % (31-73) Lymphocytes (%) (Auto) 6 % (24-48) Monocytes (%) (Auto) 6 % (0-9) Eosinophils (%) (Auto) 1 % (0-3) Basophils (%) (Auto) 0 % (0-3) Neutrophils # (Auto) 16.9 x10^3uL (1.8-7.7) Lymphocytes # (Auto) 1.1 x10^3/uL (1.0-4.8) Monocytes # (Auto) 1.1 x10^3/uL (0.0-1.1) Eosinophils # (Auto) 0.2 x10^3/uL (0.0-0.7) Basophils # (Auto) 0.1 x10^3/uL (0.0-0.2) Sodium Level 137 mmol/L (136-145) Potassium Level 3.4 mmol/L (3.5-5.1) Chloride Level 97 mmol/L (98-107) Carbon Dioxide Level 30 mmol/L (21-32) Anion Gap 10 (6-14) Blood Urea Nitrogen 35 mg/dL (8-26) Creatinine 6.0 mg/dL (0.7-1.3) Estimated GFR (Cockcroft-Gault) 11.8 Glucose Level 278 mg/dL (70-99) Calcium Level 8.5 mg/dL (8.5-10.1) Phosphorus Level 4.6 mg/dL (2.6-4.7) Albumin 1.7 g/dL (3.4-5.0) Test 04/04/17 07:19 Glucose (Fingerstick) 296 mg/dL (70-99) Microbiology 03/28/17 Blood Culture - Final, Complete NO GROWTH AFTER 5 DAYS 03/28/17 Gram Stain - Final, Complete Medications Current Medications Dextrose/Sodium Chloride 1,000 ml @ 50 mls/hr Q20H IV ; Start 04/03/17 at 12: 45; Stop 04/03/17 at 14:41; Status DC Dextrose/Sodium Chloride 1,000 ml @ 50 mls/hr Q20H IV Last administered on 15:10; Start 04/03/17 at 14:30 Fentanyl Citrate (Fentanyl 2ml Vial) 25 mcg PRN Q5MIN PRN IV MILD PAIN; Start 04/04/17 at 07:00; Stop 04/05/17 at 06:59 Fentanyl Citrate (Fentanyl 2ml Vial) 50 mcg PRN Q5MIN PRN IV MODERATE PAIN; Start 04/04/17 at 07:00; Stop 04/05/17 at 06:59 Fentanyl Citrate (Fentanyl 2ml Vial) 100 mcg 1X ONCE IV Last administered on 04/03/17 14:19; Start 04/03/17 at 13:15; Stop 04/03/17 at 13:16; Status DC Fentanyl Citrate (Fentanyl 2ml Vial) 100 mcg STK-MED ONCE .ROUTE ; Start at 12:48; Stop 04/03/17 at 12:49; Status DC Heparin Sodium (Porcine) (Heparin Sodium) 3,000 unit 1X ONCE IV Last administered on 04/03/17 14:22; Start 04/03/17 at 13:30; Stop 04/03/17 at 13 :38; Status DC Heparin Sodium (Porcine) (Heparin Sodium) 10,000 unit STK-MED ONCE .ROUTE ; Start 04/03/17 at 13:25; Stop 04/03/17 at 13:26; Status DC Heparin Sodium/ Sodium Chloride 1,000 unit 1X ONCE IART Last administered on 04/03/17 14:20; Start 04/03/17 at 13:15; Stop 04/03/17 at 13:16; Status DC Heparin Sodium/ Sodium Chloride 1,000 unit 1X ONCE IART Last administered on 04/03/17t 14:20; Start 04/03/17 at 13:15; Stop 04/03/17 at 13:16; Status DC Heparin Sodium/ Sodium Chloride 1,500 ml @ As Directed STK-MED ONCE .ROUTE ; Start 04/03/17 at 10:49; Stop 04/03/17 at 10:50; Status DC Hydralazine HCl (Apresoline Inj) 10 mg 1X ONCE IVP Last administered on 14:21; Start 04/03/17 at 14:15; Stop 04/03/17 at 14:19; Status DC Hydralazine HCl (Apresoline Inj) 20 mg STK-MED ONCE .ROUTE ; Start 04/03/17 at 14:11; Stop 04/03/17 at 14:12; Status DC Hydromorphone HCl (Dilaudid) 0.5 mg PRN Q10MIN PRN IV SEV PAIN, Second choice; Start 04/04/17 at 07:00; Stop 04/05/17 at 06:59 Info (PHARMACY MONITORING -- do not chart) 1 each PRN DAILY PRN MC SEE COMMENTS ; Start 04/04/17 at 10:00 Iodixanol (Visipaque 320) 50 ml STK-MED ONCE .ROUTE ; Start 04/03/17 at 10:49; Stop 04/03/17 at 10:50; Status DC Iodixanol (Visipaque 320) 100 ml 1X ONCE IART Last administered on 04/03/17t 14:19; Start 04/03/17 at 13:15; Stop 04/03/17 at 13:16; Status DC Iodixanol (Visipaque 320) 100 ml STK-MED ONCE .ROUTE ; Start 04/03/17 at 10:48 ; Stop 04/03/17 at 10:49; Status DC Iohexol (Omnipaque 300 Mg/ml) 100 ml 1X ONCE IART Last administered on 14:19; Start 04/03/17 at 13:15; Stop 04/03/17 at 13:16; Status DC Iohexol (Omnipaque 300 Mg/ml) 100 ml STK-MED ONCE .ROUTE ; Start 04/03/17 at 10 :49; Stop 04/03/17 at 10:50; Status DC Lidocaine HCl (Xylocaine-Mpf 1% Vial) 2 ml PRN 1X PRN ID IV START; Start 04/04 at 07:00; Stop 04/04/17 at 07:31; Status DC Lidocaine/Sodium Bicarbonate (Buffered Lidocaine 1%) 20 ml 1X ONCE IJ Last administered on 04/03/17t 14:20; Start 04/03/17 at 13:15; Stop 04/03/17 at 13 :16; Status DC Lidocaine/Sodium Bicarbonate (Buffered Lidocaine 1%) 20 ml STK-MED ONCE IJ ; Start 04/03/17 at 10:49; Stop 04/03/17 at 10:50; Status DC Midazolam HCl (Versed) 2 mg 1X ONCE IV Last administered on 04/03/17t 14:18; Start 04/03/17 at 13:15; Stop 04/03/17 at 13:16; Status DC Midazolam HCl (Versed) 2 mg STK-MED ONCE .ROUTE ; Start 04/03/17 at 12:48; Stop 04/03/17 at 12:49; Status DC Morphine Sulfate 1 mg PRN Q10MIN PRN IV SEVERE PAIN; Start 04/04/17 at 07:00; Stop 04/05/17 at 06:59 Ondansetron HCl (Zofran) 4 mg PRN Q6HRS PRN IV NAUSEA/VOMITING; Start at 07:00; Stop 04/05/17 at 06:59 Prochlorperazine Edisylate (Compazine) 5 mg PACU PRN PRN IV NAUSEA, MRX1; Start 04/04/17 at 07:00; Stop 04/05/17 at 06:59 Ringer's Solution 1,000 ml @ 30 mls/hr Q24H IV ; Start 04/04/17 at 07:00; Stop 04/04/17 at 18:59; Status Cancel Sodium Chloride 1,000 ml @ 30 mls/hr Q24H IV ; Start 04/04/17 at 07:45 Sodium Chloride 1,000 ml @ 1,000 mls/hr Q1H PRN IV hypotension; Start at 09:59; Stop 04/04/17 at 15:58 Vitals/I & O Vital Sign - Last 24 Hours 04/03/17 04/03/17 04/03/17 04/03/17 11:00 14:00 14:19 14:21 Temp 97.6 97.6 Pulse 92 93 93 Resp 19 22 31 B/P (MAP) 127/66 (86) 198/54 Pulse Ox 98 98 96 O2 Delivery Room Air Nasal Cannula Room Air O2 Flow Rate 2.0 04/03/17 04/03/17 04/03/17 04/03/17 14:30 14:45 15:00 15:15 Pulse 75 94 94 95 B/P (MAP) 124/64 (84) 127/64 (85) 128/66 (86) 115/56 (75) 04/03/17 04/03/17 04/03/17 04/03/17 15:30 16:00 16:30 17:00 Pulse 97 98 97 97 B/P (MAP) 122/57 (78) 124/60 (81) 116/58 (77) 116/58 04/03/17 04/03/17 04/03/17 04/03/17 17:30 18:30 19:01 20:02 Temp 99.2 99.2 Pulse 97 96 95 Resp 18 B/P (MAP) 120/57 (78) 112/82 (92) 114/54 (74) Pulse Ox 97 O2 Delivery Room Air Room Air 04/03/17 04/04/17 04/04/17 22:34 03:07 07:00 Temp 98.5 98.8 98.3 98.5 98.8 98.3 Pulse 99 98 101 Resp 18 18 20 B/P (MAP) 135/66 (89) 129/63 (85) 141/55 (83) Pulse Ox 95 95 98 O2 Delivery Room Air Room Air Room Air VIKTOR PARK MD Apr 04, 2017 10:18
[2017-04-04] MEDS: IV DEXTROSE 5 %-0.45 % NACL 1,000 ML IV SCH ×2 (10:30→15:26)
--- NOTE | 2017-04-04 11:11 | PDOC ---
Renal-Progress Notes Subjective Notes Notes FEELING BETTER History of Present Illness Hx of present illness STABLE Vitals Vitals Vital Signs Date Time Temp Pulse Resp B/P (MAP) Pulse Ox O2 Delivery O2 Flow Rate FiO2 04/04/17 08:05 Room Air 04/04/17 07:00 98.3 101 20 141/55 (83) 98 98.3 04/03/17 14:00 2.0 Weight Weight [ ] Labs Labs Laboratory Tests Test 04/03/17 17:03 04/03/17 20:32 04/04/17 05:00 04/04/17 07:19 Glucose (Fingerstick) 192 mg/dL (70-99) 250 mg/dL (70-99) 296 mg/dL (70-99) White Blood Count 19.3 x10^3/uL (4.0-11.0) Red Blood Count 2.85 x10^6/uL (4.30-5.70) Hemoglobin 8.5 g/dL (13.0-17.5) Hematocrit 25.8 % (39.0-53.0) Mean Corpuscular Volume 90 fL (79-100) Mean Corpuscular Hemoglobin 30 pg (25-35) Mean Corpuscular Hemoglobin Concent 33 g/dL (31-37) Red Cell Distribution Width 14.9 % (11.5-14.5) Platelet Count 194 x10^3/uL (140-400) Neutrophils (%) (Auto) 87 % (31-73) Lymphocytes (%) (Auto) 6 % (24-48) Monocytes (%) (Auto) 6 % (0-9) Eosinophils (%) (Auto) 1 % (0-3) Basophils (%) (Auto) 0 % (0-3) Neutrophils # (Auto) 16.9 x10^3uL (1.8-7.7) Lymphocytes # (Auto) 1.1 x10^3/uL (1.0-4.8) Monocytes # (Auto) 1.1 x10^3/uL (0.0-1.1) Eosinophils # (Auto) 0.2 x10^3/uL (0.0-0.7) Basophils # (Auto) 0.1 x10^3/uL (0.0-0.2) Sodium Level 137 mmol/L (136-145) Potassium Level 3.4 mmol/L (3.5-5.1) Chloride Level 97 mmol/L (98-107) Carbon Dioxide Level 30 mmol/L (21-32) Anion Gap 10 (6-14) Blood Urea Nitrogen 35 mg/dL (8-26) Creatinine 6.0 mg/dL (0.7-1.3) Estimated GFR (Cockcroft-Gault) 11.8 Glucose Level 278 mg/dL (70-99) Calcium Level 8.5 mg/dL (8.5-10.1) Phosphorus Level 4.6 mg/dL (2.6-4.7) Albumin 1.7 g/dL (3.4-5.0) Micro Micro Microbiology 03/28/17 Blood Culture - Final, Complete NO GROWTH AFTER 5 DAYS 03/28/17 Gram Stain - Final, Complete Review of Systems Constitutional: yes: weakness, alert, oriented Ears/Nose/Throat: Yes: no symptom reported Pulmonary: Yes no symptom reported Cardiovascular: Yes no symptom reported Gastrointestional: Yes: no symptom reported Genitourinary: Yes: no symptom reported Musculoskeletal: Yes: foot pain Skin: Yes color change Psychiatric/Neurological: Yes: no symptom reported Endocrine: Yes: no symptom reported Physical Exam General Appearance: no apparent distress Skin: warm Respiratory: bilateral CTA Abdomen: soft, bowel sounds present Genitourinary: bladder flat Extremities: pulses present, atrophy, other (RIGHT FOOT WOUND DRAIN, FOUL SMELLING) Neurology: alert, oriented Musculoskeletal: No pain, Other Assessment Assessment IMP ESRD ANEMIA DM II HTN RIGHT FOOT OSTEO S/P TMA PLAN CONT ALYSSA CONT ANTIBIOTICS HD TODAY UF TO DW CK CASSIDY MD Apr 04, 2017 11:11
[2017-04-04] MEDS: MORPHINE SULFATE 2 MG/ML DISP.SYRIN. IV PRN (11:46)
[2017-04-04] MEDS ORDERED: SEVOFLURANE 31 TO 60 MINUTES. IH ONE (17:45)
[2017-04-04] MEDS ORDERED: PROPOFOL 20 ML IV ONE (17:45)
[2017-04-04] MEDS ORDERED: LIDOCAINE 2% PF Vial for OR 5 ML VIAL. ONE (17:45)
[2017-04-04] MEDS ORDERED: SURGICEL HEMOSTAT 2X14 EACH. ONE (17:47)
[2017-04-04] MEDS ORDERED: SURGICEL HEMOSTAT 4X8 EACH. ONE (17:48)
[2017-04-04] MEDS ORDERED: SURGICEL FIBRILLAR 1X2 EACH. ONE (17:49)
[2017-04-04] MEDS ORDERED: PHENYLEPHRINE in 0.9% NACL PF 1 MG/10 ML DISP.SYRIN. IV ONE ×2 (18:16→18:36)
[2017-04-04] MEDS ORDERED: PHENYLEPHRINE 10 MG/ML VIAL. ONE (18:44)
[2017-04-04] MEDS ORDERED: MORPHINE SULFATE 10 MG/ML VIAL. ONE (18:56)
--- NOTE | 2017-04-04 19:11 | PDOC ---
BRIEF OPERATIVE NOTE Date: Apr 04, 2017 Pre-Op Diagnosis Progressive tissue necrosis S/P debridement last week Post-Op Diagnosis Extensive necrotizing infection of entire rt. forefoot to mid foot and nearly ankle anteriorally Procedure Performed Debridement of all infected tissue and some exposed bone Surgeon Racheal May Anesthesia Type: General Blood Loss 200 Specimens Obtained necrotic rt fore foot Findings extensive necrotizing infection, cultures taken KAUSHIK MAY MD Apr 04, 2017 19:11
--- NOTE | 2017-04-04 19:33 | OP ---
DATE OF SURGERY: 04/04/2017 PREOPERATIVE DIAGNOSIS: Progressive necrosis and blistering of skin, left foot. POSTOPERATIVE DIAGNOSIS: Progressive necrosis and blistering of skin, left foot with severe underlying purulence and necrotizing infection way past to the midfoot area especially anteriorly almost up to the ankle. OPERATION PERFORMED: Extensive debridement of necrotic and infected necrotizing infection in the right foot to include necrotic skin, subcutaneous tissue, fascia, tendons and exposed bone. INDICATIONS: This is a gentleman who had a right TMA, remotely developed an ulcer and then developed infection. This was opened up and debrided last [place], but it appears that the infection then turned into a necrotizing type infection. FINDINGS: Severe necrotized, not necrotic purulent tissue all the way up to the midfoot anteriorly and posteriorly with the long tendon sheaths. DESCRIPTION OF PROCEDURE: After general endotracheal anesthetic, prepping and draping, a knife was used to excise into the blistered skin on the dorsum of the foot. We immediately got purulent material and this was cultured. A knife was then used to circumferentially dive through the skin and there was purulence pretty much circumferentially around the foot. The forefoot bones, metatarsals and midfoot tarsal bones were mostly removed. There was considerable bleeding controlled with cautery or Hemoclips. Eventually, we got to where we thought there was all bleeding tissue and no further purulence, although this required extensive debridement up into the foot. Again, bleeding controlled with cautery or Hemoclips. The wound was irrigated with saline solution and packed with fibular Surgicel, 4 x 4's, Xeroform, Kerlix and an Isaac wrap. He tolerated the procedure well. EBL of 200 mL, left the operating room in stable condition. He will need a below-knee amputation early next week. KAUSHIK CARRERO MD DR: CALIXTO/richi JOB#: [id number] / [id number]
[2017-04-04] MEDS ORDERED: ALBUMIN HUMAN 5% 500 ML IV ONE (19:45)
[2017-04-04 19:47] LABS: HEMATOCRIT 23.2 % (39.0-53.0); HEMOGLOBIN 7.6 g/dL (13.0-17.5); RED BLOOD COUNT 2.56 x10^6/uL (4.30-5.70); RED CELL DISTRIBUTION WIDTH 14.6 % (11.5-14.5); WHITE BLOOD COUNT 19.6 x10^3/uL (4.0-11.0)
[2017-04-04 20:00] LABS: INR 1.5 (0.8-1.1); PROTHROMBIN TIME PATIENT 16.8 SEC (11.7-14.0)
[2017-04-04] MEDS ORDERED: PHENYLEPHRINE INJ 80 MG in IV NORMAL SALINE 250ML 250 ML IV PRN (21:00)
[2017-04-04] MEDS: ATORVASTATIN CALCIUM 20 MG TABLET PO SCH (22:11)
[2017-04-04] MEDS: SODIUM BICARBONATE 650 MG TABLET. PO SCH (22:11)
[2017-04-04] MEDS: INSULIN DETEMIR 300 UNITS/3 ML INSULN.PEN. SQ SCH (22:12)
[2017-04-04] MEDS: DARBEPOETIN ALFA 60 MCG/0.3 ML DISP.SYRIN. SQ SCH (22:14)
[2017-04-05] VITALS (19 sets, daily range): BP systolic 79–123; BP diastolic 40–67
[2017-04-05] MEDS: PIPERACILLIN/TAZOBACTAM 2.25 GM in IV NORMAL SALINE 50ML 50 ML IV SCH ×3 (05:39→23:23)
[2017-04-05 06:53] LABS: BASO # 0.3 x10^3/uL (0.0-0.2); BASO % 2 % (0-3); EOS % 2 % (0-3); LYMPH # 1.5 x10^3/uL (1.0-4.8); LYMPH % 9 % (24-48); MEAN CORPUSCULAR HEMOGLOBIN 29 pg (25-35); MEAN CORPUSCULAR HGB CONC 32 g/dL (31-37); MEAN CORPUSCULAR VOLUME 90 fL (79-100); MONO % 7 % (0-9); NEUT % 82 % (31-73); PLATELET COUNT 149 x10^3/uL (140-400); RED BLOOD COUNT 2.22 x10^6/uL (4.30-5.70); RED CELL DISTRIBUTION WIDTH 14.9 % (11.5-14.5); WHITE BLOOD COUNT 17.7 x10^3/uL (4.0-11.0)
[2017-04-05 06:55] LABS: HEMOGLOBIN 6.5 g/dL (13.0-17.5)
[2017-04-05 06:56] LABS: HEMATOCRIT 20.1 % (39.0-53.0)
[2017-04-05] MEDS: FERROUS SULFATE 325 MG TABLET. PO SCH (07:10)
[2017-04-05] MEDS: FOLIC/VIT B COMP W-C (RENAL) TABLET. PO SCH (07:10)
[2017-04-05] MEDS: ASPIRIN ENTERIC COATED 81 MG TABLET.DR. PO SCH (07:10)
[2017-04-05] MEDS: CARVEDILOL 6.25 MG TABLET. PO SCH ×2 (07:12→17:00)
[2017-04-05] MEDS: MORPHINE SULFATE 2 MG/ML DISP.SYRIN. IV PRN (07:15)
[2017-04-05 07:16] LABS: CALCIUM 8.5 mg/dL (8.5-10.1); CREATININE 4.5 mg/dL (0.7-1.3); GFR 16.5; PHOSPHORUS 4.5 mg/dL (2.6-4.7); POTASSIUM 3.9 mmol/L (3.5-5.1)
[2017-04-05] MEDS: PANTOPRAZOLE 40 MG TABLET.DR. PO SCH (07:16)
[2017-04-05] MEDS: SODIUM BICARBONATE 650 MG TABLET. PO SCH ×2 (07:22→21:14)
[2017-04-05] MEDS: FLUTICASONE 50MCG/NASAL SPRAY 16GM BOTTLE. NS SCH ×2 (07:23→21:25)
[2017-04-05] MEDS: INSULIN ASPART 300 UNITS/3 ML INSULN.PEN SQ SCH ×6 (07:25→17:00)
[2017-04-05] MEDS: oxyCODONE IR 5 MG TABLET PO PRN (08:17)
[2017-04-05] MEDS: DEXTROSE 50% 25 GM / 50ML DISP.SYRIN. IV PRN (08:31)
--- NOTE | 2017-04-05 09:16 | PDOC ---
SURGICAL PROGRESS NOTE Subjective He has expected incisional discomfort; although, relatively comfortable. Vital Signs Vital Signs Date Time Temp Pulse Resp B/P (MAP) Pulse Ox O2 Delivery O2 Flow Rate FiO2 04/05/17 08:17 14 Room Air 04/05/17 08:00 97.9 82 96/48 (64) 96 97.9 04/05/17 07:00 2.0 General: Alert, No acute distress Heart: Regular rate Extremities: Other (Open wound on right lower leg extending onto the posterior aspect of the right heel. All of the foot except the posterior portion of the calcaneous and skin removed. Some bleeding overnight. Wound inspected today. No active bleeding.) Labs Hgb 6.9 Problem List Problems Medical Problems: (1) End stage renal disease Status: Acute (2) Hypertension Status: Acute (3) Septic shock Status: Acute Assessment/Plan IMP: Right foot abscess s/p resection of 90% of the foot DM Renal failure REC: Continue IV abx and local wound care. He needs conversion to a right BKA. I discussed the surgical findings and showed him the residual wound. Despite my recommendations, he do NOT wish to proceed with below knee amputation at this time. Would continue xeroform gauze and dressings to the right foot. Will continue to discuss with him options. The current residual foot does not have enough surface area for standing. Problems: NICOLE BRANCH MD Apr 05, 2017 09:16
--- NOTE | 2017-04-05 10:36 | PDOC ---
Infectious Disease Note Subjective Subjective Comfortable, pain controlled ROS ROS GEN: Denies fevers, chills, aches CV: Denies chest pain RESP: Denies shortness of air, cough GI: Denies upset stomach or loose stools Vital Sign Vital Signs Vital Signs Date Time Temp Pulse Resp B/P (MAP) Pulse Ox O2 Delivery O2 Flow Rate FiO2 04/05/17 10:00 77 18 90/47 (61) 96 Room Air 04/05/17 08:00 97.9 97.9 04/05/17 07:00 2.0 Physical Exam PHYSICAL EXAM GENERAL: Propped up in bed, NAD, Eating Oral cavity dry LUNGS: Clear to auscultation. HEART: Normal S1 and S2. ABDOMEN: Nondistended, soft, nontender. Positive bowel sounds. EXTREMITIES: Previous left BKA. Right foot dressing dry and intact, recently changed SKIN: Without rash. NEUROLOGIC: Alert and coop RIJ (10-6). Clean. Labs Lab Laboratory Tests Test 04/04/17 11:44 04/04/17 16:40 04/04/17 19:19 04/04/17 19:35 Glucose (Fingerstick) 142 mg/dL (70-99) 191 mg/dL (70-99) 188 mg/dL (70-99) White Blood Count 19.6 x10^3/uL (4.0-11.0) Red Blood Count 2.56 x10^6/uL (4.30-5.70) Hemoglobin 7.6 g/dL (13.0-17.5) Hematocrit 23.2 % (39.0-53.0) Mean Corpuscular Volume 91 fL (79-100) Mean Corpuscular Hemoglobin 30 pg (25-35) Mean Corpuscular Hemoglobin Concent 33 g/dL (31-37) Red Cell Distribution Width 14.6 % (11.5-14.5) Platelet Count 174 x10^3/uL (140-400) Prothrombin Time 16.8 SEC (11.7-14.0) Prothromb Time International Ratio 1.5 (0.8-1.1) Activated Partial Thromboplast Time 39 SEC (24-38) Test 04/04/17 22:02 04/05/17 06:30 04/05/17 07:23 04/05/17 08:15 Glucose (Fingerstick) 167 mg/dL (70-99) 66 mg/dL (70-99) 69 mg/dL (70-99) White Blood Count 17.7 x10^3/uL (4.0-11.0) Red Blood Count 2.22 x10^6/uL (4.30-5.70) Hemoglobin 6.5 g/dL (13.0-17.5) Hematocrit 20.1 % (39.0-53.0) Mean Corpuscular Volume 90 fL (79-100) Mean Corpuscular Hemoglobin 29 pg (25-35) Mean Corpuscular Hemoglobin Concent 32 g/dL (31-37) Red Cell Distribution Width 14.9 % (11.5-14.5) Platelet Count 149 x10^3/uL (140-400) Neutrophils (%) (Auto) 82 % (31-73) Lymphocytes (%) (Auto) 9 % (24-48) Monocytes (%) (Auto) 7 % (0-9) Eosinophils (%) (Auto) 2 % (0-3) Basophils (%) (Auto) 2 % (0-3) Neutrophils # (Auto) 14.4 x10^3uL (1.8-7.7) Lymphocytes # (Auto) 1.5 x10^3/uL (1.0-4.8) Monocytes # (Auto) 1.2 x10^3/uL (0.0-1.1) Eosinophils # (Auto) 0.3 x10^3/uL (0.0-0.7) Basophils # (Auto) 0.3 x10^3/uL (0.0-0.2) Sodium Level 141 mmol/L (136-145) Potassium Level 3.9 mmol/L (3.5-5.1) Chloride Level 102 mmol/L (98-107) Carbon Dioxide Level 32 mmol/L (21-32) Anion Gap 7 (6-14) Blood Urea Nitrogen 21 mg/dL (8-26) Creatinine 4.5 mg/dL (0.7-1.3) Estimated GFR (Cockcroft-Gault) 16.5 Glucose Level 79 mg/dL (70-99) Calcium Level 8.5 mg/dL (8.5-10.1) Phosphorus Level 4.5 mg/dL (2.6-4.7) Albumin 2.0 g/dL (3.4-5.0) Test 04/05/17 09:02 Glucose (Fingerstick) 120 mg/dL (70-99) Micro BLD CULT RESULT 1 Preliminary Beta hemolytic Streptococcus, group B Objective Assessment Necrotizing fasciitis and osteomyelitis of right foot, s/p open TMA debridement , 03/28. Intra-op cultures group B strep, Kleb oxytoca (R amp), & bacteroides s/p additional debridement of necrotic and infected necrotizing infection right foot to include necrotic skin, subcutaneous tissue, fascia, tendons and exposed bone, 04/04. Most of foot resected. Group B Strep bacteremia, POA, 03/28. Leukocytosis - stable Anemia NSTEMI CKD/HD Diabetes hx: MSSA, PSA & Providencia Plan Plan of Care continue Zosyn Monitor WBC, temp Refusing BKA D/w family Attending Co-Sign Attending Co-Sign The patient was seen and interviewed as well as examined at the bedside. The chart was reviewed. The case was discussed. Agree with the plan of care. DONNY DIALLO APRN Apr 05, 2017 10:36 JOSEFA MARIN MD Apr 05, 2017 13:57
--- NOTE | 2017-04-05 11:29 | PDOC ---
IM PROGRESS NOTES- Subjective Subjective No pain or dyspnea. sleepy,less responsive.Unable to do full systems review. Objective Vitals Vital Signs Date Time Temp Pulse Resp B/P (MAP) Pulse Ox O2 Delivery O2 Flow Rate FiO2 04/05/17 11:00 98.0 75 17 95/53 (67) 96 Room Air 98.0 04/05/17 07:00 2.0 Input & Output Intake and Output 04/06/17 07:00 Intake Total 330 ml Balance 330 ml Blood Product IV Normal Saline Flush 330 ml Physical Exam Physical Exam General appearance - sleepy,ill appearing, and in no distress and oriented to person, place, and time Mental Status - sleepy, oriented to person, place, and time, affect appropriate to mood Head - normal Chest - clear to auscultation, no wheezes, rales or rhonchi, symmetric air entry Heart - S1 and S2 normal Abdomen - soft, nontender, nondistended, no masses or organomegaly Neurological - alert and oriented Musculoskeletal - no muscular tenderness noted Extremities - decreased pedal edema,rt foot dressing,bleeding present,lt BKA Skin - warm and dry Labs Laboratory Tests Test 04/03/17 17:03 04/03/17 20:32 04/04/17 05:00 04/04/17 06:00 Glucose (Fingerstick) 192 mg/dL (70-99) 250 mg/dL (70-99) White Blood Count 19.3 x10^3/uL (4.0-11.0) Red Blood Count 2.85 x10^6/uL (4.30-5.70) Hemoglobin 8.5 g/dL (13.0-17.5) Hematocrit 25.8 % (39.0-53.0) Mean Corpuscular Volume 90 fL (79-100) Mean Corpuscular Hemoglobin 30 pg (25-35) Mean Corpuscular Hemoglobin Concent 33 g/dL (31-37) Red Cell Distribution Width 14.9 % (11.5-14.5) Platelet Count 194 x10^3/uL (140-400) Neutrophils (%) (Auto) 87 % (31-73) Lymphocytes (%) (Auto) 6 % (24-48) Monocytes (%) (Auto) 6 % (0-9) Eosinophils (%) (Auto) 1 % (0-3) Basophils (%) (Auto) 0 % (0-3) Neutrophils # (Auto) 16.9 x10^3uL (1.8-7.7) Lymphocytes # (Auto) 1.1 x10^3/uL (1.0-4.8) Monocytes # (Auto) 1.1 x10^3/uL (0.0-1.1) Eosinophils # (Auto) 0.2 x10^3/uL (0.0-0.7) Basophils # (Auto) 0.1 x10^3/uL (0.0-0.2) Sodium Level 137 mmol/L (136-145) Potassium Level 3.4 mmol/L (3.5-5.1) Chloride Level 97 mmol/L (98-107) Carbon Dioxide Level 30 mmol/L (21-32) Anion Gap 10 (6-14) Blood Urea Nitrogen 35 mg/dL (8-26) Creatinine 6.0 mg/dL (0.7-1.3) Estimated GFR (Cockcroft-Gault) 11.8 Glucose Level 278 mg/dL (70-99) Calcium Level 8.5 mg/dL (8.5-10.1) Phosphorus Level 4.6 mg/dL (2.6-4.7) Albumin 1.7 g/dL (3.4-5.0) Clostridium difficile Toxin (PCR) Negative (Negative) Test 04/04/17 07:19 04/04/17 11:44 04/04/17 16:40 04/04/17 19:19 Glucose (Fingerstick) 296 mg/dL (70-99) 142 mg/dL (70-99) 191 mg/dL (70-99) 188 mg/dL (70-99) Test 04/04/17 19:35 04/04/17 22:02 04/05/17 06:30 04/05/17 07:23 White Blood Count 19.6 x10^3/uL (4.0-11.0) 17.7 x10^3/uL (4.0-11.0) Red Blood Count 2.56 x10^6/uL (4.30-5.70) 2.22 x10^6/uL (4.30-5.70) Hemoglobin 7.6 g/dL (13.0-17.5) 6.5 g/dL (13.0-17.5) Hematocrit 23.2 % (39.0-53.0) 20.1 % (39.0-53.0) Mean Corpuscular Volume 91 fL (79-100) 90 fL (79-100) Mean Corpuscular Hemoglobin 30 pg (25-35) 29 pg (25-35) Mean Corpuscular Hemoglobin Concent 33 g/dL (31-37) 32 g/dL (31-37) Red Cell Distribution Width 14.6 % (11.5-14.5) 14.9 % (11.5-14.5) Platelet Count 174 x10^3/uL (140-400) 149 x10^3/uL (140-400) Prothrombin Time 16.8 SEC (11.7-14.0) Prothromb Time International Ratio 1.5 (0.8-1.1) Activated Partial Thromboplast Time 39 SEC (24-38) Glucose (Fingerstick) 167 mg/dL (70-99) 66 mg/dL (70-99) Neutrophils (%) (Auto) 82 % (31-73) Lymphocytes (%) (Auto) 9 % (24-48) Monocytes (%) (Auto) 7 % (0-9) Eosinophils (%) (Auto) 2 % (0-3) Basophils (%) (Auto) 2 % (0-3) Neutrophils # (Auto) 14.4 x10^3uL (1.8-7.7) Lymphocytes # (Auto) 1.5 x10^3/uL (1.0-4.8) Monocytes # (Auto) 1.2 x10^3/uL (0.0-1.1) Eosinophils # (Auto) 0.3 x10^3/uL (0.0-0.7) Basophils # (Auto) 0.3 x10^3/uL (0.0-0.2) Sodium Level 141 mmol/L (136-145) Potassium Level 3.9 mmol/L (3.5-5.1) Chloride Level 102 mmol/L (98-107) Carbon Dioxide Level 32 mmol/L (21-32) Anion Gap 7 (6-14) Blood Urea Nitrogen 21 mg/dL (8-26) Creatinine 4.5 mg/dL (0.7-1.3) Estimated GFR (Cockcroft-Gault) 16.5 Glucose Level 79 mg/dL (70-99) Calcium Level 8.5 mg/dL (8.5-10.1) Phosphorus Level 4.5 mg/dL (2.6-4.7) Albumin 2.0 g/dL (3.4-5.0) Test 04/05/17 08:15 04/05/17 09:02 Glucose (Fingerstick) 69 mg/dL (70-99) 120 mg/dL (70-99) Laboratory Tests Test 04/04/17 11:44 04/04/17 16:40 04/04/17 19:19 04/04/17 19:35 Glucose (Fingerstick) 142 mg/dL (70-99) 191 mg/dL (70-99) 188 mg/dL (70-99) White Blood Count 19.6 x10^3/uL (4.0-11.0) Red Blood Count 2.56 x10^6/uL (4.30-5.70) Hemoglobin 7.6 g/dL (13.0-17.5) Hematocrit 23.2 % (39.0-53.0) Mean Corpuscular Volume 91 fL (79-100) Mean Corpuscular Hemoglobin 30 pg (25-35) Mean Corpuscular Hemoglobin Concent 33 g/dL (31-37) Red Cell Distribution Width 14.6 % (11.5-14.5) Platelet Count 174 x10^3/uL (140-400) Prothrombin Time 16.8 SEC (11.7-14.0) Prothromb Time International Ratio 1.5 (0.8-1.1) Activated Partial Thromboplast Time 39 SEC (24-38) Test 04/04/17 22:02 04/05/17 06:30 04/05/17 07:23 04/05/17 08:15 Glucose (Fingerstick) 167 mg/dL (70-99) 66 mg/dL (70-99) 69 mg/dL (70-99) White Blood Count 17.7 x10^3/uL (4.0-11.0) Red Blood Count 2.22 x10^6/uL (4.30-5.70) Hemoglobin 6.5 g/dL (13.0-17.5) Hematocrit 20.1 % (39.0-53.0) Mean Corpuscular Volume 90 fL (79-100) Mean Corpuscular Hemoglobin 29 pg (25-35) Mean Corpuscular Hemoglobin Concent 32 g/dL (31-37) Red Cell Distribution Width 14.9 % (11.5-14.5) Platelet Count 149 x10^3/uL (140-400) Neutrophils (%) (Auto) 82 % (31-73) Lymphocytes (%) (Auto) 9 % (24-48) Monocytes (%) (Auto) 7 % (0-9) Eosinophils (%) (Auto) 2 % (0-3) Basophils (%) (Auto) 2 % (0-3) Neutrophils # (Auto) 14.4 x10^3uL (1.8-7.7) Lymphocytes # (Auto) 1.5 x10^3/uL (1.0-4.8) Monocytes # (Auto) 1.2 x10^3/uL (0.0-1.1) Eosinophils # (Auto) 0.3 x10^3/uL (0.0-0.7) Basophils # (Auto) 0.3 x10^3/uL (0.0-0.2) Sodium Level 141 mmol/L (136-145) Potassium Level 3.9 mmol/L (3.5-5.1) Chloride Level 102 mmol/L (98-107) Carbon Dioxide Level 32 mmol/L (21-32) Anion Gap 7 (6-14) Blood Urea Nitrogen 21 mg/dL (8-26) Creatinine 4.5 mg/dL (0.7-1.3) Estimated GFR (Cockcroft-Gault) 16.5 Glucose Level 79 mg/dL (70-99) Calcium Level 8.5 mg/dL (8.5-10.1) Phosphorus Level 4.5 mg/dL (2.6-4.7) Albumin 2.0 g/dL (3.4-5.0) Test 04/05/17 09:02 Glucose (Fingerstick) 120 mg/dL (70-99) Meds Current Medications Albumin Human 500 ml @ 125 mls/hr 1X ONCE IV Last administered on 04/04/17t 20:05; Start 04/04/17 at 19:45; Stop 04/04/17 at 23:44; Status DC Cellulose 1 each STK-MED ONCE .ROUTE ; Start 04/04/17 at 17:47; Stop 04/04/17 at 18:48; Status DC Cellulose 1 each STK-MED ONCE .ROUTE ; Start 04/04/17 at 17:48; Stop 04/04/17 at 18:48; Status DC Cellulose 1 each STK-MED ONCE .ROUTE Last administered on 04/04/17t 18:13; Start 04/04/17 at 17:49; Stop 04/04/17 at 18:50; Status DC Fentanyl Citrate (Fentanyl 2ml Vial) 25 mcg PRN Q5MIN PRN IV MILD PAIN; Start 04/04/17 at 18:45; Stop 04/05/17 at 18:44 Fentanyl Citrate (Fentanyl 2ml Vial) 50 mcg PRN Q5MIN PRN IV MODERATE PAIN; Start 04/04/17 at 18:45; Stop 04/05/17 at 18:44 Hydromorphone HCl (Dilaudid) 0.5 mg PRN Q10MIN PRN IV SEV PAIN, Second choice; Start 04/04/17 at 18:45; Stop 04/05/17 at 18:44 Lidocaine HCl (Lidocaine Pf 2% Vial) 5 ml STK-MED ONCE .ROUTE ; Start 04/04/17 at 17:45; Stop 04/04/17 at 17:46; Status DC Lidocaine HCl (Xylocaine-Mpf 1% Vial) 2 ml PRN 1X PRN ID PRIOR TO IV START; Start 04/04/17 at 18:45; Stop 04/05/17 at 18:44 Morphine Sulfate 1 mg PRN Q10MIN PRN IV SEVERE PAIN; Start 04/04/17 at 18:45; Stop 04/05/17 at 18:44 Morphine Sulfate 10 mg STK-MED ONCE .ROUTE ; Start 04/04/17 at 18:56; Stop at 18:57; Status DC Ondansetron HCl (Zofran) 4 mg PRN Q6HRS PRN IV NAUSEA/VOMITING; Start at 18:45; Stop 04/05/17 at 18:44 Phenylephrine HCl 1 mg STK-MED ONCE IV ; Start 10/13/17 at 18:16; Stop at 18:17; Status DC Phenylephrine HCl 1 mg STK-MED ONCE IV ; Start 04/04/17 at 18:36; Stop at 18:37; Status DC Phenylephrine HCl (Du-Synephrine Inj) 10 mg STK-MED ONCE .ROUTE ; Start at 18:44; Stop 04/04/17 at 18:45; Status DC Phenylephrine HCl 80 mg/Sodium Chloride 258 ml @ 0 mls/hr CONT PRN IV SEE I/O RECORD; Start 04/04/17 at 21:00 Prochlorperazine Edisylate (Compazine) 5 mg PACU PRN PRN IV NAUSEA, MRX1; Start 04/04/17 at 18:45; Stop 04/05/17 at 18:44 Propofol 20 ml @ As Directed STK-MED ONCE IV ; Start 04/04/17 at 17:45; Stop 04/04/17 at 17:46; Status DC Ringer's Solution 1,000 ml @ 0 mls/hr Q0M IV ; Start 04/04/17 at 18:34; Stop 04/05/17 at 06:33; Status DC Sevoflurane (Ultane) 30 ml STK-MED ONCE IH ; Start 04/04/17 at 17:45; Stop at 17:46; Status DC Assessment Assessment 1. Sepsis. Blood culture shows strep group b 2. Necrotizing fasciitis of the right foot. 3. Gangrene of the right foot. 4. Osteomyelitis of the right foot. 5. Status post excision of the necrotic tissue as well as infected bones in the right forefoot in the setting of previous right transmetatarsal amputation. 6. Non-ST elevation myocardial infarction. 7. Diabetes mellitus type 2, insulin-dependent, not controlled. 8. End-stage renal disease, on hemodialysis. 9. Peripheral artery disease. 10. Noncompliance. The patient had missed dialysis x 2 before this admission. 11. Moderate protein calorie malnutrition. 12. acute on chronic anemia that is multifactorial including blood loss and end- stage renal disease 13. 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 14. chronic right maxillary sinusitis. PLAN: wbc 17.7 went down on Zosyn Patient declined amputation.Had another debridemnt rt foot. Has some bleeding. Acute on chronic blood loss anemia- Hb 6.5- transfuse one unit today. Hypotension - monitor- BP in 80's. select screen Zofran for n/v. s/p rt foot surgery. Plan Plan For more details regarding further plans, please refer to the orders. ANDREY VELASQUEZ MD Apr 05, 2017 11:29
--- NOTE | 2017-04-05 14:53 | PDOC ---
PROGRESS NOTES Subjective Subjective SEEN IN FOLLOW UP OF ESRD. TX TO ICU DUE TO HYPOTENSION Objective Objective Vital Signs Date Time Temp Pulse Resp B/P (MAP) Pulse Ox O2 Delivery O2 Flow Rate FiO2 04/05/17 12:11 98.0 75 18 123/67 98.0 04/05/17 12:00 Room Air 04/05/17 11:50 98 04/05/17 07:00 2.0 Intake and Output 04/06/17 07:00 Intake Total 660 ml Balance 660 ml Blood Product IV Normal Saline Flush 660 ml Physical Exam Abdomen: Normal bowel sounds, Soft, No tenderness, No hepatosplenomegaly, No masses Heart: Regular rate, Normal S1, Normal S2, No murmurs, Gallops Extremities: Other (POST OP) General: Alert, Oriented X3, Cooperative, No acute distress Lungs: Clear to auscultation, Normal air movement Psych/Mental Status: Mental status NL, Mood NL Diagnosis DIABETES: Type II (Uncontrolled) RENAL FAILURE: ESRD Assessment Assessment Problems Medical Problems: (1) End stage renal disease Status: Acute (2) Hypertension Status: Acute (3) Septic shock Status: Acute Plan Plan of Care CONT WOUND CARE AND ANTIBIOTICS. FOR DIALYSIS FRIDAY Comment Review of Relevant I have reviewed the following items gniny (where applicable) has been applied. Labs Laboratory Tests Test 04/03/17 17:03 04/03/17 20:32 04/04/17 05:00 04/04/17 06:00 Glucose (Fingerstick) 192 mg/dL (70-99) 250 mg/dL (70-99) White Blood Count 19.3 x10^3/uL (4.0-11.0) Red Blood Count 2.85 x10^6/uL (4.30-5.70) Hemoglobin 8.5 g/dL (13.0-17.5) Hematocrit 25.8 % (39.0-53.0) Mean Corpuscular Volume 90 fL (79-100) Mean Corpuscular Hemoglobin 30 pg (25-35) Mean Corpuscular Hemoglobin Concent 33 g/dL (31-37) Red Cell Distribution Width 14.9 % (11.5-14.5) Platelet Count 194 x10^3/uL (140-400) Neutrophils (%) (Auto) 87 % (31-73) Lymphocytes (%) (Auto) 6 % (24-48) Monocytes (%) (Auto) 6 % (0-9) Eosinophils (%) (Auto) 1 % (0-3) Basophils (%) (Auto) 0 % (0-3) Neutrophils # (Auto) 16.9 x10^3uL (1.8-7.7) Lymphocytes # (Auto) 1.1 x10^3/uL (1.0-4.8) Monocytes # (Auto) 1.1 x10^3/uL (0.0-1.1) Eosinophils # (Auto) 0.2 x10^3/uL (0.0-0.7) Basophils # (Auto) 0.1 x10^3/uL (0.0-0.2) Sodium Level 137 mmol/L (136-145) Potassium Level 3.4 mmol/L (3.5-5.1) Chloride Level 97 mmol/L (98-107) Carbon Dioxide Level 30 mmol/L (21-32) Anion Gap 10 (6-14) Blood Urea Nitrogen 35 mg/dL (8-26) Creatinine 6.0 mg/dL (0.7-1.3) Estimated GFR (Cockcroft-Gault) 11.8 Glucose Level 278 mg/dL (70-99) Calcium Level 8.5 mg/dL (8.5-10.1) Phosphorus Level 4.6 mg/dL (2.6-4.7) Albumin 1.7 g/dL (3.4-5.0) Clostridium difficile Toxin (PCR) Negative (Negative) Test 04/04/17 07:19 04/04/17 11:44 04/04/17 16:40 04/04/17 19:19 Glucose (Fingerstick) 296 mg/dL (70-99) 142 mg/dL (70-99) 191 mg/dL (70-99) 188 mg/dL (70-99) Test 04/04/17 19:35 04/04/17 22:02 04/05/17 06:30 04/05/17 07:23 White Blood Count 19.6 x10^3/uL (4.0-11.0) 17.7 x10^3/uL (4.0-11.0) Red Blood Count 2.56 x10^6/uL (4.30-5.70) 2.22 x10^6/uL (4.30-5.70) Hemoglobin 7.6 g/dL (13.0-17.5) 6.5 g/dL (13.0-17.5) Hematocrit 23.2 % (39.0-53.0) 20.1 % (39.0-53.0) Mean Corpuscular Volume 91 fL (79-100) 90 fL (79-100) Mean Corpuscular Hemoglobin 30 pg (25-35) 29 pg (25-35) Mean Corpuscular Hemoglobin Concent 33 g/dL (31-37) 32 g/dL (31-37) Red Cell Distribution Width 14.6 % (11.5-14.5) 14.9 % (11.5-14.5) Platelet Count 174 x10^3/uL (140-400) 149 x10^3/uL (140-400) Prothrombin Time 16.8 SEC (11.7-14.0) Prothromb Time International Ratio 1.5 (0.8-1.1) Activated Partial Thromboplast Time 39 SEC (24-38) Glucose (Fingerstick) 167 mg/dL (70-99) 66 mg/dL (70-99) Neutrophils (%) (Auto) 82 % (31-73) Lymphocytes (%) (Auto) 9 % (24-48) Monocytes (%) (Auto) 7 % (0-9) Eosinophils (%) (Auto) 2 % (0-3) Basophils (%) (Auto) 2 % (0-3) Neutrophils # (Auto) 14.4 x10^3uL (1.8-7.7) Lymphocytes # (Auto) 1.5 x10^3/uL (1.0-4.8) Monocytes # (Auto) 1.2 x10^3/uL (0.0-1.1) Eosinophils # (Auto) 0.3 x10^3/uL (0.0-0.7) Basophils # (Auto) 0.3 x10^3/uL (0.0-0.2) Sodium Level 141 mmol/L (136-145) Potassium Level 3.9 mmol/L (3.5-5.1) Chloride Level 102 mmol/L (98-107) Carbon Dioxide Level 32 mmol/L (21-32) Anion Gap 7 (6-14) Blood Urea Nitrogen 21 mg/dL (8-26) Creatinine 4.5 mg/dL (0.7-1.3) Estimated GFR (Cockcroft-Gault) 16.5 Glucose Level 79 mg/dL (70-99) Calcium Level 8.5 mg/dL (8.5-10.1) Phosphorus Level 4.5 mg/dL (2.6-4.7) Albumin 2.0 g/dL (3.4-5.0) Test 04/05/17 08:15 04/05/17 09:02 04/05/17 11:25 04/05/17 12:31 Glucose (Fingerstick) 69 mg/dL (70-99) 120 mg/dL (70-99) 127 mg/dL (70-99) 127 mg/dL (70-99) Laboratory Tests Test 04/04/17 16:40 04/04/17 19:19 04/04/17 19:35 04/04/17 22:02 Glucose (Fingerstick) 191 mg/dL (70-99) 188 mg/dL (70-99) 167 mg/dL (70-99) White Blood Count 19.6 x10^3/uL (4.0-11.0) Red Blood Count 2.56 x10^6/uL (4.30-5.70) Hemoglobin 7.6 g/dL (13.0-17.5) Hematocrit 23.2 % (39.0-53.0) Mean Corpuscular Volume 91 fL (79-100) Mean Corpuscular Hemoglobin 30 pg (25-35) Mean Corpuscular Hemoglobin Concent 33 g/dL (31-37) Red Cell Distribution Width 14.6 % (11.5-14.5) Platelet Count 174 x10^3/uL (140-400) Prothrombin Time 16.8 SEC (11.7-14.0) Prothromb Time International Ratio 1.5 (0.8-1.1) Activated Partial Thromboplast Time 39 SEC (24-38) Test 04/05/17 06:30 04/05/17 07:23 04/05/17 08:15 04/05/17 09:02 White Blood Count 17.7 x10^3/uL (4.0-11.0) Red Blood Count 2.22 x10^6/uL (4.30-5.70) Hemoglobin 6.5 g/dL (13.0-17.5) Hematocrit 20.1 % (39.0-53.0) Mean Corpuscular Volume 90 fL (79-100) Mean Corpuscular Hemoglobin 29 pg (25-35) Mean Corpuscular Hemoglobin Concent 32 g/dL (31-37) Red Cell Distribution Width 14.9 % (11.5-14.5) Platelet Count 149 x10^3/uL (140-400) Neutrophils (%) (Auto) 82 % (31-73) Lymphocytes (%) (Auto) 9 % (24-48) Monocytes (%) (Auto) 7 % (0-9) Eosinophils (%) (Auto) 2 % (0-3) Basophils (%) (Auto) 2 % (0-3) Neutrophils # (Auto) 14.4 x10^3uL (1.8-7.7) Lymphocytes # (Auto) 1.5 x10^3/uL (1.0-4.8) Monocytes # (Auto) 1.2 x10^3/uL (0.0-1.1) Eosinophils # (Auto) 0.3 x10^3/uL (0.0-0.7) Basophils # (Auto) 0.3 x10^3/uL (0.0-0.2) Sodium Level 141 mmol/L (136-145) Potassium Level 3.9 mmol/L (3.5-5.1) Chloride Level 102 mmol/L (98-107) Carbon Dioxide Level 32 mmol/L (21-32) Anion Gap 7 (6-14) Blood Urea Nitrogen 21 mg/dL (8-26) Creatinine 4.5 mg/dL (0.7-1.3) Estimated GFR (Cockcroft-Gault) 16.5 Glucose Level 79 mg/dL (70-99) Calcium Level 8.5 mg/dL (8.5-10.1) Phosphorus Level 4.5 mg/dL (2.6-4.7) Albumin 2.0 g/dL (3.4-5.0) Glucose (Fingerstick) 66 mg/dL (70-99) 69 mg/dL (70-99) 120 mg/dL (70-99) Test 04/05/17 11:25 04/05/17 12:31 Glucose (Fingerstick) 127 mg/dL (70-99) 127 mg/dL (70-99) Microbiology 03/28/17 Blood Culture - Final, Complete NO GROWTH AFTER 5 DAYS 04/04/17 Gram Stain - Final, Complete Medications Current Medications Vancomycin HCl (Vanco Per Pharmacy) 1 each PRN DAILY PRN MC SEE COMMENTS; Start 03/28/17 at 10:30; Stop 03/28/17 at 15:15; Status DC Piperacillin Sod/ Tazobactam Sod (Zosyn Per Pharmacy) 1 each PRN DAILY PRN MC SEE COMMENTS; Start 03/28/17 at 10:30 Vancomycin HCl 1.75 gm/Sodium Chloride 500 ml @ 250 mls/hr 1X ONCE IV Last administered on 03/28/17 11:00; Start 03/28/17 at 11:00; Stop 03/28/17 at 12:59 ; Status DC Piperacillin Sod/ Tazobactam Sod 2.25 gm/Sodium Chloride 50 ml @ 100 mls/hr 1X ONCE IV Last administered on 03/28/17 11:34; Start 03/28/17 at 11:00; Stop 03/28/17 at 11:29; Status DC Sodium Chloride 500 ml @ 500 mls/hr 1X ONCE IV ; Start 03/28/17 at 11:00; Stop 03/28/17 at 11:37; Status DC Gentamicin Sulfate 320 mg/ Sodium Chloride 108 ml @ 108 mls/hr 1X ONCE IV Last administered on 03/28/17 14:56; Start 03/28/17 at 11:30; Stop 03/28/17 at 12:29; Status DC Sodium Chloride 1,000 ml @ 500 mls/hr 1X ONCE IV Last administered on 11:40; Start 03/28/17 at 11:45; Stop 03/28/17 at 13:44; Status DC Norepinephrine Bitartrate 250 ml @ 0 mls/hr CONT PRN IV SEE I/O RECORD Last administered on 03/28/17 17:20; Start 03/28/17 at 12:30 Linezolid 300 ml @ 300 mls/hr Q12HR IV Last administered on 04/01/17 08:48; Start 03/28/17 at 21:00; Stop 04/01/17 at 09:09; Status DC Piperacillin Sod/ Tazobactam Sod 2.25 gm/Sodium Chloride 50 ml @ 100 mls/hr Q8HRS IV Last administered on 04/05/17t 14:00; Start 03/28/17 at 21:00 Desflurane (Suprane) 60 ml STK-MED ONCE IH ; Start 03/28/17 at 16:19; Stop 03/28 at 16:20; Status DC Fentanyl Citrate (Fentanyl 2ml Vial) 100 mcg STK-MED ONCE .ROUTE ; Start at 16:19; Stop 03/28/17 at 16:20; Status DC Propofol 20 ml @ As Directed STK-MED ONCE IV ; Start 03/28/17 at 16:19; Stop at 16:20; Status DC Lidocaine HCl (Lidocaine Pf 2% Vial) 5 ml STK-MED ONCE .ROUTE ; Start 03/28/17 at 16:19; Stop 03/28/17 at 16:20; Status DC Dexamethasone Sodium Phosphate (Decadron) 20 mg STK-MED ONCE .ROUTE ; Start 03/28/17 at 16:19; Stop 03/28/17 at 16:20; Status DC Ondansetron HCl (Zofran) 4 mg STK-MED ONCE .ROUTE ; Start 03/28/17 at 16:19; Stop 03/28/17 at 16:20; Status DC Ondansetron HCl (Zofran) 4 mg STK-MED ONCE .ROUTE ; Start 03/28/17 at 16:19; Stop 03/28/17 at 16:20; Status DC Phenylephrine HCl 1 mg STK-MED ONCE IV ; Start 03/28/17 at 16:21; Stop 03/28/17 at 16:22; Status DC Ondansetron HCl (Zofran) 4 mg PRN Q6HRS PRN IV NAUSEA/VOMITING; Start 03/28/17 at 16:45; Stop 03/29/17 at 16:44; Status DC Fentanyl Citrate (Fentanyl 2ml Vial) 25 mcg PRN Q5MIN PRN IV MILD PAIN; Start 03/28/17 at 16:45; Stop 03/29/17 at 16:44; Status DC Fentanyl Citrate (Fentanyl 2ml Vial) 50 mcg PRN Q5MIN PRN IV MODERATE PAIN Last administered on 03/28/17 22:01; Start 03/28/17 at 16:45; Stop 03/29/17 at 16:44; Status DC Morphine Sulfate 1 mg PRN Q10MIN PRN IV SEVERE PAIN; Start 03/28/17 at 16:45; Stop 03/29/17 at 16:44; Status DC Ringer's Solution 1,000 ml @ 30 mls/hr Q24H IV ; Start 03/28/17 at 16:36; Stop 03/29/17 at 04:35; Status DC Lidocaine HCl (Xylocaine-Mpf 1% Vial) 2 ml 1X PRN PRN ID IV START; Start at 16:45; Stop 03/29/17 at 16:44; Status DC Hydromorphone HCl (Dilaudid) 0.5 mg PRN Q10MIN PRN IV SEV PAIN, Second choice; Start 03/28/17 at 16:45; Stop 03/29/17 at 16:44; Status DC Prochlorperazine Edisylate (Compazine) 5 mg PACU PRN PRN IV NAUSEA, MRX1; Start 03/28/17 at 16:45; Stop 03/29/17 at 16:44; Status DC Acetaminophen (Tylenol) 500 mg QID PRN PO PAIN Last administered on 03/30/17 17:44; Start 03/28/17 at 17:00 Aspirin (Ecotrin) 81 mg [id number] PO Last administered on 04/05/17 07:10; Start 03/29/17 at 08:00 Atorvastatin Calcium (Lipitor) 20 mg QHS PO Last administered on 04/04/17 22: 11; Start 03/28/17 at 21:00 Carvedilol (Coreg) 6.25 mg BIDWMEALS PO Last administered on 04/05/17 07:12; Start 03/28/17 at 17:00 Darbepoetin Greg (Aranesp) 60 mcg WEEKLYHS SQ Last administered on 04/04/17 22:14; Start 03/28/17 at 21:00 Ferrous Sulfate (Feosol) 325 mg DAILY PO Last administered on 04/05/17 07:10 ; Start 03/29/17 at 09:00 Insulin Aspart (NovoLOG) 12 units TIDWMEALS SQ Last administered on 04/05/17 12:35; Start 03/28/17 at 17:00 Ondansetron HCl (Zofran Odt) 4 mg Q4H PRN PO NAUSEA/VOMITING Last administered on 03/31/17 10:57; Start 03/28/17 at 17:00 Pantoprazole Sodium (Protonix) 40 mg DAILYAC PO Last administered on 07:16; Start 03/29/17 at 07:30 Sodium Bicarbonate (Sodium Bicarbonate) 650 mg BID PO Last administered on 07:22; Start 03/28/17 at 21:00 Fluticasone Propionate (Flonase) 2 spray BID NS Last administered on 07:23; Start 03/28/17 at 21:00 Insulin Detemir (Levemir) 15 units QHS SQ Last administered on 04/04/17 22:12 ; Start 03/28/17 at 21:00 Oxycodone HCl (Roxicodone) 5 mg PRN Q6HRS PRN PO PAIN Last administered on 08:17; Start 03/28/17 at 17:00 Vitamin B Complex/ Vitamin C (Mary-Lisa) 1 tab DAILY PO Last administered on 07:10; Start 03/29/17 at 09:00 Insulin Aspart (NovoLOG) 0-7 UNITS TIDWMEALS SQ Last administered on 03/28/17 18:07; Start 03/28/17 at 17:00; Stop 03/29/17 at 09:25; Status DC Dextrose (Dextrose 50%-Water Syringe) 12.5 gm PRN Q15MIN PRN IV SEE COMMENTS Last administered on 04/05/17 08:31; Start 03/28/17 at 17:00 Ephedrine Sulfate (Akovaz) 50 mg STK-MED ONCE .ROUTE ; Start 03/28/17 at 17:03; Stop 03/28/17 at 17:04; Status DC Mupirocin (Bactroban) 22 lesvia STK-MED ONCE NS ; Start 03/28/17 at 16:20; Stop at 17:20; Status DC Vancomycin HCl (Vanco Per Pharmacy) 1 each PRN DAILY PRN MC SEE COMMENTS Last administered on 03/28/17 19:38; Start 03/28/17 at 19:30; Stop 03/29/17 at 07:23 ; Status DC Vancomycin HCl 1 each 1X ONCE MC ; Start 03/29/17 at 16:00; Stop 03/29/17 at 16 :01; Status Cancel Sodium Chloride 1,000 ml @ 1,000 mls/hr Q1H PRN IV hypotension; Start 03/29/17 at 09:08; Stop 03/29/17 at 15:07; Status DC Sodium Chloride 1,000 ml @ 400 mls/hr Q2H30M PRN IV PATENCY; Start 03/29/17 at 09:08; Stop 03/29/17 at 21:07; Status DC Info (PHARMACY MONITORING -- do not chart) 1 each PRN DAILY PRN MC SEE COMMENTS ; Start 03/29/17 at 09:15; Status UNV Info (PHARMACY MONITORING -- do not chart) 1 each PRN DAILY PRN MC SEE COMMENTS ; Start 03/29/17 at 09:15; Stop 04/04/17 at 10:48; Status DC Insulin Aspart (NovoLOG) 0-7 UNITS TIDWMEALS SQ Last administered on 03/30/17 17:50; Start 03/29/17 at 12:00 Insulin Aspart (NovoLOG) 8 units 1X ONCE SQ Last administered on 03/29/17 09: 48; Start 03/29/17 at 09:30; Stop 03/29/17 at 09:31; Status DC Magnesium Sulfate/ Dextrose 50 ml @ 25 mls/hr PRN DAILY PRN IV for Mag < 1.7 on am labs; Start 03/29/17 at 10:30 Sodium Chloride 1,000 ml @ 1,000 mls/hr Q1H PRN IV hypotension; Start 03/31/17 at 08:55; Stop 03/31/17 at 14:54; Status DC Diphenhydramine HCl (Benadryl) 25 mg 1X PRN PRN IV ITCHING; Start 03/31/17 at 09:00; Stop 04/01/17 at 08:59; Status DC Sodium Chloride (Normal Saline Flush) 10 ml 1X PRN PRN IV AP catheter pack; Start 03/31/17 at 09:00; Stop 04/01/17 at 08:59; Status DC Sodium Chloride (Normal Saline Flush) 10 ml 1X PRN PRN IV [employer] catheter pack; Start 03/31/17 at 09:00; Stop 04/01/17 at 08:59; Status DC Sodium Chloride 1,000 ml @ 400 mls/hr Q2H30M PRN IV PATENCY; Start 03/31/17 at 08:55; Stop 03/31/17 at 20:54; Status DC Info (PHARMACY MONITORING -- do not chart) 1 each PRN DAILY PRN MC SEE COMMENTS ; Start 03/31/17 at 09:00; Status UNV Info (PHARMACY MONITORING -- do not chart) 1 each PRN DAILY PRN MC SEE COMMENTS ; Start 03/31/17 at 09:00; Status UNV Morphine Sulfate 2 mg PRN Q3HRS PRN IV PAIN Last administered on 04/05/17t 07: 15; Start 04/01/17 at 15:45 Sodium Chloride 1,000 ml @ 1,000 mls/hr Q1H PRN IV hypotension; Start at 08:31; Stop 04/02/17 at 14:30; Status DC Albumin Human 200 ml @ 200 mls/hr 1X PRN PRN IV Hypotension; Start 04/02/17 at 08:45; Stop 04/02/17 at 14:44; Status DC Acetaminophen (Tylenol) 500 mg 1X PRN PRN PO MILD PAIN / TEMP; Start 04/02/17 at 08:45; Stop 04/03/17 at 08:44; Status DC Diphenhydramine HCl (Benadryl) 25 mg 1X PRN PRN IV ITCHING; Start 04/02/17 at 08:45; Stop 04/03/17 at 08:44; Status DC Diphenhydramine HCl (Benadryl) 25 mg 1X PRN PRN IV ITCHING; Start 04/02/17 at 08:45; Stop 04/03/17 at 08:44; Status DC Labetalol HCl (Normodyne) 10 mg PRN Q1HR PRN IVP SBP > 180; Start 04/02/17 at 08:45; Stop 04/03/17 at 08:44; Status DC Clonidine HCl (Catapres) 0.1 mg 1X PRN PRN PO SBP > 180; Start 04/02/17 at 08: 45; Stop 04/03/17 at 08:44; Status DC Info (PHARMACY MONITORING -- do not chart) 1 each PRN DAILY PRN MC SEE COMMENTS ; Start 04/02/17 at 08:45; Stop 04/02/17 at 10:13; Status DC Alteplase, Recombinant (Cathflo) 4 mg 1X ONCE INT CAT Last administered on t 17:53; Start 04/02/17 at 18:00; Stop 04/02/17 at 18:01; Status DC Iodixanol (Visipaque 320) 100 ml STK-MED ONCE .ROUTE ; Start 04/03/17 at 10:48 ; Stop 04/03/17 at 10:49; Status DC Lidocaine/Sodium Bicarbonate (Buffered Lidocaine 1%) 20 ml STK-MED ONCE IJ ; Start 04/03/17 at 10:49; Stop 04/03/17 at 10:50; Status DC Iohexol (Omnipaque 300 Mg/ml) 100 ml STK-MED ONCE .ROUTE ; Start 04/03/17 at 10 :49; Stop 04/03/17 at 10:50; Status DC Iodixanol (Visipaque 320) 50 ml STK-MED ONCE .ROUTE ; Start 04/03/17 at 10:49; Stop 04/03/17 at 10:50; Status DC Heparin Sodium/ Sodium Chloride 1,500 ml @ As Directed STK-MED ONCE .ROUTE ; Start 04/03/17 at 10:49; Stop 04/03/17 at 10:50; Status DC Dextrose/Sodium Chloride 1,000 ml @ 50 mls/hr Q20H IV ; Start 04/03/17 at 12: 45; Stop 04/03/17 at 14:41; Status DC Fentanyl Citrate (Fentanyl 2ml Vial) 100 mcg STK-MED ONCE .ROUTE ; Start at 12:48; Stop 04/03/17 at 12:49; Status DC Midazolam HCl (Versed) 2 mg STK-MED ONCE .ROUTE ; Start 04/03/17 at 12:48; Stop 04/03/17 at 12:49; Status DC Heparin Sodium/ Sodium Chloride 1,000 unit 1X ONCE IART Last administered on 04/03/17t 14:20; Start 04/03/17 at 13:15; Stop 04/03/17 at 13:16; Status DC Heparin Sodium/ Sodium Chloride 1,000 unit 1X ONCE IART Last administered on 04/03/17 14:20; Start 04/03/17 at 13:15; Stop 04/03/17 at 13:16; Status DC Lidocaine/Sodium Bicarbonate (Buffered Lidocaine 1%) 20 ml 1X ONCE IJ Last administered on 04/03/17 14:20; Start 04/03/17 at 13:15; Stop 04/03/17 at 13 :16; Status DC Midazolam HCl (Versed) 2 mg 1X ONCE IV Last administered on 04/03/17 14:18; Start 04/03/17 at 13:15; Stop 04/03/17 at 13:16; Status DC Fentanyl Citrate (Fentanyl 2ml Vial) 100 mcg 1X ONCE IV Last administered on 04/03/17 14:19; Start 04/03/17 at 13:15; Stop 04/03/17 at 13:16; Status DC Iohexol (Omnipaque 300 Mg/ml) 100 ml 1X ONCE IART Last administered on 14:19; Start 04/03/17 at 13:15; Stop 04/03/17 at 13:16; Status DC Iodixanol (Visipaque 320) 100 ml 1X ONCE IART Last administered on 04/03/17 14:19; Start 04/03/17 at 13:15; Stop 04/03/17 at 13:16; Status DC Heparin Sodium (Porcine) (Heparin Sodium) 10,000 unit STK-MED ONCE .ROUTE ; Start 04/03/17 at 13:25; Stop 04/03/17 at 13:26; Status DC Heparin Sodium (Porcine) (Heparin Sodium) 3,000 unit 1X ONCE IV Last administered on 04/03/17 14:22; Start 04/03/17 at 13:30; Stop 04/03/17 at 13 :38; Status DC Hydralazine HCl (Apresoline Inj) 20 mg STK-MED ONCE .ROUTE ; Start 04/03/17 at 14:11; Stop 04/03/17 at 14:12; Status DC Hydralazine HCl (Apresoline Inj) 10 mg 1X ONCE IVP Last administered on 14:21; Start 04/03/17 at 14:15; Stop 04/03/17 at 14:19; Status DC Dextrose/Sodium Chloride 1,000 ml @ 50 mls/hr Q20H IV Last administered on 15:26; Start 04/03/17 at 14:30 Ondansetron HCl (Zofran) 4 mg PRN Q6HRS PRN IV NAUSEA/VOMITING; Start at 07:00; Stop 04/05/17 at 06:59; Status DC Fentanyl Citrate (Fentanyl 2ml Vial) 25 mcg PRN Q5MIN PRN IV MILD PAIN Last administered on 04/04/17 20:10; Start 04/04/17 at 07:00; Stop 04/05/17 at 06 :59; Status DC Fentanyl Citrate (Fentanyl 2ml Vial) 50 mcg PRN Q5MIN PRN IV MODERATE PAIN; Start 04/04/17 at 07:00; Stop 04/05/17 at 06:59; Status DC Morphine Sulfate 1 mg PRN Q10MIN PRN IV SEVERE PAIN; Start 04/04/17 at 07:00; Stop 04/05/17 at 06:59; Status DC Ringer's Solution 1,000 ml @ 30 mls/hr Q24H IV ; Start 04/04/17 at 07:00; Stop 04/04/17 at 18:59; Status Cancel Lidocaine HCl (Xylocaine-Mpf 1% Vial) 2 ml PRN 1X PRN ID IV START; Start 04/04 at 07:00; Stop 04/04/17 at 07:31; Status DC Hydromorphone HCl (Dilaudid) 0.5 mg PRN Q10MIN PRN IV SEV PAIN, Second choice; Start 04/04/17 at 07:00; Stop 04/05/17 at 06:59; Status DC Prochlorperazine Edisylate (Compazine) 5 mg PACU PRN PRN IV NAUSEA, MRX1; Start 04/04/17 at 07:00; Stop 04/05/17 at 06:59; Status DC Sodium Chloride 1,000 ml @ 30 mls/hr Q24H IV Last administered on 04/04/17 17:37; Start 04/04/17 at 07:45 Sodium Chloride 1,000 ml @ 1,000 mls/hr Q1H PRN IV hypotension; Start at 09:59; Stop 04/04/17 at 15:58; Status DC Info (PHARMACY MONITORING -- do not chart) 1 each PRN DAILY PRN MC SEE COMMENTS ; Start 04/04/17 at 10:00 Propofol 20 ml @ As Directed STK-MED ONCE IV ; Start 04/04/17 at 17:45; Stop 04/04/17 at 17:46; Status DC Lidocaine HCl (Lidocaine Pf 2% Vial) 5 ml STK-MED ONCE .ROUTE ; Start 04/04/17 at 17:45; Stop 04/04/17 at 17:46; Status DC Sevoflurane (Ultane) 30 ml STK-MED ONCE IH ; Start 04/04/17 at 17:45; Stop at 17:46; Status DC Phenylephrine HCl 1 mg STK-MED ONCE IV ; Start 04/04/17 at 18:16; Stop at 18:17; Status DC Ondansetron HCl (Zofran) 4 mg PRN Q6HRS PRN IV NAUSEA/VOMITING; Start at 18:45; Stop 04/05/17 at 18:44 Fentanyl Citrate (Fentanyl 2ml Vial) 25 mcg PRN Q5MIN PRN IV MILD PAIN; Start 04/04/17 at 18:45; Stop 04/05/17 at 18:44 Fentanyl Citrate (Fentanyl 2ml Vial) 50 mcg PRN Q5MIN PRN IV MODERATE PAIN; Start 04/04/17 at 18:45; Stop 04/05/17 at 18:44 Morphine Sulfate 1 mg PRN Q10MIN PRN IV SEVERE PAIN; Start 04/04/17 at 18:45; Stop 04/05/17 at 18:44 Ringer's Solution 1,000 ml @ 0 mls/hr Q0M IV ; Start 04/04/17 at 18:34; Stop 04/05/17 at 06:33; Status DC Lidocaine HCl (Xylocaine-Mpf 1% Vial) 2 ml PRN 1X PRN ID PRIOR TO IV START; Start 04/04/17 at 18:45; Stop 04/05/17 at 18:44 Hydromorphone HCl (Dilaudid) 0.5 mg PRN Q10MIN PRN IV SEV PAIN, Second choice; Start 04/04/17 at 18:45; Stop 04/05/17 at 18:44 Prochlorperazine Edisylate (Compazine) 5 mg PACU PRN PRN IV NAUSEA, MRX1; Start 04/04/17 at 18:45; Stop 04/05/17 at 18:44 Phenylephrine HCl 1 mg STK-MED ONCE IV ; Start 04/04/17 at 18:36; Stop at 18:37; Status DC Phenylephrine HCl (Du-Synephrine Inj) 10 mg STK-MED ONCE .ROUTE ; Start at 18:44; Stop 04/04/17 at 18:45; Status DC Cellulose 1 each STK-MED ONCE .ROUTE ; Start 04/04/17 at 17:47; Stop 04/04/17 at 18:48; Status DC Cellulose 1 each STK-MED ONCE .ROUTE ; Start 04/04/17 at 17:48; Stop 04/04/17 at 18:48; Status DC Cellulose 1 each STK-MED ONCE .ROUTE Last administered on 04/04/17t 18:13; Start 04/04/17 at 17:49; Stop 04/04/17 at 18:50; Status DC Morphine Sulfate 10 mg STK-MED ONCE .ROUTE ; Start 04/04/17 at 18:56; Stop at 18:57; Status DC Albumin Human 500 ml @ 125 mls/hr 1X ONCE IV Last administered on 04/04/17t 20:05; Start 04/04/17 at 19:45; Stop 04/04/17 at 23:44; Status DC Phenylephrine HCl 80 mg/Sodium Chloride 258 ml @ 0 mls/hr CONT PRN IV SEE I/O RECORD; Start 04/04/17 at 21:00 Active Scripts Active Reported Aspir 81 (Aspirin) 81 Mg Tablet.dr 1 Tab PO DAILY Mccreary (Sodium Chloride) 104 Ml Adams 104 Ml NS Q2HR W/A PRN Oxycodone Hcl 5 Mg Capsule 1 Cap PO Q6HRS PRN Acetaminophen 500 Mg Tablet 1 Tab PO Q6PRN PRN Pantoprazole Sodium 40 Mg Tablet.dr 1 Tab PO DAILY PRN Ramipril 10 Mg Capsule 1 Cap PO DAILY Ferrous Sulfate 325 Mg Tablet 1 Tab PO DAILY Ondansetron Odt (Ondansetron) 4 Mg Tab.rapdis 1 Tab PO Q4H PRN Aranesp Syringe (Darbepoetin Greg In Polysorbat) 60 Mcg/0.3 Ml Disp.syrin 60 Mcg SQ WEEKLY Clonidine Hcl 0.2 Mg Tablet 0.2 Mg PO DAILY Flonase Allergy Relief (Fluticasone Propionate) 9.9 Ml Adams.susp 1 Sprays NS BID Carvedilol 6.25 Mg Tablet 1 Tab PO BID Atorvastatin Calcium 20 Mg Tablet 1 Tab PO DAILY Novolog Flexpen (Insulin Aspart) 100 Unit/1 Ml Insuln.pen 12 Unit SQ TIDWMEALS PRN Lantus Solostar (Insulin Glargine,Hum.rec.anlog) 100 Unit/1 Ml Insuln.pen 15 Unit SQ QHS Sodium Bicarbonate 650 Mg Tablet 1 Tab PO BID Nephro-Lisa Rx Tablet (Vit B Cmplx 3/Fa/Vit C/Biotin) 1 Each Tablet 1 Each PO DAILY Vitals/I & O Vital Sign - Last 24 Hours 04/04/17 04/04/17 04/04/17 04/04/17 15:00 17:08 17:21 19:05 Temp 98.1 98.9 98 98.1 98.9 98.0 Pulse 101 101 100 88 Resp 20 24 18 B/P (MAP) 131/63 (85) 131/63 140/65 99/52 Pulse Ox 98 96 98 O2 Delivery Room Air Room Air Simple Mask O2 Flow Rate 15 04/04/17 04/04/17 04/04/17 04/04/17 19:05 19:20 19:35 19:51 Temp 98.0 98.0 98.0 98.0 98.0 98.0 Pulse 88 88 87 Resp 24 24 24 B/P (MAP) 91/61 79/47 99/46 Pulse Ox 100 95 97 O2 Delivery Room Air Simple Mask Room Air Room Air O2 Flow Rate 15 6 04/04/17 04/04/17 04/04/17 04/04/17 20:07 20:10 20:21 20:51 Temp 98.8 98.8 98.8 98.8 98.8 98.8 Pulse 88 87 88 Resp 22 24 24 20 B/P (MAP) 94/45 90/50 101/50 Pulse Ox 96 97 94 98 O2 Delivery Room Air Room Air Room Air Room Air 04/04/17 04/04/17 04/04/17 04/04/17 20:53 21:00 21:06 21:30 Temp 98.8 98.8 98.8 98.8 Pulse 88 88 Resp 24 20 B/P (MAP) 89/51 100/52 Pulse Ox 98 100 O2 Delivery Room Air Room Air Room Air Room Air O2 Flow Rate 6 04/04/17 04/04/17 04/04/17 04/04/17 21:30 21:45 22:00 22:15 Temp 98.1 98.1 Pulse 88 90 90 90 Resp 15 18 20 24 B/P (MAP) 96/54 (68) 98/54 (69) 99/55 (70) 100/55 (70) Pulse Ox 97 94 94 96 O2 Delivery Room Air Room Air Room Air Room Air 04/04/17 04/04/17 04/05/17 04/05/17 22:30 23:00 00:00 00:00 Temp 98.7 98.7 Pulse 88 87 87 Resp 20 20 20 B/P (MAP) 108/55 (72) 102/58 (73) 100/52 (68) Pulse Ox 96 100 100 O2 Delivery Room Air Room Air Nasal Cannula Nasal Cannula O2 Flow Rate 2.0 2.0 2.0 04/05/17 04/05/17 04/05/17 04/05/17 01:00 02:00 03:00 04:00 Pulse 85 84 81 Resp 20 21 20 B/P (MAP) 97/56 (70) 107/60 (76) 90/50 (63) Pulse Ox 93 100 100 O2 Delivery Nasal Cannula Nasal Cannula Nasal Cannula Nasal Cannula O2 Flow Rate 2.0 2.0 2.0 2.0 04/05/17 04/05/17 04/05/17 04/05/17 04:00 05:00 06:00 07:00 Temp 98.4 98.4 Pulse 84 84 78 80 Resp 17 14 16 B/P (MAP) 99/58 (72) 99/58 (72) 103/59 (74) 102/58 (73) Pulse Ox 100 100 100 100 O2 Delivery Nasal Cannula Nasal Cannula Nasal Cannula Nasal Cannula O2 Flow Rate 2.0 2.0 2.0 2.0 04/05/17 04/05/17 04/05/1714/17 07:12 07:15 07:45 08:00 Temp 97.9 97.9 Pulse 79 82 Resp 12 19 19 B/P (MAP) 110/63 96/48 (64) Pulse Ox 96 96 O2 Delivery Nasal Cannula Room Air Room Air 04/05/17 04/05/17 04/05/17 04/05/17 08:17 09:00 09:17 09:37 Pulse 77 Resp 18 B/P (MAP) 91/49 (63) Pulse Ox 96 96 O2 Delivery Room Air Room Air Room Air Room Air 04/05/17 04/05/17 04/05/17 04/05/17 10:00 10:29 10:46 11:00 Temp 98.0 97.5 98.0 98.0 97.5 98.0 Pulse 77 77 72 75 Resp 18 17 B/P (MAP) 90/47 (61) 96/52 93/49 95/53 (67) Pulse Ox 96 96 O2 Delivery Room Air Room Air 04/05/17 04/05/17 04/05/17 11:50 12:00 12:11 Temp 98.1 98.0 98.1 98.0 Pulse 75 75 Resp 18 18 B/P (MAP) 123/67 (85) 123/67 Pulse Ox 98 O2 Delivery Room Air Room Air Intake and Output 04/05/17 04/05/17 04/06/17 15:00 23:00 07:00 Intake Total 660 ml Balance 660 ml KAUSHIK ARGUETA MD Apr 05, 2017 14:53
[2017-04-05] MEDS: INSULIN DETEMIR 300 UNITS/3 ML INSULN.PEN. SQ SCH (21:00)
[2017-04-05] MEDS: ATORVASTATIN CALCIUM 20 MG TABLET PO SCH (21:14)
[2017-04-05] MEDS: ACETAMINOPHEN 500 MG TABLET PO PRN (21:14)
[2017-04-05] MEDS ORDERED: IV NORMAL SALINE 500ML BAG 500 ML IV ONE (21:30)
[2017-04-05 22:17] LABS: BASO # 0.2 x10^3/uL (0.0-0.2); BASO % 1 % (0-3); EOS % 2 % (0-3); HEMATOCRIT 21.6 % (39.0-53.0); HEMOGLOBIN 7.1 g/dL (13.0-17.5); LYMPH # 1.4 x10^3/uL (1.0-4.8); LYMPH % 6 % (24-48); MEAN CORPUSCULAR HEMOGLOBIN 30 pg (25-35); MEAN CORPUSCULAR HGB CONC 33 g/dL (31-37); MEAN CORPUSCULAR VOLUME 90 fL (79-100); MONO % 6 % (0-9); NEUT % 85 % (31-73); PLATELET COUNT 133 x10^3/uL (140-400); RED BLOOD COUNT 2.39 x10^6/uL (4.30-5.70); RED CELL DISTRIBUTION WIDTH 15.8 % (11.5-14.5); WHITE BLOOD COUNT 23.7 x10^3/uL (4.0-11.0)
[2017-04-05 22:43] LABS: % EOS 3 % (0-5); ANISOCYTOSIS SLIGHT; HYPOCHROMIA MOD; PLT ESTIMATE ADEQUATE (ADEQUATE)
[2017-04-05] MEDS: IV NORMAL SALINE 1000ML BAG 1,000 ML IV SCH (23:23)
[2017-04-06] VITALS (32 sets, daily range): BP systolic 52–131; BP diastolic 27–76
[2017-04-06] MEDS ORDERED: NOREPINEPHRIN PREMIX 250 ML IV PRN (02:45)
[2017-04-06] MEDS ORDERED: ALTEPLASE 2 MG VIAL INT CAT ONE (03:30)
[2017-04-06] MEDS ORDERED: IV NORMAL SALINE 500ML BAG 500 ML IV ONE (03:30)
[2017-04-06 03:35] LABS: BASO # 0.1 x10^3/uL (0.0-0.2); BASO % 0 % (0-3); EOS % 1 % (0-3); HEMATOCRIT 21.4 % (39.0-53.0); LYMPH # 1.6 x10^3/uL (1.0-4.8); LYMPH % 7 % (24-48); MEAN CORPUSCULAR HEMOGLOBIN 29 pg (25-35); MEAN CORPUSCULAR HGB CONC 33 g/dL (31-37); MEAN CORPUSCULAR VOLUME 90 fL (79-100); MONO % 6 % (0-9); NEUT % 86 % (31-73); PLATELET COUNT 102 x10^3/uL (140-400); RED BLOOD COUNT 2.38 x10^6/uL (4.30-5.70); RED CELL DISTRIBUTION WIDTH 15.2 % (11.5-14.5); WHITE BLOOD COUNT 22.6 x10^3/uL (4.0-11.0)
[2017-04-06 03:45] LABS: CALCIUM 7.4 mg/dL (8.5-10.1); CREATININE 5.3 mg/dL (0.7-1.3); GFR 13.6
[2017-04-06 04:02] LABS: INR 1.3 (0.8-1.1); PROTHROMBIN TIME PATIENT 15.5 SEC (11.7-14.0)
[2017-04-06] MEDS: PIPERACILLIN/TAZOBACTAM 2.25 GM in IV NORMAL SALINE 50ML 50 ML IV SCH ×3 (06:30→22:00)
[2017-04-06 06:43] LABS: HEMOGLOBIN 9.4 g/dL (13.0-17.5)
--- NOTE | 2017-04-06 07:07 | PDOC ---
SURGICAL PROGRESS NOTE Subjective He is somnolent and minimally conversant today. I discussed the need to proceed with right below knee amputation, but he would not respond other than telling me to leave him alone. Vital Signs Vital Signs Date Time Temp Pulse Resp B/P (MAP) Pulse Ox O2 Delivery O2 Flow Rate FiO2 04/06/17 06:00 72 22 103/62 (76) 98 Room Air 04/06/17 05:50 97.5 97.5 04/06/17 04:00 2.0 General: No acute distress Heart: Regular rate Abdomen: Soft, No tenderness Extremities: Other (Large open wound at distal leg, no active bleeding. New dressing applied. ) Labs Hgb 9.5 Problem List Problems Medical Problems: (1) End stage renal disease Status: Acute (2) Hypertension Status: Acute (3) Septic shock Status: Acute Assessment/Plan IMP: DM ESRD Foot abscess leading to left foot open amputation REC: Would strongly recommend right below knee amputation. He does not consent to proceed at this time. Will have a wound vac applied tomorrow. Problems: NICOLE BRANCH MD Apr 06, 2017 07:07
[2017-04-06] MEDS: ASPIRIN ENTERIC COATED 81 MG TABLET.DR. PO SCH (08:00)
[2017-04-06] MEDS: PANTOPRAZOLE 40 MG TABLET.DR. PO SCH (08:46)
[2017-04-06] MEDS: FERROUS SULFATE 325 MG TABLET. PO SCH (08:46)
[2017-04-06] MEDS: FOLIC/VIT B COMP W-C (RENAL) TABLET. PO SCH (08:46)
[2017-04-06] MEDS: SODIUM BICARBONATE 650 MG TABLET. PO SCH ×2 (08:47→20:42)
[2017-04-06] MEDS: CARVEDILOL 6.25 MG TABLET. PO SCH ×2 (08:47→17:00)
[2017-04-06] MEDS: INSULIN ASPART 300 UNITS/3 ML INSULN.PEN SQ SCH ×6 (08:49→17:00)
--- NOTE | 2017-04-06 09:12 | PDOC ---
Infectious Disease Note Subjective Subjective Transferred up stairs yesterday but became hypotensive. Now back in ICU. BP improved with fluids. Receive PRBCs as well. Denies pain, upset stomach or SOA No fever Vital Sign Vital Signs Vital Signs Date Time Temp Pulse Resp B/P (MAP) Pulse Ox O2 Delivery O2 Flow Rate FiO2 04/06/17 08:47 75 109/63 04/06/17 08:25 Nasal Cannula 2.0 04/06/17 08:00 16 94 04/06/17 07:00 98.2 98.2 Physical Exam PHYSICAL EXAM GENERAL: Sleeping, arouses easily to name LUNGS: Clear to auscultation. HEART: Normal S1 and S2. ABDOMEN: Nondistended, soft, nontender. Positive bowel sounds. EXTREMITIES: Previous left BKA. Right foot dressing dry and intact SKIN: Without rash. NEUROLOGIC: Arouses easily to name, nods to few questions appropriately RIJ (10-6). Clean. Labs Lab Laboratory Tests Test 04/05/17 09:02 04/05/17 11:25 04/05/17 12:31 04/05/17 16:28 Glucose (Fingerstick) 120 mg/dL (70-99) 127 mg/dL (70-99) 127 mg/dL (70-99) 145 mg/dL (70-99) Test 04/05/17 21:25 04/05/17 21:40 04/06/17 03:00 04/06/17 06:15 Glucose (Fingerstick) 103 mg/dL (70-99) White Blood Count 23.7 x10^3/uL (4.0-11.0) 22.6 x10^3/uL (4.0-11.0) Red Blood Count 2.39 x10^6/uL (4.30-5.70) 2.38 x10^6/uL (4.30-5.70) Hemoglobin 7.1 g/dL (13.0-17.5) 7.0 g/dL (13.0-17.5) 9.4 g/dL (13.0-17.5) Hematocrit 21.6 % (39.0-53.0) 21.4 % (39.0-53.0) 29.0 % (39.0-53.0) Mean Corpuscular Volume 90 fL (79-100) 90 fL (79-100) Mean Corpuscular Hemoglobin 30 pg (25-35) 29 pg (25-35) Mean Corpuscular Hemoglobin Concent 33 g/dL (31-37) 33 g/dL (31-37) 32 g/dL (31-37) Red Cell Distribution Width 15.8 % (11.5-14.5) 15.2 % (11.5-14.5) Platelet Count 133 x10^3/uL (140-400) 102 x10^3/uL (140-400) Neutrophils (%) (Auto) 85 % (31-73) 86 % (31-73) Lymphocytes (%) (Auto) 6 % (24-48) 7 % (24-48) Monocytes (%) (Auto) 6 % (0-9) 6 % (0-9) Eosinophils (%) (Auto) 2 % (0-3) 1 % (0-3) Basophils (%) (Auto) 1 % (0-3) 0 % (0-3) Neutrophils # (Auto) 20.2 x10^3uL (1.8-7.7) 19.3 x10^3uL (1.8-7.7) Lymphocytes # (Auto) 1.4 x10^3/uL (1.0-4.8) 1.6 x10^3/uL (1.0-4.8) Monocytes # (Auto) 1.5 x10^3/uL (0.0-1.1) 1.3 x10^3/uL (0.0-1.1) Eosinophils # (Auto) 0.4 x10^3/uL (0.0-0.7) 0.3 x10^3/uL (0.0-0.7) Basophils # (Auto) 0.2 x10^3/uL (0.0-0.2) 0.1 x10^3/uL (0.0-0.2) Segmented Neutrophils % 79 % (35-66) Band Neutrophils % 3 % (0-9) Lymphocytes % 8 % (24-48) Monocytes % 5 % (0-10) Eosinophils % 3 % (0-5) Metamyelocytes % 1 % (0-0) Myelocytes % 1 % (0-0) Platelet Estimate Adequate (ADEQUATE) Hypochromasia Mod Anisocytosis Slight Prothrombin Time 15.5 SEC (11.7-14.0) Prothromb Time International Ratio 1.3 (0.8-1.1) Sodium Level 139 mmol/L (136-145) Potassium Level 4.0 mmol/L (3.5-5.1) Chloride Level 103 mmol/L (98-107) Carbon Dioxide Level 26 mmol/L (21-32) Anion Gap 10 (6-14) Blood Urea Nitrogen 29 mg/dL (8-26) Creatinine 5.3 mg/dL (0.7-1.3) Estimated GFR (Cockcroft-Gault) 13.6 Glucose Level 212 mg/dL (70-99) Lactic Acid Level 1.1 mmol/L (0.4-2.0) Calcium Level 7.4 mg/dL (8.5-10.1) HU-Ody-I-Type Natriuretic Peptide 73810 pg/mL (0-124) Micro GRAM STAIN Final WBCS MODERATE GRAM NEGATIVE COCCI FEW Objective Assessment Necrotizing fasciitis and osteomyelitis of right foot, s/p open TMA debridement , 03/28. Intra-op cultures group B strep, Kleb oxytoca (R amp), & bacteroides - s/p additional debridement of necrotic skin, subcutaneous tissue, fascia, tendons and exposed bone, 04/04. Intra-op cx: GNC Group B Strep bacteremia, POA, 03/28. Leukocytosis - stable Anemia NSTEMI CKD/HD Diabetes hx: MSSA, PSA & Providencia Plan Plan of Care Zosyn Monitor WBC, temp Refusing BKA Await [facility]NC ID D/w family Attending Co-Sign Attending Co-Sign The patient was seen and interviewed as well as examined at the bedside. The chart was reviewed. The case was discussed. Agree with the plan of care. DONNY DIALLO APRN Apr 06, 2017 09:12 JOSEFA MARIN MD Apr 06, 2017 12:57
--- NOTE | 2017-04-06 09:51 | PDOC ---
PROGRESS NOTES Subjective Subjective SEEN IN FOLLOW UP OF ESRD. HE IS POST 2 UNITS RBC Objective Objective Vital Signs Date Time Temp Pulse Resp B/P (MAP) Pulse Ox O2 Delivery O2 Flow Rate FiO2 04/06/17 08:47 75 109/63 04/06/17 08:25 Nasal Cannula 2.0 04/06/17 08:00 16 94 04/06/17 07:00 98.2 98.2 Intake and Output 04/07/17 07:00 Intake Total 0 ml Balance 0 ml Intake Oral 0 ml Physical Exam Abdomen: Normal bowel sounds, Soft, No tenderness, No hepatosplenomegaly, No masses Heart: Regular rate, Normal S1, Normal S2, No murmurs, Gallops Extremities: No clubbing, No cyanosis, No edema, Normal pulses, No tenderness/ swelling General: Cooperative, No acute distress Lungs: Clear to auscultation, Normal air movement Diagnosis RENAL FAILURE: ESRD ANEMIA: Chronic diseases (ESRD) Assessment Assessment Problems Medical Problems: (1) End stage renal disease Status: Acute (2) Hypertension Status: Acute (3) Septic shock Status: Acute Plan Plan of Care FOR DIALYSIS TOMORROW. CONT ICU OBSERVATION. CONT WOUND CARE Comment Review of Relevant I have reviewed the following items ginny (where applicable) has been applied. Labs Laboratory Tests Test 04/04/17 11:44 04/04/17 16:40 04/04/17 19:19 04/04/17 19:35 Glucose (Fingerstick) 142 mg/dL (70-99) 191 mg/dL (70-99) 188 mg/dL (70-99) White Blood Count 19.6 x10^3/uL (4.0-11.0) Red Blood Count 2.56 x10^6/uL (4.30-5.70) Hemoglobin 7.6 g/dL (13.0-17.5) Hematocrit 23.2 % (39.0-53.0) Mean Corpuscular Volume 91 fL (79-100) Mean Corpuscular Hemoglobin 30 pg (25-35) Mean Corpuscular Hemoglobin Concent 33 g/dL (31-37) Red Cell Distribution Width 14.6 % (11.5-14.5) Platelet Count 174 x10^3/uL (140-400) Prothrombin Time 16.8 SEC (11.7-14.0) Prothromb Time International Ratio 1.5 (0.8-1.1) Activated Partial Thromboplast Time 39 SEC (24-38) Test 04/04/17 22:02 04/05/17 06:30 04/05/17 07:23 04/05/17 08:15 Glucose (Fingerstick) 167 mg/dL (70-99) 66 mg/dL (70-99) 69 mg/dL (70-99) White Blood Count 17.7 x10^3/uL (4.0-11.0) Red Blood Count 2.22 x10^6/uL (4.30-5.70) Hemoglobin 6.5 g/dL (13.0-17.5) Hematocrit 20.1 % (39.0-53.0) Mean Corpuscular Volume 90 fL (79-100) Mean Corpuscular Hemoglobin 29 pg (25-35) Mean Corpuscular Hemoglobin Concent 32 g/dL (31-37) Red Cell Distribution Width 14.9 % (11.5-14.5) Platelet Count 149 x10^3/uL (140-400) Neutrophils (%) (Auto) 82 % (31-73) Lymphocytes (%) (Auto) 9 % (24-48) Monocytes (%) (Auto) 7 % (0-9) Eosinophils (%) (Auto) 2 % (0-3) Basophils (%) (Auto) 2 % (0-3) Neutrophils # (Auto) 14.4 x10^3uL (1.8-7.7) Lymphocytes # (Auto) 1.5 x10^3/uL (1.0-4.8) Monocytes # (Auto) 1.2 x10^3/uL (0.0-1.1) Eosinophils # (Auto) 0.3 x10^3/uL (0.0-0.7) Basophils # (Auto) 0.3 x10^3/uL (0.0-0.2) Sodium Level 141 mmol/L (136-145) Potassium Level 3.9 mmol/L (3.5-5.1) Chloride Level 102 mmol/L (98-107) Carbon Dioxide Level 32 mmol/L (21-32) Anion Gap 7 (6-14) Blood Urea Nitrogen 21 mg/dL (8-26) Creatinine 4.5 mg/dL (0.7-1.3) Estimated GFR (Cockcroft-Gault) 16.5 Glucose Level 79 mg/dL (70-99) Calcium Level 8.5 mg/dL (8.5-10.1) Phosphorus Level 4.5 mg/dL (2.6-4.7) Albumin 2.0 g/dL (3.4-5.0) Test 04/05/17 09:02 04/05/17 11:25 04/05/17 12:31 04/05/17 16:28 Glucose (Fingerstick) 120 mg/dL (70-99) 127 mg/dL (70-99) 127 mg/dL (70-99) 145 mg/dL (70-99) Test 04/05/17 21:25 04/05/17 21:40 04/06/17 03:00 04/06/17 06:15 Glucose (Fingerstick) 103 mg/dL (70-99) White Blood Count 23.7 x10^3/uL (4.0-11.0) 22.6 x10^3/uL (4.0-11.0) Red Blood Count 2.39 x10^6/uL (4.30-5.70) 2.38 x10^6/uL (4.30-5.70) Hemoglobin 7.1 g/dL (13.0-17.5) 7.0 g/dL (13.0-17.5) 9.4 g/dL (13.0-17.5) Hematocrit 21.6 % (39.0-53.0) 21.4 % (39.0-53.0) 29.0 % (39.0-53.0) Mean Corpuscular Volume 90 fL (79-100) 90 fL (79-100) Mean Corpuscular Hemoglobin 30 pg (25-35) 29 pg (25-35) Mean Corpuscular Hemoglobin Concent 33 g/dL (31-37) 33 g/dL (31-37) 32 g/dL (31-37) Red Cell Distribution Width 15.8 % (11.5-14.5) 15.2 % (11.5-14.5) Platelet Count 133 x10^3/uL (140-400) 102 x10^3/uL (140-400) Neutrophils (%) (Auto) 85 % (31-73) 86 % (31-73) Lymphocytes (%) (Auto) 6 % (24-48) 7 % (24-48) Monocytes (%) (Auto) 6 % (0-9) 6 % (0-9) Eosinophils (%) (Auto) 2 % (0-3) 1 % (0-3) Basophils (%) (Auto) 1 % (0-3) 0 % (0-3) Neutrophils # (Auto) 20.2 x10^3uL (1.8-7.7) 19.3 x10^3uL (1.8-7.7) Lymphocytes # (Auto) 1.4 x10^3/uL (1.0-4.8) 1.6 x10^3/uL (1.0-4.8) Monocytes # (Auto) 1.5 x10^3/uL (0.0-1.1) 1.3 x10^3/uL (0.0-1.1) Eosinophils # (Auto) 0.4 x10^3/uL (0.0-0.7) 0.3 x10^3/uL (0.0-0.7) Basophils # (Auto) 0.2 x10^3/uL (0.0-0.2) 0.1 x10^3/uL (0.0-0.2) Segmented Neutrophils % 79 % (35-66) Band Neutrophils % 3 % (0-9) Lymphocytes % 8 % (24-48) Monocytes % 5 % (0-10) Eosinophils % 3 % (0-5) Metamyelocytes % 1 % (0-0) Myelocytes % 1 % (0-0) Platelet Estimate Adequate (ADEQUATE) Hypochromasia Mod Anisocytosis Slight Prothrombin Time 15.5 SEC (11.7-14.0) Prothromb Time International Ratio 1.3 (0.8-1.1) Sodium Level 139 mmol/L (136-145) Potassium Level 4.0 mmol/L (3.5-5.1) Chloride Level 103 mmol/L (98-107) Carbon Dioxide Level 26 mmol/L (21-32) Anion Gap 10 (6-14) Blood Urea Nitrogen 29 mg/dL (8-26) Creatinine 5.3 mg/dL (0.7-1.3) Estimated GFR (Cockcroft-Gault) 13.6 Glucose Level 212 mg/dL (70-99) Lactic Acid Level 1.1 mmol/L (0.4-2.0) Calcium Level 7.4 mg/dL (8.5-10.1) [id number] Natriuretic Peptide 48770 pg/mL (0-124) Test 04/06/17 08:46 Glucose (Fingerstick) 165 mg/dL (70-99) Laboratory Tests Test 04/05/17 11:25 04/05/17 12:31 04/05/17 16:28 04/05/17 21:25 Glucose (Fingerstick) 127 mg/dL (70-99) 127 mg/dL (70-99) 145 mg/dL (70-99) 103 mg/dL (70-99) Test 04/05/17 21:40 04/06/17 03:00 04/06/17 06:15 04/06/17 08:46 White Blood Count 23.7 x10^3/uL (4.0-11.0) 22.6 x10^3/uL (4.0-11.0) Red Blood Count 2.39 x10^6/uL (4.30-5.70) 2.38 x10^6/uL (4.30-5.70) Hemoglobin 7.1 g/dL (13.0-17.5) 7.0 g/dL (13.0-17.5) 9.4 g/dL (13.0-17.5) Hematocrit 21.6 % (39.0-53.0) 21.4 % (39.0-53.0) 29.0 % (39.0-53.0) Mean Corpuscular Volume 90 fL (79-100) 90 fL (79-100) Mean Corpuscular Hemoglobin 30 pg (25-35) 29 pg (25-35) Mean Corpuscular Hemoglobin Concent 33 g/dL (31-37) 33 g/dL (31-37) 32 g/dL (31-37) Red Cell Distribution Width 15.8 % (11.5-14.5) 15.2 % (11.5-14.5) Platelet Count 133 x10^3/uL (140-400) 102 x10^3/uL (140-400) Neutrophils (%) (Auto) 85 % (31-73) 86 % (31-73) Lymphocytes (%) (Auto) 6 % (24-48) 7 % (24-48) Monocytes (%) (Auto) 6 % (0-9) 6 % (0-9) Eosinophils (%) (Auto) 2 % (0-3) 1 % (0-3) Basophils (%) (Auto) 1 % (0-3) 0 % (0-3) Neutrophils # (Auto) 20.2 x10^3uL (1.8-7.7) 19.3 x10^3uL (1.8-7.7) Lymphocytes # (Auto) 1.4 x10^3/uL (1.0-4.8) 1.6 x10^3/uL (1.0-4.8) Monocytes # (Auto) 1.5 x10^3/uL (0.0-1.1) 1.3 x10^3/uL (0.0-1.1) Eosinophils # (Auto) 0.4 x10^3/uL (0.0-0.7) 0.3 x10^3/uL (0.0-0.7) Basophils # (Auto) 0.2 x10^3/uL (0.0-0.2) 0.1 x10^3/uL (0.0-0.2) Segmented Neutrophils % 79 % (35-66) Band Neutrophils % 3 % (0-9) Lymphocytes % 8 % (24-48) Monocytes % 5 % (0-10) Eosinophils % 3 % (0-5) Metamyelocytes % 1 % (0-0) Myelocytes % 1 % (0-0) Platelet Estimate Adequate (ADEQUATE) Hypochromasia Mod Anisocytosis Slight Prothrombin Time 15.5 SEC (11.7-14.0) Prothromb Time International Ratio 1.3 (0.8-1.1) Sodium Level 139 mmol/L (136-145) Potassium Level 4.0 mmol/L (3.5-5.1) Chloride Level 103 mmol/L (98-107) Carbon Dioxide Level 26 mmol/L (21-32) Anion Gap 10 (6-14) Blood Urea Nitrogen 29 mg/dL (8-26) Creatinine 5.3 mg/dL (0.7-1.3) Estimated GFR (Cockcroft-Gault) 13.6 Glucose Level 212 mg/dL (70-99) Lactic Acid Level 1.1 mmol/L (0.4-2.0) Calcium Level 7.4 mg/dL (8.5-10.1) [id number]-Type Natriuretic Peptide 84849 pg/mL (0-124) Glucose (Fingerstick) 165 mg/dL (70-99) Microbiology 03/28/17 Blood Culture - Final, Complete NO GROWTH AFTER 5 DAYS 04/04/17 Gram Stain - Final, Complete Medications Current Medications Vancomycin HCl (Vanco Per Pharmacy) 1 each PRN DAILY PRN MC SEE COMMENTS; Start 03/28/17 at 10:30; Stop 03/28/17 at 15:15; Status DC Piperacillin Sod/ Tazobactam Sod (Zosyn Per Pharmacy) 1 each PRN DAILY PRN MC SEE COMMENTS; Start 03/28/17 at 10:30 Vancomycin HCl 1.75 gm/Sodium Chloride 500 ml @ 250 mls/hr 1X ONCE IV Last administered on 03/28/17 11:00; Start 03/28/17 at 11:00; Stop 03/28/17 at 12:59 ; Status DC Piperacillin Sod/ Tazobactam Sod 2.25 gm/Sodium Chloride 50 ml @ 100 mls/hr 1X ONCE IV Last administered on 03/28/17 11:34; Start 03/28/17 at 11:00; Stop 03/28/17 at 11:29; Status DC Sodium Chloride 500 ml @ 500 mls/hr 1X ONCE IV ; Start 03/28/17 at 11:00; Stop 03/28/17 at 11:37; Status DC Gentamicin Sulfate 320 mg/ Sodium Chloride 108 ml @ 108 mls/hr 1X ONCE IV Last administered on 03/28/17 14:56; Start 03/28/17 at 11:30; Stop 03/28/17 at 12:29; Status DC Sodium Chloride 1,000 ml @ 500 mls/hr 1X ONCE IV Last administered on 11:40; Start 03/28/17 at 11:45; Stop 03/28/17 at 13:44; Status DC Norepinephrine Bitartrate 250 ml @ 0 mls/hr CONT PRN IV SEE I/O RECORD Last administered on 03/28/17 17:20; Start 03/28/17 at 12:30; Stop 04/05/17 at 16: 34; Status DC Linezolid 300 ml @ 300 mls/hr Q12HR IV Last administered on 04/01/17 08:48; Start 03/28/17 at 21:00; Stop 04/01/17 at 09:09; Status DC Piperacillin Sod/ Tazobactam Sod 2.25 gm/Sodium Chloride 50 ml @ 100 mls/hr Q8HRS IV Last administered on 04/06/17 06:30; Start 03/28/17 at 21:00 Desflurane (Suprane) 60 ml STK-MED ONCE IH ; Start 03/28/17 at 16:19; Stop 03/28 at 16:20; Status DC Fentanyl Citrate (Fentanyl 2ml Vial) 100 mcg STK-MED ONCE .ROUTE ; Start at 16:19; Stop 03/28/17 at 16:20; Status DC Propofol 20 ml @ As Directed STK-MED ONCE IV ; Start 03/28/17 at 16:19; Stop at 16:20; Status DC Lidocaine HCl (Lidocaine Pf 2% Vial) 5 ml STK-MED ONCE .ROUTE ; Start 03/28/17 at 16:19; Stop 03/28/17 at 16:20; Status DC Dexamethasone Sodium Phosphate (Decadron) 20 mg STK-MED ONCE .ROUTE ; Start 03/28/17 at 16:19; Stop 03/28/17 at 16:20; Status DC Ondansetron HCl (Zofran) 4 mg STK-MED ONCE .ROUTE ; Start 03/28/17 at 16:19; Stop 03/28/17 at 16:20; Status DC Ondansetron HCl (Zofran) 4 mg STK-MED ONCE .ROUTE ; Start 03/28/17 at 16:19; Stop 03/28/17 at 16:20; Status DC Phenylephrine HCl 1 mg STK-MED ONCE IV ; Start 03/28/17 at 16:21; Stop 03/28/17 at 16:22; Status DC Ondansetron HCl (Zofran) 4 mg PRN Q6HRS PRN IV NAUSEA/VOMITING; Start 03/28/17 at 16:45; Stop 03/29/17 at 16:44; Status DC Fentanyl Citrate (Fentanyl 2ml Vial) 25 mcg PRN Q5MIN PRN IV MILD PAIN; Start 03/28/17 at 16:45; Stop 03/29/17 at 16:44; Status DC Fentanyl Citrate (Fentanyl 2ml Vial) 50 mcg PRN Q5MIN PRN IV MODERATE PAIN Last administered on 03/28/17 22:01; Start 03/28/17 at 16:45; Stop 03/29/17 at 16:44; Status DC Morphine Sulfate 1 mg PRN Q10MIN PRN IV SEVERE PAIN; Start 03/28/17 at 16:45; Stop 03/29/17 at 16:44; Status DC Ringer's Solution 1,000 ml @ 30 mls/hr Q24H IV ; Start 03/28/17 at 16:36; Stop 03/29/17 at 04:35; Status DC Lidocaine HCl (Xylocaine-Mpf 1% Vial) 2 ml 1X PRN PRN ID IV START; Start at 16:45; Stop 03/29/17 at 16:44; Status DC Hydromorphone HCl (Dilaudid) 0.5 mg PRN Q10MIN PRN IV SEV PAIN, Second choice; Start 03/28/17 at 16:45; Stop 03/29/17 at 16:44; Status DC Prochlorperazine Edisylate (Compazine) 5 mg PACU PRN PRN IV NAUSEA, MRX1; Start 03/28/17 at 16:45; Stop 03/29/17 at 16:44; Status DC Acetaminophen (Tylenol) 500 mg QID PRN PO PAIN Last administered on 04/05/17 21:14; Start 03/28/17 at 17:00 Aspirin (Ecotrin) 81 mg [id number] PO Last administered on 04/05/17 07:10; Start 03/29/17 at 08:00; Stop 04/06/17 at 09:13; Status DC Atorvastatin Calcium (Lipitor) 20 mg QHS PO Last administered on 04/05/17 21: 14; Start 03/28/17 at 21:00 Carvedilol (Coreg) 6.25 mg BIDWMEALS PO Last administered on 04/06/17 08:47; Start 03/28/17 at 17:00 Darbepoetin Greg (Aranesp) 60 mcg WEEKLYHS SQ Last administered on 04/04/17 22:14; Start 03/28/17 at 21:00 Ferrous Sulfate (Feosol) 325 mg DAILY PO Last administered on 04/06/17 08:46 ; Start 03/29/17 at 09:00 Insulin Aspart (NovoLOG) 12 units TIDWMEALS SQ Last administered on 04/06/17 08:50; Start 03/28/17 at 17:00 Ondansetron HCl (Zofran Odt) 4 mg Q4H PRN PO NAUSEA/VOMITING Last administered on 03/31/17 10:57; Start 03/28/17 at 17:00 Pantoprazole Sodium (Protonix) 40 mg DAILYAC PO Last administered on 08:46; Start 03/29/17 at 07:30 Sodium Bicarbonate (Sodium Bicarbonate) 650 mg BID PO Last administered on 08:47; Start 03/28/17 at 21:00 Fluticasone Propionate (Flonase) 2 spray BID NS Last administered on 21:25; Start 03/28/17 at 21:00 Insulin Detemir (Levemir) 15 units QHS SQ Last administered on 04/04/17 22:12 ; Start 03/28/17 at 21:00 Oxycodone HCl (Roxicodone) 5 mg PRN Q6HRS PRN PO PAIN Last administered on 08:17; Start 03/28/17 at 17:00 Vitamin B Complex/ Vitamin C (Mary-Lisa) 1 tab DAILY PO Last administered on 08:46; Start 03/29/17 at 09:00 Insulin Aspart (NovoLOG) 0-7 UNITS TIDWMEALS SQ Last administered on 03/28/17 18:07; Start 03/28/17 at 17:00; Stop 03/29/17 at 09:25; Status DC Dextrose (Dextrose 50%-Water Syringe) 12.5 gm PRN Q15MIN PRN IV SEE COMMENTS Last administered on 04/05/17 08:31; Start 03/28/17 at 17:00 Ephedrine Sulfate (Akovaz) 50 mg STK-MED ONCE .ROUTE ; Start 03/28/17 at 17:03; Stop 03/28/17 at 17:04; Status DC Mupirocin (Bactroban) 22 lesvia STK-MED ONCE NS ; Start 03/28/17 at 16:20; Stop at 17:20; Status DC Vancomycin HCl (Vanco Per Pharmacy) 1 each PRN DAILY PRN MC SEE COMMENTS Last administered on 03/28/17 19:38; Start 03/28/17 at 19:30; Stop 03/29/17 at 07:23 ; Status DC Vancomycin HCl 1 each 1X ONCE MC ; Start 03/29/17 at 16:00; Stop 03/29/17 at 16 :01; Status Cancel Sodium Chloride 1,000 ml @ 1,000 mls/hr Q1H PRN IV hypotension; Start 03/29/17 at 09:08; Stop 03/29/17 at 15:07; Status DC Sodium Chloride 1,000 ml @ 400 mls/hr Q2H30M PRN IV PATENCY; Start 03/29/17 at 09:08; Stop 03/29/17 at 21:07; Status DC Info (PHARMACY MONITORING -- do not chart) 1 each PRN DAILY PRN MC SEE COMMENTS ; Start 03/29/17 at 09:15; Status UNV Info (PHARMACY MONITORING -- do not chart) 1 each PRN DAILY PRN MC SEE COMMENTS ; Start 03/29/17 at 09:15; Stop 04/04/17 at 10:48; Status DC Insulin Aspart (NovoLOG) 0-7 UNITS TIDWMEALS SQ Last administered on 08:49; Start 03/29/17 at 12:00 Insulin Aspart (NovoLOG) 8 units 1X ONCE SQ Last administered on 03/29/17 09: 48; Start 03/29/17 at 09:30; Stop 03/29/17 at 09:31; Status DC Magnesium Sulfate/ Dextrose 50 ml @ 25 mls/hr PRN DAILY PRN IV for Mag < 1.7 on am labs; Start 03/29/17 at 10:30 Sodium Chloride 1,000 ml @ 1,000 mls/hr Q1H PRN IV hypotension; Start 03/31/17 at 08:55; Stop 03/31/17 at 14:54; Status DC Diphenhydramine HCl (Benadryl) 25 mg 1X PRN PRN IV ITCHING; Start 03/31/17 at 09:00; Stop 04/01/17 at 08:59; Status DC Sodium Chloride (Normal Saline Flush) 10 ml 1X PRN PRN IV AP catheter pack; Start 03/31/17 at 09:00; Stop 04/01/17 at 08:59; Status DC Sodium Chloride (Normal Saline Flush) 10 ml 1X PRN PRN IV [employer] catheter pack; Start 03/31/17 at 09:00; Stop 04/01/17 at 08:59; Status DC Sodium Chloride 1,000 ml @ 400 mls/hr Q2H30M PRN IV PATENCY; Start 03/31/17 at 08:55; Stop 03/31/17 at 20:54; Status DC Info (PHARMACY MONITORING -- do not chart) 1 each PRN DAILY PRN MC SEE COMMENTS ; Start 03/31/17 at 09:00; Status UNV Info (PHARMACY MONITORING -- do not chart) 1 each PRN DAILY PRN MC SEE COMMENTS ; Start 03/31/17 at 09:00; Status UNV Morphine Sulfate 2 mg PRN Q3HRS PRN IV PAIN Last administered on 04/05/17t 07: 15; Start 04/01/17 at 15:45 Sodium Chloride 1,000 ml @ 1,000 mls/hr Q1H PRN IV hypotension; Start at 08:31; Stop 04/02/17 at 14:30; Status DC Albumin Human 200 ml @ 200 mls/hr 1X PRN PRN IV Hypotension; Start 04/02/17 at 08:45; Stop 04/02/17 at 14:44; Status DC Acetaminophen (Tylenol) 500 mg 1X PRN PRN PO MILD PAIN / TEMP; Start 04/02/17 at 08:45; Stop 04/03/17 at 08:44; Status DC Diphenhydramine HCl (Benadryl) 25 mg 1X PRN PRN IV ITCHING; Start 04/02/17 at 08:45; Stop 04/03/17 at 08:44; Status DC Diphenhydramine HCl (Benadryl) 25 mg 1X PRN PRN IV ITCHING; Start 04/02/17 at 08:45; Stop 04/03/17 at 08:44; Status DC Labetalol HCl (Normodyne) 10 mg PRN Q1HR PRN IVP SBP > 180; Start 04/02/17 at 08:45; Stop 04/03/17 at 08:44; Status DC Clonidine HCl (Catapres) 0.1 mg 1X PRN PRN PO SBP > 180; Start 04/02/17 at 08: 45; Stop 04/03/17 at 08:44; Status DC Info (PHARMACY MONITORING -- do not chart) 1 each PRN DAILY PRN MC SEE COMMENTS ; Start 04/02/17 at 08:45; Stop 04/02/17 at 10:13; Status DC Alteplase, Recombinant (Cathflo) 4 mg 1X ONCE INT CAT Last administered on t 17:53; Start 04/02/17 at 18:00; Stop 04/02/17 at 18:01; Status DC Iodixanol (Visipaque 320) 100 ml STK-MED ONCE .ROUTE ; Start 04/03/17 at 10:48 ; Stop 04/03/17 at 10:49; Status DC Lidocaine/Sodium Bicarbonate (Buffered Lidocaine 1%) 20 ml STK-MED ONCE IJ ; Start 04/03/17 at 10:49; Stop 04/03/17 at 10:50; Status DC Iohexol (Omnipaque 300 Mg/ml) 100 ml STK-MED ONCE .ROUTE ; Start 04/03/17 at 10 :49; Stop 04/03/17 at 10:50; Status DC Iodixanol (Visipaque 320) 50 ml STK-MED ONCE .ROUTE ; Start 04/03/17 at 10:49; Stop 04/03/17 at 10:50; Status DC Heparin Sodium/ Sodium Chloride 1,500 ml @ As Directed STK-MED ONCE .ROUTE ; Start 04/03/17 at 10:49; Stop 04/03/17 at 10:50; Status DC Dextrose/Sodium Chloride 1,000 ml @ 50 mls/hr Q20H IV ; Start 04/03/17 at 12: 45; Stop 04/03/17 at 14:41; Status DC Fentanyl Citrate (Fentanyl 2ml Vial) 100 mcg STK-MED ONCE .ROUTE ; Start at 12:48; Stop 04/03/17 at 12:49; Status DC Midazolam HCl (Versed) 2 mg STK-MED ONCE .ROUTE ; Start 04/03/17 at 12:48; Stop 04/03/17 at 12:49; Status DC Heparin Sodium/ Sodium Chloride 1,000 unit 1X ONCE IART Last administered on 04/03/17 14:20; Start 04/03/17 at 13:15; Stop 04/03/17 at 13:16; Status DC Heparin Sodium/ Sodium Chloride 1,000 unit 1X ONCE IART Last administered on 04/03/17 14:20; Start 04/03/17 at 13:15; Stop 04/03/17 at 13:16; Status DC Lidocaine/Sodium Bicarbonate (Buffered Lidocaine 1%) 20 ml 1X ONCE IJ Last administered on 04/03/17 14:20; Start 04/03/17 at 13:15; Stop 04/03/17 at 13 :16; Status DC Midazolam HCl (Versed) 2 mg 1X ONCE IV Last administered on 04/03/17 14:18; Start 04/03/17 at 13:15; Stop 04/03/17 at 13:16; Status DC Fentanyl Citrate (Fentanyl 2ml Vial) 100 mcg 1X ONCE IV Last administered on 04/03/17 14:19; Start 04/03/17 at 13:15; Stop 04/03/17 at 13:16; Status DC Iohexol (Omnipaque 300 Mg/ml) 100 ml 1X ONCE IART Last administered on 14:19; Start 04/03/17 at 13:15; Stop 04/03/17 at 13:16; Status DC Iodixanol (Visipaque 320) 100 ml 1X ONCE IART Last administered on 04/03/17 14:19; Start 04/03/17 at 13:15; Stop 04/03/17 at 13:16; Status DC Heparin Sodium (Porcine) (Heparin Sodium) 10,000 unit STK-MED ONCE .ROUTE ; Start 04/03/17 at 13:25; Stop 04/03/17 at 13:26; Status DC Heparin Sodium (Porcine) (Heparin Sodium) 3,000 unit 1X ONCE IV Last administered on 04/03/17 14:22; Start 04/03/17 at 13:30; Stop 04/03/17 at 13 :38; Status DC Hydralazine HCl (Apresoline Inj) 20 mg STK-MED ONCE .ROUTE ; Start 04/03/17 at 14:11; Stop 04/03/17 at 14:12; Status DC Hydralazine HCl (Apresoline Inj) 10 mg 1X ONCE IVP Last administered on 14:21; Start 04/03/17 at 14:15; Stop 04/03/17 at 14:19; Status DC Dextrose/Sodium Chloride 1,000 ml @ 50 mls/hr Q20H IV Last administered on 15:26; Start 04/03/17 at 14:30 Ondansetron HCl (Zofran) 4 mg PRN Q6HRS PRN IV NAUSEA/VOMITING; Start at 07:00; Stop 04/05/17 at 06:59; Status DC Fentanyl Citrate (Fentanyl 2ml Vial) 25 mcg PRN Q5MIN PRN IV MILD PAIN Last administered on 04/04/17 20:10; Start 04/04/17 at 07:00; Stop 04/05/17 at 06 :59; Status DC Fentanyl Citrate (Fentanyl 2ml Vial) 50 mcg PRN Q5MIN PRN IV MODERATE PAIN; Start 04/04/17 at 07:00; Stop 04/05/17 at 06:59; Status DC Morphine Sulfate 1 mg PRN Q10MIN PRN IV SEVERE PAIN; Start 04/04/17 at 07:00; Stop 04/05/17 at 06:59; Status DC Ringer's Solution 1,000 ml @ 30 mls/hr Q24H IV ; Start 04/04/17 at 07:00; Stop 04/04/17 at 18:59; Status Cancel Lidocaine HCl (Xylocaine-Mpf 1% Vial) 2 ml PRN 1X PRN ID IV START; Start 04/04 at 07:00; Stop 04/04/17 at 07:31; Status DC Hydromorphone HCl (Dilaudid) 0.5 mg PRN Q10MIN PRN IV SEV PAIN, Second choice; Start 04/04/17 at 07:00; Stop 04/05/17 at 06:59; Status DC Prochlorperazine Edisylate (Compazine) 5 mg PACU PRN PRN IV NAUSEA, MRX1; Start 04/04/17 at 07:00; Stop 04/05/17 at 06:59; Status DC Sodium Chloride 1,000 ml @ 30 mls/hr Q24H IV Last administered on 04/05/17t 23:23; Start 04/04/17 at 07:45 Sodium Chloride 1,000 ml @ 1,000 mls/hr Q1H PRN IV hypotension; Start at 09:59; Stop 04/04/17 at 15:58; Status DC Info (PHARMACY MONITORING -- do not chart) 1 each PRN DAILY PRN MC SEE COMMENTS ; Start 04/04/17 at 10:00 Propofol 20 ml @ As Directed STK-MED ONCE IV ; Start 04/04/17 at 17:45; Stop 04/04/17 at 17:46; Status DC Lidocaine HCl (Lidocaine Pf 2% Vial) 5 ml STK-MED ONCE .ROUTE ; Start 04/04/17 at 17:45; Stop 04/04/17 at 17:46; Status DC Sevoflurane (Ultane) 30 ml STK-MED ONCE IH ; Start 04/04/17 at 17:45; Stop at 17:46; Status DC Phenylephrine HCl 1 mg STK-MED ONCE IV ; Start 04/04/17 at 18:16; Stop at 18:17; Status DC Ondansetron HCl (Zofran) 4 mg PRN Q6HRS PRN IV NAUSEA/VOMITING; Start at 18:45; Stop 04/05/17 at 18:44; Status DC Fentanyl Citrate (Fentanyl 2ml Vial) 25 mcg PRN Q5MIN PRN IV MILD PAIN; Start 04/04/17 at 18:45; Stop 04/05/17 at 18:44; Status DC Fentanyl Citrate (Fentanyl 2ml Vial) 50 mcg PRN Q5MIN PRN IV MODERATE PAIN; Start 04/04/17 at 18:45; Stop 04/05/17 at 18:44; Status DC Morphine Sulfate 1 mg PRN Q10MIN PRN IV SEVERE PAIN; Start 04/04/17 at 18:45; Stop 04/05/17 at 18:44; Status DC Ringer's Solution 1,000 ml @ 0 mls/hr Q0M IV ; Start 04/04/17 at 18:34; Stop 04/05/17 at 06:33; Status DC Lidocaine HCl (Xylocaine-Mpf 1% Vial) 2 ml PRN 1X PRN ID PRIOR TO IV START; Start 04/04/17 at 18:45; Stop 04/05/17 at 18:44; Status DC Hydromorphone HCl (Dilaudid) 0.5 mg PRN Q10MIN PRN IV SEV PAIN, Second choice; Start 04/04/17 at 18:45; Stop 04/05/17 at 18:44; Status DC Prochlorperazine Edisylate (Compazine) 5 mg PACU PRN PRN IV NAUSEA, MRX1; Start 04/04/17 at 18:45; Stop 04/05/17 at 18:44; Status DC Phenylephrine HCl 1 mg STK-MED ONCE IV ; Start 04/04/17 at 18:36; Stop at 18:37; Status DC Phenylephrine HCl (Du-Synephrine Inj) 10 mg STK-MED ONCE .ROUTE ; Start at 18:44; Stop 04/04/17 at 18:45; Status DC Cellulose 1 each STK-MED ONCE .ROUTE ; Start 04/04/17 at 17:47; Stop 04/04/17 at 18:48; Status DC Cellulose 1 each STK-MED ONCE .ROUTE ; Start 04/04/17 at 17:48; Stop 04/04/17 at 18:48; Status DC Cellulose 1 each STK-MED ONCE .ROUTE Last administered on 04/04/17t 18:13; Start 04/04/17 at 17:49; Stop 04/04/17 at 18:50; Status DC Morphine Sulfate 10 mg STK-MED ONCE .ROUTE ; Start 04/04/17 at 18:56; Stop at 18:57; Status DC Albumin Human 500 ml @ 125 mls/hr 1X ONCE IV Last administered on 04/04/17t 20:05; Start 04/04/17 at 19:45; Stop 04/04/17 at 23:44; Status DC Phenylephrine HCl 80 mg/Sodium Chloride 258 ml @ 0 mls/hr CONT PRN IV SEE I/O RECORD; Start 04/04/17 at 21:00; Stop 04/05/17 at 16:34; Status DC Sodium Chloride 500 ml @ 500 mls/hr 1X ONCE IV Last administered on 21:15; Start 04/05/17 at 21:30; Stop 04/05/17 at 22:29; Status DC Sodium Chloride 500 ml @ 500 mls/hr 1X ONCE IV Last administered on 03:00; Start 04/06/17 at 03:30; Stop 04/06/17 at 04:29; Status DC Norepinephrine Bitartrate 250 ml @ 0 mls/hr CONT PRN IV SEE I/O RECORD; Start 04/06/17 at 02:45 Alteplase, Recombinant (Cathflo) 2 mg 1X ONCE INT CAT Last administered on 04:46; Start 04/06/17 at 03:30; Stop 04/06/17 at 03:31; Status DC Active Scripts Active Reported Aspir 81 (Aspirin) 81 Mg Tablet.dr 1 Tab PO DAILY [place] (Sodium Chloride) 104 Ml [place] 104 Ml NS Q2HR W/A PRN Oxycodone Hcl 5 Mg Capsule 1 Cap PO Q6HRS PRN Acetaminophen 500 Mg Tablet 1 Tab PO Q6PRN PRN Pantoprazole Sodium 40 Mg Tablet.dr 1 Tab PO DAILY PRN Ramipril 10 Mg Capsule 1 Cap PO DAILY Ferrous Sulfate 325 Mg Tablet 1 Tab PO DAILY Ondansetron Odt (Ondansetron) 4 Mg Tab.rapdis 1 Tab PO Q4H PRN Aranesp Syringe (Darbepoetin Greg In Polysorbat) 60 Mcg/0.3 Ml Disp.syrin 60 Mcg SQ WEEKLY Clonidine Hcl 0.2 Mg Tablet 0.2 Mg PO DAILY Flonase Allergy Relief (Fluticasone Propionate) 9.9 Ml [place].susp 1 Sprays NS BID Carvedilol 6.25 Mg Tablet 1 Tab PO BID Atorvastatin Calcium 20 Mg Tablet 1 Tab PO DAILY Novolog Flexpen (Insulin Aspart) 100 Unit/1 Ml Insuln.pen 12 Unit SQ TIDWMEALS PRN Lantus Solostar (Insulin Glargine,Hum.rec.anlog) 100 Unit/1 Ml Insuln.pen 15 Unit SQ QHS Sodium Bicarbonate 650 Mg Tablet 1 Tab PO BID Nephro-Lisa Rx Tablet (Vit B Cmplx 3/Fa/Vit C/Biotin) 1 Each Tablet 1 Each PO DAILY Vitals/I & O Vital Sign - Last 24 Hours 04/05/17 04/05/17 04/05/17 04/05/17 10:00 10:29 10:46 11:00 Temp 98.0 97.5 98.0 98.0 97.5 98.0 Pulse 77 77 72 75 Resp 17 B/P (MAP) 90/47 (61) 96/52 93/49 95/53 (67) Pulse Ox 96 96 O2 Delivery Room Air Room Air 04/05/17 04/05/17 04/05/17 04/05/17 11:50 12:00 12:11 16:00 Temp 98.1 98.0 97.5 98.1 98.0 97.5 Pulse 75 75 76 Resp 18 18 18 B/P (MAP) 123/67 (85) 123/67 92/49 (63) Pulse Ox 98 98 O2 Delivery Room Air Room Air Room Air 04/05/17 04/05/17 04/05/17 04/05/17 17:00 20:00 20:00 23:00 Temp 97.9 97.5 97.9 97.5 Pulse 76 76 75 Resp 18 18 B/P (MAP) 92/49 82/40 (54) 79/42 (54) Pulse Ox 100 91 O2 Delivery Room Air Room Air Room Air 04/06/17 04/06/17 04/06/17 04/06/17 00:55 01:10 01:15 01:25 Temp 98.0 98.0 Pulse 71 70 70 Resp 18 21 25 B/P (MAP) 68/40 (49) 59/38 (45) 52/27 (35) Pulse Ox 93 98 98 O2 Delivery Nasal Cannula Room Air Room Air Room Air O2 Flow Rate 2.0 04/06/17 04/06/17 04/06/17 04/06/17 01:40 01:58 02:12 02:50 Temp 98.0 97.8 97.8 98.0 97.8 97.8 Pulse 68 68 69 69 Resp 25 21 19 18 B/P (MAP) 62/36 (45) 71/47 75/38 87/45 Pulse Ox 98 O2 Delivery Room Air 04/06/17 04/06/17 04/06/17 04/06/17 03:00 04:00 04:00 05:00 Pulse 68 72 72 Resp 25 22 22 B/P (MAP) 87/45 (59) 77/37 (50) 87/45 (59) Pulse Ox 100 98 100 O2 Delivery Room Air Room Air Nasal Cannula Room Air O2 Flow Rate 2.0 04/06/17 04/06/17 04/06/17 04/06/17 05:02 05:17 05:50 06:00 Temp 97.5 97.5 97.5 97.5 97.5 97.5 Pulse 73 78 72 72 Resp 18 7 22 22 B/P (MAP) 100/50 109/61 99/52 103/62 (76) Pulse Ox 98 O2 Delivery Room Air 04/06/17 04/06/17 04/06/17 04/06/17 07:00 08:00 08:25 08:47 Temp 98.2 98.2 Pulse 74 75 75 Resp 18 16 B/P (MAP) 118/60 (79) 109/63 (78) 109/63 Pulse Ox 99 94 O2 Delivery Nasal Cannula Nasal Cannula Nasal Cannula O2 Flow Rate 2.0 2.0 2.0 Intake and Output 04/06/17 04/06/17 04/07/17 15:00 23:00 07:00 Intake Total 0 ml Balance 0 ml KAUSHIK ARGUETA MD Apr 06, 2017 09:51
--- NOTE | 2017-04-06 10:59 | PDOC ---
IM PROGRESS NOTES- Subjective Subjective Patient had 2 units of PRBcs,multiple fluid boluses and was transferred back to ICU due to hypotension and worsening anemia and bleeding from the wound. sleepy,less responsive.Unable to do full systems review. Objective Vitals Vital Signs Date Time Temp Pulse Resp B/P (MAP) Pulse Ox O2 Delivery O2 Flow Rate FiO2 04/06/17 10:00 77 16 118/65 (82) 94 Room Air 04/06/17 08:25 2.0 04/06/17 07:00 98.2 98.2 Input & Output Intake and Output 04/07/17 07:00 Intake Total 0 ml Balance 0 ml Intake Oral 0 ml Physical Exam Physical Exam General appearance - sleepy,ill appearing, and in no distress and oriented to person, place, and time Mental Status - sleepy, oriented to person, place, and time, affect appropriate to mood Head - normal Chest - decreased air entry Heart - S1 and S2 normal Abdomen - soft, nontender, nondistended, no masses or organomegaly Neurological - alert and oriented Musculoskeletal - no muscular tenderness noted Extremities - + pedal edema,rt foot dressing,bleeding present,lt BKA Skin - warm and dry Labs Laboratory Tests Test 04/04/17 11:44 04/04/17 16:40 04/04/17 19:19 04/04/17 19:35 Glucose (Fingerstick) 142 mg/dL (70-99) 191 mg/dL (70-99) 188 mg/dL (70-99) White Blood Count 19.6 x10^3/uL (4.0-11.0) Red Blood Count 2.56 x10^6/uL (4.30-5.70) Hemoglobin 7.6 g/dL (13.0-17.5) Hematocrit 23.2 % (39.0-53.0) Mean Corpuscular Volume 91 fL (79-100) Mean Corpuscular Hemoglobin 30 pg (25-35) Mean Corpuscular Hemoglobin Concent 33 g/dL (31-37) Red Cell Distribution Width 14.6 % (11.5-14.5) Platelet Count 174 x10^3/uL (140-400) Prothrombin Time 16.8 SEC (11.7-14.0) Prothromb Time International Ratio 1.5 (0.8-1.1) Activated Partial Thromboplast Time 39 SEC (24-38) Test 04/04/17 22:02 04/05/17 06:30 04/05/17 07:23 04/05/17 08:15 Glucose (Fingerstick) 167 mg/dL (70-99) 66 mg/dL (70-99) 69 mg/dL (70-99) White Blood Count 17.7 x10^3/uL (4.0-11.0) Red Blood Count 2.22 x10^6/uL (4.30-5.70) Hemoglobin 6.5 g/dL (13.0-17.5) Hematocrit 20.1 % (39.0-53.0) Mean Corpuscular Volume 90 fL (79-100) Mean Corpuscular Hemoglobin 29 pg (25-35) Mean Corpuscular Hemoglobin Concent 32 g/dL (31-37) Red Cell Distribution Width 14.9 % (11.5-14.5) Platelet Count 149 x10^3/uL (140-400) Neutrophils (%) (Auto) 82 % (31-73) Lymphocytes (%) (Auto) 9 % (24-48) Monocytes (%) (Auto) 7 % (0-9) Eosinophils (%) (Auto) 2 % (0-3) Basophils (%) (Auto) 2 % (0-3) Neutrophils # (Auto) 14.4 x10^3uL (1.8-7.7) Lymphocytes # (Auto) 1.5 x10^3/uL (1.0-4.8) Monocytes # (Auto) 1.2 x10^3/uL (0.0-1.1) Eosinophils # (Auto) 0.3 x10^3/uL (0.0-0.7) Basophils # (Auto) 0.3 x10^3/uL (0.0-0.2) Sodium Level 141 mmol/L (136-145) Potassium Level 3.9 mmol/L (3.5-5.1) Chloride Level 102 mmol/L (98-107) Carbon Dioxide Level 32 mmol/L (21-32) Anion Gap 7 (6-14) Blood Urea Nitrogen 21 mg/dL (8-26) Creatinine 4.5 mg/dL (0.7-1.3) Estimated GFR (Cockcroft-Gault) 16.5 Glucose Level 79 mg/dL (70-99) Calcium Level 8.5 mg/dL (8.5-10.1) Phosphorus Level 4.5 mg/dL (2.6-4.7) Albumin 2.0 g/dL (3.4-5.0) Test 04/05/17 09:02 04/05/17 11:25 04/05/17 12:31 04/05/17 16:28 Glucose (Fingerstick) 120 mg/dL (70-99) 127 mg/dL (70-99) 127 mg/dL (70-99) 145 mg/dL (70-99) Test 04/05/17 21:25 04/05/17 21:40 04/06/17 03:00 04/06/17 06:15 Glucose (Fingerstick) 103 mg/dL (70-99) White Blood Count 23.7 x10^3/uL (4.0-11.0) 22.6 x10^3/uL (4.0-11.0) Red Blood Count 2.39 x10^6/uL (4.30-5.70) 2.38 x10^6/uL (4.30-5.70) Hemoglobin 7.1 g/dL (13.0-17.5) 7.0 g/dL (13.0-17.5) 9.4 g/dL (13.0-17.5) Hematocrit 21.6 % (39.0-53.0) 21.4 % (39.0-53.0) 29.0 % (39.0-53.0) Mean Corpuscular Volume 90 fL (79-100) 90 fL (79-100) Mean Corpuscular Hemoglobin 30 pg (25-35) 29 pg (25-35) Mean Corpuscular Hemoglobin Concent 33 g/dL (31-37) 33 g/dL (31-37) 32 g/dL (31-37) Red Cell Distribution Width 15.8 % (11.5-14.5) 15.2 % (11.5-14.5) Platelet Count 133 x10^3/uL (140-400) 102 x10^3/uL (140-400) Neutrophils (%) (Auto) 85 % (31-73) 86 % (31-73) Lymphocytes (%) (Auto) 6 % (24-48) 7 % (24-48) Monocytes (%) (Auto) 6 % (0-9) 6 % (0-9) Eosinophils (%) (Auto) 2 % (0-3) 1 % (0-3) Basophils (%) (Auto) 1 % (0-3) 0 % (0-3) Neutrophils # (Auto) 20.2 x10^3uL (1.8-7.7) 19.3 x10^3uL (1.8-7.7) Lymphocytes # (Auto) 1.4 x10^3/uL (1.0-4.8) 1.6 x10^3/uL (1.0-4.8) Monocytes # (Auto) 1.5 x10^3/uL (0.0-1.1) 1.3 x10^3/uL (0.0-1.1) Eosinophils # (Auto) 0.4 x10^3/uL (0.0-0.7) 0.3 x10^3/uL (0.0-0.7) Basophils # (Auto) 0.2 x10^3/uL (0.0-0.2) 0.1 x10^3/uL (0.0-0.2) Segmented Neutrophils % 79 % (35-66) Band Neutrophils % 3 % (0-9) Lymphocytes % 8 % (24-48) Monocytes % 5 % (0-10) Eosinophils % 3 % (0-5) Metamyelocytes % 1 % (0-0) Myelocytes % 1 % (0-0) Platelet Estimate Adequate (ADEQUATE) Hypochromasia Mod Anisocytosis Slight Prothrombin Time 15.5 SEC (11.7-14.0) Prothromb Time International Ratio 1.3 (0.8-1.1) Sodium Level 139 mmol/L (136-145) Potassium Level 4.0 mmol/L (3.5-5.1) Chloride Level 103 mmol/L (98-107) Carbon Dioxide Level 26 mmol/L (21-32) Anion Gap 10 (6-14) Blood Urea Nitrogen 29 mg/dL (8-26) Creatinine 5.3 mg/dL (0.7-1.3) Estimated GFR (Cockcroft-Gault) 13.6 Glucose Level 212 mg/dL (70-99) Lactic Acid Level 1.1 mmol/L (0.4-2.0) Calcium Level 7.4 mg/dL (8.5-10.1) TW-Hmc-[id number]-Type Natriuretic Peptide 28080 pg/mL (0-124) Test 04/06/17 08:46 Glucose (Fingerstick) 165 mg/dL (70-99) Laboratory Tests Test 04/05/17 11:25 04/05/17 12:31 04/05/17 16:28 04/05/17 21:25 Glucose (Fingerstick) 127 mg/dL (70-99) 127 mg/dL (70-99) 145 mg/dL (70-99) 103 mg/dL (70-99) Test 04/05/17 21:40 04/06/17 03:00 04/06/17 06:15 04/06/17 08:46 White Blood Count 23.7 x10^3/uL (4.0-11.0) 22.6 x10^3/uL (4.0-11.0) Red Blood Count 2.39 x10^6/uL (4.30-5.70) 2.38 x10^6/uL (4.30-5.70) Hemoglobin 7.1 g/dL (13.0-17.5) 7.0 g/dL (13.0-17.5) 9.4 g/dL (13.0-17.5) Hematocrit 21.6 % (39.0-53.0) 21.4 % (39.0-53.0) 29.0 % (39.0-53.0) Mean Corpuscular Volume 90 fL (79-100) 90 fL (79-100) Mean Corpuscular Hemoglobin 30 pg (25-35) 29 pg (25-35) Mean Corpuscular Hemoglobin Concent 33 g/dL (31-37) 33 g/dL (31-37) 32 g/dL (31-37) Red Cell Distribution Width 15.8 % (11.5-14.5) 15.2 % (11.5-14.5) Platelet Count 133 x10^3/uL (140-400) 102 x10^3/uL (140-400) Neutrophils (%) (Auto) 85 % (31-73) 86 % (31-73) Lymphocytes (%) (Auto) 6 % (24-48) 7 % (24-48) Monocytes (%) (Auto) 6 % (0-9) 6 % (0-9) Eosinophils (%) (Auto) 2 % (0-3) 1 % (0-3) Basophils (%) (Auto) 1 % (0-3) 0 % (0-3) Neutrophils # (Auto) 20.2 x10^3uL (1.8-7.7) 19.3 x10^3uL (1.8-7.7) Lymphocytes # (Auto) 1.4 x10^3/uL (1.0-4.8) 1.6 x10^3/uL (1.0-4.8) Monocytes # (Auto) 1.5 x10^3/uL (0.0-1.1) 1.3 x10^3/uL (0.0-1.1) Eosinophils # (Auto) 0.4 x10^3/uL (0.0-0.7) 0.3 x10^3/uL (0.0-0.7) Basophils # (Auto) 0.2 x10^3/uL (0.0-0.2) 0.1 x10^3/uL (0.0-0.2) Segmented Neutrophils % 79 % (35-66) Band Neutrophils % 3 % (0-9) Lymphocytes % 8 % (24-48) Monocytes % 5 % (0-10) Eosinophils % 3 % (0-5) Metamyelocytes % 1 % (0-0) Myelocytes % 1 % (0-0) Platelet Estimate Adequate (ADEQUATE) Hypochromasia Mod Anisocytosis Slight Prothrombin Time 15.5 SEC (11.7-14.0) Prothromb Time International Ratio 1.3 (0.8-1.1) Sodium Level 139 mmol/L (136-145) Potassium Level 4.0 mmol/L (3.5-5.1) Chloride Level 103 mmol/L (98-107) Carbon Dioxide Level 26 mmol/L (21-32) Anion Gap 10 (6-14) Blood Urea Nitrogen 29 mg/dL (8-26) Creatinine 5.3 mg/dL (0.7-1.3) Estimated GFR (Cockcroft-Gault) 13.6 Glucose Level 212 mg/dL (70-99) Lactic Acid Level 1.1 mmol/L (0.4-2.0) Calcium Level 7.4 mg/dL (8.5-10.1) TM-Bkv-F-Type Natriuretic Peptide 95143 pg/mL (0-124) Glucose (Fingerstick) 165 mg/dL (70-99) Meds Current Medications Alteplase, Recombinant (Cathflo) 2 mg 1X ONCE INT CAT Last administered on 04:46; Start 04/06/17 at 03:30; Stop 04/06/17 at 03:31; Status DC Norepinephrine Bitartrate 250 ml @ 0 mls/hr CONT PRN IV SEE I/O RECORD; Start 04/06/17 at 02:45 Sodium Chloride 500 ml @ 500 mls/hr 1X ONCE IV Last administered on 21:15; Start 04/05/17 at 21:30; Stop 04/05/17 at 22:29; Status DC Sodium Chloride 500 ml @ 500 mls/hr 1X ONCE IV Last administered on 03:00; Start 04/06/17 at 03:30; Stop 04/06/17 at 04:29; Status DC Assessment Assessment 1. Sepsis. Blood culture shows strep group b 2. Necrotizing fasciitis of the right foot. 3. Gangrene of the right foot. 4. Osteomyelitis of the right foot. 5. Status post excision of the necrotic tissue as well as infected bones in the right forefoot in the setting of previous right transmetatarsal amputation. 6. Non-ST elevation myocardial infarction. 7. Diabetes mellitus type 2, insulin-dependent, not controlled. 8. End-stage renal disease, on hemodialysis. 9. Peripheral artery disease. 10. Noncompliance. The patient had missed dialysis x 2 before this admission. 11. Moderate protein calorie malnutrition. 12. acute on chronic anemia that is multifactorial including blood loss and end- stage renal disease 13. 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 14. chronic right maxillary sinusitis. PLAN: Hypotension responded to blood transfusion,fluids. Patient declined rt BKA today. wbc 22.6- multifactorial.D/w ID. Patient declined amputation.Had another debridement rt foot. Has some bleeding. Acute on chronic blood loss anemia- transfused 2 units . Hypotension - improving. select screen Zofran for n/v. s/p rt foot surgery. Prognosis very poor. DIABETES: Type II (Uncontrolled) RENAL FAILURE: ESRD ANEMIA: Chronic diseases (ESRD) Plan Plan For more details regarding further plans, please refer to the orders. ANDREY VELASQUEZ MD Apr 06, 2017 10:59
[2017-04-06] MEDS: FLUTICASONE 50MCG/NASAL SPRAY 16GM BOTTLE. NS SCH ×2 (13:41→20:42)
[2017-04-06] MEDS: ATORVASTATIN CALCIUM 20 MG TABLET PO SCH (20:41)
[2017-04-06] MEDS: INSULIN DETEMIR 300 UNITS/3 ML INSULN.PEN. SQ SCH (20:50)
[2017-04-07] VITALS (17 sets, daily range): BP systolic 93–147; BP diastolic 48–86
[2017-04-07] MEDS: PIPERACILLIN/TAZOBACTAM 2.25 GM in IV NORMAL SALINE 50ML 50 ML IV SCH ×3 (04:56→21:21)
[2017-04-07 05:16] LABS: BASO # 0.1 x10^3/uL (0.0-0.2); BASO % 0 % (0-3); EOS % 1 % (0-3); HEMATOCRIT 23.2 % (39.0-53.0); HEMOGLOBIN 7.8 g/dL (13.0-17.5); LYMPH # 1.4 x10^3/uL (1.0-4.8); LYMPH % 6 % (24-48); MEAN CORPUSCULAR HEMOGLOBIN 30 pg (25-35); MEAN CORPUSCULAR HGB CONC 34 g/dL (31-37); MEAN CORPUSCULAR VOLUME 88 fL (79-100); MONO % 6 % (0-9); NEUT % 87 % (31-73); PLATELET COUNT 148 x10^3/uL (140-400); RED BLOOD COUNT 2.65 x10^6/uL (4.30-5.70); RED CELL DISTRIBUTION WIDTH 15.4 % (11.5-14.5)
[2017-04-07 05:51] LABS: ALBUMIN 1.7 g/dL (3.4-5.0); ALBUMIN/GLOBULIN RATIO 0.4 (1.0-1.7); CALCIUM 8.1 mg/dL (8.5-10.1); CREATININE 6.6 mg/dL (0.7-1.3); GFR 10.6; POTASSIUM 4.2 mmol/L (3.5-5.1); TOTAL BILIRUBIN 0.4 mg/dL (0.2-1.0); TOTAL PROTEIN 6.2 g/dL (6.4-8.2)
--- NOTE | 2017-04-07 06:49 | PDOC ---
Infectious Disease Note Subjective Subjective States ok Denies pain, upset stomach or SOA No fever ROS ROS GEN: Denies fevers, chills, sweats HEENT: Denies blurred vision, sore throat CV: Denies chest pain RESP: Denies shortness of air, cough GI: Denies n/v/d NEURO: Denies confusion, dizziness Vital Sign Vital Signs Vital Signs Date Time Temp Pulse Resp B/P (MAP) Pulse Ox O2 Delivery O2 Flow Rate FiO2 04/07/17 06:00 99 16 142/78 (99) 96 Room Air 04/07/17 04:00 98.5 98.5 04/06/17 08:25 2.0 Physical Exam PHYSICAL EXAM GENERAL: Sleeping, arouses easily to name, NAD OC/CP - clear LUNGS: Clear to auscultation. HEART: Normal S1 and S2. ABDOMEN: Nondistended, soft, nontender. Positive bowel sounds. EXTREMITIES: Previous left BKA. Right foot dressing dry and intact SKIN: Without rash. NEUROLOGIC: Arouses easily to name, No acute findings RIJ (10-6). Clean. Labs Lab Laboratory Tests Test 04/06/17 08:46 04/06/17 12:46 04/06/17 17:54 04/06/17 20:45 Glucose (Fingerstick) 165 mg/dL (70-99) 84 mg/dL (70-99) 104 mg/dL (70-99) 115 mg/dL (70-99) Test 04/07/17 05:00 White Blood Count 25.0 x10^3/uL (4.0-11.0) Red Blood Count 2.65 x10^6/uL (4.30-5.70) Hemoglobin 7.8 g/dL (13.0-17.5) Hematocrit 23.2 % (39.0-53.0) Mean Corpuscular Volume 88 fL (79-100) Mean Corpuscular Hemoglobin 30 pg (25-35) Mean Corpuscular Hemoglobin Concent 34 g/dL (31-37) Red Cell Distribution Width 15.4 % (11.5-14.5) Platelet Count 148 x10^3/uL (140-400) Neutrophils (%) (Auto) 87 % (31-73) Lymphocytes (%) (Auto) 6 % (24-48) Monocytes (%) (Auto) 6 % (0-9) Eosinophils (%) (Auto) 1 % (0-3) Basophils (%) (Auto) 0 % (0-3) Neutrophils # (Auto) 21.9 x10^3uL (1.8-7.7) Lymphocytes # (Auto) 1.4 x10^3/uL (1.0-4.8) Monocytes # (Auto) 1.4 x10^3/uL (0.0-1.1) Eosinophils # (Auto) 0.2 x10^3/uL (0.0-0.7) Basophils # (Auto) 0.1 x10^3/uL (0.0-0.2) Sodium Level 141 mmol/L (136-145) Potassium Level 4.2 mmol/L (3.5-5.1) Chloride Level 103 mmol/L (98-107) Carbon Dioxide Level 25 mmol/L (21-32) Anion Gap 13 (6-14) Blood Urea Nitrogen 34 mg/dL (8-26) Creatinine 6.6 mg/dL (0.7-1.3) Estimated GFR (Cockcroft-Gault) 10.6 BUN/Creatinine Ratio 5 (6-20) Glucose Level 98 mg/dL (70-99) Calcium Level 8.1 mg/dL (8.5-10.1) Total Bilirubin 0.4 mg/dL (0.2-1.0) Aspartate Amino Transf (AST/SGOT) 13 U/L (15-37) Alanine Aminotransferase (ALT/SGPT) 26 U/L (16-63) Alkaline Phosphatase 59 U/L (46-116) Total Protein 6.2 g/dL (6.4-8.2) Albumin 1.7 g/dL (3.4-5.0) Albumin/Globulin Ratio 0.4 (1.0-1.7) Objective Assessment Necrotizing fasciitis and osteomyelitis of right foot, s/p open TMA debridement , 03/28. Intra-op cultures group B strep, Kleb oxytoca (R amp), & bacteroides - s/p additional debridement of necrotic skin, subcutaneous tissue, fascia, tendons and exposed bone, 04/04. Intra-op cx: GNC Group B Strep bacteremia, POA, 03/28. Leukocytosis - stable Anemia - better s/p PRBCs 04/06 NSTEMI CKD/HD Diabetes hx: MSSA, PSA & Providencia Plan Plan of Care Zosyn Monitor WBC in am, temp Refusing BKA - reviewed Dr. Vergara note 04/06. Await [facility] ID 04/04 but may not grow JOSEFA MARIN MD Apr 07, 2017 06:49
--- NOTE | 2017-04-07 07:47 | PDOC ---
PROGRESS NOTES Subjective Subjective Patient resting in bed, no complaints this am, discussed need for right below knee amputation, patient states "I still want to keep trying" Objective Objective Vital Signs Date Time Temp Pulse Resp B/P (MAP) Pulse Ox O2 Delivery O2 Flow Rate FiO2 04/07/17 06:00 99 16 142/78 (99) 96 Room Air 04/07/17 04:00 98.5 98.5 04/06/17 08:25 2.0 Physical Exam Physical Exam alert right foot dressing with moderate drainage, wound inspected yesterday by Dr. Vergara, will leave dressing in place until wound vac placement today Assessment Assessment Problems Medical Problems: (1) End stage renal disease Status: Acute (2) Hypertension Status: Acute (3) Septic shock Status: Acute Necrotizing right foot wound s/p right foot wound debridement and amputation Plan Plan of Care Recommendations is for right below knee amputation. Discussed with patient he is still refusing at this time. Continue with wound vac placement today. Continue abx per ID recommendations. Comment Review of Relevant I have reviewed the following items ginny (where applicable) has been applied. Labs Laboratory Tests Laboratory Tests Test 04/06/17 08:46 04/06/17 12:46 04/06/17 17:54 04/06/17 20:45 Glucose (Fingerstick) 165 mg/dL (70-99) 84 mg/dL (70-99) 104 mg/dL (70-99) 115 mg/dL (70-99) Test 04/07/17 05:00 White Blood Count 25.0 x10^3/uL (4.0-11.0) Red Blood Count 2.65 x10^6/uL (4.30-5.70) Hemoglobin 7.8 g/dL (13.0-17.5) Hematocrit 23.2 % (39.0-53.0) Mean Corpuscular Volume 88 fL (79-100) Mean Corpuscular Hemoglobin 30 pg (25-35) Mean Corpuscular Hemoglobin Concent 34 g/dL (31-37) Red Cell Distribution Width 15.4 % (11.5-14.5) Platelet Count 148 x10^3/uL (140-400) Neutrophils (%) (Auto) 87 % (31-73) Lymphocytes (%) (Auto) 6 % (24-48) Monocytes (%) (Auto) 6 % (0-9) Eosinophils (%) (Auto) 1 % (0-3) Basophils (%) (Auto) 0 % (0-3) Neutrophils # (Auto) 21.9 x10^3uL (1.8-7.7) Lymphocytes # (Auto) 1.4 x10^3/uL (1.0-4.8) Monocytes # (Auto) 1.4 x10^3/uL (0.0-1.1) Eosinophils # (Auto) 0.2 x10^3/uL (0.0-0.7) Basophils # (Auto) 0.1 x10^3/uL (0.0-0.2) Sodium Level 141 mmol/L (136-145) Potassium Level 4.2 mmol/L (3.5-5.1) Chloride Level 103 mmol/L (98-107) Carbon Dioxide Level 25 mmol/L (21-32) Anion Gap 13 (6-14) Blood Urea Nitrogen 34 mg/dL (8-26) Creatinine 6.6 mg/dL (0.7-1.3) Estimated GFR (Cockcroft-Gault) 10.6 BUN/Creatinine Ratio 5 (6-20) Glucose Level 98 mg/dL (70-99) Calcium Level 8.1 mg/dL (8.5-10.1) Total Bilirubin 0.4 mg/dL (0.2-1.0) Aspartate Amino Transf (AST/SGOT) 13 U/L (15-37) Alanine Aminotransferase (ALT/SGPT) 26 U/L (16-63) Alkaline Phosphatase 59 U/L (46-116) Total Protein 6.2 g/dL (6.4-8.2) Albumin 1.7 g/dL (3.4-5.0) Albumin/Globulin Ratio 0.4 (1.0-1.7) Microbiology 03/28/17 Blood Culture - Final, Complete NO GROWTH AFTER 5 DAYS 04/04/17 Gram Stain - Final, Complete Vitals/I & O SACHIN RANDLE APRN Apr 07, 2017 07:47
[2017-04-07] MEDS: INSULIN ASPART 300 UNITS/3 ML INSULN.PEN SQ SCH ×6 (08:00→18:25)
[2017-04-07] MEDS: PANTOPRAZOLE 40 MG TABLET.DR. PO SCH (08:34)
[2017-04-07] MEDS: SODIUM BICARBONATE 650 MG TABLET. PO SCH ×2 (08:34→21:02)
[2017-04-07] MEDS: FERROUS SULFATE 325 MG TABLET. PO SCH (08:34)
[2017-04-07] MEDS: CARVEDILOL 6.25 MG TABLET. PO SCH ×2 (08:35→17:00)
[2017-04-07] MEDS: IV NORMAL SALINE 1000ML BAG 1,000 ML IV SCH ×2 (08:36→21:23)
[2017-04-07] MEDS: FLUTICASONE 50MCG/NASAL SPRAY 16GM BOTTLE. NS SCH ×2 (08:40→21:03)
[2017-04-07] MEDS: FOLIC/VIT B COMP W-C (RENAL) TABLET. PO SCH (08:45)
[2017-04-07] MEDS ORDERED: DIALYSIS PATIENT. MC PRN ×2 (09:45)
--- NOTE | 2017-04-07 09:57 | PDOC ---
PROGRESS NOTES Subjective Subjective seen in icu, getting dialysis Objective Objective Vital Signs Date Time Temp Pulse Resp B/P (MAP) Pulse Ox O2 Delivery O2 Flow Rate FiO2 04/07/17 08:35 90 135/72 04/07/17 06:00 16 96 Room Air 04/07/17 04:00 98.5 98.5 04/06/17 08:25 2.0 Physical Exam Abdomen: Normal bowel sounds, Soft, No tenderness, No hepatosplenomegaly, No masses Heart: Regular rate, Normal S1, Normal S2, No murmurs, Gallops Extremities: No clubbing, No cyanosis, No edema, Normal pulses, No tenderness/ swelling General: Cooperative, No acute distress HEENT: Atraumatic, PERRLA, EOMI Lungs: Clear to auscultation, Normal air movement MUSCULOSKELETAL: Other (DIFFUSE MUSCLE ATROPHY) Neck: Supple Neuro: Other (UNABLE TO ASSESS, LETHARGIC) Psych/Mental Status: Mental status NL, Mood NL COMMENT dressing rt foot Diagnosis Problem List Problems Medical Problems: (1) End stage renal disease Status: Acute (2) Hypertension Status: Acute (3) Septic shock Status: Acute DIABETES: Type II (Uncontrolled) RENAL FAILURE: ESRD ANEMIA: Chronic diseases (ESRD) Assessment Assessment 1. Sepsis. Blood culture shows strep group b 2. Necrotizing fasciitis of the right foot. 3. Gangrene of the right foot. 4. Osteomyelitis of the right foot. 5. Status post excision of the necrotic tissue as well as infected bones in the right forefoot in the setting of previous right transmetatarsal amputation. 6. Non-ST elevation myocardial infarction. 7. Diabetes mellitus type 2, insulin-dependent, not controlled. 8. End-stage renal disease, on hemodialysis. 9. Peripheral artery disease. 10. Noncompliance. The patient had missed dialysis x 2 before this admission. 11. Moderate protein calorie malnutrition. 12. acute on chronic anemia that is multifactorial including blood loss and end- stage renal disease 13. 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 14. chronic right maxillary sinusitis. PLAN: s/p debridement 04/05 rt foot again. transferred to icu for bleeding from foot and hypotension. not ready for leg amputation spoke with ID and Renal Hypotension responded to blood transfusion,fluids. Patient declined rt BKA today. wbc 15- multifactorial.D/w ID.hb 7.3 Acute on chronic blood loss anemia- transfused 2 units . Hypotension - improving. select screen Zofran for n/v. s/p rt foot surgery. Prognosis very poor. Problems: Plan Plan of Care Problems Medical Problems: (1) End stage renal disease Status: Acute (2) Hypertension Status: Acute (3) Septic shock Status: Acute Comment Review of Relevant I have reviewed the following items ginny (where applicable) has been applied. Labs Laboratory Tests Test 04/06/17 12:46 04/06/17 17:54 04/06/17 20:45 04/07/17 05:00 Glucose (Fingerstick) 84 mg/dL (70-99) 104 mg/dL (70-99) 115 mg/dL (70-99) White Blood Count 25.0 x10^3/uL (4.0-11.0) Red Blood Count 2.65 x10^6/uL (4.30-5.70) Hemoglobin 7.8 g/dL (13.0-17.5) Hematocrit 23.2 % (39.0-53.0) Mean Corpuscular Volume 88 fL (79-100) Mean Corpuscular Hemoglobin 30 pg (25-35) Mean Corpuscular Hemoglobin Concent 34 g/dL (31-37) Red Cell Distribution Width 15.4 % (11.5-14.5) Platelet Count 148 x10^3/uL (140-400) Neutrophils (%) (Auto) 87 % (31-73) Lymphocytes (%) (Auto) 6 % (24-48) Monocytes (%) (Auto) 6 % (0-9) Eosinophils (%) (Auto) 1 % (0-3) Basophils (%) (Auto) 0 % (0-3) Neutrophils # (Auto) 21.9 x10^3uL (1.8-7.7) Lymphocytes # (Auto) 1.4 x10^3/uL (1.0-4.8) Monocytes # (Auto) 1.4 x10^3/uL (0.0-1.1) Eosinophils # (Auto) 0.2 x10^3/uL (0.0-0.7) Basophils # (Auto) 0.1 x10^3/uL (0.0-0.2) Sodium Level 141 mmol/L (136-145) Potassium Level 4.2 mmol/L (3.5-5.1) Chloride Level 103 mmol/L (98-107) Carbon Dioxide Level 25 mmol/L (21-32) Anion Gap 13 (6-14) Blood Urea Nitrogen 34 mg/dL (8-26) Creatinine 6.6 mg/dL (0.7-1.3) Estimated GFR (Cockcroft-Gault) 10.6 BUN/Creatinine Ratio 5 (6-20) Glucose Level 98 mg/dL (70-99) Calcium Level 8.1 mg/dL (8.5-10.1) Total Bilirubin 0.4 mg/dL (0.2-1.0) Aspartate Amino Transf (AST/SGOT) 13 U/L (15-37) Alanine Aminotransferase (ALT/SGPT) 26 U/L (16-63) Alkaline Phosphatase 59 U/L (46-116) Total Protein 6.2 g/dL (6.4-8.2) Albumin 1.7 g/dL (3.4-5.0) Albumin/Globulin Ratio 0.4 (1.0-1.7) Test 04/07/17 08:56 Glucose (Fingerstick) 77 mg/dL (70-99) Microbiology 03/28/17 Blood Culture - Final, Complete NO GROWTH AFTER 5 DAYS 04/04/17 Gram Stain - Final, Complete Medications Current Medications Info (PHARMACY MONITORING -- do not chart) 1 each PRN DAILY PRN MC SEE COMMENTS ; Start 04/07/17 at 09:45; Status UNV Info (PHARMACY MONITORING -- do not chart) 1 each PRN DAILY PRN MC SEE COMMENTS ; Start 04/07/17 at 09:45; Status UNV Vitals/I & O Vital Sign - Last 24 Hours 04/06/17 04/06/17 04/06/17 04/06/17 10:00 11:00 12:00 12:00 Temp 98.0 98.0 Pulse 77 78 75 Resp 16 B/P (MAP) 118/65 (82) 115/61 (79) 122/66 (84) Pulse Ox 94 100 94 O2 Delivery Room Air Room Air Room Air Room Air 04/06/17 04/06/17 04/06/17 04/06/17 13:00 13:59 14:00 15:00 Temp 98.3 98.3 Pulse 77 82 82 84 Resp 16 16 16 16 B/P (MAP) 118/64 (82) 114/64 (81) 114/64 (81) 112/68 (83) Pulse Ox 100 97 97 97 O2 Delivery Room Air Room Air Room Air Room Air 04/06/17 04/06/17 04/06/17 04/06/17 16:00 16:00 17:00 17:00 Temp 98.1 98.1 Pulse 72 75 75 Resp 28 18 B/P (MAP) 98/51 (67) 101/53 101/53 (69) Pulse Ox 97 97 O2 Delivery Room Air Room Air Room Air 04/06/17 04/06/17 04/06/17 04/06/17 18:00 19:00 20:00 20:00 Temp 98.4 98.4 Pulse 77 80 81 Resp 18 16 20 B/P (MAP) 97/50 (66) 115/76 (89) 119/61 (80) Pulse Ox 97 98 97 O2 Delivery Room Air Room Air Room Air Room Air 04/06/17 04/06/17 04/06/17 04/07/17 21:00 22:00 23:00 00:00 Temp 98.2 98.2 Pulse 80 80 80 81 Resp 16 16 16 14 B/P (MAP) 108/54 (72) 105/51 (69) 131/68 (89) 106/52 (70) Pulse Ox 98 99 98 97 O2 Delivery Room Air Room Air Room Air Room Air 04/07/17 04/07/17 04/07/17 04/07/17 00:00 01:00 02:00 03:00 Pulse 82 84 84 Resp 16 17 17 B/P (MAP) 124/63 (83) 118/58 (78) 118/58 (78) Pulse Ox 98 98 98 O2 Delivery Room Air Room Air Room Air Room Air 04/07/17 04/07/17 04/07/17 04/07/17 04:00 04:00 05:00 06:00 Temp 98.5 98.5 Pulse 86 86 99 Resp 14 18 16 B/P (MAP) 147/75 (99) 135/86 (102) 142/78 (99) Pulse Ox 93 94 96 O2 Delivery Room Air Room Air Room Air Room Air 04/07/17 08:35 Pulse 90 B/P (MAP) 135/72 VIKTOR PARK MD Apr 07, 2017 09:57
--- NOTE | 2017-04-07 10:25 | PDOC ---
Dialysis Progress Note Dialysis Note Dialysis Note Seen on Hemodialysis, tolerating treatment Okay so far Vitals on Hemodialysis: 106/58 88 afeb General Appearance: Awake: Alert Oriented x 2 in min distress from pain Neck: No JVD or JVP Chest: CTA Kory Heart: S1 S2 Abdomen - Soft NTND Extremities - +1-2 Edema ESRD: Dialysis as below F 180 NR 3. 0 Hrs 3 K 2.5 Ca 140 Na 40 HC03 Qb 350 + Qd 500+ Heparin 0 Units Uf 3-4 Kgs or to dry weight as tolerated May give 25-50 gms of 25% Albumin if needed to maintain Hemodynamic stability Treatment plan reviewed and discussed with apron worker Vitals Vital Signs Vital Signs Date Time Temp Pulse Resp B/P (MAP) Pulse Ox O2 Delivery O2 Flow Rate FiO2 04/07/17 08:35 90 135/72 04/07/17 06:00 16 96 Room Air 04/07/17 04:00 98.5 98.5 04/06/17 08:25 2.0 Labs Last Labs Laboratory Tests Test 04/05/17 11:25 04/05/17 12:31 04/05/17 16:28 04/05/17 21:25 Glucose (Fingerstick) 127 mg/dL (70-99) 127 mg/dL (70-99) 145 mg/dL (70-99) 103 mg/dL (70-99) Test 04/05/17 21:40 04/06/17 03:00 04/06/17 06:15 04/06/17 08:46 White Blood Count 23.7 x10^3/uL (4.0-11.0) 22.6 x10^3/uL (4.0-11.0) Red Blood Count 2.39 x10^6/uL (4.30-5.70) 2.38 x10^6/uL (4.30-5.70) Hemoglobin 7.1 g/dL (13.0-17.5) 7.0 g/dL (13.0-17.5) 9.4 g/dL (13.0-17.5) Hematocrit 21.6 % (39.0-53.0) 21.4 % (39.0-53.0) 29.0 % (39.0-53.0) Mean Corpuscular Volume 90 fL (79-100) 90 fL (79-100) Mean Corpuscular Hemoglobin 30 pg (25-35) 29 pg (25-35) Mean Corpuscular Hemoglobin Concent 33 g/dL (31-37) 33 g/dL (31-37) 32 g/dL (31-37) Red Cell Distribution Width 15.8 % (11.5-14.5) 15.2 % (11.5-14.5) Platelet Count 133 x10^3/uL (140-400) 102 x10^3/uL (140-400) Neutrophils (%) (Auto) 85 % (31-73) 86 % (31-73) Lymphocytes (%) (Auto) 6 % (24-48) 7 % (24-48) Monocytes (%) (Auto) 6 % (0-9) 6 % (0-9) Eosinophils (%) (Auto) 2 % (0-3) 1 % (0-3) Basophils (%) (Auto) 1 % (0-3) 0 % (0-3) Neutrophils # (Auto) 20.2 x10^3uL (1.8-7.7) 19.3 x10^3uL (1.8-7.7) Lymphocytes # (Auto) 1.4 x10^3/uL (1.0-4.8) 1.6 x10^3/uL (1.0-4.8) Monocytes # (Auto) 1.5 x10^3/uL (0.0-1.1) 1.3 x10^3/uL (0.0-1.1) Eosinophils # (Auto) 0.4 x10^3/uL (0.0-0.7) 0.3 x10^3/uL (0.0-0.7) Basophils # (Auto) 0.2 x10^3/uL (0.0-0.2) 0.1 x10^3/uL (0.0-0.2) Segmented Neutrophils % 79 % (35-66) Band Neutrophils % 3 % (0-9) Lymphocytes % 8 % (24-48) Monocytes % 5 % (0-10) Eosinophils % 3 % (0-5) Metamyelocytes % 1 % (0-0) Myelocytes % 1 % (0-0) Platelet Estimate Adequate (ADEQUATE) Hypochromasia Mod Anisocytosis Slight Prothrombin Time 15.5 SEC (11.7-14.0) Prothromb Time International Ratio 1.3 (0.8-1.1) Sodium Level 139 mmol/L (136-145) Potassium Level 4.0 mmol/L (3.5-5.1) Chloride Level 103 mmol/L (98-107) Carbon Dioxide Level 26 mmol/L (21-32) Anion Gap 10 (6-14) Blood Urea Nitrogen 29 mg/dL (8-26) Creatinine 5.3 mg/dL (0.7-1.3) Estimated GFR (Cockcroft-Gault) 13.6 Glucose Level 212 mg/dL (70-99) Lactic Acid Level 1.1 mmol/L (0.4-2.0) Calcium Level 7.4 mg/dL (8.5-10.1) IQ-Mfc-Q-Type Natriuretic Peptide 68616 pg/mL (0-124) Glucose (Fingerstick) 165 mg/dL (70-99) Test 04/06/17 12:46 04/06/17 17:54 04/06/17 20:45 04/07/17 05:00 Glucose (Fingerstick) 84 mg/dL (70-99) 104 mg/dL (70-99) 115 mg/dL (70-99) White Blood Count 25.0 x10^3/uL (4.0-11.0) Red Blood Count 2.65 x10^6/uL (4.30-5.70) Hemoglobin 7.8 g/dL (13.0-17.5) Hematocrit 23.2 % (39.0-53.0) Mean Corpuscular Volume 88 fL (79-100) Mean Corpuscular Hemoglobin 30 pg (25-35) Mean Corpuscular Hemoglobin Concent 34 g/dL (31-37) Red Cell Distribution Width 15.4 % (11.5-14.5) Platelet Count 148 x10^3/uL (140-400) Neutrophils (%) (Auto) 87 % (31-73) Lymphocytes (%) (Auto) 6 % (24-48) Monocytes (%) (Auto) 6 % (0-9) Eosinophils (%) (Auto) 1 % (0-3) Basophils (%) (Auto) 0 % (0-3) Neutrophils # (Auto) 21.9 x10^3uL (1.8-7.7) Lymphocytes # (Auto) 1.4 x10^3/uL (1.0-4.8) Monocytes # (Auto) 1.4 x10^3/uL (0.0-1.1) Eosinophils # (Auto) 0.2 x10^3/uL (0.0-0.7) Basophils # (Auto) 0.1 x10^3/uL (0.0-0.2) Sodium Level 141 mmol/L (136-145) Potassium Level 4.2 mmol/L (3.5-5.1) Chloride Level 103 mmol/L (98-107) Carbon Dioxide Level 25 mmol/L (21-32) Anion Gap 13 (6-14) Blood Urea Nitrogen 34 mg/dL (8-26) Creatinine 6.6 mg/dL (0.7-1.3) Estimated GFR (Cockcroft-Gault) 10.6 BUN/Creatinine Ratio 5 (6-20) Glucose Level 98 mg/dL (70-99) Calcium Level 8.1 mg/dL (8.5-10.1) Total Bilirubin 0.4 mg/dL (0.2-1.0) Aspartate Amino Transf (AST/SGOT) 13 U/L (15-37) Alanine Aminotransferase (ALT/SGPT) 26 U/L (16-63) Alkaline Phosphatase 59 U/L (46-116) Total Protein 6.2 g/dL (6.4-8.2) Albumin 1.7 g/dL (3.4-5.0) Albumin/Globulin Ratio 0.4 (1.0-1.7) Test 04/07/17 08:56 Glucose (Fingerstick) 77 mg/dL (70-99) Laboratory Tests Test 04/06/17 12:46 04/06/17 17:54 04/06/17 20:45 04/07/17 05:00 Glucose (Fingerstick) 84 mg/dL (70-99) 104 mg/dL (70-99) 115 mg/dL (70-99) White Blood Count 25.0 x10^3/uL (4.0-11.0) Red Blood Count 2.65 x10^6/uL (4.30-5.70) Hemoglobin 7.8 g/dL (13.0-17.5) Hematocrit 23.2 % (39.0-53.0) Mean Corpuscular Volume 88 fL (79-100) Mean Corpuscular Hemoglobin 30 pg (25-35) Mean Corpuscular Hemoglobin Concent 34 g/dL (31-37) Red Cell Distribution Width 15.4 % (11.5-14.5) Platelet Count 148 x10^3/uL (140-400) Neutrophils (%) (Auto) 87 % (31-73) Lymphocytes (%) (Auto) 6 % (24-48) Monocytes (%) (Auto) 6 % (0-9) Eosinophils (%) (Auto) 1 % (0-3) Basophils (%) (Auto) 0 % (0-3) Neutrophils # (Auto) 21.9 x10^3uL (1.8-7.7) Lymphocytes # (Auto) 1.4 x10^3/uL (1.0-4.8) Monocytes # (Auto) 1.4 x10^3/uL (0.0-1.1) Eosinophils # (Auto) 0.2 x10^3/uL (0.0-0.7) Basophils # (Auto) 0.1 x10^3/uL (0.0-0.2) Sodium Level 141 mmol/L (136-145) Potassium Level 4.2 mmol/L (3.5-5.1) Chloride Level 103 mmol/L (98-107) Carbon Dioxide Level 25 mmol/L (21-32) Anion Gap 13 (6-14) Blood Urea Nitrogen 34 mg/dL (8-26) Creatinine 6.6 mg/dL (0.7-1.3) Estimated GFR (Cockcroft-Gault) 10.6 BUN/Creatinine Ratio 5 (6-20) Glucose Level 98 mg/dL (70-99) Calcium Level 8.1 mg/dL (8.5-10.1) Total Bilirubin 0.4 mg/dL (0.2-1.0) Aspartate Amino Transf (AST/SGOT) 13 U/L (15-37) Alanine Aminotransferase (ALT/SGPT) 26 U/L (16-63) Alkaline Phosphatase 59 U/L (46-116) Total Protein 6.2 g/dL (6.4-8.2) Albumin 1.7 g/dL (3.4-5.0) Albumin/Globulin Ratio 0.4 (1.0-1.7) Test 04/07/17 08:56 Glucose (Fingerstick) 77 mg/dL (70-99) Assessment Assessment Problems Medical Problems: (1) End stage renal disease Status: Acute (2) Hypertension Status: Acute (3) Septic shock Status: Acute Problems: Plan Plan of Care Problems Medical Problems: (1) Hypertension Status: Acute JONATHAN LYON MD Apr 07, 2017 10:25
[2017-04-07] MEDS ORDERED: ALBUMIN HUMAN 25% 200 ML IV PRN (10:45)
[2017-04-07] MEDS: oxyCODONE IR 5 MG TABLET PO PRN (14:44)
[2017-04-07] MEDS: INSULIN DETEMIR 300 UNITS/3 ML INSULN.PEN. SQ SCH (21:00)
[2017-04-07] MEDS: ATORVASTATIN CALCIUM 20 MG TABLET PO SCH (21:02)
[2017-04-07] MEDS: MORPHINE SULFATE 2 MG/ML DISP.SYRIN. IV PRN (22:47)
[2017-04-08] VITALS (7 sets, daily range): BP systolic 96–152; BP diastolic 43–88
[2017-04-08] MEDS: PIPERACILLIN/TAZOBACTAM 2.25 GM in IV NORMAL SALINE 50ML 50 ML IV SCH ×3 (05:55→21:47)
[2017-04-08 06:10] LABS: BASO # 0.2 x10^3/uL (0.0-0.2); BASO % 1 % (0-3); EOS % 1 % (0-3); HEMATOCRIT 22.4 % (39.0-53.0); HEMOGLOBIN 7.2 g/dL (13.0-17.5); LYMPH # 1.3 x10^3/uL (1.0-4.8); LYMPH % 6 % (24-48); MEAN CORPUSCULAR HEMOGLOBIN 29 pg (25-35); MEAN CORPUSCULAR HGB CONC 32 g/dL (31-37); MEAN CORPUSCULAR VOLUME 90 fL (79-100); MONO % 6 % (0-9); NEUT % 86 % (31-73); PLATELET COUNT 161 x10^3/uL (140-400); RED BLOOD COUNT 2.49 x10^6/uL (4.30-5.70); RED CELL DISTRIBUTION WIDTH 15.7 % (11.5-14.5); WHITE BLOOD COUNT 21.3 x10^3/uL (4.0-11.0)
[2017-04-08 06:35] LABS: ALBUMIN/GLOBULIN RATIO 0.5 (1.0-1.7); CALCIUM 8.1 mg/dL (8.5-10.1); CREATININE 4.5 mg/dL (0.7-1.3); GFR 16.5; POTASSIUM 3.7 mmol/L (3.5-5.1); TOTAL BILIRUBIN 0.4 mg/dL (0.2-1.0); TOTAL PROTEIN 6.4 g/dL (6.4-8.2)
[2017-04-08] MEDS: PANTOPRAZOLE 40 MG TABLET.DR. PO SCH (08:59)
[2017-04-08] MEDS: SODIUM BICARBONATE 650 MG TABLET. PO SCH ×2 (08:59→21:45)
[2017-04-08] MEDS: FOLIC/VIT B COMP W-C (RENAL) TABLET. PO SCH (09:00)
[2017-04-08] MEDS: CARVEDILOL 6.25 MG TABLET. PO SCH ×3 (09:01→17:00)
[2017-04-08] MEDS: FERROUS SULFATE 325 MG TABLET. PO SCH (09:01)
[2017-04-08] MEDS: FLUTICASONE 50MCG/NASAL SPRAY 16GM BOTTLE. NS SCH ×2 (09:03→21:45)
[2017-04-08] MEDS: INSULIN ASPART 300 UNITS/3 ML INSULN.PEN SQ SCH ×6 (09:09→17:00)
--- NOTE | 2017-04-08 09:20 | PDOC ---
Infectious Disease Note Subjective Subjective States ok Denies pain, upset stomach or SOA No fever Hungry this am ROS ROS GEN: Denies fevers, chills, sweats HEENT: Denies blurred vision, sore throat CV: Denies chest pain RESP: Denies shortness of air, cough GI: Denies n/v/d NEURO: Denies confusion, dizziness MSK: Denies weakness, joint pain/swelling Vital Sign Vital Signs Vital Signs Date Time Temp Pulse Resp B/P (MAP) Pulse Ox O2 Delivery O2 Flow Rate FiO2 04/08/17 03:00 98.2 91 20 99/49 (66) 96 Room Air 98.2 04/07/17 16:00 2.0 Physical Exam PHYSICAL EXAM GENERAL: Coop, NAD OC/CP - clear LUNGS: Clear to auscultation. HEART: Normal S1 and S2. ABDOMEN: Nondistended, soft, nontender. Positive bowel sounds. EXTREMITIES: Previous left BKA. Right foot dressing dry and intact - vac SKIN: Without rash. NEUROLOGIC: Alert and coop RIJ (10-6). Clean Labs Lab Laboratory Tests Test 04/07/17 13:43 04/07/17 18:22 04/07/17 21:25 04/07/17 22:50 Glucose (Fingerstick) 75 mg/dL (70-99) 130 mg/dL (70-99) 68 mg/dL (70-99) 76 mg/dL (70-99) Test 04/08/17 00:03 04/08/17 06:00 04/08/17 07:47 Glucose (Fingerstick) 100 mg/dL (70-99) 223 mg/dL (70-99) White Blood Count 21.3 x10^3/uL (4.0-11.0) Red Blood Count 2.49 x10^6/uL (4.30-5.70) Hemoglobin 7.2 g/dL (13.0-17.5) Hematocrit 22.4 % (39.0-53.0) Mean Corpuscular Volume 90 fL (79-100) Mean Corpuscular Hemoglobin 29 pg (25-35) Mean Corpuscular Hemoglobin Concent 32 g/dL (31-37) Red Cell Distribution Width 15.7 % (11.5-14.5) Platelet Count 161 x10^3/uL (140-400) Neutrophils (%) (Auto) 86 % (31-73) Lymphocytes (%) (Auto) 6 % (24-48) Monocytes (%) (Auto) 6 % (0-9) Eosinophils (%) (Auto) 1 % (0-3) Basophils (%) (Auto) 1 % (0-3) Neutrophils # (Auto) 18.4 x10^3uL (1.8-7.7) Lymphocytes # (Auto) 1.3 x10^3/uL (1.0-4.8) Monocytes # (Auto) 1.2 x10^3/uL (0.0-1.1) Eosinophils # (Auto) 0.2 x10^3/uL (0.0-0.7) Basophils # (Auto) 0.2 x10^3/uL (0.0-0.2) Sodium Level 142 mmol/L (136-145) Potassium Level 3.7 mmol/L (3.5-5.1) Chloride Level 104 mmol/L (98-107) Carbon Dioxide Level 27 mmol/L (21-32) Anion Gap 11 (6-14) Blood Urea Nitrogen 19 mg/dL (8-26) Creatinine 4.5 mg/dL (0.7-1.3) Estimated GFR (Cockcroft-Gault) 16.5 BUN/Creatinine Ratio 4 (6-20) Glucose Level 229 mg/dL (70-99) Calcium Level 8.1 mg/dL (8.5-10.1) Total Bilirubin 0.4 mg/dL (0.2-1.0) Aspartate Amino Transf (AST/SGOT) 17 U/L (15-37) Alanine Aminotransferase (ALT/SGPT) 27 U/L (16-63) Alkaline Phosphatase 66 U/L (46-116) Total Protein 6.4 g/dL (6.4-8.2) Albumin 2.0 g/dL (3.4-5.0) Albumin/Globulin Ratio 0.5 (1.0-1.7) Objective Assessment Necrotizing fasciitis and osteomyelitis of right foot, s/p open TMA debridement , 03/28. Intra-op cultures group B strep, Kleb oxytoca (R amp), & bacteroides/ Strep anginosis - s/p additional debridement of necrotic skin, subcutaneous tissue, fascia, tendons and exposed bone, 04/04. Intra-op cx: GNC Group B Strep bacteremia, POA, 03/28. Leukocytosis - stable Anemia - better s/p PRBCs 04/06 NSTEMI CKD/HD Diabetes hx: MSSA, PSA & Providencia Plan Plan of Care Zosyn Monitor WBC in am, temp Refusing BKA - reviewedVascular note 04/07. I recommended amputation today JOSEFA MARIN MD Apr 08, 2017 09:20
[2017-04-08] MEDS ORDERED: MAGNESIUM SULFATE 2GM 50 ML IV PRN (12:00)
--- NOTE | 2017-04-08 12:01 | PDOC ---
SUBJECTIVE ROS ESRD Doign OK overall CVS: no Orthopnea, no CP RESP: no SOB, no GODDARD GI: min Nausea, no Vomiting : no Dysuria, no Urgency OBJECTIVE Vital Signs Vital Signs Date Time Temp Pulse Resp B/P (MAP) Pulse Ox O2 Delivery O2 Flow Rate FiO2 04/08/17 09:19 93 152/88 04/08/17 07:00 98.7 18 97 Room Air 98.7 04/07/17 16:00 2.0 PHYSICAL EXAM Physical Exam GEN: Awake, Oriented x 2, In no distress EYES: Vision Unchanged, Conjunctiva Normal EN: No EN Drainage, Mucous Membranes moist NECK: no JVD, min JVP, Supple, no Thyromegaly CVS: S1S2, + Murmur, No Gallop, No Rub,no Edema RESP: no Rales, no Rhonchi,no Acc. Muscle Use GI: BS + ve, NO Bruit, Non Tender, Non Distended : no CVA tenderness, no Suprapubic Tenderness DIAGNOSIS/ASSESSMENT Assessment & Plan ESRD: Current fluid and E-lyte status does not necessitate emergent need for dialysis. Will re-evaluate for dialysis in the am and continue on MWF schedule. ANEMIA; Aranap as ordered, Transfuse with next HD as needed for hgb < 7 HTN: Current BP meds as reviewed. See orders for changes. BONE & MINERAL: follow phos and alter binder regimen as needed Discussed Plan of Care with pt at bedside Problems: COMMENT/RELEVANT DATA Meds Current Medications Medications (Trade) Dose Ordered Sig/Teresa Start Time Stop Time Status Last Admin Dose Admin Acetaminophen (Tylenol) 500 mg 1X PRN PRN 04/02/17 08:45 04/03/17 08:44 DC Albumin Human 200 ml @ 200 mls/hr 1X PRN PRN 04/07/17 10:45 04/07/17 16:44 DC 04/07/17 13:09 200 MLS/HR Alteplase, Recombinant (Cathflo) 2 mg 1X ONCE 04/06/17 03:30 04/06/17 03:31 DC 04/06/17 04:46 2 MG Aspirin (Ecotrin) 81 mg [id number] 03/29/17 08:00 04/06/17 09:13 DC 04/05/17 07:10 81 MG Atorvastatin Calcium (Lipitor) 20 mg QHS 03/28/17 21:00 04/07/17 21:02 20 MG Carvedilol (Coreg) 6.25 mg BIDWMEALS 03/28/17 17:00 04/08/17 09:19 6.25 MG Cellulose 1 each STK-MED ONCE 04/04/17 17:49 04/04/17 18:50 DC 04/04/17 18:13 1 EACH Clonidine HCl (Catapres) 0.1 mg 1X PRN PRN 04/02/17 08:45 04/03/17 08:44 DC Darbepoetin Greg (Aranesp) 60 mcg WEEKLYHS 03/28/17 21:00 04/04/17 22:14 60 MCG Desflurane (Suprane) 60 ml STK-MED ONCE 03/28/17 16:19 03/28/17 16:20 DC Dexamethasone Sodium Phosphate (Decadron) 20 mg STK-MED ONCE 03/28/17 16:19 03/28/17 16:20 DC Dextrose (Dextrose 50%-Water Syringe) 12.5 gm PRN Q15MIN PRN 03/28/17 17:00 04/05/17 08:31 12.5 GM Dextrose/Sodium Chloride 1,000 ml @ 50 mls/hr Q20H 04/03/17 14:30 04/06/17 13:19 DC 04/04/17 15:26 50 MLS/HR Diphenhydramine HCl (Benadryl) 25 mg 1X PRN PRN 04/02/17 08:45 04/03/17 08:44 DC Ephedrine Sulfate (Akovaz) 50 mg STK-MED ONCE 03/28/17 17:03 03/28/17 17:04 DC Fentanyl Citrate (Fentanyl 2ml Vial) 50 mcg PRN Q5MIN PRN 04/04/17 18:45 04/05/17 18:44 DC Ferrous Sulfate (Feosol) 325 mg DAILY 03/29/17 09:00 04/08/17 09:01 325 MG Fluticasone Propionate (Flonase) 2 spray BID 03/28/17 21:00 04/08/17 09:03 2 SPRAY Gentamicin Sulfate 320 mg/ Sodium Chloride 108 ml @ 108 mls/hr 1X ONCE 03/28/17 11:30 10/6/17 12:29 DC 03/28/17 14:56 108 MLS/HR Heparin Sodium (Porcine) (Heparin Sodium) 3,000 unit 1X ONCE 04/03/17 13:30 04/03/17 13:38 DC 04/03/17 14:22 4,000 UNIT Heparin Sodium/ Sodium Chloride 1,000 unit 1X ONCE 04/03/17 13:15 04/03/17 13:16 DC 04/03/17 14:20 1,000 UNIT Hydralazine HCl (Apresoline Inj) 10 mg 1X ONCE 04/03/17 14:15 04/03/17 14:19 DC 04/03/17 14:21 10 MG Hydromorphone HCl (Dilaudid) 0.5 mg PRN Q10MIN PRN 04/04/17 18:45 04/05/17 18:44 DC Info (PHARMACY MONITORING -- do not chart) 1 each PRN DAILY PRN 04/07/17 09:45 UNV Insulin Aspart (NovoLOG) 8 units 1X ONCE 03/29/17 09:30 03/29/17 09:31 DC 03/29/17 09:48 8 UNITS Insulin Detemir (Levemir) 15 units QHS 03/28/17 21:00 04/06/17 20:50 15 UNITS Iodixanol (Visipaque 320) 100 ml 1X ONCE 04/03/17 13:15 04/03/17 13:16 DC 04/03/17 14:19 109 ML Iohexol (Omnipaque 300 Mg/ml) 100 ml 1X ONCE 04/03/17 13:15 04/03/17 13:16 DC 04/03/17 14:19 16 ML Labetalol HCl (Normodyne) 10 mg PRN Q1HR PRN 04/02/17 08:45 04/03/17 08:44 DC Lidocaine HCl (Lidocaine Pf 2% Vial) 5 ml STK-MED ONCE 04/04/17 17:45 04/04/17 17:46 DC Lidocaine HCl (Xylocaine-Mpf 1% Vial) 2 ml PRN 1X PRN 04/04/17 18:45 04/05/17 18:44 DC Lidocaine/Sodium Bicarbonate (Buffered Lidocaine 1%) 20 ml 1X ONCE 04/03/17 13:15 04/03/17 13:16 DC 04/03/17 14:20 3 ML Linezolid 300 ml @ 300 mls/hr Q12HR 03/28/17 21:00 04/01/17 09:09 DC 04/01/17 08:48 300 MLS/HR Magnesium Sulfate/ Dextrose 50 ml @ 25 mls/hr PRN DAILY PRN 03/29/17 10:30 Midazolam HCl (Versed) 2 mg 1X ONCE 04/03/17 13:15 04/03/17 13:16 DC 04/03/17 14:18 1 MG Morphine Sulfate 10 mg STK-MED ONCE 04/04/17 18:56 04/04/17 18:57 DC Mupirocin (Bactroban) 22 lesvia STK-MED ONCE 03/28/17 16:20 03/28/17 17:20 DC Norepinephrine Bitartrate 250 ml @ 0 mls/hr CONT PRN 04/06/17 02:45 Ondansetron HCl (Zofran Odt) 4 mg Q4H PRN 03/28/17 17:00 03/31/17 10:57 4 MG Ondansetron HCl (Zofran) 4 mg PRN Q6HRS PRN 04/04/17 18:45 04/05/17 18:44 DC Oxycodone HCl (Roxicodone) 5 mg PRN Q6HRS PRN 03/28/17 17:00 04/07/17 14:44 5 MG Pantoprazole Sodium (Protonix) 40 mg DAILYAC 03/29/17 07:30 04/08/17 08:59 40 MG Phenylephrine HCl (Du-Synephrine Inj) 10 mg STK-MED ONCE 04/04/17 18:44 04/04/17 18:45 DC Phenylephrine HCl 80 mg/Sodium Chloride 258 ml @ 0 mls/hr CONT PRN 04/04/17 21:00 04/05/17 16:34 DC Piperacillin Sod/ Tazobactam Sod (Zosyn Per Pharmacy) 1 each PRN DAILY PRN 03/28/17 10:30 Piperacillin Sod/ Tazobactam Sod 2.25 gm/Sodium Chloride 50 ml @ 100 mls/hr Q8HRS 03/28/17 21:00 04/08/17 05:55 100 MLS/HR Prochlorperazine Edisylate (Compazine) 5 mg PACU PRN PRN 04/04/17 18:45 04/05/17 18:44 DC Propofol 20 ml @ As Directed STK-MED ONCE 04/04/17 17:45 04/04/17 17:46 DC Ringer's Solution 1,000 ml @ 0 mls/hr Q0M 04/04/17 18:34 04/05/17 06:33 DC Sevoflurane (Ultane) 30 ml STK-MED ONCE 04/04/17 17:45 04/04/17 17:46 DC Sodium Bicarbonate (Sodium Bicarbonate) 650 mg BID 03/28/17 21:00 04/08/17 08:59 650 MG Sodium Chloride 500 ml @ 500 mls/hr 1X ONCE 04/06/17 03:30 04/06/17 04:29 DC 04/06/17 03:00 500 MLS/HR Sodium Chloride (Normal Saline Flush) 10 ml 1X PRN PRN 03/31/17 09:00 04/01/17 08:59 DC Vancomycin HCl 1 each 1X ONCE 03/29/17 16:00 03/29/17 16:01 Cancel Vancomycin HCl (Vanco Per Pharmacy) 1 each PRN DAILY PRN 03/28/17 19:30 03/29/17 07:23 DC 03/28/17 19:38 1 EACH Vancomycin HCl 1.75 gm/Sodium Chloride 500 ml @ 250 mls/hr 1X ONCE 03/28/17 11:00 03/28/17 12:59 DC 03/28/17 11:00 250 MLS/HR Vitamin B Complex/ Vitamin C (Mary-Lisa) 1 tab DAILY 03/29/17 09:00 04/08/17 09:00 1 TAB Lab Laboratory Tests Test 04/07/17 13:43 04/07/17 18:22 04/07/17 21:25 04/07/17 22:50 Glucose (Fingerstick) 75 mg/dL (70-99) 130 mg/dL (70-99) 68 mg/dL (70-99) 76 mg/dL (70-99) Test 04/08/17 00:03 04/08/17 06:00 04/08/17 07:47 04/08/17 11:21 Glucose (Fingerstick) 100 mg/dL (70-99) 223 mg/dL (70-99) 166 mg/dL (70-99) White Blood Count 21.3 x10^3/uL (4.0-11.0) Red Blood Count 2.49 x10^6/uL (4.30-5.70) Hemoglobin 7.2 g/dL (13.0-17.5) Hematocrit 22.4 % (39.0-53.0) Mean Corpuscular Volume 90 fL (79-100) Mean Corpuscular Hemoglobin 29 pg (25-35) Mean Corpuscular Hemoglobin Concent 32 g/dL (31-37) Red Cell Distribution Width 15.7 % (11.5-14.5) Platelet Count 161 x10^3/uL (140-400) Neutrophils (%) (Auto) 86 % (31-73) Lymphocytes (%) (Auto) 6 % (24-48) Monocytes (%) (Auto) 6 % (0-9) Eosinophils (%) (Auto) 1 % (0-3) Basophils (%) (Auto) 1 % (0-3) Neutrophils # (Auto) 18.4 x10^3uL (1.8-7.7) Lymphocytes # (Auto) 1.3 x10^3/uL (1.0-4.8) Monocytes # (Auto) 1.2 x10^3/uL (0.0-1.1) Eosinophils # (Auto) 0.2 x10^3/uL (0.0-0.7) Basophils # (Auto) 0.2 x10^3/uL (0.0-0.2) Sodium Level 142 mmol/L (136-145) Potassium Level 3.7 mmol/L (3.5-5.1) Chloride Level 104 mmol/L (98-107) Carbon Dioxide Level 27 mmol/L (21-32) Anion Gap 11 (6-14) Blood Urea Nitrogen 19 mg/dL (8-26) Creatinine 4.5 mg/dL (0.7-1.3) Estimated GFR (Cockcroft-Gault) 16.5 BUN/Creatinine Ratio 4 (6-20) Glucose Level 229 mg/dL (70-99) Calcium Level 8.1 mg/dL (8.5-10.1) Total Bilirubin 0.4 mg/dL (0.2-1.0) Aspartate Amino Transf (AST/SGOT) 17 U/L (15-37) Alanine Aminotransferase (ALT/SGPT) 27 U/L (16-63) Alkaline Phosphatase 66 U/L (46-116) Total Protein 6.4 g/dL (6.4-8.2) Albumin 2.0 g/dL (3.4-5.0) Albumin/Globulin Ratio 0.5 (1.0-1.7) JONATHAN LYON MD Apr 08, 2017 12:01
[2017-04-08] MEDS: DEXTROSE 50% 25 GM / 50ML DISP.SYRIN. IV PRN ×2 (17:50→18:04)
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
[2017-04-08] MEDS: INSULIN DETEMIR 300 UNITS/3 ML INSULN.PEN. SQ SCH (21:00)
[2017-04-08] MEDS: ATORVASTATIN CALCIUM 20 MG TABLET PO SCH (21:45)
[2017-04-08] MEDS: ACETAMINOPHEN 500 MG TABLET PO PRN (22:59)
[2017-04-09 02:00] VITALS: BP 124/93
[2017-04-09] MEDS: PIPERACILLIN/TAZOBACTAM 2.25 GM in IV NORMAL SALINE 50ML 50 ML IV SCH ×3 (05:09→22:28)
[2017-04-09] MEDS: IV NORMAL SALINE 1000ML BAG 1,000 ML IV SCH (05:10)
[2017-04-09] MEDS: PANTOPRAZOLE 40 MG TABLET.DR. PO SCH (05:11)
[2017-04-09 07:00] VITALS: BP 131/74
[2017-04-09 07:22] LABS: ALBUMIN 1.9 g/dL (3.4-5.0); ALBUMIN/GLOBULIN RATIO 0.4 (1.0-1.7); CALCIUM 8.4 mg/dL (8.5-10.1); CREATININE 5.9 mg/dL (0.7-1.3); GFR 12.1; MAGNESIUM 1.9 mg/dL (1.8-2.4); PHOSPHORUS 5.5 mg/dL (2.6-4.7); POTASSIUM 4.1 mmol/L (3.5-5.1); TOTAL BILIRUBIN 0.5 mg/dL (0.2-1.0); TOTAL PROTEIN 6.6 g/dL (6.4-8.2)
[2017-04-09 07:23] LABS: BASO # 0.1 x10^3/uL (0.0-0.2); BASO % 1 % (0-3); EOS % 1 % (0-3); HEMATOCRIT 21.8 % (39.0-53.0); HEMOGLOBIN 7.1 g/dL (13.0-17.5); LYMPH # 1.2 x10^3/uL (1.0-4.8); LYMPH % 6 % (24-48); MEAN CORPUSCULAR HEMOGLOBIN 30 pg (25-35); MEAN CORPUSCULAR HGB CONC 33 g/dL (31-37); MEAN CORPUSCULAR VOLUME 93 fL (79-100); MONO % 5 % (0-9); NEUT % 88 % (31-73); PLATELET COUNT 176 x10^3/uL (140-400); RED BLOOD COUNT 2.35 x10^6/uL (4.30-5.70); RED CELL DISTRIBUTION WIDTH 15.5 % (11.5-14.5); WHITE BLOOD COUNT 19.2 x10^3/uL (4.0-11.0)
[2017-04-09] MEDS: INSULIN ASPART 300 UNITS/3 ML INSULN.PEN SQ SCH ×6 (08:00→17:00)
[2017-04-09] MEDS: CARVEDILOL 6.25 MG TABLET. PO SCH ×2 (08:00→17:16)
--- NOTE | 2017-04-09 08:19 | PDOC ---
Infectious Disease Note Subjective Subjective States ok Denies pain, upset stomach or SOA No fever Hungry again this am ROS ROS GEN: Denies fevers, chills, sweats HEENT: Denies blurred vision, sore throat CV: Denies chest pain RESP: Denies shortness of air, cough GI: Denies n/v/d NEURO: Denies confusion, dizziness MSK: Denies weakness, joint pain/swelling Vital Sign Vital Signs Vital Signs Date Time Temp Pulse Resp B/P (MAP) Pulse Ox O2 Delivery O2 Flow Rate FiO2 04/09/17 02:00 98.3 90 18 124/93 (103) 93 Nasal Cannula 2.0 98.3 Physical Exam PHYSICAL EXAM GENERAL: Coop, NAD OC/CP - clear LUNGS: Clear to auscultation. HEART: Normal S1 and S2. ABDOMEN: Nondistended, soft, nontender. Positive bowel sounds. EXTREMITIES: Previous left BKA. Right foot dressing dry and intact - vac SKIN: Without rash. NEUROLOGIC: Alert and coop RIJ (10-6). Clean Labs Lab Laboratory Tests Test 04/08/17 11:21 04/08/17 17:09 04/08/17 17:10 04/08/17 17:47 Glucose (Fingerstick) 166 mg/dL (70-99) 48 mg/dL (70-99) 47 mg/dL (70-99) 38 mg/dL (70-99) Test 04/08/17 18:00 04/08/17 18:11 04/08/17 21:08 04/09/17 06:00 Glucose (Fingerstick) 56 mg/dL (70-99) 86 mg/dL (70-99) 147 mg/dL (70-99) White Blood Count 19.2 x10^3/uL (4.0-11.0) Red Blood Count 2.35 x10^6/uL (4.30-5.70) Hemoglobin 7.1 g/dL (13.0-17.5) Hematocrit 21.8 % (39.0-53.0) Mean Corpuscular Volume 93 fL (79-100) Mean Corpuscular Hemoglobin 30 pg (25-35) Mean Corpuscular Hemoglobin Concent 33 g/dL (31-37) Red Cell Distribution Width 15.5 % (11.5-14.5) Platelet Count 176 x10^3/uL (140-400) Neutrophils (%) (Auto) 88 % (31-73) Lymphocytes (%) (Auto) 6 % (24-48) Monocytes (%) (Auto) 5 % (0-9) Eosinophils (%) (Auto) 1 % (0-3) Basophils (%) (Auto) 1 % (0-3) Neutrophils # (Auto) 16.9 x10^3uL (1.8-7.7) Lymphocytes # (Auto) 1.2 x10^3/uL (1.0-4.8) Monocytes # (Auto) 1.0 x10^3/uL (0.0-1.1) Eosinophils # (Auto) 0.2 x10^3/uL (0.0-0.7) Basophils # (Auto) 0.1 x10^3/uL (0.0-0.2) Sodium Level 140 mmol/L (136-145) Potassium Level 4.1 mmol/L (3.5-5.1) Chloride Level 103 mmol/L (98-107) Carbon Dioxide Level 25 mmol/L (21-32) Anion Gap 12 (6-14) Blood Urea Nitrogen 25 mg/dL (8-26) Creatinine 5.9 mg/dL (0.7-1.3) Estimated GFR (Cockcroft-Gault) 12.1 BUN/Creatinine Ratio 4 (6-20) Glucose Level 163 mg/dL (70-99) Calcium Level 8.4 mg/dL (8.5-10.1) Phosphorus Level 5.5 mg/dL (2.6-4.7) Magnesium Level 1.9 mg/dL (1.8-2.4) Total Bilirubin 0.5 mg/dL (0.2-1.0) Aspartate Amino Transf (AST/SGOT) 15 U/L (15-37) Alanine Aminotransferase (ALT/SGPT) 21 U/L (16-63) Alkaline Phosphatase 59 U/L (46-116) Total Protein 6.6 g/dL (6.4-8.2) Albumin 1.9 g/dL (3.4-5.0) Albumin/Globulin Ratio 0.4 (1.0-1.7) Objective Assessment Necrotizing fasciitis and osteomyelitis of right foot, s/p open TMA debridement , 03/28. Intra-op cultures group B strep, Kleb oxytoca (R amp), & bacteroides/ Strep anginosis - s/p additional debridement of necrotic skin, subcutaneous tissue, fascia, tendons and exposed bone, 04/04. Intra-op cx: GNC Group B Strep bacteremia, POA, 03/28. Leukocytosis - improved Anemia - better s/p PRBCs 04/06. still low NSTEMI CKD/HD Diabetes hx: MSSA, PSA & Providencia Plan Plan of Care Zosyn until at least 05/15 Monitor WBC in am, temp Refusing BKA - reviewed Vascular note 04/07. Needs line change as IJ in place since 03/28. IJ PICC vs Chest line will d/w Dr. Daniel/Adam Agree with transfer to [facility] recommended amputation today JOSEFA MARIN MD Apr 09, 2017 08:19
[2017-04-09] MEDS ORDERED: IV NORMAL SALINE 1000ML BAG 1,000 ML IV PRN ×2 (08:51)
[2017-04-09] MEDS: FLUTICASONE 50MCG/NASAL SPRAY 16GM BOTTLE. NS SCH ×2 (08:56→21:53)
[2017-04-09] MEDS ORDERED: diphenhydrAMINE 50 MG/ML VIAL IV PRN ×2 (09:00)
[2017-04-09] MEDS: FOLIC/VIT B COMP W-C (RENAL) TABLET. PO SCH ×2 (09:00→17:17)
[2017-04-09] MEDS ORDERED: DIALYSIS PATIENT. MC PRN (09:00)
[2017-04-09] MEDS: SODIUM BICARBONATE 650 MG TABLET. PO SCH ×2 (09:00→21:54)
[2017-04-09] MEDS: FERROUS SULFATE 325 MG TABLET. PO SCH ×2 (09:00→17:17)
--- NOTE | 2017-04-09 09:49 | PDOC ---
Dialysis Progress Note Dialysis Note Dialysis Note Seen on Hemodialysis, tolerating treatment Okay so far Vitals on Hemodialysis: 127/68 90 afeb General Appearance: Awake: Alert Oriented x 2 in no distress Neck: No JVD or JVP Chest: CTA Kory Heart: S1 S2 Abdomen - Soft NTND Extremities - no Edema ESRD: Dialysis as below F 180 NR 3. 0 Hrs 3 K 2.5 Ca 140 Na 35 HC03 Qb 350 + Qd 500+ Heparin 0 Units Uf 2-3 Kgs or to dry weight as tolerated May give 25-50 gms of 25% Albumin if needed to maintain Hemodynamic stability Treatment plan reviewed and discussed with railway signal electrician Vitals Vital Signs Vital Signs Date Time Temp Pulse Resp B/P (MAP) Pulse Ox O2 Delivery O2 Flow Rate FiO2 04/09/17 07:00 98.3 90 18 131/74 (93) 94 Nasal Cannula 2.0 98.3 Labs Last Labs Laboratory Tests Test 04/07/17 13:43 04/07/17 18:22 04/07/17 21:25 04/07/17 22:50 Glucose (Fingerstick) 75 mg/dL (70-99) 130 mg/dL (70-99) 68 mg/dL (70-99) 76 mg/dL (70-99) Test 04/08/17 00:03 04/08/17 06:00 04/08/17 07:47 04/08/17 11:21 Glucose (Fingerstick) 100 mg/dL (70-99) 223 mg/dL (70-99) 166 mg/dL (70-99) White Blood Count 21.3 x10^3/uL (4.0-11.0) Red Blood Count 2.49 x10^6/uL (4.30-5.70) Hemoglobin 7.2 g/dL (13.0-17.5) Hematocrit 22.4 % (39.0-53.0) Mean Corpuscular Volume 90 fL (79-100) Mean Corpuscular Hemoglobin 29 pg (25-35) Mean Corpuscular Hemoglobin Concent 32 g/dL (31-37) Red Cell Distribution Width 15.7 % (11.5-14.5) Platelet Count 161 x10^3/uL (140-400) Neutrophils (%) (Auto) 86 % (31-73) Lymphocytes (%) (Auto) 6 % (24-48) Monocytes (%) (Auto) 6 % (0-9) Eosinophils (%) (Auto) 1 % (0-3) Basophils (%) (Auto) 1 % (0-3) Neutrophils # (Auto) 18.4 x10^3uL (1.8-7.7) Lymphocytes # (Auto) 1.3 x10^3/uL (1.0-4.8) Monocytes # (Auto) 1.2 x10^3/uL (0.0-1.1) Eosinophils # (Auto) 0.2 x10^3/uL (0.0-0.7) Basophils # (Auto) 0.2 x10^3/uL (0.0-0.2) Sodium Level 142 mmol/L (136-145) Potassium Level 3.7 mmol/L (3.5-5.1) Chloride Level 104 mmol/L (98-107) Carbon Dioxide Level 27 mmol/L (21-32) Anion Gap 11 (6-14) Blood Urea Nitrogen 19 mg/dL (8-26) Creatinine 4.5 mg/dL (0.7-1.3) Estimated GFR (Cockcroft-Gault) 16.5 BUN/Creatinine Ratio 4 (6-20) Glucose Level 229 mg/dL (70-99) Calcium Level 8.1 mg/dL (8.5-10.1) Total Bilirubin 0.4 mg/dL (0.2-1.0) Aspartate Amino Transf (AST/SGOT) 17 U/L (15-37) Alanine Aminotransferase (ALT/SGPT) 27 U/L (16-63) Alkaline Phosphatase 66 U/L (46-116) Total Protein 6.4 g/dL (6.4-8.2) Albumin 2.0 g/dL (3.4-5.0) Albumin/Globulin Ratio 0.5 (1.0-1.7) Test 04/08/17 17:09 04/08/17 17:10 04/08/17 17:47 04/08/17 18:00 Glucose (Fingerstick) 48 mg/dL (70-99) 47 mg/dL (70-99) 38 mg/dL (70-99) 56 mg/dL (70-99) Test 04/08/17 18:11 04/08/17 21:08 10/18/17 06:00 04/09/17 07:41 Glucose (Fingerstick) 86 mg/dL (70-99) 147 mg/dL (70-99) 168 mg/dL (70-99) White Blood Count 19.2 x10^3/uL (4.0-11.0) Red Blood Count 2.35 x10^6/uL (4.30-5.70) Hemoglobin 7.1 g/dL (13.0-17.5) Hematocrit 21.8 % (39.0-53.0) Mean Corpuscular Volume 93 fL (79-100) Mean Corpuscular Hemoglobin 30 pg (25-35) Mean Corpuscular Hemoglobin Concent 33 g/dL (31-37) Red Cell Distribution Width 15.5 % (11.5-14.5) Platelet Count 176 x10^3/uL (140-400) Neutrophils (%) (Auto) 88 % (31-73) Lymphocytes (%) (Auto) 6 % (24-48) Monocytes (%) (Auto) 5 % (0-9) Eosinophils (%) (Auto) 1 % (0-3) Basophils (%) (Auto) 1 % (0-3) Neutrophils # (Auto) 16.9 x10^3uL (1.8-7.7) Lymphocytes # (Auto) 1.2 x10^3/uL (1.0-4.8) Monocytes # (Auto) 1.0 x10^3/uL (0.0-1.1) Eosinophils # (Auto) 0.2 x10^3/uL (0.0-0.7) Basophils # (Auto) 0.1 x10^3/uL (0.0-0.2) Sodium Level 140 mmol/L (136-145) Potassium Level 4.1 mmol/L (3.5-5.1) Chloride Level 103 mmol/L (98-107) Carbon Dioxide Level 25 mmol/L (21-32) Anion Gap 12 (6-14) Blood Urea Nitrogen 25 mg/dL (8-26) Creatinine 5.9 mg/dL (0.7-1.3) Estimated GFR (Cockcroft-Gault) 12.1 BUN/Creatinine Ratio 4 (6-20) Glucose Level 163 mg/dL (70-99) Calcium Level 8.4 mg/dL (8.5-10.1) Phosphorus Level 5.5 mg/dL (2.6-4.7) Magnesium Level 1.9 mg/dL (1.8-2.4) Total Bilirubin 0.5 mg/dL (0.2-1.0) Aspartate Amino Transf (AST/SGOT) 15 U/L (15-37) Alanine Aminotransferase (ALT/SGPT) 21 U/L (16-63) Alkaline Phosphatase 59 U/L (46-116) Total Protein 6.6 g/dL (6.4-8.2) Albumin 1.9 g/dL (3.4-5.0) Albumin/Globulin Ratio 0.4 (1.0-1.7) Laboratory Tests Test 04/08/17 11:21 04/08/17 17:09 04/08/17 17:10 04/08/17 17:47 Glucose (Fingerstick) 166 mg/dL (70-99) 48 mg/dL (70-99) 47 mg/dL (70-99) 38 mg/dL (70-99) Test 04/08/17 18:00 04/08/17 18:11 04/08/17 21:08 04/09/17 06:00 Glucose (Fingerstick) 56 mg/dL (70-99) 86 mg/dL (70-99) 147 mg/dL (70-99) White Blood Count 19.2 x10^3/uL (4.0-11.0) Red Blood Count 2.35 x10^6/uL (4.30-5.70) Hemoglobin 7.1 g/dL (13.0-17.5) Hematocrit 21.8 % (39.0-53.0) Mean Corpuscular Volume 93 fL (79-100) Mean Corpuscular Hemoglobin 30 pg (25-35) Mean Corpuscular Hemoglobin Concent 33 g/dL (31-37) Red Cell Distribution Width 15.5 % (11.5-14.5) Platelet Count 176 x10^3/uL (140-400) Neutrophils (%) (Auto) 88 % (31-73) Lymphocytes (%) (Auto) 6 % (24-48) Monocytes (%) (Auto) 5 % (0-9) Eosinophils (%) (Auto) 1 % (0-3) Basophils (%) (Auto) 1 % (0-3) Neutrophils # (Auto) 16.9 x10^3uL (1.8-7.7) Lymphocytes # (Auto) 1.2 x10^3/uL (1.0-4.8) Monocytes # (Auto) 1.0 x10^3/uL (0.0-1.1) Eosinophils # (Auto) 0.2 x10^3/uL (0.0-0.7) Basophils # (Auto) 0.1 x10^3/uL (0.0-0.2) Sodium Level 140 mmol/L (136-145) Potassium Level 4.1 mmol/L (3.5-5.1) Chloride Level 103 mmol/L (98-107) Carbon Dioxide Level 25 mmol/L (21-32) Anion Gap 12 (6-14) Blood Urea Nitrogen 25 mg/dL (8-26) Creatinine 5.9 mg/dL (0.7-1.3) Estimated GFR (Cockcroft-Gault) 12.1 BUN/Creatinine Ratio 4 (6-20) Glucose Level 163 mg/dL (70-99) Calcium Level 8.4 mg/dL (8.5-10.1) Phosphorus Level 5.5 mg/dL (2.6-4.7) Magnesium Level 1.9 mg/dL (1.8-2.4) Total Bilirubin 0.5 mg/dL (0.2-1.0) Aspartate Amino Transf (AST/SGOT) 15 U/L (15-37) Alanine Aminotransferase (ALT/SGPT) 21 U/L (16-63) Alkaline Phosphatase 59 U/L (46-116) Total Protein 6.6 g/dL (6.4-8.2) Albumin 1.9 g/dL (3.4-5.0) Albumin/Globulin Ratio 0.4 (1.0-1.7) Test 04/09/17 07:41 Glucose (Fingerstick) 168 mg/dL (70-99) Assessment Assessment Problems Medical Problems: (1) End stage renal disease Status: Acute (2) Hypertension Status: Acute (3) Septic shock Status: Acute Problems: Plan Plan of Care Problems Medical Problems: (1) Hypertension Status: Acute JONATHAN LYON MD Apr 09, 2017 09:49
--- NOTE | 2017-04-09 10:20 | PDOC ---
PROGRESS NOTES Subjective Subjective seen in dialysis Objective Objective Vital Signs Date Time Temp Pulse Resp B/P (MAP) Pulse Ox O2 Delivery O2 Flow Rate FiO2 04/09/17 07:00 98.3 90 18 131/74 (93) 94 Nasal Cannula 2.0 98.3 Physical Exam Abdomen: Normal bowel sounds, Soft, No tenderness, No hepatosplenomegaly, No masses Heart: Regular rate, Normal S1, Normal S2, No murmurs, Gallops Extremities: No clubbing, No cyanosis, No edema, Normal pulses, No tenderness/ swelling General: Cooperative, No acute distress HEENT: Atraumatic, PERRLA, EOMI Lungs: Clear to auscultation, Normal air movement MUSCULOSKELETAL: Other (DIFFUSE MUSCLE ATROPHY) Neck: Supple Neuro: Other (UNABLE TO ASSESS, LETHARGIC) Psych/Mental Status: Mental status NL, Mood NL COMMENT wound vac rt foot Diagnosis Problem List Problems Medical Problems: (1) End stage renal disease Status: Acute (2) Hypertension Status: Acute (3) Septic shock Status: Acute DIABETES: Type II (Uncontrolled) RENAL FAILURE: ESRD ANEMIA: Chronic diseases (ESRD) Assessment Assessment 1. Sepsis. Blood culture shows strep group b 2. Necrotizing fasciitis of the right foot. 3. Gangrene of the right foot. 4. Osteomyelitis of the right foot. 5. Status post excision of the necrotic tissue as well as infected bones in the right forefoot in the setting of previous right transmetatarsal amputation. 6. Non-ST elevation myocardial infarction. 7. Diabetes mellitus type 2, insulin-dependent, not controlled. 8. End-stage renal disease, on hemodialysis. 9. Peripheral artery disease. 10. Noncompliance. The patient had missed dialysis x 2 before this admission. 11. Moderate protein calorie malnutrition. 12. acute on chronic anemia that is multifactorial including blood loss and end- stage renal disease 13. 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 14. chronic right maxillary sinusitis. PLAN: Needs Groshan catheter for care home iv antibiotics, will consult IR. Not ready for foot amputation. want to go to [facility] s/p debridement 04/05 rt foot again. transferred to icu for bleeding from foot and hypotension. transferred to 4 th floor spoke with ID and Renal Hypotension responded to blood transfusion,fluids. Patient declined rt BKA .. wbc 19 down multifactorial.D/w ID.hb 7.3 Acute on chronic blood loss anemia- transfused 2 units . Zofran for n/v. s/p rt foot surgery. Prognosis guarded Problems: Plan Plan of Care Problems Medical Problems: (1) End stage renal disease Status: Acute (2) Hypertension Status: Acute (3) Septic shock Status: Acute Comment Review of Relevant I have reviewed the following items ginny (where applicable) has been applied. Labs Laboratory Tests Test 04/08/17 11:21 04/08/17 17:09 04/08/17 17:10 04/08/17 17:47 Glucose (Fingerstick) 166 mg/dL (70-99) 48 mg/dL (70-99) 47 mg/dL (70-99) 38 mg/dL (70-99) Test 04/08/17 18:00 04/08/17 18:11 04/08/17 21:08 04/09/17 06:00 Glucose (Fingerstick) 56 mg/dL (70-99) 86 mg/dL (70-99) 147 mg/dL (70-99) White Blood Count 19.2 x10^3/uL (4.0-11.0) Red Blood Count 2.35 x10^6/uL (4.30-5.70) Hemoglobin 7.1 g/dL (13.0-17.5) Hematocrit 21.8 % (39.0-53.0) Mean Corpuscular Volume 93 fL (79-100) Mean Corpuscular Hemoglobin 30 pg (25-35) Mean Corpuscular Hemoglobin Concent 33 g/dL (31-37) Red Cell Distribution Width 15.5 % (11.5-14.5) Platelet Count 176 x10^3/uL (140-400) Neutrophils (%) (Auto) 88 % (31-73) Lymphocytes (%) (Auto) 6 % (24-48) Monocytes (%) (Auto) 5 % (0-9) Eosinophils (%) (Auto) 1 % (0-3) Basophils (%) (Auto) 1 % (0-3) Neutrophils # (Auto) 16.9 x10^3uL (1.8-7.7) Lymphocytes # (Auto) 1.2 x10^3/uL (1.0-4.8) Monocytes # (Auto) 1.0 x10^3/uL (0.0-1.1) Eosinophils # (Auto) 0.2 x10^3/uL (0.0-0.7) Basophils # (Auto) 0.1 x10^3/uL (0.0-0.2) Sodium Level 140 mmol/L (136-145) Potassium Level 4.1 mmol/L (3.5-5.1) Chloride Level 103 mmol/L (98-107) Carbon Dioxide Level 25 mmol/L (21-32) Anion Gap 12 (6-14) Blood Urea Nitrogen 25 mg/dL (8-26) Creatinine 5.9 mg/dL (0.7-1.3) Estimated GFR (Cockcroft-Gault) 12.1 BUN/Creatinine Ratio 4 (6-20) Glucose Level 163 mg/dL (70-99) Calcium Level 8.4 mg/dL (8.5-10.1) Phosphorus Level 5.5 mg/dL (2.6-4.7) Magnesium Level 1.9 mg/dL (1.8-2.4) Total Bilirubin 0.5 mg/dL (0.2-1.0) Aspartate Amino Transf (AST/SGOT) 15 U/L (15-37) Alanine Aminotransferase (ALT/SGPT) 21 U/L (16-63) Alkaline Phosphatase 59 U/L (46-116) Total Protein 6.6 g/dL (6.4-8.2) Albumin 1.9 g/dL (3.4-5.0) Albumin/Globulin Ratio 0.4 (1.0-1.7) Test 04/09/17 07:41 Glucose (Fingerstick) 168 mg/dL (70-99) Microbiology 03/28/17 Blood Culture - Final, Complete NO GROWTH AFTER 5 DAYS 04/04/17 Gram Stain - Final, Complete Medications Current Medications Diphenhydramine HCl (Benadryl) 25 mg 1X PRN PRN IV ITCHING; Start 04/09/17 at 09:00; Stop 04/10/17 at 08:59 Diphenhydramine HCl (Benadryl) 25 mg 1X PRN PRN IV ITCHING; Start 04/09/17 at 09:00; Stop 04/10/17 at 08:59 Info (PHARMACY MONITORING -- do not chart) 1 each PRN DAILY PRN MC SEE COMMENTS ; Start 04/09/17 at 09:00; Status UNV Magnesium Sulfate/ Dextrose 50 ml @ 25 mls/hr PRN DAILY PRN IV for Mag < 1.7 on am labs; Start 04/08/17 at 12:00 Sodium Chloride 1,000 ml @ 400 mls/hr Q2H30M PRN IV PATENCY; Start 04/09/17 at 08:51; Stop 04/09/17 at 20:50 Sodium Chloride 1,000 ml @ 1,000 mls/hr Q1H PRN IV hypotension; Start at 08:51; Stop 04/09/17 at 14:50 Vitals/I & O Vital Sign - Last 24 Hours 04/08/17 04/08/17 04/08/17 04/08/17 11:00 17:00 18:00 19:00 Temp 98.5 97.4 97.8 98.5 97.4 97.8 Pulse 96 85 85 83 Resp 20 18 21 B/P (MAP) 123/77 (92) 96/56 96/56 (69) 106/43 (64) Pulse Ox 98 96 95 O2 Delivery Room Air Room Air Room Air 04/08/17 04/08/17 04/09/17 04/09/17 20:00 22:00 02:00 07:00 Temp 99.2 98.3 98.3 99.2 98.3 98.3 Pulse 85 90 90 Resp 20 18 18 B/P (MAP) 111/60 (77) 124/93 (103) 131/74 (93) Pulse Ox 95 93 94 O2 Delivery Nasal Cannula Nasal Cannula Nasal Cannula Nasal Cannula O2 Flow Rate 2.0 2.0 2.0 2.0 VIKTOR PARK MD Apr 09, 2017 10:20
--- NOTE | 2017-04-09 10:21 | RAD ---
04/04/2017 Pelvic angiography Right lower extremity angiography Drug coated balloon angioplasty of distal right superficial femoral artery stenosis Indication: 57-year-old male with severe alternative methods chronic vascular disease status post right transmetatarsal amputation with nonhealing wound and subsequent development of gangrene. Discussion: The risks and benefits of the procedure were discussed the patient. Informed consent was obtained. The patient was brought to the interventional suite and placed in the supine position. Timeout procedure was performed. The left groin was prepped and draped using maximum sterile barrier technique. Using a collimation fluoroscopic and ultrasound guidance the left common femoral artery was accessed using micropuncture technique. Reference ultrasound images were stored medical record. An Omni Flush catheter was advanced into the abdominal aorta. Pelvic angiography was performed demonstrating no evidence of hemodynamically significant aortoiliac stenosis. The aortic bifurcation was crossed right lower extremity angiography was performed. Right common femoral artery is patent. There is 50-60% stenosis of the distal right SFA just above the adductor canal. The popliteal artery is patent. Multifocal mild to moderate narrowings are seen throughout the tibial vessels however the anterior tibial and posterior tibial artery remained patent. The peroneal artery occludes proximally similar to prior exams. There is however occlusion of the dorsalis pedis artery in the foot as well as occlusion of the distal most posterior tibial artery in the foot, without visualization of a significant medial or lateral plantar artery. Balloon angioplasty of the distal right SFA was performed using a 5 x 40 mm drug code balloon. Repeat angiography demonstrated improved morphology and flow through the distal SFA. All sheaths and guidewires were removed. A mixed device was used to achieve hemostasis at the left common femoral puncture site. No immediate complications were identified. The procedures performed conscious sedation including continuous cardiopulmonary monitoring via a dedicated sedation nurse. Sedation time: 1 hour Fluoroscopy time: 10.7 minutes Dose area product 172 minor cm2 Impression: 1. Interval development of 50-60% stenosis of the distal right SFA just above the adductor canal successfully treated with balloon angioplasty. 2. Multifocal tibial vessel disease with overall patent 2 vessel runoff to the ankle. The dorsalis pedis artery as well as the medial and lateral plantar arteries are occluded
[2017-04-09] MEDS ORDERED: HEPARIN PF 500 UNIT/5 ML DISP.SYRIN. IV ONE (13:21)
[2017-04-09] MEDS ORDERED: HEPARIN for ARTERIAL LINE 0 ML ONE (13:21)
[2017-04-09] MEDS ORDERED: LIDOCAINE 1%/EPI 1:100,000 20 ML VIAL. ONE (13:21)
[2017-04-09] MEDS ORDERED: fentaNYL PF VIAL 100 MCG/2 ML VIAL ONE (13:27)
[2017-04-09] MEDS ORDERED: MIDAZOLAM HCL/PF 2 MG/2 ML VIAL. ONE (13:27)
[2017-04-09] MEDS: DEXTROSE 50% 25 GM / 50ML DISP.SYRIN. IV PRN (13:28)
[2017-04-09 14:00] VITALS: BP 117/66
--- NOTE | 2017-04-09 15:29 | PATHOLOGY ---
PATHOLOGY REPORT * * * * * * * * FINAL DIAGNOSIS: Segments of skin and subcutaneous tissue and bone, right foot transmetatarsal amputation: - Focal gangrenous necrosis and ulceration of skin and subcutaneous tissue with acute necrotizing cellulitis/fasciitis and focal acute osteomyelitis. (JPM:rlm; 04/09/2017) REPORT ELECTRONICALLY SIGNED BY: Sammy Carter M.D. DATE/TIME: 04/09/2017 15:27 * * * * * * * * GROSS PATHOLOGY: Received in formalin labeled "Lizzette, necrotic tissue right forefoot with necrotizing infection", are multiple disrupted fragments of soft tissue and bone representing portions of a foot having an aggregate weight of 466 g. No toes are identified. Individual fragments vary from about 1.5 up to 10 7.5 5.5 cm. Several fragments are partially covered by overlying novoa-brown skin. One of the larger fragments measures about 7.5 7.5 4.5 cm and includes some attached fragments of overlying skin measuring up to about 3 0.7 cm. Located at one end is an oval defect measuring 4.7 1.7 cm extending into the underlying deep soft tissues. The tissue surrounding the defect has scattered hemorrhagic areas in regions of minor-brown discoloration and portions of overlying skin are absent. Attached to the deep surface of this fragment are portions of disrupted foot bones the largest measuring 2.6 2.2 1 cm. Deep soft tissues have scattered hemorrhagic areas and regions of pale ochoa softening and dark minor-brown discoloration. Several other fragments also has scattered hemorrhagic areas within the underlying soft tissue and regions of softening and discoloration. Several of these also include portions of disrupted foot bones. An intermediate size soft tissue partially covered by minor-brown skin measures 5.6 3.5 cm at the skin surface the width underlying tissue up to 1.3 cm in thickness. The skin surface has a shallow granular ochoa a red-brown area possibly representing a region of ulceration measuring about 4 2.2 cm. Another relatively large fragment of foot has a roughly convex configuration on one aspect and measures 8 6 6 cm. It is partially covered by overlying skin. Approximately half of the skin overlying this tissue has a dark brown pigmented appearance with a well demarcated adjacent area of forest fire equipment operator pigmentation with a possible central scar measuring about 3.5 cm in length. The underlying tissue has some areas of fibrous thickening. Soft tissue margins are indeterminate due to the marked degree of disruption and fragmentation of the specimen. Continuum Of Care Manager sections are submitted as follows: One larger fragment with a central oval defect and hemorrhagic areas in regions of minor-brown discoloration A1-A3, intermediate sized fragment with overlying region of possible ulceration A4, another relatively large portion of foot with sharply demarcated darker and forest fire equipment operator pigmented skin with central possible scar A5 and several fragments of disrupted foot bones A6-A 8 following decalcification. (CWM; 04/08/2017) INITIAL CPT CODE(S): 97910, 91461 Professional services performed by [facility] at [address] [address] Technical services performed by [facility] at [address] [place] [address], [facility] [address], [place] [address]. SPECIMEN(S) RECEIVED: A.Necrotic tissue right forefoot with necrotizing infection CLINICAL HISTORY: Necrotizing fasciitis PATIENT: LIZZETTE POWERJessee BENÍTEZ /AGE: 7 1960 (Age: 57) PATIENT #: [id number] ALT CASE #: SPECIMEN COLLECTION DATE: 04/04/2017 SPECIMEN RECEIVED DATE: 04/07/2017 [facility] - [address] [place] [address] - PHONE: [phone] * * * END OF REPORT * * *
[2017-04-09 18:00] VITALS: BP 132/95
[2017-04-09] MEDS: oxyCODONE IR 5 MG TABLET PO PRN (18:46)
[2017-04-09] MEDS: ATORVASTATIN CALCIUM 20 MG TABLET PO SCH (21:54)
[2017-04-09 22:00] VITALS: BP 130/68
[2017-04-09] MEDS: INSULIN DETEMIR 300 UNITS/3 ML INSULN.PEN. SQ SCH (22:01)
[2017-04-10 02:00] VITALS: BP 152/86
[2017-04-10 04:43] LABS: BASO # 0.1 x10^3/uL (0.0-0.2); BASO % 1 % (0-3); EOS % 1 % (0-3); HEMATOCRIT 22.3 % (39.0-53.0); HEMOGLOBIN 7.4 g/dL (13.0-17.5); LYMPH # 1.4 x10^3/uL (1.0-4.8); LYMPH % 7 % (24-48); MEAN CORPUSCULAR HEMOGLOBIN 30 pg (25-35); MEAN CORPUSCULAR HGB CONC 33 g/dL (31-37); MEAN CORPUSCULAR VOLUME 90 fL (79-100); MONO % 5 % (0-9); NEUT % 87 % (31-73); PLATELET COUNT 190 x10^3/uL (140-400); RED BLOOD COUNT 2.48 x10^6/uL (4.30-5.70); RED CELL DISTRIBUTION WIDTH 15.4 % (11.5-14.5); WHITE BLOOD COUNT 19.3 x10^3/uL (4.0-11.0)
[2017-04-10 05:14] LABS: ALBUMIN/GLOBULIN RATIO 0.4 (1.0-1.7); CALCIUM 8.4 mg/dL (8.5-10.1); CREATININE 4.1 mg/dL (0.7-1.3); GFR 18.4; MAGNESIUM 1.8 mg/dL (1.8-2.4); PHOSPHORUS 4.1 mg/dL (2.6-4.7); POTASSIUM 4.1 mmol/L (3.5-5.1); TOTAL BILIRUBIN 0.5 mg/dL (0.2-1.0); TOTAL PROTEIN 7.4 g/dL (6.4-8.2)
[2017-04-10 06:00] VITALS: BP 132/75
[2017-04-10] MEDS: PIPERACILLIN/TAZOBACTAM 2.25 GM in IV NORMAL SALINE 50ML 50 ML IV SCH (06:22)
[2017-04-10] MEDS: PANTOPRAZOLE 40 MG TABLET.DR. PO SCH (06:22)
[2017-04-10 07:00] VITALS: BP 144/81
[2017-04-10] MEDS: INSULIN ASPART 300 UNITS/3 ML INSULN.PEN SQ SCH ×4 (08:00→12:38)
[2017-04-10] MEDS: FOLIC/VIT B COMP W-C (RENAL) TABLET. PO SCH (08:47)
[2017-04-10] MEDS: SODIUM BICARBONATE 650 MG TABLET. PO SCH (08:47)
[2017-04-10] MEDS: ACETAMINOPHEN 500 MG TABLET PO PRN (08:47)
[2017-04-10] MEDS: FLUTICASONE 50MCG/NASAL SPRAY 16GM BOTTLE. NS SCH (08:47)
[2017-04-10] MEDS: FERROUS SULFATE 325 MG TABLET. PO SCH (08:47)
[2017-04-10 08:48] VITALS: BP 144/81
[2017-04-10] MEDS: CARVEDILOL 6.25 MG TABLET. PO SCH (08:48)
--- NOTE | 2017-04-10 09:09 | PDOC ---
Infectious Disease Note Subjective Subjective States ok but FSBS a little low this am Denies pain, upset stomach or SOA No fever ROS ROS GEN: Denies fevers, chills, sweats HEENT: Denies blurred vision, sore throat CV: Denies chest pain RESP: Denies shortness of air, cough GI: Denies n/v/d NEURO: Denies confusion, dizziness MSK: Denies weakness, joint pain/swelling Vital Sign Vital Signs Vital Signs Date Time Temp Pulse Resp B/P (MAP) Pulse Ox O2 Delivery O2 Flow Rate FiO2 04/10/17 08:48 97 144/81 04/10/17 07:00 97.5 18 96 Nasal Cannula 2.0 97.5 Physical Exam PHYSICAL EXAM GENERAL: Coop, NAD, eating breakfast OC/CP - clear LUNGS: Clear to auscultation. HEART: Normal S1 and S2. ABDOMEN: Nondistended, soft, nontender. Positive bowel sounds. EXTREMITIES: Previous left BKA. Right foot dressing dry and intact - vac SKIN: Without rash. NEUROLOGIC: Alert and coop RIJ (10-6). Clean but needs new dressing Labs Lab Laboratory Tests Test 04/09/17 10:38 04/09/17 12:41 04/09/17 13:00 04/09/17 13:23 Glucose (Fingerstick) 127 mg/dL (70-99) 65 mg/dL (70-99) 63 mg/dL (70-99) 67 mg/dL (70-99) Test 04/09/17 13:55 04/09/17 16:43 04/09/17 20:50 04/10/17 04:00 Glucose (Fingerstick) 99 mg/dL (70-99) 142 mg/dL (70-99) 159 mg/dL (70-99) White Blood Count 19.3 x10^3/uL (4.0-11.0) Red Blood Count 2.48 x10^6/uL (4.30-5.70) Hemoglobin 7.4 g/dL (13.0-17.5) Hematocrit 22.3 % (39.0-53.0) Mean Corpuscular Volume 90 fL (79-100) Mean Corpuscular Hemoglobin 30 pg (25-35) Mean Corpuscular Hemoglobin Concent 33 g/dL (31-37) Red Cell Distribution Width 15.4 % (11.5-14.5) Platelet Count 190 x10^3/uL (140-400) Neutrophils (%) (Auto) 87 % (31-73) Lymphocytes (%) (Auto) 7 % (24-48) Monocytes (%) (Auto) 5 % (0-9) Eosinophils (%) (Auto) 1 % (0-3) Basophils (%) (Auto) 1 % (0-3) Neutrophils # (Auto) 16.8 x10^3uL (1.8-7.7) Lymphocytes # (Auto) 1.4 x10^3/uL (1.0-4.8) Monocytes # (Auto) 0.9 x10^3/uL (0.0-1.1) Eosinophils # (Auto) 0.2 x10^3/uL (0.0-0.7) Basophils # (Auto) 0.1 x10^3/uL (0.0-0.2) Sodium Level 140 mmol/L (136-145) Potassium Level 4.1 mmol/L (3.5-5.1) Chloride Level 101 mmol/L (98-107) Carbon Dioxide Level 29 mmol/L (21-32) Anion Gap 10 (6-14) Blood Urea Nitrogen 16 mg/dL (8-26) Creatinine 4.1 mg/dL (0.7-1.3) Estimated GFR (Cockcroft-Gault) 18.4 BUN/Creatinine Ratio 4 (6-20) Glucose Level 121 mg/dL (70-99) Calcium Level 8.4 mg/dL (8.5-10.1) Phosphorus Level 4.1 mg/dL (2.6-4.7) Magnesium Level 1.8 mg/dL (1.8-2.4) Total Bilirubin 0.5 mg/dL (0.2-1.0) Aspartate Amino Transf (AST/SGOT) 16 U/L (15-37) Alanine Aminotransferase (ALT/SGPT) 25 U/L (16-63) Alkaline Phosphatase 66 U/L (46-116) Total Protein 7.4 g/dL (6.4-8.2) Albumin 2.0 g/dL (3.4-5.0) Albumin/Globulin Ratio 0.4 (1.0-1.7) Test 04/10/17 07:12 Glucose (Fingerstick) 105 mg/dL (70-99) Objective Assessment Necrotizing fasciitis and osteomyelitis of right foot, s/p open TMA debridement , 03/28. Intra-op cultures group B strep, Kleb oxytoca (R amp), & bacteroides/ Strep anginosis - s/p additional debridement of necrotic skin, subcutaneous tissue, fascia, tendons and exposed bone, 04/04. Intra-op cx: GNC Group B Strep bacteremia, POA, 03/28. Leukocytosis - stable - reactive with open wound and severe infection Anemia - better s/p PRBCs 04/06. still low NSTEMI CKD/HD Diabetes hx: MSSA, PSA & Providencia Plan Plan of Care Zosyn until at least 05/15 Monitor WBC in am, temp Refusing BKA - reviewed Vascular note 04/07. Needs line change as IJ in place since 03/28. IJ PICC vs Chest line. Hopefully today Agree with transfer to [facility] I recommended amputation JOSEFA MARIN MD Apr 10, 2017 09:09
[2017-04-10] MEDS ORDERED: LIDOCAINE 1%/EPI 1:100,000 20 ML VIAL. ONE (09:29)
[2017-04-10] MEDS ORDERED: HEPARIN PF 500 UNIT/5 ML DISP.SYRIN. IV ONE ×2 (09:30→10:15)
[2017-04-10] MEDS ORDERED: IOHEXOL 300 MG/ML 50 ML VIAL. ONE (10:04)
[2017-04-10] MEDS ORDERED: LIDOCAINE 1%/EPI 1:100,000 20 ML VIAL. IJ ONE (10:15)
--- NOTE | 2017-04-10 10:26 | PDOC ---
PROGRESS NOTES Subjective Subjective pt going for vascular catheter placement Objective Objective Vital Signs Date Time Temp Pulse Resp B/P (MAP) Pulse Ox O2 Delivery O2 Flow Rate FiO2 04/10/17 08:48 97 144/81 04/10/17 07:00 97.5 18 96 Nasal Cannula 2.0 97.5 Physical Exam Abdomen: Normal bowel sounds, Soft, No tenderness, No hepatosplenomegaly, No masses Heart: Regular rate, Normal S1, Normal S2, No murmurs, Gallops Extremities: No clubbing, No cyanosis, No edema, Normal pulses, No tenderness/ swelling General: Cooperative, No acute distress HEENT: Atraumatic, PERRLA, EOMI Lungs: Clear to auscultation, Normal air movement MUSCULOSKELETAL: Other (DIFFUSE MUSCLE ATROPHY) Neck: Supple Neuro: Other (UNABLE TO ASSESS, LETHARGIC) Psych/Mental Status: Mental status NL, Mood NL COMMENT wound vac rt foot Diagnosis Problem List Problems Medical Problems: (1) End stage renal disease Status: Acute (2) Hypertension Status: Acute (3) Septic shock Status: Acute DIABETES: Type II (Uncontrolled) RENAL FAILURE: ESRD ANEMIA: Chronic diseases (ESRD) Assessment Assessment 1. Sepsis. Blood culture shows strep group b 2. Necrotizing fasciitis of the right foot. 3. Gangrene of the right foot. 4. Osteomyelitis of the right foot. 5. Status post excision of the necrotic tissue as well as infected bones in the right forefoot in the setting of previous right transmetatarsal amputation. 6. Non-ST elevation myocardial infarction. 7. Diabetes mellitus type 2, insulin-dependent, not controlled. 8. End-stage renal disease, on hemodialysis. 9. Peripheral artery disease. 10. Noncompliance. The patient had missed dialysis x 2 before this admission. 11. Moderate protein calorie malnutrition. 12. acute on chronic anemia that is multifactorial including blood loss and end- stage renal disease 13. 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 14. chronic right maxillary sinusitis. 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 d/ to [facility] today. wbc 19 on IV antibiotics. wound VAC. s/p debridement 04/05 rt foot again. transferred to icu for bleeding from foot and hypotension. transferred to 4 th floor spoke with ID and Renal Hypotension responded to blood transfusion,fluids. Patient declined rt BKA .. wbc 19 down multifactorial.D/w ID.hb 7.3 Acute on chronic blood loss anemia- transfused 2 units . Kalli for n/v. s/p rt foot surgery. Prognosis guarded Problems: Plan Plan of Care Problems Medical Problems: (1) End stage renal disease Status: Acute (2) Hypertension Status: Acute (3) Septic shock Status: Acute Comment Review of Relevant I have reviewed the following items ginny (where applicable) has been applied. Labs Laboratory Tests Test 04/09/17 10:38 04/09/17 12:41 04/09/17 13:00 04/09/17 13:23 Glucose (Fingerstick) 127 mg/dL (70-99) 65 mg/dL (70-99) 63 mg/dL (70-99) 67 mg/dL (70-99) Test 04/09/17 13:55 04/09/17 16:43 04/09/17 20:50 04/10/17 04:00 Glucose (Fingerstick) 99 mg/dL (70-99) 142 mg/dL (70-99) 159 mg/dL (70-99) White Blood Count 19.3 x10^3/uL (4.0-11.0) Red Blood Count 2.48 x10^6/uL (4.30-5.70) Hemoglobin 7.4 g/dL (13.0-17.5) Hematocrit 22.3 % (39.0-53.0) Mean Corpuscular Volume 90 fL (79-100) Mean Corpuscular Hemoglobin 30 pg (25-35) Mean Corpuscular Hemoglobin Concent 33 g/dL (31-37) Red Cell Distribution Width 15.4 % (11.5-14.5) Platelet Count 190 x10^3/uL (140-400) Neutrophils (%) (Auto) 87 % (31-73) Lymphocytes (%) (Auto) 7 % (24-48) Monocytes (%) (Auto) 5 % (0-9) Eosinophils (%) (Auto) 1 % (0-3) Basophils (%) (Auto) 1 % (0-3) Neutrophils # (Auto) 16.8 x10^3uL (1.8-7.7) Lymphocytes # (Auto) 1.4 x10^3/uL (1.0-4.8) Monocytes # (Auto) 0.9 x10^3/uL (0.0-1.1) Eosinophils # (Auto) 0.2 x10^3/uL (0.0-0.7) Basophils # (Auto) 0.1 x10^3/uL (0.0-0.2) Sodium Level 140 mmol/L (136-145) Potassium Level 4.1 mmol/L (3.5-5.1) Chloride Level 101 mmol/L (98-107) Carbon Dioxide Level 29 mmol/L (21-32) Anion Gap 10 (6-14) Blood Urea Nitrogen 16 mg/dL (8-26) Creatinine 4.1 mg/dL (0.7-1.3) Estimated GFR (Cockcroft-Gault) 18.4 BUN/Creatinine Ratio 4 (6-20) Glucose Level 121 mg/dL (70-99) Calcium Level 8.4 mg/dL (8.5-10.1) Phosphorus Level 4.1 mg/dL (2.6-4.7) Magnesium Level 1.8 mg/dL (1.8-2.4) Total Bilirubin 0.5 mg/dL (0.2-1.0) Aspartate Amino Transf (AST/SGOT) 16 U/L (15-37) Alanine Aminotransferase (ALT/SGPT) 25 U/L (16-63) Alkaline Phosphatase 66 U/L (46-116) Total Protein 7.4 g/dL (6.4-8.2) Albumin 2.0 g/dL (3.4-5.0) Albumin/Globulin Ratio 0.4 (1.0-1.7) Test 04/10/17 07:12 04/10/17 09:02 Glucose (Fingerstick) 105 mg/dL (70-99) 111 mg/dL (70-99) Microbiology 03/28/17 Blood Culture - Final, Complete NO GROWTH AFTER 5 DAYS 04/04/17 Gram Stain - Final, Complete Medications Current Medications Fentanyl Citrate (Fentanyl 2ml Vial) 100 mcg STK-MED ONCE .ROUTE ; Start at 13:27; Stop 04/09/17 at 13:28; Status DC Heparin Sodium (Porcine) (Hep Lock Adult) 500 unit 1X ONCE IV ; Start at 10:15; Stop 10/19/17 at 10:16; Status DC Heparin Sodium (Porcine) (Hep Lock Adult) 500 unit STK-MED ONCE IV ; Start at 13:21; Stop 04/09/17 at 13:22; Status DC Heparin Sodium (Porcine) (Hep Lock Adult) 500 unit STK-MED ONCE IV ; Start at 09:30; Stop 04/10/17 at 09:31; Status DC Heparin Sodium/ Sodium Chloride 0 ml @ As Directed STK-MED ONCE .ROUTE ; Start 04/09/17 at 13:21; Stop 04/09/17 at 13:22; Status DC Heparin Sodium/ Sodium Chloride 500 ml @ As Directed STK-MED ONCE .ROUTE ; Start 04/10/17 at 09:29; Stop 04/10/17 at 09:30; Status DC Heparin Sodium/ Sodium Chloride 1,000 unit 1X ONCE IART ; Start 04/10/17 at 10 :15; Stop 04/10/17 at 10:16; Status DC Iohexol (Omnipaque 300 Mg/ml) 50 ml STK-MED ONCE .ROUTE ; Start 04/10/17 at 10: 04; Stop 04/10/17 at 10:05; Status DC Lidocaine/ Epinephrine (Xylocaine 1%-Epi 1:100,000) 4 ml 1X ONCE IJ ; Start at 10:15; Stop 04/10/17 at 10:16; Status DC Lidocaine/ Epinephrine (Xylocaine 1%-Epi 1:100,000) 20 ml STK-MED ONCE .ROUTE ; Start 04/09/17 at 13:21; Stop 04/09/17 at 13:22; Status DC Lidocaine/ Epinephrine (Xylocaine 1%-Epi 1:100,000) 20 ml STK-MED ONCE .ROUTE ; Start 04/10/17 at 09:29; Stop 04/10/17 at 09:30; Status DC Midazolam HCl (Versed) 2 mg STK-MED ONCE .ROUTE ; Start 04/09/17 at 13:27; Stop 04/09/17 at 13:28; Status DC Vitals/I & O Vital Sign - Last 24 Hours 04/09/17 04/09/17 04/09/17 04/09/17 14:00 17:16 18:00 18:46 Temp 98.7 98.1 98.7 98.1 Pulse 95 95 95 Resp 18 18 B/P (MAP) 117/66 (83) 117/66 132/95 (107) Pulse Ox 94 94 O2 Delivery Nasal Cannula Nasal Cannula Room Air O2 Flow Rate 2.0 2.0 04/09/17 04/09/17 04/09/17 04/10/17 19:59 20:20 22:00 02:00 Temp 98.7 98.3 98.7 98.3 Pulse 56 99 Resp 18 18 B/P (MAP) 130/68 (88) 152/86 (108) Pulse Ox 98 96 O2 Delivery Room Air Nasal Cannula Nasal Cannula Nasal Cannula O2 Flow Rate 2.0 2.0 2.0 04/10/17 04/10/17 04/10/17 06:00 07:00 08:48 Temp 98.5 97.5 98.5 97.5 Pulse 92 97 97 Resp 18 18 B/P (MAP) 132/75 (94) 144/81 (102) 144/81 Pulse Ox 96 96 O2 Delivery Nasal Cannula Nasal Cannula O2 Flow Rate 2.0 2.0 VIKTOR PARK MD Apr 10, 2017 10:26
[2017-04-10] MEDS ORDERED: IOHEXOL 300 MG/ML 50 ML VIAL. IV ONE (10:30)
[2017-04-10] MEDS ORDERED: CONTRAST GIVEN MC PRN (10:45)
--- NOTE | 2017-04-10 10:59 | RAD ---
Procedure: 1. Sonography of the left brachiocephalic vein and superior vena cava 2. Ultrasound and fluoroscopically guided placement of tunnel central venous catheter. 04/10/2017 10:54 AM Clinical Indication: correction Ab in HD pt The procedures performed under local anesthesia. Fluoroscopy time: 10.5 minutes Dose area product: 42 Gycm2 Consent: The procedure was explained in its entirety to the patient or the patients designated authorization representative by a member of the treatment team, including a discussion of the risks, benefits and commonly accepted alternatives to the procedure, as well as the expected consequences of no therapy whatsoever. Discussion of the risks included, but was not limited to, those that are most frequent and those that are rare but possibly severe or life-threatening, as well as the possibility of unforeseen complications. Sterility: All elements of maximal sterile barrier technique including the use of a cap, mask, sterile gown, sterile gloves, large sterile sheet, appropriate hand hygiene, and 2% chlorhexidine for cutaneous antisepsis (or acceptable alternative antiseptic per current guidelines) were followed for this procedure. Technique and Findings: Following informed consent, the patient was prepped and draped in the usual sterile fashion. Ultrasound interrogation of the left neck revealed patency and compressibility of the left internal jugular vein. A 21-gauge micropuncture was then used to gain access to this vein under ultrasound guidance. A hard copy ultrasound image was recorded. The needle was exchanged over a wire for a sheath. Attempts to direct the guidewire into the right atrium were unsuccessful. A venogram was performed confirming normal anatomy. A small incision was made several centimeters inferior to the left clavicle. A power line was trimmed to length, advanced from the small skin incision to the venotomy site, and then advanced through a peel-away sheath to the level of the cavoatrial junction. Catheter was found to flush and aspirate normally. Catheter was secured in place with 2-0 Prolene suture and a sterile dressing was applied. Catheter was packed with heparin per protocol. The neck dermatotomy was closed with Dermabond. No immediate complications were identified. Impression: Successful ultrasound and fluoroscopically guided placement of a left internal jugular tunneled central venous catheter
--- NOTE | 2017-04-10 11:08 | PDOC ---
SUBJECTIVE ROS ESRD Just back from IR - Got Central line placed CVS: no Orthopnea, no CP RESP: no SOB, no GODDARD GI: no Nausea, on Vomiting : no Dysuria, no Urgency OBJECTIVE Vital Signs Vital Signs Date Time Temp Pulse Resp B/P (MAP) Pulse Ox O2 Delivery O2 Flow Rate FiO2 04/10/17 08:48 97 144/81 04/10/17 07:00 97.5 18 96 Nasal Cannula 2.0 97.5 PHYSICAL EXAM Physical Exam GEN: Awake, Oriented x 2, In no distress EYES: Vision Unchanged, Conjunctiva Normal EN: No EN Drainage, Mucous Membranes moist NECK: no JVD, min JVP, Supple, no Thyromegaly CVS: S1S2, + Murmur, No Gallop, No Rub,no Edema RESP: no Rales, no Rhonchi,no Acc. Muscle Use GI: BS + ve, NO Bruit, Non Tender, Non Distended : no CVA tenderness, no Suprapubic Tenderness DIAGNOSIS/ASSESSMENT Assessment & Plan ESRD: Current fluid and E-lyte status does not necessitate emergent need for dialysis. Will re-evaluate for dialysis in the am and continue on MWF schedule. ANEMIA; Aranesp as ordered, Transfuse with next HD as needed for hgb < 7 HTN: Current BP meds as reviewed. See orders for changes. BONE & MINERAL: follow phos and alter binder regimen as needed OK to go t o [facility] from Renal standpoint Discussed Plan of Care with pt at bedside COMMENT/RELEVANT DATA Meds Current Medications Medications (Trade) Dose Ordered Sig/Teresa Start Time Stop Time Status Last Admin Dose Admin Acetaminophen (Tylenol) 500 mg 1X PRN PRN 04/02/17 08:45 04/03/17 08:44 DC Albumin Human 200 ml @ 200 mls/hr 1X PRN PRN 04/07/17 10:45 04/07/17 16:44 DC 04/07/17 13:09 200 MLS/HR Alteplase, Recombinant (Cathflo) 2 mg 1X ONCE 04/06/17 03:30 04/06/17 03:31 DC 04/06/17 04:46 2 MG Aspirin (Ecotrin) 81 mg [id number] 03/29/17 08:00 04/06/17 09:13 DC 04/05/17 07:10 81 MG Atorvastatin Calcium (Lipitor) 20 mg QHS 03/28/17 21:00 04/09/17 21:54 20 MG Carvedilol (Coreg) 6.25 mg [id number] 03/28/17 17:00 04/10/17 08:48 6.25 MG Cellulose 1 each STK-MED ONCE 04/04/17 17:49 04/04/17 18:50 DC 04/04/17 18:13 1 EACH Clonidine HCl (Catapres) 0.1 mg 1X PRN PRN 04/02/17 08:45 04/03/17 08:44 DC Darbepoetin Greg (Aranesp) 60 mcg WEEKLYHS 03/28/17 21:00 04/04/17 22:14 60 MCG Desflurane (Suprane) 60 ml STK-MED ONCE 03/28/17 16:19 03/28/17 16:20 DC Dexamethasone Sodium Phosphate (Decadron) 20 mg STK-MED ONCE 03/28/17 16:19 03/28/17 16:20 DC Dextrose (Dextrose 50%-Water Syringe) 12.5 gm PRN Q15MIN PRN 03/28/17 17:00 04/09/17 13:28 12.5 GM Dextrose/Sodium Chloride 1,000 ml @ 50 mls/hr Q20H 04/03/17 14:30 04/06/17 13:19 DC 04/04/17 15:26 50 MLS/HR Diphenhydramine HCl (Benadryl) 25 mg 1X PRN PRN 04/09/17 09:00 04/10/17 08:59 DC Ephedrine Sulfate (Akovaz) 50 mg STK-MED ONCE 03/28/17 17:03 03/28/17 17:04 DC Fentanyl Citrate (Fentanyl 2ml Vial) 100 mcg STK-MED ONCE 04/09/17 13:27 04/09/17 13:28 DC Ferrous Sulfate (Feosol) 325 mg DAILY 03/29/17 09:00 04/10/17 08:47 325 MG Fluticasone Propionate (Flonase) 2 spray BID 03/28/17 21:00 04/10/17 08:47 2 SPRAY Gentamicin Sulfate 320 mg/ Sodium Chloride 108 ml @ 108 mls/hr 1X ONCE 03/28/17 11:30 03/28/17 12:29 DC 03/28/17 14:56 108 MLS/HR Heparin Sodium (Porcine) (Hep Lock Adult) 500 unit 1X ONCE 04/10/17 10:15 04/10/17 10:16 DC 04/10/17 10:46 500 UNIT Heparin Sodium (Porcine) (Heparin Sodium) 3,000 unit 1X ONCE 04/03/17 13:30 04/03/17 13:38 DC 04/03/17 14:22 4,000 UNIT Heparin Sodium/ Sodium Chloride 1,000 unit 1X ONCE 04/10/17 10:15 04/10/17 10:16 DC 04/10/17 10:46 1,000 UNIT Hydralazine HCl (Apresoline Inj) 10 mg 1X ONCE 04/03/17 14:15 04/03/17 14:19 DC 04/03/17 14:21 10 MG Hydromorphone HCl (Dilaudid) 0.5 mg PRN Q10MIN PRN 04/04/17 18:45 04/05/17 18:44 DC Info (Do NOT chart on this entry -- for MONITORING) 1 each PRN DAILY PRN 04/10/17 10:45 04/12/17 10:44 Info (PHARMACY MONITORING -- do not chart) 1 each PRN DAILY PRN 04/09/17 09:00 UNV Insulin Aspart (NovoLOG) 8 units 1X ONCE 03/29/17 09:30 03/29/17 09:31 DC 03/29/17 09:48 8 UNITS Insulin Detemir (Levemir) 15 units QHS 03/28/17 21:00 04/09/17 22:01 15 UNITS Iodixanol (Visipaque 320) 100 ml 1X ONCE 04/03/17 13:15 04/03/17 13:16 DC 04/03/17 14:19 109 ML Iohexol (Omnipaque 300 Mg/ml) 10 ml 1X ONCE 04/10/17 10:30 04/10/17 10:31 DC 04/10/17 10:45 10 ML Labetalol HCl (Normodyne) 10 mg PRN Q1HR PRN 04/02/17 08:45 04/03/17 08:44 DC Lidocaine HCl (Lidocaine Pf 2% Vial) 5 ml STK-MED ONCE 04/04/17 17:45 04/04/17 17:46 DC Lidocaine HCl (Xylocaine-Mpf 1% Vial) 2 ml PRN 1X PRN 04/04/17 18:45 04/05/17 18:44 DC Lidocaine/ Epinephrine (Xylocaine 1%-Epi 1:100,000) 4 ml 1X ONCE 04/10/17 10:15 04/10/17 10:16 DC 04/10/17 10:46 10 ML Lidocaine/Sodium Bicarbonate (Buffered Lidocaine 1%) 20 ml 1X ONCE 04/03/17 13:15 04/03/17 13:16 DC 04/03/17 14:20 3 ML Linezolid 300 ml @ 300 mls/hr Q12HR 03/28/17 21:00 04/01/17 09:09 DC 04/01/17 08:48 300 MLS/HR Magnesium Sulfate/ Dextrose 50 ml @ 25 mls/hr PRN DAILY PRN 04/08/17 12:00 Midazolam HCl (Versed) 2 mg STK-MED ONCE 04/09/17 13:27 04/09/17 13:28 DC Morphine Sulfate 10 mg STK-MED ONCE 04/04/17 18:56 04/04/17 18:57 DC Mupirocin (Bactroban) 22 lesvia STK-MED ONCE 03/28/17 16:20 03/28/17 17:20 DC Norepinephrine Bitartrate 250 ml @ 0 mls/hr CONT PRN 04/06/17 02:45 Ondansetron HCl (Zofran Odt) 4 mg Q4H PRN 03/28/17 17:00 03/31/17 10:57 4 MG Ondansetron HCl (Zofran) 4 mg PRN Q6HRS PRN 04/04/17 18:45 04/05/17 18:44 DC Oxycodone HCl (Roxicodone) 5 mg PRN Q6HRS PRN 03/28/17 17:00 04/09/17 18:46 5 MG Pantoprazole Sodium (Protonix) 40 mg DAILYAC 03/29/17 07:30 04/10/17 06:22 40 MG Phenylephrine HCl (Du-Synephrine Inj) 10 mg STK-MED ONCE 04/04/17 18:44 04/04/17 18:45 DC Phenylephrine HCl 80 mg/Sodium Chloride 258 ml @ 0 mls/hr CONT PRN 04/04/17 21:00 04/05/17 16:34 DC Piperacillin Sod/ Tazobactam Sod (Zosyn Per Pharmacy) 1 each PRN DAILY PRN 03/28/17 10:30 Piperacillin Sod/ Tazobactam Sod 2.25 gm/Sodium Chloride 50 ml @ 100 mls/hr Q8HRS 03/28/17 21:00 04/10/17 06:22 100 MLS/HR Prochlorperazine Edisylate (Compazine) 5 mg PACU PRN PRN 04/04/17 18:45 04/05/17 18:44 DC Propofol 20 ml @ As Directed STK-MED ONCE 04/04/17 17:45 04/04/17 17:46 DC Ringer's Solution 1,000 ml @ 0 mls/hr Q0M 04/04/17 18:34 04/05/17 06:33 DC Sevoflurane (Ultane) 30 ml STK-MED ONCE 04/04/17 17:45 04/04/17 17:46 DC Sodium Bicarbonate (Sodium Bicarbonate) 650 mg BID 03/28/17 21:00 04/10/17 08:47 650 MG Sodium Chloride 1,000 ml @ 400 mls/hr Q2H30M PRN 04/09/17 08:51 04/09/17 20:50 DC Sodium Chloride (Normal Saline Flush) 10 ml 1X PRN PRN 03/31/17 09:00 04/01/17 08:59 DC Vancomycin HCl 1 each 1X ONCE 03/29/17 16:00 03/29/17 16:01 Cancel Vancomycin HCl (Vanco Per Pharmacy) 1 each PRN DAILY PRN 03/28/17 19:30 03/29/17 07:23 DC 03/28/17 19:38 1 EACH Vancomycin HCl 1.75 gm/Sodium Chloride 500 ml @ 250 mls/hr 1X ONCE 03/28/17 11:00 03/28/17 12:59 DC 03/28/17 11:00 250 MLS/HR Vitamin B Complex/ Vitamin C (Mary-Lisa) 1 tab DAILY 03/29/17 09:00 04/10/17 08:47 1 TAB Lab Laboratory Tests Test 04/09/17 12:41 04/09/17 13:00 04/09/17 13:23 04/09/17 13:55 Glucose (Fingerstick) 65 mg/dL (70-99) 63 mg/dL (70-99) 67 mg/dL (70-99) 99 mg/dL (70-99) Test 04/09/17 16:43 04/09/17 20:50 04/10/17 04:00 04/10/17 07:12 Glucose (Fingerstick) 142 mg/dL (70-99) 159 mg/dL (70-99) 105 mg/dL (70-99) White Blood Count 19.3 x10^3/uL (4.0-11.0) Red Blood Count 2.48 x10^6/uL (4.30-5.70) Hemoglobin 7.4 g/dL (13.0-17.5) Hematocrit 22.3 % (39.0-53.0) Mean Corpuscular Volume 90 fL (79-100) Mean Corpuscular Hemoglobin 30 pg (25-35) Mean Corpuscular Hemoglobin Concent 33 g/dL (31-37) Red Cell Distribution Width 15.4 % (11.5-14.5) Platelet Count 190 x10^3/uL (140-400) Neutrophils (%) (Auto) 87 % (31-73) Lymphocytes (%) (Auto) 7 % (24-48) Monocytes (%) (Auto) 5 % (0-9) Eosinophils (%) (Auto) 1 % (0-3) Basophils (%) (Auto) 1 % (0-3) Neutrophils # (Auto) 16.8 x10^3uL (1.8-7.7) Lymphocytes # (Auto) 1.4 x10^3/uL (1.0-4.8) Monocytes # (Auto) 0.9 x10^3/uL (0.0-1.1) Eosinophils # (Auto) 0.2 x10^3/uL (0.0-0.7) Basophils # (Auto) 0.1 x10^3/uL (0.0-0.2) Sodium Level 140 mmol/L (136-145) Potassium Level 4.1 mmol/L (3.5-5.1) Chloride Level 101 mmol/L (98-107) Carbon Dioxide Level 29 mmol/L (21-32) Anion Gap 10 (6-14) Blood Urea Nitrogen 16 mg/dL (8-26) Creatinine 4.1 mg/dL (0.7-1.3) Estimated GFR (Cockcroft-Gault) 18.4 BUN/Creatinine Ratio 4 (6-20) Glucose Level 121 mg/dL (70-99) Calcium Level 8.4 mg/dL (8.5-10.1) Phosphorus Level 4.1 mg/dL (2.6-4.7) Magnesium Level 1.8 mg/dL (1.8-2.4) Total Bilirubin 0.5 mg/dL (0.2-1.0) Aspartate Amino Transf (AST/SGOT) 16 U/L (15-37) Alanine Aminotransferase (ALT/SGPT) 25 U/L (16-63) Alkaline Phosphatase 66 U/L (46-116) Total Protein 7.4 g/dL (6.4-8.2) Albumin 2.0 g/dL (3.4-5.0) Albumin/Globulin Ratio 0.4 (1.0-1.7) Test 04/10/17 09:02 Glucose (Fingerstick) 111 mg/dL (70-99) JONATHAN LYON MD Apr 10, 2017 11:08
[2017-04-10] MEDS ORDERED: RAMI5CAP33 PO (16:04)
[2017-04-10] MEDS ORDERED: PIPE2.259 IV (16:06)
--- NOTE | 2017-04-12 22:30 | PDOC ---
Provider Note Provider Note Discharge summary dictated. #[id number] VIKTOR PARK MD Apr 12, 2017 22:30
--- NOTE | 2017-04-13 01:03 | DS ---
DATE OF DISCHARGE: 04/10/2017 PROCEDURES DONE: Debridement of the right foot ulcer x 2, echocardiogram, hemodialysis, blood transfusion, arteriogram of lower extremity, lower extremity ultrasound and CT head. HOSPITAL COURSE: The patient is a 57-year-old male had diabetes and renal failure, on hemodialysis and had a [id number] amputation. The patient Symes amputation of the right foot but he had infection, was admitted to the hospital for IV antibiotics. The patient was taken to surgery on 03/28/2017 shows gas gangrene in the right foot and the patient had a surgical debridement, was put on IV antibiotics. The patient got dialyzed in the hospital. Had an echocardiogram, which showed a 35% ejection fraction, severe hypokinesia, mild left ventricular dysfunction. Had a CT head, which shows left parietal infarct. The patient had an x-ray of the foot, which shows osteomyelitis. Lower extremity ultrasound moderate trifurcation disease and the patient was recommended amputation but he refused. The patient had arteriogram on 04/02/2017, 60% stenosis of the distal right SFA, just above the abductor canal, successfully treated with balloon angioplasty, dorsalis pedis artery, medial and lateral plantar arteries are occluded. The patient was recommended amputation, but the patient refused surgery intervention again, amputation again and the patient was taken to surgery on 04/04/2017 for the debridement. The patient was placed wound VAC and the patient had a group B strep bacteremia and the wound shows a group B strep, klebsiella and bacteroides. The patient needed 6 weeks of IV antibiotics, Zosyn had a tunneled central venous catheter placed by Interventional Radiology for IV antibiotics. After that, the patient was transferred to [facility]. The patient needed 4-6 weeks of IV antibiotics. Wound VAC, wound care, dialysis and physical therapy, so the patient was transferred to [facility]. FINAL DIAGNOSES: 1. Necrotizing gangrenous right foot with ulcers. The patient refused amputation. 2. Had angioplasty of the superficial femoral artery. 3. Surgical debridement of the wounds. 4. End-stage renal disease, on hemodialysis. 5. Had a group B streptococcus bacteremia with group B streptococcus infection of the foot. 6. Old cerebrovascular accident. 7. Chronic systolic heart failure. 8. Hypertension. 9. Diabetes, insulin dependent. 10. General debility, history of diskitis and endocarditis in the past. 11. Rt foot prior Symes amputation 12.Lt BKA PLAN: At this time, transferred to [facility], needed 6 weeks IV antibiotics. Dialysis 3 times a week, wound care and wound VAC. The patient refused amputation of the right foot at this time, recommended [id number] amputation. VIKTOR PARK MD DR: TIGIST/richi JOB#: [id number] / [id number] TRISTON
== END 2017-04-10 14:30 | DRG 853 ==
LOC: ER 09:15 → 1 WEST ICU 10:30 → 2 SOUTH 03-29 21:21 → 2 NORTH 04-04 18:24 → 1 WEST ICU 04-04 21:15 → 4 NORTH 04-05 16:00 → 1 WEST ICU 04-06 01:03 → 4 NORTH 04-07 20:10
PROVIDERS: ADMIT Internal Medicine; ATTEND Internal Medicine
PROC: 0QBN0ZZ Excision of Right Metatarsal, Open Approach (ICD-10-PCS; 2017-03-28)
PROC: 30233N1 Transfusion of Nonautologous Red Blood Cells into Peripheral Vein, Percutaneous Approach (ICD-10-PCS; principal; 2017-03-29)
PROC: 5A1D70Z Performance of Urinary Filtration, Intermittent, Less than 6 Hours Per Day (ICD-10-PCS; 2017-03-31)
PROC: 5A1D70Z Performance of Urinary Filtration, Intermittent, Less than 6 Hours Per Day (ICD-10-PCS; 2017-04-02)
PROC: 0QBN0ZZ Excision of Right Metatarsal, Open Approach (ICD-10-PCS; 2017-04-04)
PROC: 5A1D70Z Performance of Urinary Filtration, Intermittent, Less than 6 Hours Per Day (ICD-10-PCS; 2017-04-04)
PROC: 5A1D70Z Performance of Urinary Filtration, Intermittent, Less than 6 Hours Per Day (ICD-10-PCS; 2017-04-07)
PROC: 5A1D70Z Performance of Urinary Filtration, Intermittent, Less than 6 Hours Per Day (ICD-10-PCS; 2017-04-09)
PROC: 02HV33Z Insertion of Infusion Device into Superior Vena Cava, Percutaneous Approach (ICD-10-PCS; 2017-04-10)
PROC: B5181ZA Fluoroscopy of Superior Vena Cava using Low Osmolar Contrast, Guidance (ICD-10-PCS; 2017-04-10)
PROC: B548ZZA Ultrasonography of Superior Vena Cava, Guidance (ICD-10-PCS; 2017-04-10)
PROC: 0JH63XZ Insertion of Tunneled Vascular Access Device into Chest Subcutaneous Tissue and Fascia, Percutaneous Approach (ICD-10-PCS; 2017-04-10)
DX: A41.9 Sepsis, unspecified organism (principal); N18.6 End stage renal disease; I21.4 Non-ST elevation (NSTEMI) myocardial infarction; R65.21 Severe sepsis with septic shock; M72.6 Necrotizing fasciitis; A48.0 Gas gangrene; G93.41 Metabolic encephalopathy; I13.2 Hypertensive heart and chronic kidney disease with heart failure and with stage 5 chronic kidney disease, or end stage renal disease; E11.22 Type 2 diabetes mellitus with diabetic chronic kidney disease; D62 Acute posthemorrhagic anemia; E44.0 Moderate protein-calorie malnutrition; I50.22 Chronic systolic (congestive) heart failure; L02.611 Cutaneous abscess of right foot; M86.9 Osteomyelitis, unspecified; E11.52 Type 2 diabetes mellitus with diabetic peripheral angiopathy with gangrene; B95.1 Streptococcus, group B, as the cause of diseases classified elsewhere; E78.00 Pure hypercholesterolemia, unspecified; E78.5 Hyperlipidemia, unspecified; E11.621 Type 2 diabetes mellitus with foot ulcer; E11.65 Type 2 diabetes mellitus with hyperglycemia; E11.69 Type 2 diabetes mellitus with other specified complication; I25.10 Atherosclerotic heart disease of native coronary artery without angina pectoris; J32.0 Chronic maxillary sinusitis; L97.519 Non-pressure chronic ulcer of other part of right foot with unspecified severity; B96.89 Other specified bacterial agents as the cause of diseases classified elsewhere; E21.3 Hyperparathyroidism, unspecified; G93.89 Other specified disorders of brain; Z53.20 Procedure and treatment not carried out because of patient's decision for unspecified reasons; Z79.4 Long term (current) use of insulin; Z82.49 Family history of ischemic heart disease and other diseases of the circulatory system; Z83.3 Family history of diabetes mellitus; Z86.73 Personal history of transient ischemic attack (TIA), and cerebral infarction without residual deficits; Z89.512 Acquired absence of left leg below knee; Z91.19 Patient's noncompliance with other medical treatment and regimen; Z99.2 Dependence on renal dialysis; Z89.421 Acquired absence of other right toe(s); Z68.27 Body mass index [BMI] 27.0-27.9, adult; Z86.14 Personal history of Methicillin resistant Staphylococcus aureus infection; M46.40 Discitis, unspecified, site unspecified
CPT/HCPCS: 36415; 36556; 36558; 36600; 37224; 70450; 71010; 73620; 73630; 75625; 75710; 76937; 77001; 80048; 80053; 80069; 82805; 82962; 83605; 83735; 83880; 84100; 84484; 85007; 85014; 85018; 85025; 85027; 85610; 85730; 86140; 86706; 86850; 86900; 86901; 86920; 87040; 87071; 87075; 87186; 87205; 87324; 87340; 87341; 87641; 88305; 88311; 93005; 93306; 93923; 96365; 96368; 99152; 99153; A4215; C1713; C1751; C1760; C1769; C1892; C1894; C2623; G0269; J0360; J0881; J1100; J1580; J1644; J1815; J2020; J2250; J2270; J2370; J2405; J2543; J2704; J2997; J3010; J3370; J3490; J7030; J7040; J7042; P9016; P9045; P9046; Q0162; Q9967; 97530; 97535; 99291-25; J2001

== ENCOUNTER → 2017-05-06 | Outpatient (CLI) | payer MEDICARE, BC ==
[~2017-05-06] VITALS: Ht 167.6 cm; Wt 75.7 kg
[~2017-05-06] MED LIST changes: +ALBU2.5V5 NEB; +ASPI-482 PO; +FAMO20TA5 PO; +HEPARIN PF 500 UNIT/5 ML DISP.SYRIN. IV ONE; +LIDOCAINE 1% / SOD BICARB 8.4% 20 ML VIAL. IJ ONE; +LIDOCAINE 1%/EPI 1:100,000 20 ML VIAL. INJ ONE; +LIDOCAINE 1%/EPI 1:100,000 20 ML VIAL. ONE; +LOSA25TA4 PO; +PIPE2.259 IV; +RAMI5CAP33 PO; +SODI104S NS; +TIZA4TAB PO
[2017-05-06 12:45] VITALS: BP 98/53
[2017-05-06 13:15] VITALS: BP 102/71
--- NOTE | 2017-05-06 16:54 | RAD ---
Removal of malpositioned left internal jugular power line and replacement with a new tunneled central venous catheter through the pre-existing venotomy site 05/06/2017 Indication: Malpositioned power line Discussion: The risks and benefits of the procedure were discussed patient. Informed consent was obtained. A timeout procedure was performed. The left neck and chest were prepped and draped using sterile barrier technique including the pre-existing catheter. Fluoroscopic evaluation demonstrated the catheter repositioned jugular vein. Catheter was removed over a Glidewire which was then advanced into the right atrium. The new catheter was advanced over this glide wire subsidence tip was in the mid right atrium with the patient supine. No immediate complications were identified. The catheter secured in place and a sterile dressing was applied. Fluoroscopy time 3.5 minutes Dose area product 370.8 [id number] Impression: Successful removal of pre-existing mal positioned left IJ power line replacement with a new left IJ tunneled central venous catheter with tip now in the proximal right atrium.
== END | disposition home or self-care (01) ==
LOC: INTRAD 12:47
PROVIDERS: ATTEND Internal Medicine Pulmonary Disease
DX: T85.628A Displacement of other specified internal prosthetic devices, implants and grafts, initial encounter (principal); Y84.8 Other medical procedures as the cause of abnormal reaction of the patient, or of later complication, without mention of misadventure at the time of the procedure; Y92.89 Other specified places as the place of occurrence of the external cause; E78.00 Pure hypercholesterolemia, unspecified; E11.42 Type 2 diabetes mellitus with diabetic polyneuropathy; Z87.39 Personal history of other diseases of the musculoskeletal system and connective tissue; I12.9 Hypertensive chronic kidney disease with stage 1 through stage 4 chronic kidney disease, or unspecified chronic kidney disease; N18.9 Chronic kidney disease, unspecified; E11.22 Type 2 diabetes mellitus with diabetic chronic kidney disease
CPT/HCPCS: 36581; 77001; C1751; C1769; J1644; J3490